=== PATIENT | male | born 1955 | race African-American/Black ===

== ENCOUNTER 2016-09-06 11:56 | Inpatient (IN) | payer OTHER ==
[2016-09-06 13:20] VITALS: BMI 28.4
--- NOTE | 2016-09-06 17:19 | HP ---
CIWA Score - CIWA Score Nausea/Vomitin-Mild Nausea/No Vomiting Muscle Tremors: 4-Moderate,w/Arms Extend Anxiety: 3 Agitation: 4-Moderately Restless Paroxysmal Sweats: 1-Minimal Palms Moist Orientation: 0-Oriented Tacttile Disturbances: 0-None Auditory Disturbances: 0-None Visual Disturbances: 0-None Headache: 1-Very Mild (RECEIVED 75 MG LIBRIUM AT [facility] 09/06/16) CIWA-Ar Total Score: 14 Admission ROS S - HPI Chief Complaint: WITHDRAWAL SX Allergies/Adverse Reactions: Allergies Allergy/AdvReac Type Severity Reaction Status Date / Time fish derived [Fish derived] Allergy Severe Swelling Verified 09/06/16 15:11 Penicillins Allergy Severe Swelling Verified 09/06/16 15:11 lactose AdvReac Severe diarrhea Verified 09/06/16 15:11 History of Present Illness: 61 YEARS OLD MALE WITH LONG HISTORY OF ALCOHOL NICOTINE DEPENDENCE, HAS BPH, POSITIVE PPD, SEIZURE TREATED WITH LOMECTAL ASTHMA COPD AND BIPOLAR II IS ADMITTED TO DETOX Exam Limitations: No Limitations - Ebola screening Have you traveled outside of the country in the last 21 days: No Have you had contact with anyone from an Ebola affected area: No Have you been sick,other than usual withdrawal symptoms: No Do you have a fever: No - Review of Systems Constitutional: Chills, Changes in sleep, Weight Stable EENT: reports: Other (EYE GLASSES) Respiratory: reports: SOB with Exertion (ASTHMA) GI: reports: Nausea, Poor Fluid Intake, Abdominal cramping : reports: Other (PROSTATE ENLARGMENT) Musculoskeletal: reports: No Symptoms Reported Neuro: reports: Seizure (SINCE ), Tremors Endocrine: reports: No Symptoms Reported Hematology: reports: No Symptoms Reported Psychiatric: reports: Judgement Intact, Orientated x3 Other Systems: Reviewed and Negative Patient History - Patient Medical History Hx Anemia: Yes (H/O) Hx Asthma: Yes Hx Chronic Obstructive Pulmonary Disease (COPD): Yes Hx Cancer: No Hx Cardiac Disorders: No Hx Congestive Heart Failure: No Hx Hypertension: No Hx Hypercholesterolemia: No Hx Pacemaker: No HX Cerebrovascular Accident: No Hx Seizures: Yes (last episode was in 2014 RELATED PANIC ATTACK) Hx Dementia: No Hx Diabetes: No Hx Gastrointestinal Disorders: No Hx Liver Disease: Yes (HEP C) Hx Genitourinary Disorders: No Hx Sexually Transmitted Disorders: No Hx Renal Disease (ESRD): No Hx Thyroid Disease: No Hx Human Immunodeficiency Virus (HIV): No (08/01 LAST NEGATIVE) Hx Hepatitis C: Yes Hx Depression: No Hx Suicide Attempt: Yes (pill overdose in 2014) Hx Bipolar Disorder: Yes (depakote and trazodone ) Hx Schizophrenia: No - Patient Surgical History Past Surgical History: Yes Hx Neurologic Surgery: No Hx Cataract Extraction: No Hx Cardiac Surgery: No Hx Lung Surgery: No Hx Breast Surgery: No Hx Breast Biopsy: No Hx Abdominal Surgery: Yes (umbilical hernia as ) Hx Appendectomy: No Hx Cholecystectomy: No Hx Genitourinary Surgery: No Hx Orthopedic Surgery: No Anesthesia Reaction: No - PPD History Previous Implant?: Yes Documented Results: Positive w/o proof Implanted On Prior [facility] Admission?: No Results: CXR 05/30 PPD to be Administered?: No - Smoking Cessation Smoking history: Current every day smoker Have you smoked in the past 12 months: Yes Aproximately how many cigarettes per day: 4 Cigars Per Day: 0 Hx Chewing Tobacco Use: No Initiated information on smoking cessation: Yes 'Breaking Loose' booklet given: 09/06/16 - Substance & Tx. History Hx Alcohol Use: Yes Hx Substance Use: No Substance Use Type: Alcohol Hx Substance Use Treatment: Yes - Substances Abused Alcohol-wine Route: Oral Frequency: Daily Amount used: 2 1/2 pts. Age of first use: 14 Date of Last Use: 09/06/16 Family Disease History - Family Disease History Family Disease History: Other: Father (ALCOHOLIC/), Mother (ALCOHOLIC/ ), Brother (DRUG ABUSE) Admission Physical Exam BHS - Vital Signs Vital Signs: Vital Signs - 24 hr 09/06/16 13:18 Temperature 96.1 F L Pulse Rate 84 Respiratory 20 Rate Blood Pressure 126/88 - Physical General Appearance: Yes: Nourished, Tremorous, Irritable, Sweating, Anxious HEENTM: Yes: Hearing grossly Normal, Normal ENT Inspection, Normocephalic, Normal Voice Respiratory: Yes: Chest Non-Tender, Lungs Clear, Normal Breath Sounds, No Respiratory Distress, No Accessory Muscle Use Neck: Yes: Supple, Trachea in good position Breast: Yes: Breasts Symetrical Cardiology: Yes: Regular Rhythm, Regular Rate, S1, S2 Abdominal: Yes: Non Tender, Soft Genitourinary: Yes: Within Normal Limits Back: Yes: Normal Inspection Musculoskeletal: Yes: full range of Motion, Gait Steady Extremities: Yes: Normal Range of Motion, Non-Tender, Tremors Neurological: Yes: Fully Oriented, Alert, Motor Strength 5/5, Normal Response Integumentary: Yes: Warm Lymphatic: Yes: Within Normal Limits - Diagnostic (1) Alcohol dependence with uncomplicated withdrawal Current Visit: Yes Status: Acute (2) Asthma Current Visit: Yes Status: Acute (3) BPH (benign prostatic hyperplasia) Current Visit: Yes Status: Acute Qualifiers: Prostatic enlargement morphology: non-nodular Lower urinary tract symptom presence: symptoms absent Qualified Code(s): N40.0 - Benign prostatic hyperplasia without lower urinary tract symptoms (4) Hepatitis C Current Visit: Yes Status: Resolved Qualifiers: Viral hepatitis chronicity: chronic Hepatic coma status: without hepatic coma Qualified Code(s): B18.2 - Chronic viral hepatitis C Comment: . (5) Nicotine dependence, uncomplicated Current Visit: Yes Status: Acute Qualifiers: Nicotine product type: cigarettes Qualified Code(s): F17.210 - Nicotine dependence, cigarettes, uncomplicated (6) PPD positive, treated Current Visit: Yes Status: Resolved (7) COPD (chronic obstructive pulmonary disease) Current Visit: Yes Status: Acute Qualifiers: COPD type: emphysema Emphysema type: other Qualified Code(s): J43.8 - Other emphysema (8) Seizure Current Visit: Yes Status: Acute Comment: LAMICTAL (9) Anemia Current Visit: Yes Status: Resolved Qualifiers: Anemia type: iron deficiency Cleared for Admission S - Detox or Rehab [facility] Level of Care: Medically Managed Detox Regimen/Protocol: Librium S Breath Alcohol Content Breath Alcohol Content: 0 Urine Drug Screen - Results Drug Screen Negative: No Urine Drug Screen Results: BZO-Benzodiazepines
[2016-09-06] MEDS ORDERED: chlordiazePOXIDE HCL 25 MG CAPSULE PO PRN (17:24)
[2016-09-06] MEDS ORDERED: LOPERAMIDE HCL 2 MG CAPSULE PO PRN (17:24)
[2016-09-06] MEDS ORDERED: guaiFENesin/D-METHORPHAN HB 10 ML UNIT-DOSE CUPS PO PRN (17:24)
[2016-09-06] MEDS ORDERED: MAGNESIUM HYDROX 2400MG/30ML ORAL SUSPENSION 30 ML CUP PO PRN (17:24)
[2016-09-06] MEDS ORDERED: ACETAMINOPHEN 325 MG TABLET (FP) PO PRN (17:24)
[2016-09-06] MEDS ORDERED: MAGNESIUM CITRATE 300 ML BOTTLE PO PRN (17:24)
[2016-09-06] MEDS ORDERED: MENTHOL/PHENOL 1 EACH UD MM PRN (17:24)
[2016-09-06] MEDS ORDERED: NICOTINE POLACRILEX 2 MG GUM BC PRN (17:24)
[2016-09-06] MEDS ORDERED: hydrOXYzine PAMOATE 50 MG CAPSULE (FP) PO PRN (17:24)
[2016-09-06] MEDS ORDERED: IBUPROFEN 400 MG TABLET (FP) PO PRN (17:24)
[2016-09-06] MEDS ORDERED: MAG HYDROX/AL HYDROX/SIMETH 30 ML UNIT-DOSE CUP PO PRN (17:24)
[2016-09-06] MEDS ORDERED: P-EPHED 60MG/TRIPROLIDI 2.5MG TABLET PO PRN (17:24)
[2016-09-06] MEDS ORDERED: ALBUTEROL SO4 6.7 GM HFA INHALER IH PRN (17:29)
[2016-09-06] MEDS ORDERED: TAMSULOSIN HCL 0.4 MG CAP.ER.24H (FP) PO ONE (18:00)
[2016-09-06] MEDS ORDERED: chlordiazePOXIDE HCL 25 MG CAPSULE PO ONE (18:00)
[2016-09-06 19:59] LABS: URINE APPEARANCE CLEAR; URINE BILIRUBIN NEGATIVE (NEGATIVE); URINE BLOOD NEGATIVE (NEGATIVE); URINE COLOR LTYELLOW; URINE GLUCOSE (UA) NEGATIVE (NEGATIVE); URINE KETONE NEGATIVE (NEGATIVE); URINE LEUK ESTERASE NEGATIVE (NEGATIVE); URINE NITRITE NEGATIVE (NEGATIVE); URINE PROTEIN NEGATIVE (NEGATIVE); URINE UROBILINOGEN NEGATIVE E.U./dl (0.2-1.0)
[2016-09-06] MEDS: chlordiazePOXIDE HCL 25 MG CAPSULE PO SCH (22:09)
[2016-09-06] MEDS: BUDESONIDE/FORMETEROL FUMARATE 80/4.5 mcg INHALER IH SCH (22:09)
[2016-09-06] MEDS: lamoTRIgine 25 MG TABLET PO SCH (22:09)
[2016-09-06] MEDS: THIAMINE HCL 100 MG TABLET (FP) PO SCH (22:09)
[2016-09-06] MEDS: diphenhydrAMINE HCL 50 MG CAPSULE PO PRN (22:10)
[2016-09-07] MEDS: chlordiazePOXIDE HCL 25 MG CAPSULE PO SCH ×4 (05:42→22:12)
[2016-09-07] MEDS: BUDESONIDE/FORMETEROL FUMARATE 80/4.5 mcg INHALER IH SCH ×2 (10:20→22:12)
[2016-09-07] MEDS: PRENATAL VITAMINS W/ FOLIC ACID TABLET (FP) PO SCH (10:20)
[2016-09-07] MEDS: lamoTRIgine 25 MG TABLET PO SCH ×2 (10:21→22:12)
[2016-09-07] MEDS: NICOTINE 14 MG/24 HOURS TOPICAL PATCH TD SCH (10:21)
[2016-09-07 10:30] LABS: MCH 25.2 pg (25.7-33.7); MCHC 32.3 g/dl (32.0-35.9); MEAN PLT VOLUME 7.8 fl (7.5-11.1); PLATELET COUNT 224 K/MM3 (134-434); RDW 15.6 % (11.9-15.9); WHITE BLOOD COUNT 4.6 K/mm3 (4.0-10.0)
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
[2016-09-07 11:15] LABS: ALBUMIN 3.5 g/dl (3.4-5.0); ALK PHOS 77 U/L (45-117); ANION GAP 9 (8-16); BILIRUBIN,TOTAL 0.3 mg/dL (0.2-1.0); CALCIUM 8.8 mg/dL (8.5-10.1); CO2 24 mmol/L (21-32); CREATININE 0.9 mg/dL (0.7-1.3); GLUCOSE,RANDOM 94 mg/dL (74-106); SGOT/AST 26 U/L (15-37); SGPT/ALT 28 U/L (12-78); TOT PROT 7.1 g/dl (6.4-8.2)
--- NOTE | 2016-09-07 12:55 | PN ---
S CIWA - CIWA Score Nausea/Vomitin-Mild Nausea/No Vomiting Muscle Tremors: 4-Moderate,w/Arms Extend Anxiety: 3 Agitation: 3 Paroxysmal Sweats: 3 Orientation: 0-Oriented Tacttile Disturbances: 0-None Auditory Disturbances: 0-None Visual Disturbances: 0-None Headache: 0-None Present CIWA-Ar Total Score: 14 BHS Progress Note (SOAP) Subjective: Sweating,interrupted sleep,anxiety,tremors,restless. Objective: 09/07/16 12:49 Vital Signs - 8 hr 09/07/16 09/07/16 06:18 09:26 Temperature 96.4 F L 97.2 F L Pulse Rate 80 83 Respiratory 18 18 Rate Blood Pressure 118/77 119/85 Laboratory Tests 09/06/16 09/07/16 09/07/16 19:45 06:20 06:20 WBC 4.6 RBC 5.12 Hgb 12.9 Hct 39.9 MCV 78.0 L MCHC 32.3 RDW 15.6 Plt Count 224 MPV 7.8 Sodium 141 Potassium 4.3 Chloride 108 H Carbon Dioxide 24 Anion Gap 9 BUN 10 D Creatinine 0.9 Creat Clearance w eGFR > 60 Random Glucose 94 Calcium 8.8 Total Bilirubin 0.3 D AST 26 D ALT 28 Alkaline Phosphatase 77 Total Protein 7.1 Albumin 3.5 Urine Color Ltyellow Urine Appearance Clear Urine pH 6.0 Ur Specific [place] 1.014 Urine Protein Negative Urine Glucose (UA) Negative Urine Ketones Negative Urine Blood Negative Urine Nitrite Negative Urine Bilirubin Negative Urine Urobilinogen Negative Ur Leukocyte Esterase Negative labs noted Assessment: 09/07/16 12:49 Withdrawal sx. Plan: Copntinue detox
[2016-09-07] MEDS: CITALOPRAM HYDROBROMIDE 20 MG TABLET (FP) PO SCH (13:29)
--- NOTE | 2016-09-07 18:29 | EKG ---
Test Reason : Blood Pressure : / mmHG Vent. Rate : 062 BPM Atrial Rate : 062 BPM P-R Int : 196 ms QRS Dur : 090 ms QT Int : 374 ms P-R-T Axes : 052 027 046 degrees QTc Int : 379 ms NORMAL SINUS RHYTHM ANTERIOR INFARCT , AGE UNDETERMINED ABNORMAL ECG WHEN COMPARED WITH ECG OF 18-MAY-2015 18:11, QT HAS SHORTENED Confirmed by JOSE BARAJAS MD ([id number]) on 09/07/2016 6:29:09 PM Referred By: Confirmed By:JOSE BARAJAS MD
[2016-09-07] MEDS ORDERED: lamoTRIgine 25 MG TABLET PO SCH (22:00)
[2016-09-07] MEDS: QUEtiapine FUMARATE 300 MG TABLET PO SCH (22:12)
[2016-09-07] MEDS: THIAMINE HCL 100 MG TABLET (FP) PO SCH (22:12)
[2016-09-07] MEDS: diphenhydrAMINE HCL 50 MG CAPSULE PO PRN (22:13)
[2016-09-08] MEDS: chlordiazePOXIDE HCL 25 MG CAPSULE PO SCH ×3 (05:23→17:18)
[2016-09-08] MEDS: NICOTINE 14 MG/24 HOURS TOPICAL PATCH TD SCH (10:09)
[2016-09-08] MEDS: CITALOPRAM HYDROBROMIDE 20 MG TABLET (FP) PO SCH (10:10)
[2016-09-08] MEDS: lamoTRIgine 25 MG TABLET PO SCH ×2 (10:10→22:12)
[2016-09-08] MEDS: PRENATAL VITAMINS W/ FOLIC ACID TABLET (FP) PO SCH (10:10)
[2016-09-08] MEDS: BUDESONIDE/FORMETEROL FUMARATE 80/4.5 mcg INHALER IH SCH ×2 (10:11→22:13)
--- NOTE | 2016-09-08 10:58 | PN ---
[facility] CIWA - CIWA Score Nausea/Vomitin-No Nausea/No Vomiting Muscle Tremors: 4-Moderate,w/Arms Extend Anxiety: 3 Agitation: 3 Paroxysmal Sweats: 3 Orientation: 0-Oriented Tacttile Disturbances: 0-None Auditory Disturbances: 0-None Visual Disturbances: 0-None Headache: 0-None Present CIWA-Ar Total Score: 13 S Progress Note (SOAP) Subjective: Anxiety,tremors,sweating,interrupted sleep,restless Objective: 09/08/16 10:57 Vital Signs - 8 hr 09/08/16 09/08/16 09/08/16 03:31 06:23 09:34 Temperature 96.5 F L 96.2 F L Pulse Rate 85 93 H Respiratory 18 18 18 Rate Blood Pressure 100/69 92/67 Laboratory Last Values WBC 4.6 K/mm3 (4.0-10.0) 09/07/16 06:20 RBC 5.12 M/mm3 (4.00-5.60) 09/07/16 06:20 Hgb 12.9 GM/dL (11.7-16.9) 09/07/16 06:20 Hct 39.9 % (35.4-49) 09/07/16 06:20 MCV 78.0 fl (80-96) L 09/07/16 06:20 MCHC 32.3 g/dl (32.0-35.9) 09/07/16 06:20 RDW 15.6 % (11.9-15.9) 09/07/16 06:20 Plt Count 224 K/MM3 (134-434) 09/07/16 06:20 MPV 7.8 fl (7.5-11.1) 09/07/16 06:20 Sodium 141 mmol/L (136-145) 09/07/16 06:20 Potassium 4.3 mmol/L (3.5-5.1) 09/07/16 06:20 Chloride 108 mmol/L (98-107) H 09/07/16 06:20 Carbon Dioxide 24 mmol/L (21-32) 09/07/16 06:20 Anion Gap 9 (8-16) 09/07/16 06:20 BUN 10 mg/dL (7-18) D 09/07/16 06:20 Creatinine 0.9 mg/dL (0.7-1.3) 09/07/16 06:20 Creat Clearance w eGFR > 60 (>60) 09/07/16 06:20 Random Glucose 94 mg/dL (74-106) 09/07/16 06:20 Calcium 8.8 mg/dL (8.5-10.1) 09/07/16 06:20 Total Bilirubin 0.3 mg/dL (0.2-1.0) D 09/07/16 06:20 AST 26 U/L (15-37) D 09/07/16 06:20 ALT 28 U/L (12-78) 09/07/16 06:20 Alkaline Phosphatase 77 U/L (45-117) 09/07/16 06:20 Total Protein 7.1 g/dl (6.4-8.2) 09/07/16 06:20 Albumin 3.5 g/dl (3.4-5.0) 09/07/16 06:20 Urine Color Ltyellow 09/06/16 19:45 Urine Appearance Clear 09/06/16 19:45 Urine pH 6.0 (5.0-8.0) 09/06/16 19:45 Ur Specific [place] 1.014 (1.001-1.035) 09/06/16 19:45 Urine Protein Negative (NEGATIVE) 09/06/16 19:45 Urine Glucose (UA) Negative (NEGATIVE) 09/06/16 19:45 Urine Ketones Negative (NEGATIVE) 09/06/16 19:45 Urine Blood Negative (NEGATIVE) 09/06/16 19:45 Urine Nitrite Negative (NEGATIVE) 09/06/16 19:45 Urine Bilirubin Negative (NEGATIVE) 09/06/16 19:45 Urine Urobilinogen Negative E.U./dl (0.2-1.0) 09/06/16 19:45 Ur Leukocyte Esterase Negative (NEGATIVE) 09/06/16 19:45 RPR Titer Nonreactive (NONREACTIVE) 09/07/16 06:20 labs noted Assessment: 09/08/16 10:57 Withdrawal sx Plan: Continue detox
[2016-09-08] MEDS: chlordiazePOXIDE 5 MG CAPSULE PO SCH (22:12)
[2016-09-08] MEDS: THIAMINE HCL 100 MG TABLET (FP) PO SCH (22:12)
[2016-09-08] MEDS: QUEtiapine FUMARATE 300 MG TABLET PO SCH (22:12)
[2016-09-09] MEDS: chlordiazePOXIDE 5 MG CAPSULE PO SCH ×3 (05:11→17:20)
[2016-09-09] MEDS: PRENATAL VITAMINS W/ FOLIC ACID TABLET (FP) PO SCH (10:10)
[2016-09-09] MEDS: BUDESONIDE/FORMETEROL FUMARATE 80/4.5 mcg INHALER IH SCH ×2 (10:10→22:10)
[2016-09-09] MEDS: lamoTRIgine 25 MG TABLET PO SCH ×2 (10:10→22:11)
[2016-09-09] MEDS: CITALOPRAM HYDROBROMIDE 20 MG TABLET (FP) PO SCH (10:10)
[2016-09-09] MEDS: NICOTINE 14 MG/24 HOURS TOPICAL PATCH TD SCH (10:10)
--- NOTE | 2016-09-09 13:20 | PN ---
BHS Progress Note (SOAP) Subjective: sweating,interrupted sleep,restless Objective: 09/09/16 13:19 Vital Signs - 8 hr 09/09/16 09/09/16 06:12 10:21 Temperature 97 F L 96.7 F L Pulse Rate 90 88 Respiratory 18 20 Rate Blood Pressure 106/72 106/73 Laboratory Last Values WBC 4.6 K/mm3 (4.0-10.0) 09/07/16 06:20 RBC 5.12 M/mm3 (4.00-5.60) 09/07/16 06:20 Hgb 12.9 GM/dL (11.7-16.9) 09/07/16 06:20 Hct 39.9 % (35.4-49) 09/07/16 06:20 MCV 78.0 fl (80-96) L 09/07/16 06:20 MCHC 32.3 g/dl (32.0-35.9) 09/07/16 06:20 RDW 15.6 % (11.9-15.9) 09/07/16 06:20 Plt Count 224 K/MM3 (134-434) 09/07/16 06:20 MPV 7.8 fl (7.5-11.1) 09/07/16 06:20 Sodium 141 mmol/L (136-145) 09/07/16 06:20 Potassium 4.3 mmol/L (3.5-5.1) 09/07/16 06:20 Chloride 108 mmol/L (98-107) H 09/07/16 06:20 Carbon Dioxide 24 mmol/L (21-32) 09/07/16 06:20 Anion Gap 9 (8-16) 09/07/16 06:20 BUN 10 mg/dL (7-18) D 09/07/16 06:20 Creatinine 0.9 mg/dL (0.7-1.3) 09/07/16 06:20 Creat Clearance w eGFR > 60 (>60) 09/07/16 06:20 Random Glucose 94 mg/dL (74-106) 09/07/16 06:20 Calcium 8.8 mg/dL (8.5-10.1) 09/07/16 06:20 Total Bilirubin 0.3 mg/dL (0.2-1.0) D 09/07/16 06:20 AST 26 U/L (15-37) D 09/07/16 06:20 ALT 28 U/L (12-78) 09/07/16 06:20 Alkaline Phosphatase 77 U/L (45-117) 09/07/16 06:20 Total Protein 7.1 g/dl (6.4-8.2) 09/07/16 06:20 Albumin 3.5 g/dl (3.4-5.0) 09/07/16 06:20 Urine Color Ltyellow 09/06/16 19:45 Urine Appearance Clear 09/06/16 19:45 Urine pH 6.0 (5.0-8.0) 09/06/16 19:45 Ur Specific [place] 1.014 (1.001-1.035) 09/06/16 19:45 Urine Protein Negative (NEGATIVE) 09/06/16 19:45 Urine Glucose (UA) Negative (NEGATIVE) 09/06/16 19:45 Urine Ketones Negative (NEGATIVE) 09/06/16 19:45 Urine Blood Negative (NEGATIVE) 09/06/16 19:45 Urine Nitrite Negative (NEGATIVE) 09/06/16 19:45 Urine Bilirubin Negative (NEGATIVE) 09/06/16 19:45 Urine Urobilinogen Negative E.U./dl (0.2-1.0) 09/06/16 19:45 Ur Leukocyte Esterase Negative (NEGATIVE) 09/06/16 19:45 RPR Titer Nonreactive (NONREACTIVE) 09/07/16 06:20 labs noted Assessment: 09/09/16 13:20 Withdrawal sx. Plan: Continue detox
[2016-09-09] MEDS: chlordiazePOXIDE HCL 10 MG CAPSULE PO SCH (22:11)
[2016-09-09] MEDS: THIAMINE HCL 100 MG TABLET (FP) PO SCH (22:11)
[2016-09-09] MEDS: QUEtiapine FUMARATE 300 MG TABLET PO SCH (22:11)
[2016-09-10] MEDS: chlordiazePOXIDE HCL 10 MG CAPSULE PO SCH (06:14)
[2016-09-10] MEDS: BUDESONIDE/FORMETEROL FUMARATE 80/4.5 mcg INHALER IH SCH (09:01)
[2016-09-10] MEDS: lamoTRIgine 25 MG TABLET PO SCH (09:01)
[2016-09-10] MEDS: CITALOPRAM HYDROBROMIDE 20 MG TABLET (FP) PO SCH (09:01)
[2016-09-10] MEDS: PRENATAL VITAMINS W/ FOLIC ACID TABLET (FP) PO SCH (09:01)
[2016-09-10] MEDS: NICOTINE 14 MG/24 HOURS TOPICAL PATCH TD SCH (09:02)
[2016-09-10 09:29] VITALS: BP 106/86; PULSE 100; TEMP 95.4
--- NOTE | 2016-09-10 10:10 | DS ---
[facility] Detox Discharge Summary Admission Date: 09/06/16 Discharge Date: 09/10/16 - History Present History: Alcohol Dependence Pertinent Past History: COPD BPH Hep C - Physical Exam Results Vital Signs: Vital Signs Temperature 95.4 F L 09/10/16 09:28 Pulse Rate 100 H 09/10/16 09:28 Respiratory Rate 20 09/10/16 09:28 Blood Pressure 106/86 09/10/16 09:28 O2 Sat by Pulse Oximetry (%) Pertinent Admission Physical Exam Findings: Withdrawal sx. Laboratory Last Values WBC 4.6 K/mm3 (4.0-10.0) 09/07/16 06:20 RBC 5.12 M/mm3 (4.00-5.60) 09/07/16 06:20 Hgb 12.9 GM/dL (11.7-16.9) 09/07/16 06:20 Hct 39.9 % (35.4-49) 09/07/16 06:20 MCV 78.0 fl (80-96) L 09/07/16 06:20 MCHC 32.3 g/dl (32.0-35.9) 09/07/16 06:20 RDW 15.6 % (11.9-15.9) 09/07/16 06:20 Plt Count 224 K/MM3 (134-434) 09/07/16 06:20 MPV 7.8 fl (7.5-11.1) 09/07/16 06:20 Sodium 141 mmol/L (136-145) 09/07/16 06:20 Potassium 4.3 mmol/L (3.5-5.1) 09/07/16 06:20 Chloride 108 mmol/L (98-107) H 09/07/16 06:20 Carbon Dioxide 24 mmol/L (21-32) 09/07/16 06:20 Anion Gap 9 (8-16) 09/07/16 06:20 BUN 10 mg/dL (7-18) D 09/07/16 06:20 Creatinine 0.9 mg/dL (0.7-1.3) 09/07/16 06:20 Creat Clearance w eGFR > 60 (>60) 09/07/16 06:20 Random Glucose 94 mg/dL (74-106) 09/07/16 06:20 Calcium 8.8 mg/dL (8.5-10.1) 09/07/16 06:20 Total Bilirubin 0.3 mg/dL (0.2-1.0) D 09/07/16 06:20 AST 26 U/L (15-37) D 09/07/16 06:20 ALT 28 U/L (12-78) 09/07/16 06:20 Alkaline Phosphatase 77 U/L (45-117) 09/07/16 06:20 Total Protein 7.1 g/dl (6.4-8.2) 09/07/16 06:20 Albumin 3.5 g/dl (3.4-5.0) 09/07/16 06:20 Urine Color Ltyellow 09/06/16 19:45 Urine Appearance Clear 09/06/16 19:45 Urine pH 6.0 (5.0-8.0) 09/06/16 19:45 Ur Specific [place] 1.014 (1.001-1.035) 09/06/16 19:45 Urine Protein Negative (NEGATIVE) 09/06/16 19:45 Urine Glucose (UA) Negative (NEGATIVE) 09/06/16 19:45 Urine Ketones Negative (NEGATIVE) 09/06/16 19:45 Urine Blood Negative (NEGATIVE) 09/06/16 19:45 Urine Nitrite Negative (NEGATIVE) 09/06/16 19:45 Urine Bilirubin Negative (NEGATIVE) 09/06/16 19:45 Urine Urobilinogen Negative E.U./dl (0.2-1.0) 09/06/16 19:45 Ur Leukocyte Esterase Negative (NEGATIVE) 09/06/16 19:45 RPR Titer Nonreactive (NONREACTIVE) 09/07/16 06:20 labs noted - Treatment Hospital Course: Detox Protocol Followed, Detoxed Safely, Responded well, Discharged Condition Good, Rehab Referral Accepted Patient has Accepted a Rehab Referral to: [facility] IOP - Medication Discharge Medications: Ambulatory Orders Citalopram Hydrobromide [Celexa -] 20 mg PO DAILY #30 tablet 05/08/16 Quetiapine Fumarate [Seroquel] 300 mg PO HS #30 tablet 05/08/16 Budesonide/Formeterol Fumarate [SYMBICORT 80/4.5mcg -] 2 puff IH BID #1 inhaler 05/12/16 Folic Acid - 1 mg PO DAILY #30 tablet 05/12/16 Tamsulosin HCl [Flomax -] 0.4 mg PO DAILY #30 cap.er.24h 05/12/16 Albuterol Sulfate Inhaler - [Ventolin HFA Inhaler -] 2 inh IH Q4H PRN 09/06/16 Lamotrigine [Lamictal] 25 mg PO TID 09/06/16 - Diagnosis (1) Alcohol dependence with uncomplicated withdrawal Current Visit: Yes Status: Acute (2) Asthma Current Visit: Yes Status: Acute (3) Nicotine dependence, uncomplicated Current Visit: Yes Status: Acute Qualifiers: Nicotine product type: cigarettes Qualified Code(s): F17.210 - Nicotine dependence, cigarettes, uncomplicated (4) BPH (benign prostatic hyperplasia) Current Visit: Yes Status: Chronic Qualifiers: Prostatic enlargement morphology: non-nodular Lower urinary tract symptom presence: symptoms absent Qualified Code(s): N40.0 - Benign prostatic hyperplasia without lower urinary tract symptoms (5) Bipolar disorder Current Visit: Yes Status: Chronic (6) COPD (chronic obstructive pulmonary disease) Current Visit: Yes Status: Chronic Qualifiers: COPD type: emphysema Emphysema type: other Qualified Code(s): J43.8 - Other emphysema (7) Hepatitis C Current Visit: Yes Status: Resolved Qualifiers: Viral hepatitis chronicity: chronic Hepatic coma status: without hepatic coma Qualified Code(s): B18.2 - Chronic viral hepatitis C - AMA Did Patient Leave Against Medical Advice: No
== END 2016-09-10 09:10 | disposition home or self-care (01) | DRG 775 ==
LOC: YASAS 11:56 → Y3N 15:57
PROVIDERS: ADMIT Internal Medicine; ATTEND Internal Medicine
PROC: HZ2ZZZZ Detoxification Services for Substance Abuse Treatment (ICD-10-PCS; principal; 2016-09-10)
DX: F10.230 Alcohol dependence with withdrawal, uncomplicated (principal); F17.210 Nicotine dependence, cigarettes, uncomplicated; F31.9 Bipolar disorder, unspecified; J45.909 Unspecified asthma, uncomplicated; J43.8 Other emphysema; B18.2 Chronic viral hepatitis C; N40.0 Benign prostatic hyperplasia without lower urinary tract symptoms; D50.9 Iron deficiency anemia, unspecified; Z86.69 Personal history of other diseases of the nervous system and sense organs
CPT/HCPCS: 36415; 71020-TC; 80053; 81003; 85027; 86593; 93005; 93010

== ENCOUNTER 2017-08-16 13:52 | Inpatient (IN) | payer OTHER ==
[2017-08-16 17:43] VITALS: BMI 31.4
--- NOTE | 2017-08-16 23:06 | HP ---
CIWA Score - CIWA Score Nausea/Vomitin Muscle Tremors: 4-Moderate,w/Arms Extend Anxiety: 4-Mod. Anxious/Guarded Agitation: 4-Moderately Restless Paroxysmal Sweats: 1-Minimal Palms Moist Orientation: 0-Oriented Tacttile Disturbances: 0-None Auditory Disturbances: 0-None Visual Disturbances: 0-None Headache: 3-Moderate CIWA-Ar Total Score: 19 Admission ROS S - HPI Chief Complaint: Alcohol withdrawal symptoms Allergies/Adverse Reactions: Allergies Allergy/AdvReac Type Severity Reaction Status Date / Time fish derived [Fish derived] Allergy Severe Swelling Verified 08/16/17 23:14 Penicillins Allergy Severe Swelling Verified 08/16/17 23:14 lactose AdvReac Severe diarrhea Verified 08/16/17 23:14 History of Present Illness: 61 years old male with a long history of alcohol dependence is seeking admission to detox. Patient has been in previous detox and reports 5 years of sobriety. he has past medical history of seizures, COPD, BPH, migraine, Hep C ( treateed with Harvoni), TB and depression. Exam Limitations: No Limitations - Ebola screening Have you traveled outside of the country in the last 21 days: No (N) Have you had contact with anyone from an Ebola affected area: No Have you been sick,other than usual withdrawal symptoms: No Do you have a fever: No - Review of Systems Constitutional: Chills, Loss of Appetite, Malaise, Night Sweats, Changes in sleep, Weakness EENT: reports: Nose Congestion, Sinus Pressure Respiratory: reports: No Symptoms reported Cardiac: reports: No Symptoms Reported GI: reports: Diarrhea (x 2), Nausea, Poor Appetite, Poor Fluid Intake, Abdominal cramping : reports: No Symptoms Reported Musculoskeletal: reports: Back Pain, Muscle Pain, Muscle Weakness Integumentary: reports: Flushing Neuro: reports: Headache, Tingling, Tremors Endocrine: reports: No Symptoms Reported Hematology: reports: No Symptoms Reported Psychiatric: reports: Orientated x3, Agitated, Anxious Other Systems: Reviewed and Negative Patient History - Patient Medical History Hx Anemia: Yes (Not on meds) Hx Asthma: Yes (Ventolin HFA nebulizer tx) Hx Chronic Obstructive Pulmonary Disease (COPD): Yes (Symbicort) Hx Cancer: No Hx Cardiac Disorders: No Hx Congestive Heart Failure: No Hx Hypertension: No Hx Hypercholesterolemia: No Hx Pacemaker: No HX Cerebrovascular Accident: No Hx Seizures: Yes (last episode was in 2015. Not on meds) Hx Dementia: No Hx Diabetes: No Hx Gastrointestinal Disorders: Yes (BPH - FLOMAX) Hx Liver Disease: Yes (HEP C) Hx Genitourinary Disorders: No Hx Sexually Transmitted Disorders: No Hx Renal Disease (ESRD): No Hx Thyroid Disease: No Hx Human Immunodeficiency Virus (HIV): No (08/01 LAST NEGATIVE) Hx Hepatitis C: Yes (Treated with Harvoni) Hx Depression: Yes (Seroquel) Hx Suicide Attempt: Yes (Pill overdose in 2014. Denies suicidal ideation at this time) Hx Bipolar Disorder: Yes (Depakote and Trazodone ) Hx Schizophrenia: No Other Medical History: MIGRAINE- Not on meds - Patient Surgical History Past Surgical History: Yes Hx Neurologic Surgery: No Hx Cataract Extraction: No Hx Cardiac Surgery: No Hx Lung Surgery: No Hx Abdominal Surgery: Yes (umbilical hernia as infant) Hx Appendectomy: No Hx Cholecystectomy: No Hx Genitourinary Surgery: No Hx Orthopedic Surgery: No Anesthesia Reaction: No - PPD History Previous Implant?: No (PPD +. Treated with INH for a year in 1981) Implanted On Prior [facility] Admission?: No Results: CXR 05/30 PPD to be Administered?: No - Reproductive History Patient is a Female of Child Bearing Age (11 -55 yrs old): No (MALE) - Smoking Cessation Smoking history: Current every day smoker Have you smoked in the past 12 months: Yes Aproximately how many cigarettes per day: 4 Cigars Per Day: 0 Hx Chewing Tobacco Use: No Initiated information on smoking cessation: Yes 'Breaking Loose' booklet given: 08/16/17 - Substance & Tx. History Hx Alcohol Use: Yes Hx Substance Use: No Hx Substance Use Treatment: Yes ([facility]) - Substances Abused Alcohol Route: Oral Frequency: Daily Amount used: BEER - 2 x 6 pack, Wine 1 pint Age of first use: 14 Date of Last Use: 08/16/17 Family Disease History - Family Disease History Family Disease History: Other: Father (ALCOHOLIC/), Mother (ALCOHOLIC/ ), Brother (DRUG ABUSE) Admission Physical Exam [facility] - Vital Signs Vital Signs: Vital Signs - 24 hr 08/16/17 17:41 Temperature 97.8 F Pulse Rate 122 H Respiratory 20 Rate Blood Pressure 147/91 - Physical General Appearance: Yes: Moderate Distress, Tremorous, Irritable, Sweating, Anxious HEENTM: Yes: EOMI, Normal ENT Inspection, Normal Voice, YONNY, Nasal Congestion Respiratory: Yes: Lungs Clear, Normal Breath Sounds, No Respiratory Distress Neck: Yes: Supple Breast: Yes: Breast Exam Deferred Cardiology: Yes: Regular Rhythm, Regular Rate, S1, S2 Abdominal: Yes: Normal Bowel Sounds, Soft Genitourinary: Yes: Within Normal Limits Back: Yes: Normal Inspection Musculoskeletal: Yes: Back pain, Muscle Pain, Muscle weakness Extremities: Yes: Tremors Neurological: Yes: Alert, Normal Mood/Affect Integumentary: Yes: Warm Lymphatic: Yes: Within Normal Limits - Diagnostic (1) Alcohol dependence with uncomplicated withdrawal Current Visit: Yes Status: Chronic (2) Asthma Current Visit: Yes Status: Chronic (3) Nicotine dependence, uncomplicated Current Visit: Yes Status: Chronic Qualifiers: Nicotine product type: cigarettes Qualified Code(s): F17.210 - Nicotine dependence, cigarettes, uncomplicated (4) Seizure Current Visit: Yes Status: Chronic Comment: LAMICTAL (5) COPD (chronic obstructive pulmonary disease) Current Visit: Yes Status: Chronic Qualifiers: COPD type: emphysema Emphysema type: other Qualified Code(s): J43.8 - Other emphysema (6) BPH (benign prostatic hyperplasia) Current Visit: Yes Status: Chronic Cleared for Admission [facility] - Detox or Rehab [facility] Level of Care: Medically Managed Detox Regimen/Protocol: Librium [facility] Breath Alcohol Content Breath Alcohol Content: 0.252 Urine Drug Screen - Results Drug Screen Negative: No Urine Drug Screen Results: BZO-Benzodiazepines
[2017-08-16] MEDS ORDERED: NICOTINE POLACRILEX 2 MG GUM BC PRN (23:26)
[2017-08-16] MEDS ORDERED: chlordiazePOXIDE HCL 25 MG CAPSULE PO ONE (23:26)
[2017-08-16] MEDS ORDERED: guaiFENesin/D-METHORPHAN HB 10 ML UNIT-DOSE CUPS PO PRN (23:26)
[2017-08-16] MEDS ORDERED: chlordiazePOXIDE HCL 25 MG CAPSULE PO PRN (23:26)
[2017-08-16] MEDS ORDERED: MAGNESIUM HYDROX 2400MG/30ML ORAL SUSPENSION 30 ML CUP PO PRN (23:26)
[2017-08-16] MEDS ORDERED: IBUPROFEN 400 MG TABLET (FP) PO PRN (23:26)
[2017-08-16] MEDS ORDERED: LOPERAMIDE HCL 2 MG CAPSULE PO PRN (23:26)
[2017-08-16] MEDS ORDERED: MAG HYDROX/AL HYDROX/SIMETH 30 ML UNIT-DOSE CUP PO PRN (23:26)
[2017-08-16] MEDS ORDERED: MENTHOL/PHENOL 1 EACH UD MM PRN (23:26)
[2017-08-16] MEDS ORDERED: P-EPHED 60MG/TRIPROLIDI 2.5MG TABLET PO PRN (23:26)
[2017-08-16] MEDS ORDERED: ACETAMINOPHEN 325 MG TABLET (FP) PO PRN (23:26)
[2017-08-16] MEDS ORDERED: MAGNESIUM CITRATE 300 ML BOTTLE PO PRN (23:26)
[2017-08-16] MEDS ORDERED: ALBUTEROL SO4 18 GM HFA INHALER IH PRN (23:30)
[2017-08-17] MEDS: chlordiazePOXIDE HCL 25 MG CAPSULE PO SCH ×7 (00:42→22:48)
[2017-08-17] MEDS: PRENATAL VITAMINS W/ FOLIC ACID TABLET (FP) PO SCH (10:05)
[2017-08-17] MEDS: TAMSULOSIN HCL 0.4 MG CAP.ER.24H (FP) PO SCH (10:05)
[2017-08-17] MEDS: NICOTINE 14 MG/24 HOURS TOPICAL PATCH TD SCH (10:05)
[2017-08-17] MEDS: BUDESONIDE/FORMETEROL FUMARATE 80/4.5 mcg INHALER IH SCH (10:07)
[2017-08-17 10:33] LABS: URINE APPEARANCE TURBID; URINE BILIRUBIN NEGATIVE (NEGATIVE); URINE BLOOD NEGATIVE (NEGATIVE); URINE COLOR RED; URINE GLUCOSE (UA) NEGATIVE (NEGATIVE); URINE KETONE NEGATIVE (NEGATIVE); URINE LEUK ESTERASE NEGATIVE (NEGATIVE); URINE NITRITE NEGATIVE (NEGATIVE); URINE PROTEIN NEGATIVE (NEGATIVE); URINE UROBILINOGEN NEGATIVE mg/dL (0.2-1.0)
[2017-08-17 10:34] LABS: HEMATOCRIT 39.9 % (35.4-49); HEMOGLOBIN 12.9 GM/dL (11.7-16.9); MCH 25.4 pg (25.7-33.7); MCHC 32.3 g/dl (32.0-35.9); MEAN CELL VOLUME 78.5 fl (80-96); MEAN PLT VOLUME 7.7 fl (7.5-11.1); PLATELET COUNT 225 K/MM3 (134-434); RBC 5.08 M/mm3 (4.00-5.60); RDW 16.8 % (11.9-15.9); WHITE BLOOD COUNT 5.4 K/mm3 (4.0-10.0)
[2017-08-17 10:38] LABS: ALBUMIN 3.5 g/dl (3.4-5.0); ANION GAP 5 (8-16); BILIRUBIN,TOTAL 0.3 mg/dL (0.2-1.0); BLOOD UREA NITROGEN 13 mg/dL (7-18); CALCIUM 7.8 mg/dL (8.5-10.1); CHLORIDE 108 mmol/L (98-107); CO2 29 mmol/L (21-32); CREATININE 0.9 mg/dL (0.7-1.3); GLUCOSE,RANDOM 87 mg/dL (74-106); POTASSIUM 4.3 mmol/L (3.5-5.1); SGOT/AST 19 U/L (15-37); SGPT/ALT 26 U/L (12-78); SODIUM 142 mmol/L (136-145); TOT PROT 6.8 g/dl (6.4-8.2)
[2017-08-17 10:39] LABS: ALK PHOS 69 U/L (45-117)
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
--- NOTE | 2017-08-17 12:30 | PN ---
S CIWA - CIWA Score Nausea/Vomitin-Mild Nausea/No Vomiting Muscle Tremors: 4-Moderate,w/Arms Extend Anxiety: 4-Mod. Anxious/Guarded Agitation: 4-Moderately Restless Paroxysmal Sweats: 1-Minimal Palms Moist Orientation: 0-Oriented Tacttile Disturbances: 1-Very Mild Itch/Numbness Auditory Disturbances: 0-None Visual Disturbances: 0-None Headache: 1-Very Mild CIWA-Ar Total Score: 16 BHS Progress Note (SOAP) Subjective: sweat, tremor, anxiety, restlessness, sleeplessness Objective: 08/17/17 12:31 Vital Signs Temperature 97.9 F 08/17/17 10:41 Pulse Rate 86 08/17/17 10:41 Respiratory Rate 16 08/17/17 10:41 Blood Pressure 130/76 08/17/17 10:41 O2 Sat by Pulse Oximetry (%) Laboratory Last Values WBC 5.4 K/mm3 (4.0-10.0) 08/17/17 08:00 RBC 5.08 M/mm3 (4.00-5.60) 08/17/17 08:00 Hgb 12.9 GM/dL (11.7-16.9) 08/17/17 08:00 Hct 39.9 % (35.4-49) 08/17/17 08:00 MCV 78.5 fl (80-96) L 08/17/17 08:00 MCH 25.4 pg (25.7-33.7) L 08/17/17 08:00 MCHC 32.3 g/dl (32.0-35.9) 08/17/17 08:00 RDW 16.8 % (11.9-15.9) H 08/17/17 08:00 Plt Count 225 K/MM3 (134-434) 08/17/17 08:00 MPV 7.7 fl (7.5-11.1) 08/17/17 08:00 Sodium 142 mmol/L (136-145) 08/17/17 08:00 Potassium 4.3 mmol/L (3.5-5.1) 08/17/17 08:00 Chloride 108 mmol/L (98-107) H 08/17/17 08:00 Carbon Dioxide 29 mmol/L (21-32) D 08/17/17 08:00 Anion Gap 5 (8-16) L 08/17/17 08:00 BUN 13 mg/dL (7-18) D 08/17/17 08:00 Creatinine 0.9 mg/dL (0.7-1.3) D 08/17/17 08:00 Creat Clearance w eGFR > 60 (>60) 08/17/17 08:00 Random Glucose 87 mg/dL (74-106) 08/17/17 08:00 Calcium 7.8 mg/dL (8.5-10.1) L 08/17/17 08:00 Total Bilirubin 0.3 mg/dL (0.2-1.0) D 08/17/17 08:00 AST 19 U/L (15-37) 08/17/17 08:00 ALT 26 U/L (12-78) 08/17/17 08:00 Alkaline Phosphatase 69 U/L (45-117) D 08/17/17 08:00 Total Protein 6.8 g/dl (6.4-8.2) 08/17/17 08:00 Albumin 3.5 g/dl (3.4-5.0) 08/17/17 08:00 Urine Color Red 08/17/17 09:30 Urine Appearance Turbid 08/17/17 09:30 Urine pH 5.0 (5.0-8.0) 08/17/17 09:30 Ur Specific [place] 1.021 (1.001-1.035) 08/17/17 09:30 Urine Protein Negative (NEGATIVE) 08/17/17 09:30 Urine Glucose (UA) Negative (NEGATIVE) 08/17/17 09:30 Urine Ketones Negative (NEGATIVE) 08/17/17 09:30 Urine Blood Negative (NEGATIVE) 08/17/17 09:30 Urine Nitrite Negative (NEGATIVE) 08/17/17 09:30 Urine Bilirubin Negative (NEGATIVE) 08/17/17 09:30 Urine Urobilinogen Negative mg/dL (0.2-1.0) 08/17/17 09:30 Ur Leukocyte Esterase Negative (NEGATIVE) 08/17/17 09:30 lab noted Assessment: 08/17/17 12:31 withdrawal sx Plan: continue detox
--- NOTE | 2017-08-17 14:27 | EKG ---
Test Reason : Blood Pressure : / mmHG Vent. Rate : 104 BPM Atrial Rate : 104 BPM P-R Int : 172 ms QRS Dur : 072 ms QT Int : 346 ms P-R-T Axes : 061 003 048 degrees QTc Int : 454 ms SINUS TACHYCARDIA ANTERIOR INFARCT , AGE UNDETERMINED ABNORMAL ECG Confirmed by MD SIERRA, LUDY ([id number]) on 08/17/2017 2:27:26 PM Referred By: Confirmed By:LUDY ESQUIVEL MD
[2017-08-17] MEDS: CITALOPRAM HYDROBROMIDE 20 MG TABLET (FP) PO SCH (15:16)
[2017-08-17] MEDS: QUEtiapine FUMARATE 300 MG TABLET PO SCH (22:48)
[2017-08-17] MEDS: THIAMINE HCL 100 MG TABLET (FP) PO SCH (22:49)
[2017-08-18] MEDS: chlordiazePOXIDE HCL 25 MG CAPSULE PO SCH ×4 (05:16→22:24)
[2017-08-18] MEDS: CITALOPRAM HYDROBROMIDE 20 MG TABLET (FP) PO SCH (10:30)
[2017-08-18] MEDS: PRENATAL VITAMINS W/ FOLIC ACID TABLET (FP) PO SCH (10:30)
[2017-08-18] MEDS: NICOTINE 14 MG/24 HOURS TOPICAL PATCH TD SCH (10:31)
[2017-08-18] MEDS: TAMSULOSIN HCL 0.4 MG CAP.ER.24H (FP) PO SCH (10:31)
[2017-08-18] MEDS: BUDESONIDE/FORMETEROL FUMARATE 80/4.5 mcg INHALER IH SCH (10:31)
--- NOTE | 2017-08-18 12:22 | PN ---
S CIWA - CIWA Score Nausea/Vomitin Muscle Tremors: 3 Anxiety: 3 Agitation: 2 Paroxysmal Sweats: 1-Minimal Palms Moist Orientation: 0-Oriented Tacttile Disturbances: 1-Very Mild Itch/Numbness Auditory Disturbances: 1-Very Mild Visual Disturbances: 0-None Headache: 2-Mild CIWA-Ar Total Score: 16 BHS Progress Note (SOAP) Subjective: ALERT,IRRITABLE,ANXIOUS,INTERRUPTED SLEEP,TREMOR Objective: 08/18/17 12:19 Vital Signs Temperature 97.1 F L 08/18/17 06:00 Pulse Rate 89 08/18/17 06:00 Respiratory Rate 18 08/18/17 06:00 Blood Pressure 114/73 08/18/17 06:00 O2 Sat by Pulse Oximetry (%) EKG SINUS TACHYCARDIA 104/MIN NO CHEST PAIN,NO SB,NO DIZZINESS 08/18/17 12:21 Laboratory Last Values WBC 5.4 K/mm3 (4.0-10.0) 08/17/17 08:00 RBC 5.08 M/mm3 (4.00-5.60) 08/17/17 08:00 Hgb 12.9 GM/dL (11.7-16.9) 08/17/17 08:00 Hct 39.9 % (35.4-49) 08/17/17 08:00 MCV 78.5 fl (80-96) L 08/17/17 08:00 MCH 25.4 pg (25.7-33.7) L 08/17/17 08:00 MCHC 32.3 g/dl (32.0-35.9) 08/17/17 08:00 RDW 16.8 % (11.9-15.9) H 08/17/17 08:00 Plt Count 225 K/MM3 (134-434) 08/17/17 08:00 MPV 7.7 fl (7.5-11.1) 08/17/17 08:00 Sodium 142 mmol/L (136-145) 08/17/17 08:00 Potassium 4.3 mmol/L (3.5-5.1) 08/17/17 08:00 Chloride 108 mmol/L (98-107) H 08/17/17 08:00 Carbon Dioxide 29 mmol/L (21-32) D 08/17/17 08:00 Anion Gap 5 (8-16) L 08/17/17 08:00 BUN 13 mg/dL (7-18) D 08/17/17 08:00 Creatinine 0.9 mg/dL (0.7-1.3) D 08/17/17 08:00 Creat Clearance w eGFR > 60 (>60) 08/17/17 08:00 Random Glucose 87 mg/dL (74-106) 08/17/17 08:00 Calcium 7.8 mg/dL (8.5-10.1) L 08/17/17 08:00 Total Bilirubin 0.3 mg/dL (0.2-1.0) D 08/17/17 08:00 AST 19 U/L (15-37) 08/17/17 08:00 ALT 26 U/L (12-78) 08/17/17 08:00 Alkaline Phosphatase 69 U/L (45-117) D 08/17/17 08:00 Total Protein 6.8 g/dl (6.4-8.2) 08/17/17 08:00 Albumin 3.5 g/dl (3.4-5.0) 08/17/17 08:00 Urine Color Red 08/17/17 09:30 Urine Appearance Turbid 08/17/17 09:30 Urine pH 5.0 (5.0-8.0) 08/17/17 09:30 Ur Specific [place] 1.021 (1.001-1.035) 08/17/17 09:30 Urine Protein Negative (NEGATIVE) 08/17/17 09:30 Urine Glucose (UA) Negative (NEGATIVE) 08/17/17 09:30 Urine Ketones Negative (NEGATIVE) 08/17/17 09:30 Urine Blood Negative (NEGATIVE) 08/17/17 09:30 Urine Nitrite Negative (NEGATIVE) 08/17/17 09:30 Urine Bilirubin Negative (NEGATIVE) 08/17/17 09:30 Urine Urobilinogen Negative mg/dL (0.2-1.0) 08/17/17 09:30 Ur Leukocyte Esterase Negative (NEGATIVE) 08/17/17 09:30 RPR Titer Nonreactive (NONREACTIVE) 08/17/17 08:00 Assessment: 08/18/17 12:21 WITHDRAWAL SYMPTOM Plan: CONTINUE DETOX
[2017-08-18] MEDS: THIAMINE HCL 100 MG TABLET (FP) PO SCH (22:23)
[2017-08-18] MEDS: QUEtiapine FUMARATE 300 MG TABLET PO SCH (22:23)
[2017-08-18 22:53] VITALS: PULSE 82
[2017-08-19] MEDS: chlordiazePOXIDE 5 MG CAPSULE PO SCH ×2 (05:40→10:25)
[2017-08-19 06:44] VITALS: BP 131/90; TEMP 98.2
[2017-08-19] MEDS: PRENATAL VITAMINS W/ FOLIC ACID TABLET (FP) PO SCH (10:25)
[2017-08-19] MEDS: CITALOPRAM HYDROBROMIDE 20 MG TABLET (FP) PO SCH (10:25)
[2017-08-19] MEDS: BUDESONIDE/FORMETEROL FUMARATE 80/4.5 mcg INHALER IH SCH (10:25)
[2017-08-19] MEDS: TAMSULOSIN HCL 0.4 MG CAP.ER.24H (FP) PO SCH (10:25)
[2017-08-19] MEDS: NICOTINE 14 MG/24 HOURS TOPICAL PATCH TD SCH (11:17)
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
--- NOTE | 2017-08-19 11:53 | DS ---
[facility] Detox Discharge Summary Admission Date: 08/16/17 Discharge Date: 08/19/17 - History Present History: Alcohol Dependence Additional Comments: FOLLOW UP WITH AFTER CARE PROGRAM ARRANGEMENT Pertinent Past History: ASTHMA NICOTINE DEPENDENCE COPD BPH SEIZURE - Physical Exam Results Vital Signs: Vital Signs Temperature 98.2 F 08/19/17 06:00 Pulse Rate 82 08/19/17 06:00 Respiratory Rate 20 08/19/17 06:00 Blood Pressure 131/90 08/19/17 06:00 O2 Sat by Pulse Oximetry (%) Pertinent Admission Physical Exam Findings: WITHDRAWAL SIGNS AND SYMPTOM - Treatment Hospital Course: Detox Protocol Followed, Detoxed Safely, Responded well, Discharged Condition Good Patient has Accepted a Rehab Referral to: DECLINED - Medication Discharge Medications: Ambulatory Orders Citalopram Hydrobromide [Celexa -] 20 mg PO DAILY #30 tablet 05/08/16 Albuterol Sulfate Inhaler - [Ventolin Hfa Inhaler -] 2 inh PO Q4H PRN 04/18/17 Quetiapine Fumarate [Seroquel -] 300 mg PO HS #30 tab 04/19/17 Tamsulosin HCl [Flomax -] 0.4 mg PO DAILY #30 cap.er.24h 04/21/17 Budesonide/Formeterol Fumarate [SYMBICORT 80/4.5mcg -] 1 inh PO DAILY 08/16/17 - Diagnosis (1) Alcohol dependence with uncomplicated withdrawal Current Visit: Yes Status: Acute (2) Alcohol-induced anxiety disorder Current Visit: Yes Status: Acute (3) Alcohol-induced sleep disorder Current Visit: Yes Status: Acute (4) Asthma Current Visit: Yes Status: Chronic (5) BPH (benign prostatic hyperplasia) Current Visit: Yes Status: Chronic (6) COPD (chronic obstructive pulmonary disease) Current Visit: Yes Status: Chronic Qualifiers: COPD type: emphysema Emphysema type: other Qualified Code(s): J43.8 - Other emphysema (7) Nicotine dependence, uncomplicated Current Visit: Yes Status: Chronic Qualifiers: Nicotine product type: cigarettes Qualified Code(s): F17.210 - Nicotine dependence, cigarettes, uncomplicated - AMA Did Patient Leave Against Medical Advice: No
[2017-08-20] MEDS ORDERED: chlordiazePOXIDE HCL 10 MG CAPSULE PO SCH (05:00)
== END 2017-08-19 13:34 | disposition home or self-care (01) | DRG 775 ==
LOC: YASAS 13:52 → Y6N 21:34
PROVIDERS: ADMIT Internal Medicine; ATTEND Internal Medicine
PROC: HZ2ZZZZ Detoxification Services for Substance Abuse Treatment (ICD-10-PCS; principal; 2017-08-16)
DX: F10.230 Alcohol dependence with withdrawal, uncomplicated (principal); F10.280 Alcohol dependence with alcohol-induced anxiety disorder; F10.282 Alcohol dependence with alcohol-induced sleep disorder; F17.210 Nicotine dependence, cigarettes, uncomplicated; F31.9 Bipolar disorder, unspecified; B18.2 Chronic viral hepatitis C; N40.0 Benign prostatic hyperplasia without lower urinary tract symptoms; J43.8 Other emphysema; J45.909 Unspecified asthma, uncomplicated; R00.0 Tachycardia, unspecified; Z86.69 Personal history of other diseases of the nervous system and sense organs; Z91.011 Allergy to milk products; Z91.013 Allergy to seafood; Z88.0 Allergy status to penicillin; Z91.5 Personal history of self-harm
CPT/HCPCS: 36415; 80053; 81003; 85027; 86593; 93005; 93010

== ENCOUNTER 2017-10-10 09:35 | Inpatient (IN) | payer OTHER ==
[2017-10-10 10:15] VITALS: BMI 30.5
--- NOTE | 2017-10-10 10:24 | HP ---
Admission ROS [facility] Chief Complaint: Patient presents for alcohol dependence. Allergies/Adverse Reactions: Allergies Allergy/AdvReac Type Severity Reaction Status Date / Time fish derived [Fish derived] Allergy Severe Swelling Verified 10/10/17 09:49 Penicillins Allergy Severe Swelling Verified 10/10/17 09:49 lactose AdvReac Severe diarrhea Verified 10/10/17 09:49 History of Present Illness: Patient completed detox her at [facility] yesterday, 10/09/17, for ETOH dependence. Patient drinks 3 pints of wine and 2 quarts of beer daily. Started drinking at age 14. Has history of seizures, asthma,treated Hep C and Bipolar disorder. Denies SI/HI. Attempted suicide 06/2017 by overdosing on "pills and ETOH". Was admitted and treated at [facility]. No recent seizures reported. Last seizure in 04/2017. - Ebola screening Have you traveled outside of the country in the last 21 days: No Have you had contact with anyone from an Ebola affected area: No Have you been sick,other than usual withdrawal symptoms: No Do you have a fever: No - Review of Systems Constitutional: Changes in sleep EENT: reports: No Symptoms Reported Respiratory: reports: Wheezing Cardiac: reports: No Symptoms Reported GI: reports: Poor Fluid Intake : reports: No Symptoms Reported Musculoskeletal: reports: Back Pain Integumentary: reports: No Symptoms Reported Neuro: reports: Seizure Endocrine: reports: No Symptoms Reported Hematology: reports: No Symptoms Reported Psychiatric: reports: Orientated x3, Anxious, Depressed Patient History - Patient Medical History Hx Anemia: Yes (Not on meds) Hx Asthma: Yes Hx Chronic Obstructive Pulmonary Disease (COPD): Yes (Symbicort) Hx Cancer: No Hx Cardiac Disorders: No Hx Congestive Heart Failure: No Hx Hypertension: No Hx Hypercholesterolemia: No Hx Pacemaker: No HX Cerebrovascular Accident: No Hx Seizures: Yes (R/T ALCOHOL APR 2017) Hx Dementia: No Hx Diabetes: No Hx Gastrointestinal Disorders: No Hx Liver Disease: Yes (HEP C) Hx Genitourinary Disorders: No Hx Sexually Transmitted Disorders: No Hx Renal Disease (ESRD): No Hx Thyroid Disease: No Hx Human Immunodeficiency Virus (HIV): No (08/01 LAST NEGATIVE) Hx Hepatitis C: Yes (Treated with Harvoni) Hx Depression: Yes (Seroquel) Hx Suicide Attempt: Yes (Pill overdose in 2015. Denies suicidal ideation at this time) Hx Bipolar Disorder: Yes (Depakote and Trazodone ) Hx Schizophrenia: No - Patient Surgical History Past Surgical History: Yes Hx Neurologic Surgery: No Hx Cataract Extraction: No Hx Cardiac Surgery: No Hx Lung Surgery: No Hx Breast Surgery: No Hx Breast Biopsy: No Hx Abdominal Surgery: Yes (umbilical hernia as infant) Hx Appendectomy: No Hx Cholecystectomy: No Hx Genitourinary Surgery: No Hx Section: No Hx Orthopedic Surgery: No Anesthesia Reaction: No - PPD History Results: CXR 09/30/17 - Smoking Cessation Smoking history: Current every day smoker Have you smoked in the past 12 months: Yes Aproximately how many cigarettes per day: 4 Cigars Per Day: 0 Hx Chewing Tobacco Use: No Initiated information on smoking cessation: Yes 'Breaking Loose' booklet given: 10/10/17 - Substance & Tx. History Hx Alcohol Use: Yes Hx Substance Use: No Substance Use Type: Alcohol Hx Substance Use Treatment: Yes - Substances Abused Alcohol Route: Oral Frequency: Daily Amount used: 3 quart wine & 2 pints beer Age of first use: 14 Date of Last Use: 10/03/17 Family Disease History - Family Disease History Family Disease History: Other: Father (ALCOHOLIC/), Mother (ALCOHOLIC/ ), Brother (DRUG ABUSE) Admission Physical Exam [facility] - Vital Signs Vital Signs: Vital Signs - 24 hr 10/10/17 09:46 Temperature 98.1 F Pulse Rate 91 H Respiratory 20 Rate Blood Pressure 136/91 - Physical General Appearance: Yes: Appropriately Dressed, Anxious HEENTM: Yes: EOMI, Hearing grossly Normal, Normal ENT Inspection, Normocephalic , YONNY, Pharynx Normal Respiratory: Yes: Chest Non-Tender, Lungs Clear, Normal Breath Sounds, No Respiratory Distress, No Accessory Muscle Use Neck: Yes: Within Normal Limits, No masses,lesions,Nodules, Supple Breast: Yes: Breast Exam Deferred Cardiology: Yes: Regular Rhythm, Regular Rate, S1, S2 Abdominal: Yes: Normal Bowel Sounds, Non Tender, Soft Genitourinary: Yes: Within Normal Limits Back: Yes: Muscle Spasm Musculoskeletal: Yes: full range of Motion, Back pain, Muscle Pain Extremities: Yes: Normal Inspection, Normal Range of Motion, Non-Tender Neurological: Yes: quantitative researcher II-XII NML intact, Fully Oriented, Alert, Motor Strength 5/5, Depressed Affect Integumentary: Yes: Normal Color, Dry, Warm Lymphatic: Yes: Within Normal Limits - Diagnostic (1) Alcohol dependence Current Visit: Yes Status: Acute Qualifiers: Substance use status: uncomplicated Qualified Code(s): F10.20 - Alcohol dependence, uncomplicated (2) Nicotine dependence, uncomplicated Current Visit: No Status: Acute Qualifiers: Nicotine product type: unspecified Qualified Code(s): F17.200 - Nicotine dependence, unspecified, uncomplicated (3) Asthma Current Visit: Yes Status: Chronic (4) Bipolar disorder Current Visit: No Status: Chronic Qualifiers: Active/Remission status: remission status unspecified Qualified Code(s): F31.9 - Bipolar disorder, unspecified Comment: History.On medications. Cleared for Admission [facility] - Detox or Rehab Claeared for Rehab Admission: Yes [facility] Breath Alcohol Content Breath Alcohol Content: 0 Urine Drug Screen - Results Drug Screen Negative: No Urine Drug Screen Results: BZO-Benzodiazepines Inpatient Rehab Admission - Initial Determination Are CD services needed?: Yes Free of communicable disease: Yes Not in need of hospitalization: Yes - Rehab Admission Criteria Previous failed treatment: Yes Poor recovery environment: Yes Comorbidities: Yes Lacks judgement: Yes Patient is meeting Inpatient Rehab admission criteria:: Yes
[2017-10-10] MEDS ORDERED: MAGNESIUM CITRATE 300 ML BOTTLE PO PRN (10:42)
[2017-10-10] MEDS ORDERED: LOPERAMIDE HCL 2 MG CAPSULE PO PRN (10:42)
[2017-10-10] MEDS ORDERED: IBUPROFEN 400 MG TABLET (FP) PO PRN (10:42)
[2017-10-10] MEDS ORDERED: guaiFENesin/D-METHORPHAN HB 10 ML UNIT-DOSE CUPS PO PRN (10:42)
[2017-10-10] MEDS ORDERED: MAGNESIUM HYDROX 2400MG/30ML ORAL SUSPENSION 30 ML CUP PO PRN (10:42)
[2017-10-10] MEDS ORDERED: P-EPHED 60MG/TRIPROLIDI 2.5MG TABLET PO PRN (10:42)
[2017-10-10] MEDS ORDERED: MAG HYDROX/AL HYDROX/SIMETH 30 ML UNIT-DOSE CUP PO PRN (10:42)
[2017-10-10] MEDS ORDERED: MENTHOL/PHENOL 1 EACH UD MM PRN (10:42)
[2017-10-10] MEDS ORDERED: NICOTINE POLACRILEX 2 MG GUM BUC PRN (10:42)
[2017-10-10] MEDS ORDERED: hydrOXYzine PAMOATE 50 MG CAPSULE (FP) PO PRN (10:42)
[2017-10-10] MEDS ORDERED: ACETAMINOPHEN 325 MG TABLET (FP) PO PRN (10:42)
[2017-10-10] MEDS ORDERED: ALBUTEROL SO4 18 GM HFA INHALER IH PRN (10:44)
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
[2017-10-10] MEDS: THIAMINE HCL 100 MG TABLET (FP) PO SCH (21:04)
[2017-10-10] MEDS: QUEtiapine FUMARATE 300 MG TABLET PO SCH (21:05)
[2017-10-10] MEDS: MELATONIN 5 MG TABLETS PO PRN (21:05)
[2017-10-10] MEDS ORDERED: BUDESONIDE/FORMETEROL FUMARATE 80/4.5 mcg INHALER IH SCH (22:15)
[2017-10-11] MEDS ORDERED: PT OWN MED DRAWER 7, Y5N ONE ×2 (08:24→19:57)
[2017-10-11] MEDS: CITALOPRAM HYDROBROMIDE 20 MG TABLET (FP) PO SCH (09:38)
[2017-10-11] MEDS: NICOTINE 14 MG/24 HOURS TOPICAL PATCH TD SCH (09:38)
[2017-10-11] MEDS: PRENATAL VITAMINS W/ FOLIC ACID TABLET (FP) PO SCH (09:38)
[2017-10-11] MEDS: BUDESONIDE/FORMETEROL FUMARATE 80/4.5 mcg INHALER IH SCH ×2 (09:39→21:10)
[2017-10-11] MEDS: MELATONIN 5 MG TABLETS PO PRN (21:11)
[2017-10-11] MEDS: THIAMINE HCL 100 MG TABLET (FP) PO SCH (21:11)
[2017-10-11] MEDS: QUEtiapine FUMARATE 300 MG TABLET PO SCH (21:11)
[2017-10-12] MEDS: NICOTINE 14 MG/24 HOURS TOPICAL PATCH TD SCH (09:32)
[2017-10-12] MEDS: CITALOPRAM HYDROBROMIDE 20 MG TABLET (FP) PO SCH (09:32)
[2017-10-12] MEDS: BUDESONIDE/FORMETEROL FUMARATE 80/4.5 mcg INHALER IH SCH ×2 (09:32→21:07)
[2017-10-12] MEDS: PRENATAL VITAMINS W/ FOLIC ACID TABLET (FP) PO SCH (09:32)
[2017-10-12] MEDS: MELATONIN 5 MG TABLETS PO PRN (21:07)
[2017-10-12] MEDS: QUEtiapine FUMARATE 300 MG TABLET PO SCH (21:07)
[2017-10-12] MEDS: THIAMINE HCL 100 MG TABLET (FP) PO SCH (21:07)
[2017-10-13] MEDS: BUDESONIDE/FORMETEROL FUMARATE 80/4.5 mcg INHALER IH SCH ×2 (09:40→21:04)
[2017-10-13] MEDS: PRENATAL VITAMINS W/ FOLIC ACID TABLET (FP) PO SCH (09:40)
[2017-10-13] MEDS: CITALOPRAM HYDROBROMIDE 20 MG TABLET (FP) PO SCH (09:40)
[2017-10-13] MEDS: NICOTINE 14 MG/24 HOURS TOPICAL PATCH TD SCH (09:40)
[2017-10-13] MEDS: QUEtiapine FUMARATE 300 MG TABLET PO SCH (21:04)
[2017-10-13] MEDS: MELATONIN 5 MG TABLETS PO PRN (21:04)
[2017-10-13] MEDS: THIAMINE HCL 100 MG TABLET (FP) PO SCH (21:04)
[2017-10-14] MEDS: CITALOPRAM HYDROBROMIDE 20 MG TABLET (FP) PO SCH (09:36)
[2017-10-14] MEDS: NICOTINE 14 MG/24 HOURS TOPICAL PATCH TD SCH (09:36)
[2017-10-14] MEDS: PRENATAL VITAMINS W/ FOLIC ACID TABLET (FP) PO SCH (09:36)
[2017-10-14] MEDS: BUDESONIDE/FORMETEROL FUMARATE 80/4.5 mcg INHALER IH SCH ×2 (09:55→21:06)
[2017-10-14] MEDS: QUEtiapine FUMARATE 300 MG TABLET PO SCH (21:06)
[2017-10-14] MEDS: THIAMINE HCL 100 MG TABLET (FP) PO SCH (21:06)
[2017-10-15] MEDS ORDERED: PT OWN MED DRAWER 7, Y5N ONE ×2 (08:38→20:21)
[2017-10-15] MEDS: PRENATAL VITAMINS W/ FOLIC ACID TABLET (FP) PO SCH (09:48)
[2017-10-15] MEDS: CITALOPRAM HYDROBROMIDE 20 MG TABLET (FP) PO SCH (09:48)
[2017-10-15] MEDS: NICOTINE 14 MG/24 HOURS TOPICAL PATCH TD SCH (09:49)
[2017-10-15] MEDS: BUDESONIDE/FORMETEROL FUMARATE 80/4.5 mcg INHALER IH SCH ×2 (10:27→21:10)
[2017-10-15] MEDS: QUEtiapine FUMARATE 300 MG TABLET PO SCH (21:10)
[2017-10-15] MEDS: THIAMINE HCL 100 MG TABLET (FP) PO SCH (21:10)
[2017-10-16] MEDS ORDERED: PT OWN MED DRAWER 7, Y5N ONE ×2 (08:36→20:16)
[2017-10-16] MEDS: CITALOPRAM HYDROBROMIDE 20 MG TABLET (FP) PO SCH (09:46)
[2017-10-16] MEDS: PRENATAL VITAMINS W/ FOLIC ACID TABLET (FP) PO SCH (09:46)
[2017-10-16] MEDS: NICOTINE 14 MG/24 HOURS TOPICAL PATCH TD SCH (09:46)
[2017-10-16] MEDS: BUDESONIDE/FORMETEROL FUMARATE 80/4.5 mcg INHALER IH SCH ×2 (09:46→21:04)
[2017-10-16] MEDS: QUEtiapine FUMARATE 300 MG TABLET PO SCH (21:04)
[2017-10-16] MEDS: THIAMINE HCL 100 MG TABLET (FP) PO SCH (21:04)
[2017-10-17] MEDS: NICOTINE 14 MG/24 HOURS TOPICAL PATCH TD SCH (09:45)
[2017-10-17] MEDS: CITALOPRAM HYDROBROMIDE 20 MG TABLET (FP) PO SCH (09:45)
[2017-10-17] MEDS: PRENATAL VITAMINS W/ FOLIC ACID TABLET (FP) PO SCH (09:45)
[2017-10-17] MEDS: BUDESONIDE/FORMETEROL FUMARATE 80/4.5 mcg INHALER IH SCH ×2 (09:46→21:16)
[2017-10-17] MEDS: THIAMINE HCL 100 MG TABLET (FP) PO SCH (21:15)
[2017-10-17] MEDS: QUEtiapine FUMARATE 300 MG TABLET PO SCH (21:15)
[2017-10-17] MEDS: MELATONIN 5 MG TABLETS PO PRN (21:16)
[2017-10-18] MEDS: PRENATAL VITAMINS W/ FOLIC ACID TABLET (FP) PO SCH (09:49)
[2017-10-18] MEDS: BUDESONIDE/FORMETEROL FUMARATE 80/4.5 mcg INHALER IH SCH ×2 (09:49→21:22)
[2017-10-18] MEDS: CITALOPRAM HYDROBROMIDE 20 MG TABLET (FP) PO SCH (09:49)
[2017-10-18] MEDS: NICOTINE 14 MG/24 HOURS TOPICAL PATCH TD SCH (09:50)
[2017-10-18] MEDS: THIAMINE HCL 100 MG TABLET (FP) PO SCH (21:22)
[2017-10-18] MEDS: MELATONIN 5 MG TABLETS PO PRN (21:22)
[2017-10-18] MEDS: QUEtiapine FUMARATE 300 MG TABLET PO SCH (21:22)
[2017-10-19] MEDS ORDERED: PT OWN MED DRAWER 7, Y5N ONE ×2 (09:10→20:01)
[2017-10-19] MEDS: BUDESONIDE/FORMETEROL FUMARATE 80/4.5 mcg INHALER IH SCH ×2 (09:55→21:01)
[2017-10-19] MEDS: NICOTINE 14 MG/24 HOURS TOPICAL PATCH TD SCH (09:55)
[2017-10-19] MEDS: PRENATAL VITAMINS W/ FOLIC ACID TABLET (FP) PO SCH (09:55)
[2017-10-19] MEDS: CITALOPRAM HYDROBROMIDE 20 MG TABLET (FP) PO SCH (09:55)
[2017-10-19] MEDS: THIAMINE HCL 100 MG TABLET (FP) PO SCH (21:01)
[2017-10-19] MEDS: QUEtiapine FUMARATE 300 MG TABLET PO SCH (21:01)
[2017-10-19] MEDS: MELATONIN 5 MG TABLETS PO PRN (21:02)
[2017-10-20 06:40] VITALS: TEMP 98.2
--- NOTE | 2017-10-20 07:54 | PN ---
Psychiatric Progress Note Vital Signs: Vital Signs Period Temp Pulse Resp BP Sys/Dempsey Pulse Ox Last 24 Hr 98.2 F 80-97 - 105-122/71-80 Date of Session: 10/20/17 Chief Complaint:: Discharge Note HPI: Patient addressing Alcohol Dependence comorbid with Nicotine Dependence, Bipolar Disorder and Alcohol-Induced Sleep Disorder ROS: Asthma/COPD, Seizure, Hep C, H/O anemia Current Medications: Active Medications Generic Name Dose Route Start Last Admin Trade Name Freq PRN Reason Stop Dose Admin Acetaminophen 650 mg 10/10/17 10:42 Tylenol - PO Q4H PRN FEVER Al Hydroxide/Mg Hydroxide 30 ml 10/10/17 10:42 Mylanta Oral Suspension - PO Q6H PRN DYSPEPSIA Albuterol Sulfate 2 puff 10/10/17 10:44 10/10/17 21:06 Ventolin Hfa Inhaler - IH 2 inh Q4H PRN Administration SHORT OF BREATH/WHEEZING Budesonide/Formoterol Fumarate 2 puff 10/11/17 10:00 10/19/17 21:01 Symbicort 80/4.5mcg - IH Not Given BID RICARDO Citalopram Hydrobromide 20 mg 10/11/17 10:00 10/19/17 09:55 Celexa - PO 20 mg DAILY RICARDO Administration Eucalyptus/Menthol/Phenol/Sorbitol 1 each 10/10/17 10:42 Cepastat Lozenge - MM Q4H PRN SORE THROAT Guaifenesin 10 ml 10/10/17 10:42 Robitussin Dm - PO Q6H PRN COUGH Hydroxyzine Pamoate 50 mg 10/10/17 10:42 Vistaril - PO Q4H PRN AGITATION Ibuprofen 400 mg 10/10/17 10:42 Motrin - PO Q6H PRN Pain level 4-6 Loperamide HCl 4 mg 10/10/17 10:42 Imodium - PO Q6H PRN DIARRHEA Magnesium Citrate 300 ml 10/10/17 10:42 Citroma - PO Q48H PRN CONSTIPATION Magnesium Hydroxide 30 ml 10/10/17 10:42 Milk Of Magnesia - PO DAILY PRN CONSTIPATION Melatonin 5 mg 10/10/17 22:00 10/19/17 21:02 Melatonin PO 5 mg HS PRN Administration INSOMNIA Nicotine 14 mg 10/11/17 10:00 10/19/17 09:55 Nicoderm Patch - TD Not Given DAILY RICARDO Nicotine Polacrilex 2 mg 10/10/17 10:42 Nicorette Gum - BUC Q2H PRN NICOTINE REPLACEMENT RX Multivit/Folic Acid/Iron 1 tab 10/11/17 10:00 10/19/17 09:55 Vitamins (Sjr) - PO 1 tab DAILY RICARDO Administration Pseudoephedrine/Triprolidine 1 combo 10/10/17 10:42 Actifed - PO TID PRN NASAL CONGESTION Quetiapine Fumarate 300 mg 10/10/17 22:00 10/19/17 21:01 Seroquel - PO 300 mg HS RICARDO Administration Thiamine HCl 100 mg 10/10/17 22:00 10/19/17 21:01 Vitamin B1 - PO 100 mg HS RICARDO Administration Current Side Effect: No Lab tests ordered: Yes Lab tests reviewed: Yes Provider note:: Patient will complete this program on 10/21/17. He has met his treatment goals and will continue to address his issues in outpatient treatment at [facility]. Told ad writer that from is participation in this program, he has learned the importance of surrounding himself with a sober support network in order to maintain abstinence. He responded well to Celexa 20 mg po daily and Seroquel 300 mg po HS. Scripts for 30 days supply of these medications will electronicaly be transmitted to James Cheng at [address] [place] [address]. He is stable for discharge on 10/21/17 Total face to face time:: 35 Mental Status Exam - Mental Status Exam Alert and Oriented to: Time, Place, Person Cognitive Function: Fair Patient Appearance: Well Groomed Mood: Hopeful, Euthymic Affect: Appropriate Patient Behavior: Cooperative Speech Pattern: Clear Voice Loudness: Normal Thought Process: Intact, Goal Oriented Thought Disorder: Not Present Hallucinations: Denies Suicidal Ideation: Denies Homicidal Ideation: Denies Insight/Judgement: Fair Sleep: Fair Appetite: Good Muscle strength/Tone: Normal Gait/Station: Normal Psychiatric Treatment Plan - Problem List (1) Alcohol dependence Qualifiers: Substance use status: uncomplicated Qualified Code(s): F10.20 - Alcohol dependence, uncomplicated (3) Bipolar disorder Qualifiers: Active/Remission status: remission status unspecified Qualified Code(s): F31.9 - Bipolar disorder, unspecified Comment: History.On medications. (6) COPD (chronic obstructive pulmonary disease) Qualifiers: COPD type: emphysema Emphysema type: other Qualified Code(s): J43.8 - Other emphysema (7) Syncope Qualifiers: Syncope type: unspecified Qualified Code(s): R55 - Syncope and collapse (8) Seizure Comment: LAMICTAL (10) History of anemia Initial treatment plan: Patient will be discharged tomorrow and referred to [facility] for outpatient treatment
[2017-10-20] MEDS: NICOTINE 14 MG/24 HOURS TOPICAL PATCH TD SCH (09:33)
[2017-10-20] MEDS: PRENATAL VITAMINS W/ FOLIC ACID TABLET (FP) PO SCH (09:33)
[2017-10-20] MEDS: CITALOPRAM HYDROBROMIDE 20 MG TABLET (FP) PO SCH (09:33)
[2017-10-20] MEDS: BUDESONIDE/FORMETEROL FUMARATE 80/4.5 mcg INHALER IH SCH ×2 (09:34→21:52)
[2017-10-20] MEDS: THIAMINE HCL 100 MG TABLET (FP) PO SCH (21:52)
[2017-10-20] MEDS: QUEtiapine FUMARATE 300 MG TABLET PO SCH (21:52)
[2017-10-20] MEDS: MELATONIN 5 MG TABLETS PO PRN (21:52)
[2017-10-21 06:50] VITALS: BP 120/72; PULSE 77
[2017-10-21] MEDS: CITALOPRAM HYDROBROMIDE 20 MG TABLET (FP) PO SCH (09:12)
[2017-10-21] MEDS: NICOTINE 14 MG/24 HOURS TOPICAL PATCH TD SCH (09:13)
[2017-10-21] MEDS: PRENATAL VITAMINS W/ FOLIC ACID TABLET (FP) PO SCH (09:13)
[2017-10-21] MEDS: BUDESONIDE/FORMETEROL FUMARATE 80/4.5 mcg INHALER IH SCH (09:14)
== END 2017-10-21 09:20 | disposition home or self-care (01) | DRG 58 ==
LOC: YASAS 09:35 → Y3W 12:34
PROVIDERS: ADMIT Psychiatry & Neurology Psychiatry; ATTEND Psychiatry & Neurology Psychiatry
PROC: HZ42ZZZ Group Counseling for Substance Abuse Treatment, Cognitive-Behavioral (ICD-10-PCS; principal; 2017-10-10)
DX: F10.282 Alcohol dependence with alcohol-induced sleep disorder (principal); F17.210 Nicotine dependence, cigarettes, uncomplicated; F31.9 Bipolar disorder, unspecified; J43.8 Other emphysema; B18.2 Chronic viral hepatitis C; N40.0 Benign prostatic hyperplasia without lower urinary tract symptoms; Z86.69 Personal history of other diseases of the nervous system and sense organs; Z91.013 Allergy to seafood; Z88.0 Allergy status to penicillin; Z91.011 Allergy to milk products; Z91.5 Personal history of self-harm
CPT/HCPCS: 81003

== ENCOUNTER 2017-12-03 11:52 | Inpatient (IN) | payer OTHER ==
[2017-12-03 13:21] VITALS: BMI 30.9
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
[2017-12-03] MEDS ORDERED: ACETAMINOPHEN 325 MG TABLET (FP) PO PRN (13:23)
[2017-12-03] MEDS ORDERED: chlordiazePOXIDE HCL 25 MG CAPSULE PO PRN (13:23)
[2017-12-03] MEDS ORDERED: IBUPROFEN 400 MG TABLET (FP) PO PRN (13:23)
[2017-12-03] MEDS ORDERED: MAGNESIUM HYDROX 2400MG/30ML ORAL SUSPENSION 30 ML CUP PO PRN (13:23)
[2017-12-03] MEDS ORDERED: MAGNESIUM CITRATE 300 ML BOTTLE PO PRN (13:23)
[2017-12-03] MEDS ORDERED: MAG HYDROX/AL HYDROX/SIMETH 30 ML UNIT-DOSE CUP PO PRN (13:23)
[2017-12-03] MEDS ORDERED: hydrOXYzine PAMOATE 25 MG CAPSULE (FP) PO PRN (13:23)
[2017-12-03] MEDS ORDERED: P-EPHED 60MG/TRIPROLIDI 2.5MG TABLET PO PRN (13:23)
[2017-12-03] MEDS ORDERED: LOPERAMIDE HCL 2 MG CAPSULE PO PRN (13:23)
[2017-12-03] MEDS ORDERED: MENTHOL/PHENOL 1 EACH UD MM PRN (13:23)
[2017-12-03] MEDS ORDERED: guaiFENesin/D-METHORPHAN HB 10 ML UNIT-DOSE CUPS PO PRN (13:23)
[2017-12-03] MEDS ORDERED: ALBUTEROL SO4 18 GM HFA INHALER IH PRN (13:27)
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
[2017-12-03] MEDS: chlordiazePOXIDE HCL 25 MG CAPSULE PO SCH ×2 (17:33→22:21)
[2017-12-03] MEDS ORDERED: MELATONIN 5 MG TABLETS PO PRN (22:00)
[2017-12-03] MEDS: BUDESONIDE/FORMETEROL FUMARATE 80/4.5 mcg INHALER IH SCH (22:20)
[2017-12-03] MEDS: THIAMINE HCL 100 MG TABLET (FP) PO SCH (22:20)
[2017-12-03] MEDS: QUEtiapine FUMARATE 300 MG TABLET PO SCH (22:21)
[2017-12-04] MEDS: chlordiazePOXIDE HCL 25 MG CAPSULE PO SCH ×4 (05:52→22:20)
[2017-12-04 09:54] LABS: HEMOGLOBIN 13.6 GM/dL (11.7-16.9); WHITE BLOOD COUNT 5.5 K/mm3 (4.0-10.0)
[2017-12-04 09:57] LABS: HEMATOCRIT 42.7 % (35.4-49); MCH 25.1 pg (25.7-33.7); MCHC 31.9 g/dl (32.0-35.9); MEAN CELL VOLUME 78.8 fl (80-96); MEAN PLT VOLUME 7.9 fl (7.5-11.1); PLATELET COUNT 259 K/MM3 (134-434); RBC 5.42 M/mm3 (4.00-5.60)
[2017-12-04 10:44] LABS: ALBUMIN 3.8 g/dl (3.4-5.0); ALK PHOS 85 U/L (45-117); ANION GAP 10 (8-16); BILIRUBIN,TOTAL 0.2 mg/dL (0.2-1.0); BLOOD UREA NITROGEN 12 mg/dL (7-18); CALCIUM 8.3 mg/dL (8.5-10.1); CHLORIDE 109 mmol/L (98-107); CO2 22 mmol/L (21-32); GLUCOSE,RANDOM 98 mg/dL (74-106); POTASSIUM 4.2 mmol/L (3.5-5.1); SGOT/AST 40 U/L (15-37); SGPT/ALT 41 U/L (12-78); SODIUM 141 mmol/L (136-145); TOT PROT 7.9 g/dl (6.4-8.2)
[2017-12-04] MEDS: CITALOPRAM HYDROBROMIDE 20 MG TABLET (FP) PO SCH (10:44)
[2017-12-04] MEDS: PRENATAL VITAMINS W/ FOLIC ACID TABLET (FP) PO SCH (10:44)
[2017-12-04] MEDS: BUDESONIDE/FORMETEROL FUMARATE 80/4.5 mcg INHALER IH SCH ×2 (10:45→22:21)
[2017-12-04] MEDS: NICOTINE 14 MG/24 HOURS TOPICAL PATCH TD SCH (10:45)
--- NOTE | 2017-12-04 11:50 | PN ---
[facility] CIWA - CIWA Score Nausea/Vomitin-No Nausea/No Vomiting Muscle Tremors: 4-Moderate,w/Arms Extend Anxiety: 4-Mod. Anxious/Guarded Agitation: 4-Moderately Restless Paroxysmal Sweats: 1-Minimal Palms Moist Orientation: 0-Oriented Tacttile Disturbances: 0-None Auditory Disturbances: 0-None Visual Disturbances: 0-None Headache: 0-None Present CIWA-Ar Total Score: 13 S Progress Note (SOAP) Subjective: ANXIETY,REPORTS DETOX PROTOCOL PROCEEDING WELL. Objective: 12/04/17 11:49 Vital Signs 12/04/17 12/04/17 12/04/17 04:00 04:30 05:00 Temperature Pulse Rate 98 H 98 H 98 H Respiratory 18 18 18 Rate Blood Pressure 12/04/17 12/04/17 12/04/17 05:30 06:00 06:24 Temperature 97.7 F Pulse Rate 98 H 98 H 98 H Respiratory 18 18 18 Rate Blood Pressure 111/67 12/04/17 12/04/17 12/04/17 06:30 07:00 07:30 Temperature Pulse Rate 98 H 98 H 98 H Respiratory 18 18 18 Rate Blood Pressure 12/04/17 12/04/17 12/04/17 08:00 08:30 09:00 Temperature Pulse Rate 100 H 115 H 111 H Respiratory 18 20 Rate Blood Pressure 12/04/17 12/04/17 09:19 09:30 Temperature 98.1 F Pulse Rate 107 H 105 H Respiratory 20 20 Rate Blood Pressure 100/71 Laboratory Tests 12/04/17 12/04/17 06:00 06:00 WBC 5.5 RBC 5.42 Hgb 13.6 Hct 42.7 MCV 78.8 L MCH 25.1 L MCHC 31.9 L RDW 16.0 H Plt Count 259 MPV 7.9 Sodium 141 Potassium 4.2 Chloride 109 H Carbon Dioxide 22 Anion Gap 10 BUN 12 Creatinine 1.0 Creat Clearance w eGFR > 60 Random Glucose 98 Calcium 8.3 L Total Bilirubin 0.2 D AST 40 H D ALT 41 D Alkaline Phosphatase 85 Total Protein 7.9 Albumin 3.8 OTHER LABS PENDING Assessment: 12/04/17 11:49 WITHDRAWAL SX Plan: CONTINUE DETOX INCREASE PO FLUIDS
--- NOTE | 2017-12-04 12:01 | EKG ---
Test Reason : Blood Pressure : / mmHG Vent. Rate : 094 BPM Atrial Rate : 094 BPM P-R Int : 188 ms QRS Dur : 072 ms QT Int : 358 ms P-R-T Axes : 060 027 042 degrees QTc Int : 447 ms NORMAL SINUS RHYTHM POSSIBLE LEFT ATRIAL ENLARGEMENT CANNOT RULE OUT ANTERIOR INFARCT (CITED ON OR BEFORE 17-AUG-2017) ABNORMAL ECG WHEN COMPARED WITH ECG OF 05-OCT-2017 23:14, NO SIGNIFICANT CHANGE WAS FOUND Confirmed by MAIKEL RED MD ([id number]) on 12/04/2017 12:01:09 PM Referred By: Confirmed By:MAIKEL RED MD
[2017-12-04 14:09] LABS: URINE APPEARANCE TURBID; URINE BILIRUBIN NEGATIVE (<2.0 mg/dL); URINE COLOR YELLOW; URINE GLUCOSE (UA) NEGATIVE (NEGATIVE); URINE KETONE NEGATIVE (NEGATIVE); URINE NITRITE NEGATIVE (NEGATIVE); URINE PROTEIN NEGATIVE (NEGATIVE); URINE UROBILINOGEN NEGATIVE mg/dL (0.2-1.0)
[2017-12-04 14:15] LABS: URINE LEUK ESTERASE 1+ (NEGATIVE)
[2017-12-04 14:19] LABS: URINE BACTERIA MANY /hpf (NONE SEEN); URINE MUCUS MANY
[2017-12-04] MEDS: QUEtiapine FUMARATE 300 MG TABLET PO SCH (22:20)
[2017-12-04] MEDS: THIAMINE HCL 100 MG TABLET (FP) PO SCH (22:20)
[2017-12-05] MEDS: chlordiazePOXIDE HCL 25 MG CAPSULE PO SCH ×2 (05:44→10:35)
[2017-12-05] MEDS: PRENATAL VITAMINS W/ FOLIC ACID TABLET (FP) PO SCH (10:35)
[2017-12-05] MEDS: BUDESONIDE/FORMETEROL FUMARATE 80/4.5 mcg INHALER IH SCH ×2 (10:35→22:20)
[2017-12-05] MEDS: CITALOPRAM HYDROBROMIDE 20 MG TABLET (FP) PO SCH (10:35)
[2017-12-05] MEDS: NICOTINE 14 MG/24 HOURS TOPICAL PATCH TD SCH (10:36)
[2017-12-05] MEDS: chlordiazePOXIDE 5 MG CAPSULE PO SCH ×2 (17:35→22:20)
--- NOTE | 2017-12-05 17:50 | PN ---
[facility] CIWA - CIWA Score Nausea/Vomitin-No Nausea/No Vomiting Muscle Tremors: 4-Moderate,w/Arms Extend Anxiety: 4-Mod. Anxious/Guarded Agitation: 3 Paroxysmal Sweats: 2 Orientation: 2-Disoriented Date<2 days Tacttile Disturbances: 1-Very Mild Itch/Numbness Auditory Disturbances: 0-None Visual Disturbances: 0-None Headache: 0-None Present CIWA-Ar Total Score: 16 BHS Progress Note (SOAP) Subjective: Tremors, Sweating, Fatigue. Objective: PATIENT A & O X 2 (UNCERTAIN ABOUT CURRENT DAY / DATE). PATIENT OBSERVED AMBULATING ON UNIT. NO ACUTE DISTRESS. 12/05/17 17:49 Vital Signs Temperature 98.1 F 12/05/17 13:17 Pulse Rate 90 12/05/17 13:17 Respiratory Rate 18 12/05/17 13:17 Blood Pressure 118/66 12/05/17 13:17 O2 Sat by Pulse Oximetry (%) Laboratory Tests 12/04/17 12/04/17 12/04/17 06:00 06:00 06:00 WBC 5.5 RBC 5.42 Hgb 13.6 Hct 42.7 MCV 78.8 L MCH 25.1 L MCHC 31.9 L RDW 16.0 H Plt Count 259 MPV 7.9 Sodium 141 Potassium 4.2 Chloride 109 H Carbon Dioxide 22 Anion Gap 10 BUN 12 Creatinine 1.0 Creat Clearance w eGFR > 60 Random Glucose 98 Calcium 8.3 L Total Bilirubin 0.2 D AST 40 H D ALT 41 D Alkaline Phosphatase 85 Total Protein 7.9 Albumin 3.8 Urine Color Urine Appearance Urine pH Ur Specific [place] Urine Protein Urine Glucose (UA) Urine Ketones Urine Blood Urine Nitrite Urine Bilirubin Urine Urobilinogen Ur Leukocyte Esterase Urine WBC (Auto) Urine RBC (Auto) Urine Bacteria Urine Mucus RPR Titer Nonreactive 12/04/17 09:50 WBC RBC Hgb Hct MCV MCH MCHC RDW Plt Count MPV Sodium Potassium Chloride Carbon Dioxide Anion Gap BUN Creatinine Creat Clearance w eGFR Random Glucose Calcium Total Bilirubin AST ALT Alkaline Phosphatase Total Protein Albumin Urine Color Yellow Urine Appearance Turbid Urine pH 5.0 Ur Specific [place] 1.030 Urine Protein Negative Urine Glucose (UA) Negative Urine Ketones Negative Urine Blood Negative Urine Nitrite Negative Urine Bilirubin Negative Urine Urobilinogen Negative Ur Leukocyte Esterase 1+ H Urine WBC (Auto) None Urine RBC (Auto) None Urine Bacteria Many Urine Mucus Many RPR Titer LABS NOTED. Assessment: 12/05/17 17:49 WITHDRAWAL SYMPTOMS. Plan: CONTINUE DETOX.
[2017-12-05] MEDS: QUEtiapine FUMARATE 300 MG TABLET PO SCH (22:20)
[2017-12-05] MEDS: THIAMINE HCL 100 MG TABLET (FP) PO SCH (22:20)
[2017-12-06] MEDS: chlordiazePOXIDE 5 MG CAPSULE PO SCH ×2 (05:46→10:25)
[2017-12-06] MEDS: BUDESONIDE/FORMETEROL FUMARATE 80/4.5 mcg INHALER IH SCH ×2 (10:25→22:27)
[2017-12-06] MEDS: PRENATAL VITAMINS W/ FOLIC ACID TABLET (FP) PO SCH (10:25)
[2017-12-06] MEDS: NICOTINE 14 MG/24 HOURS TOPICAL PATCH TD SCH (10:25)
[2017-12-06] MEDS: CITALOPRAM HYDROBROMIDE 20 MG TABLET (FP) PO SCH (10:25)
--- NOTE | 2017-12-06 17:26 | PN ---
BHS Progress Note (SOAP) Subjective: Fatigue, Body Aches. Objective: PATIENT A & O X 3. NO ACUTE DISTRESS. 12/06/17 17:25 Vital Signs Temperature 98.3 F 12/06/17 14:32 Pulse Rate 92 H 12/06/17 14:32 Respiratory Rate 20 12/06/17 14:32 Blood Pressure 115/74 12/06/17 14:32 O2 Sat by Pulse Oximetry (%) Laboratory Tests 12/04/17 12/04/17 12/04/17 06:00 06:00 06:00 WBC 5.5 RBC 5.42 Hgb 13.6 Hct 42.7 MCV 78.8 L MCH 25.1 L MCHC 31.9 L RDW 16.0 H Plt Count 259 MPV 7.9 Sodium 141 Potassium 4.2 Chloride 109 H Carbon Dioxide 22 Anion Gap 10 BUN 12 Creatinine 1.0 Creat Clearance w eGFR > 60 Random Glucose 98 Calcium 8.3 L Total Bilirubin 0.2 D AST 40 H D ALT 41 D Alkaline Phosphatase 85 Total Protein 7.9 Albumin 3.8 Urine Color Urine Appearance Urine pH Ur Specific [place] Urine Protein Urine Glucose (UA) Urine Ketones Urine Blood Urine Nitrite Urine Bilirubin Urine Urobilinogen Ur Leukocyte Esterase Urine WBC (Auto) Urine RBC (Auto) Urine Bacteria Urine Mucus RPR Titer Nonreactive 12/04/17 09:50 WBC RBC Hgb Hct MCV MCH MCHC RDW Plt Count MPV Sodium Potassium Chloride Carbon Dioxide Anion Gap BUN Creatinine Creat Clearance w eGFR Random Glucose Calcium Total Bilirubin AST ALT Alkaline Phosphatase Total Protein Albumin Urine Color Yellow Urine Appearance Turbid Urine pH 5.0 Ur Specific [place] 1.030 Urine Protein Negative Urine Glucose (UA) Negative Urine Ketones Negative Urine Blood Negative Urine Nitrite Negative Urine Bilirubin Negative Urine Urobilinogen Negative Ur Leukocyte Esterase 1+ H Urine WBC (Auto) None Urine RBC (Auto) None Urine Bacteria Many Urine Mucus Many RPR Titer LABS NOTED. Assessment: 12/06/17 17:25 WITHDRAWAL SYMPTOMS. Plan: CONTINUE DETOX. PATIENT SCHEDULED FOR D/C TOMORROW.
[2017-12-06] MEDS: chlordiazePOXIDE HCL 10 MG CAPSULE PO SCH ×2 (18:08→22:27)
[2017-12-06] MEDS: THIAMINE HCL 100 MG TABLET (FP) PO SCH (22:27)
[2017-12-06] MEDS: QUEtiapine FUMARATE 300 MG TABLET PO SCH (22:27)
[2017-12-07] MEDS: chlordiazePOXIDE HCL 10 MG CAPSULE PO SCH (05:27)
[2017-12-07 09:44] VITALS: BP 133/89; PULSE 86; TEMP 96.7
--- NOTE | 2017-12-07 15:19 | PN ---
[facility] Progress Note (SOAP) Subjective: DETOX COMPLETED. ALERT O X 3. Objective: 12/07/17 15:19 Vital Signs - 24 hr 12/06/17 12/06/17 12/07/17 21:37 23:47 00:30 Temperature 98.4 F 97.1 F L Pulse Rate 82 78 Respiratory 18 20 18 Rate Blood Pressure 127/85 147/89 12/07/17 12/07/17 12/07/17 03:30 06:22 09:43 Temperature 98.5 F 96.7 F L Pulse Rate 78 86 Respiratory 18 18 20 Rate Blood Pressure 98/68 133/89 Laboratory Tests 12/04/17 12/04/17 12/04/17 06:00 06:00 06:00 WBC 5.5 RBC 5.42 Hgb 13.6 Hct 42.7 MCV 78.8 L MCH 25.1 L MCHC 31.9 L RDW 16.0 H Plt Count 259 MPV 7.9 Sodium 141 Potassium 4.2 Chloride 109 H Carbon Dioxide 22 Anion Gap 10 BUN 12 Creatinine 1.0 Creat Clearance w eGFR > 60 Random Glucose 98 Calcium 8.3 L Total Bilirubin 0.2 D AST 40 H D ALT 41 D Alkaline Phosphatase 85 Total Protein 7.9 Albumin 3.8 Urine Color Urine Appearance Urine pH Ur Specific [place] Urine Protein Urine Glucose (UA) Urine Ketones Urine Blood Urine Nitrite Urine Bilirubin Urine Urobilinogen Ur Leukocyte Esterase Urine WBC (Auto) Urine RBC (Auto) Urine Bacteria Urine Mucus RPR Titer Nonreactive 12/04/17 09:50 WBC RBC Hgb Hct MCV MCH MCHC RDW Plt Count MPV Sodium Potassium Chloride Carbon Dioxide Anion Gap BUN Creatinine Creat Clearance w eGFR Random Glucose Calcium Total Bilirubin AST ALT Alkaline Phosphatase Total Protein Albumin Urine Color Yellow Urine Appearance Turbid Urine pH 5.0 Ur Specific [place] 1.030 Urine Protein Negative Urine Glucose (UA) Negative Urine Ketones Negative Urine Blood Negative Urine Nitrite Negative Urine Bilirubin Negative Urine Urobilinogen Negative Ur Leukocyte Esterase 1+ H Urine WBC (Auto) None Urine RBC (Auto) None Urine Bacteria Many Urine Mucus Many RPR Titer Assessment: 12/07/17 15:19 MEDICALLY STABLE Plan: D/C PT TODAY
--- NOTE | 2017-12-07 15:22 | DS ---
[facility] Detox Discharge Summary Admission Date: 12/03/17 Discharge Date: 12/07/17 - History Present History: Alcohol Dependence Additional Comments: DETOX COMPLETED. PT REPORTS HE HAS PMD DR. RAJPUT AT [address] [place] [address] FOR MEDICAL MANAGEMENT. Pertinent Past History: PLEASE SEE DX BELOW - Physical Exam Results Vital Signs: Vital Signs Temperature 96.7 F L 12/07/17 09:43 Pulse Rate 86 12/07/17 09:43 Respiratory Rate 20 12/07/17 09:43 Blood Pressure 133/89 12/07/17 09:43 O2 Sat by Pulse Oximetry (%) Pertinent Admission Physical Exam Findings: WITHDRAWAL SX Vital Signs 12/07/17 09:43 Temperature 96.7 F L Pulse Rate 86 Respiratory 20 Rate Blood Pressure 133/89 Laboratory Tests 12/04/17 12/04/17 12/04/17 06:00 06:00 06:00 WBC 5.5 RBC 5.42 Hgb 13.6 Hct 42.7 MCV 78.8 L MCH 25.1 L MCHC 31.9 L RDW 16.0 H Plt Count 259 MPV 7.9 Sodium 141 Potassium 4.2 Chloride 109 H Carbon Dioxide 22 Anion Gap 10 BUN 12 Creatinine 1.0 Creat Clearance w eGFR > 60 Random Glucose 98 Calcium 8.3 L Total Bilirubin 0.2 D AST 40 H D ALT 41 D Alkaline Phosphatase 85 Total Protein 7.9 Albumin 3.8 Urine Color Urine Appearance Urine pH Ur Specific [place] Urine Protein Urine Glucose (UA) Urine Ketones Urine Blood Urine Nitrite Urine Bilirubin Urine Urobilinogen Ur Leukocyte Esterase Urine WBC (Auto) Urine RBC (Auto) Urine Bacteria Urine Mucus RPR Titer Nonreactive 12/04/17 09:50 WBC RBC Hgb Hct MCV MCH MCHC RDW Plt Count MPV Sodium Potassium Chloride Carbon Dioxide Anion Gap BUN Creatinine Creat Clearance w eGFR Random Glucose Calcium Total Bilirubin AST ALT Alkaline Phosphatase Total Protein Albumin Urine Color Yellow Urine Appearance Turbid Urine pH 5.0 Ur Specific [place] 1.030 Urine Protein Negative Urine Glucose (UA) Negative Urine Ketones Negative Urine Blood Negative Urine Nitrite Negative Urine Bilirubin Negative Urine Urobilinogen Negative Ur Leukocyte Esterase 1+ H Urine WBC (Auto) None Urine RBC (Auto) None Urine Bacteria Many Urine Mucus Many RPR Titer - Treatment Hospital Course: Detox Protocol Followed, Detoxed Safely, Responded well, Discharged Condition Good, Rehab Referral Accepted Patient has Accepted a Rehab Referral to: [facility] - Medication Discharge Medications: Ambulatory Orders Albuterol Sulfate Inhaler - [Ventolin HFA Inhaler -] 2 inh PO Q4H PRN #1 inhaler 10/20/17 Budesonide/Formeterol Fumarate [SYMBICORT 80/4.5mcg -] 2 inh PO PRN #1 inhaler 10/20/17 Citalopram Hydrobromide [Celexa -] 20 mg PO DAILY #30 tablet 10/20/17 Quetiapine Fumarate [Seroquel -] 300 mg PO HS #30 tab 10/20/17 - Diagnosis (1) Alcohol dependence with uncomplicated withdrawal Status: Acute (2) Asthma Status: Chronic (3) Nicotine dependence, uncomplicated Status: Chronic Qualifiers: Nicotine product type: unspecified Qualified Code(s): F17.200 - Nicotine dependence, unspecified, uncomplicated (4) Hepatitis C Status: Resolved Qualifiers: Viral hepatitis chronicity: chronic Hepatic coma status: without hepatic coma Qualified Code(s): B18.2 - Chronic viral hepatitis C (5) BPH (benign prostatic hyperplasia) Status: Chronic (6) COPD (chronic obstructive pulmonary disease) Status: Chronic Qualifiers: COPD type: emphysema Emphysema type: other Qualified Code(s): J43.8 - Other emphysema (7) Nicotine dependence Status: Acute Qualifiers: Nicotine product type: cigarettes Substance use status: in withdrawal Qualified Code(s): F17.213 - Nicotine dependence, cigarettes, with withdrawal (8) Seizure Status: Suspected (9) History of anemia Status: Resolved - AMA Did Patient Leave Against Medical Advice: No
== END 2017-12-07 10:51 | disposition home or self-care (01) | DRG 775 ==
LOC: YASAS 11:52 → Y3N 14:04
PROVIDERS: ADMIT Family Medicine Addiction Medicine; ATTEND Family Medicine Addiction Medicine
PROC: HZ2ZZZZ Detoxification Services for Substance Abuse Treatment (ICD-10-PCS; principal; 2017-12-03)
DX: F10.230 Alcohol dependence with withdrawal, uncomplicated (principal); F10.282 Alcohol dependence with alcohol-induced sleep disorder; F17.213 Nicotine dependence, cigarettes, with withdrawal; F31.9 Bipolar disorder, unspecified; I10 Essential (primary) hypertension; J45.909 Unspecified asthma, uncomplicated; B18.2 Chronic viral hepatitis C; N40.0 Benign prostatic hyperplasia without lower urinary tract symptoms; J43.9 Emphysema, unspecified; Z86.69 Personal history of other diseases of the nervous system and sense organs; Z88.0 Allergy status to penicillin; Z91.011 Allergy to milk products; Z91.5 Personal history of self-harm
CPT/HCPCS: 36415; 80053; 81003; 81015; 85027; 86593; 93005; 93010

== ENCOUNTER 2018-01-20 10:50 | Inpatient (IN) | payer OTHER ==
[2018-01-20 12:23] VITALS: BMI 30.5
--- NOTE | 2018-01-20 14:50 | HP ---
CIWA Score - CIWA Score Nausea/Vomitin Muscle Tremors: 2 Anxiety: 3 Agitation: 2 Paroxysmal Sweats: 3 Orientation: 0-Oriented Tacttile Disturbances: 0-None Auditory Disturbances: 0-None Visual Disturbances: 0-None Headache: 3-Moderate CIWA-Ar Total Score: 16 Admission ROS [facility] - HPI Chief Complaint: "I really want to stop drinking. I want to go back to school." Patient is here for detox for Alcohol. Allergies/Adverse Reactions: Allergies Allergy/AdvReac Type Severity Reaction Status Date / Time Penicillins Allergy Severe Swelling Verified 01/20/18 12:11 lactose AdvReac Severe diarrhea Verified 01/20/18 12:11 History of Present Illness: Patient is a 62 YO male here to Detox from Alcohol. Patient has had several previous Detox/ Rehab admissions at [facility] (Last: 09/2017). Longest Period of sobriety: 5 years ([id number]). Exam Limitations: No Limitations - Ebola screening Have you traveled outside of the country in the last 21 days: No Have you had contact with anyone from an Ebola affected area: No Have you been sick,other than usual withdrawal symptoms: No Do you have a fever: No - Review of Systems Constitutional: Diaphoresis, Malaise, Night Sweats, Changes in sleep EENT: reports: No Symptoms Reported Respiratory: reports: Cough, SOB with Exertion Cardiac: reports: No Symptoms Reported GI: reports: Nausea, Vomiting : reports: No Symptoms Reported Musculoskeletal: reports: No Symptoms Reported Integumentary: reports: No Symptoms Reported Neuro: reports: Headache, Numbness (Fingertips of bilateral hands (occasional).) , Seizure (Due to ETOH withdrawal. Last episode: 2015, was seen at ER.), Tingling (Fingertips of bilateral hands (occasional).), Tremors Endocrine: reports: No Symptoms Reported Hematology: reports: No Symptoms Reported Psychiatric: reports: Judgement Intact, Mood/Affect Appropiate, Orientated x3, Anxious, Depressed (Takes meds.) Other Systems: Reviewed and Negative Patient History - Patient Medical History Hx Anemia: No Hx Asthma: Yes (Takes meds.) Hx Chronic Obstructive Pulmonary Disease (COPD): No Hx Cancer: No Hx Cardiac Disorders: No Hx Congestive Heart Failure: No Hx Hypertension: No Hx Hypercholesterolemia: No Hx Pacemaker: No HX Cerebrovascular Accident: No Hx Seizures: Yes (alcohol related -last episode in 2016.) Hx Dementia: No Hx Diabetes: No Hx Gastrointestinal Disorders: No Hx Liver Disease: Yes (Hep C, Treated.) Hx Genitourinary Disorders: No Hx Sexually Transmitted Disorders: No Hx Renal Disease (ESRD): No Hx Thyroid Disease: No Hx Human Immunodeficiency Virus (HIV): No (08/01 LAST NEGATIVE) Hx Hepatitis C: Yes (Treated with Harvoni) Hx Depression: Yes (Takes meds.) Hx Suicide Attempt: No (5 years ago, OD. PATIENT DENIES CURRENT SI / HI.) Hx Bipolar Disorder: Yes (Meds.) Hx Schizophrenia: No Other Medical History: DENIES. - Patient Surgical History Past Surgical History: Yes Hx Neurologic Surgery: No Hx Cataract Extraction: No Hx Cardiac Surgery: No Hx Lung Surgery: No Hx Breast Surgery: No Hx Breast Biopsy: No Hx Abdominal Surgery: Yes (umbilical hernia repair as a child) Hx Appendectomy: No Hx Cholecystectomy: No Hx Genitourinary Surgery: No Hx Section: No Hx Orthopedic Surgery: No Other Surgical History: DENIES. Anesthesia Reaction: No - PPD History Previous Implant?: Yes Documented Results: Positive w/o proof (PATIENT BROUGHT COPY OF CXR WITH HIM.) Implanted On Prior [facility] Admission?: No Results: CXR(-)09/24/17 PPD to be Administered?: No - Reproductive History Patient is a Female of Child Bearing Age (11 -55 yrs old): No (PATIENT IS MALE.) - Smoking Cessation Smoking history: Current some day smoker Have you smoked in the past 12 months: Yes Aproximately how many cigarettes per day: 3 Cigars Per Day: 0 Hx Chewing Tobacco Use: No Initiated information on smoking cessation: No 'Breaking Loose' booklet given: 01/20/18 (GIVEN TO PATIENT.) - Substance & Tx. History Hx Alcohol Use: Yes Hx Substance Use: Yes Substance Use Type: Alcohol Hx Substance Use Treatment: Yes (Previous Detox/Rehab at [facility] (Last: Detox, 2017).) - Substances Abused Alcohol-beer/wine Route: Oral Frequency: Daily Amount used: 2 qts./5 pts. Age of first use: 14 Date of Last Use: 01/20/18 Family Disease History - Family Disease History Family Disease History: Other: Father (ALCOHOLIC/), Mother (), Brother (DRUG ABUSE; IN RECOVERY.) Admission Physical Exam [facility] - Vital Signs Vital Signs: Vital Signs - 24 hr 01/20/18 12:13 Temperature 97 F L Pulse Rate 114 H Respiratory 20 Rate Blood Pressure 149/84 - Physical General Appearance: Yes: No Apparent Distress, Nourished, Appropriately Dressed , Tremorous, Anxious HEENTM: Yes: Hearing grossly Normal, Normocephalic, Normal Voice, YONNY, Pharynx Normal Respiratory: Yes: Chest Non-Tender, Lungs Clear, No Respiratory Distress, No Accessory Muscle Use Neck: Yes: No masses,lesions,Nodules, Supple, Trachea in good position Breast: Yes: Breast Exam Deferred Cardiology: Yes: Regular Rhythm, Regular Rate, S1, S2 Abdominal: Yes: Normal Bowel Sounds, Non Tender, Soft, Protuberent Genitourinary: Yes: Within Normal Limits Back: Yes: Normal Inspection Musculoskeletal: Yes: full range of Motion, Gait Steady Extremities: Yes: Normal Capillary Refill, Normal Range of Motion, Non-Tender, Tremors Neurological: Yes: Fully Oriented, Alert, Normal Mood/Affect, Normal Response Integumentary: Yes: Normal Color, Dry, Warm Lymphatic: Yes: Within Normal Limits - Diagnostic (1) History of hepatitis C Current Visit: Yes Status: Resolved Comment: Treated. (2) Alcohol dependence with uncomplicated withdrawal Current Visit: Yes Status: Acute (3) Nicotine dependence Current Visit: Yes Status: Chronic Qualifiers: Nicotine product type: cigarettes Substance use status: in withdrawal Qualified Code(s): F17.213 - Nicotine dependence, cigarettes, with withdrawal (4) Asthma Current Visit: Yes Status: Chronic (5) Bipolar disorder Current Visit: Yes Status: Chronic Qualifiers: Active/Remission status: remission status unspecified Qualified Code(s): F31.9 - Bipolar disorder, unspecified Comment: History.On medications. (6) Alcohol related seizure Current Visit: Yes Status: Chronic (7) Bipolar disorder Current Visit: Yes Status: Chronic Qualifiers: Active/Remission status: remission status unspecified Qualified Code(s): F31.9 - Bipolar disorder, unspecified (8) History of depression Current Visit: Yes Status: Chronic Cleared for Admission [facility] - Detox or Rehab [facility] Level of Care: Medically Managed Detox Regimen/Protocol: Librium S Breath Alcohol Content Breath Alcohol Content: 0.183 Urine Drug Screen - Results Drug Screen Negative: Yes
[2018-01-20] MEDS ORDERED: MAG HYDROX/AL HYDROX/SIMETH 30 ML UNIT-DOSE CUP PO PRN (15:10)
[2018-01-20] MEDS ORDERED: ACETAMINOPHEN 325 MG TABLET (FP) PO PRN (15:10)
[2018-01-20] MEDS ORDERED: P-EPHED 60MG/TRIPROLIDI 2.5MG TABLET PO PRN (15:10)
[2018-01-20] MEDS ORDERED: MENTHOL/PHENOL 1 EACH UD MM PRN (15:10)
[2018-01-20] MEDS ORDERED: MAGNESIUM CITRATE 300 ML BOTTLE PO PRN (15:10)
[2018-01-20] MEDS ORDERED: MAGNESIUM HYDROX 2400MG/30ML ORAL SUSPENSION 30 ML CUP PO PRN (15:10)
[2018-01-20] MEDS ORDERED: NICOTINE POLACRILEX 2 MG GUM BC PRN (15:10)
[2018-01-20] MEDS ORDERED: chlordiazePOXIDE HCL 25 MG CAPSULE PO PRN (15:10)
[2018-01-20] MEDS ORDERED: guaiFENesin/D-METHORPHAN HB 10 ML UNIT-DOSE CUPS PO PRN (15:10)
[2018-01-20] MEDS ORDERED: IBUPROFEN 400 MG TABLET (FP) PO PRN (15:10)
[2018-01-20] MEDS ORDERED: LOPERAMIDE HCL 2 MG CAPSULE PO PRN (15:10)
[2018-01-20] MEDS ORDERED: ALBUTEROL SO4 8 GM HFA INHALER IH PRN (15:13)
[2018-01-20] MEDS: chlordiazePOXIDE HCL 25 MG CAPSULE PO SCH ×2 (17:22→22:05)
[2018-01-20] MEDS: NICOTINE 14 MG/24 HOURS TOPICAL PATCH TD SCH (17:26)
[2018-01-20] MEDS ORDERED: MELATONIN 5 MG TABLETS PO PRN (22:00)
[2018-01-20] MEDS: BUDESONIDE/FORMETEROL FUMARATE 80/4.5 mcg INHALER IH SCH (22:06)
[2018-01-20] MEDS: THIAMINE HCL 100 MG TABLET (FP) PO SCH (22:06)
[2018-01-21 02:56] LABS: URINE APPEARANCE CLEAR; URINE BILIRUBIN NEGATIVE (<2.0 mg/dL); URINE COLOR LTYELLOW; URINE GLUCOSE (UA) NEGATIVE (NEGATIVE); URINE KETONE NEGATIVE (NEGATIVE); URINE LEUK ESTERASE NEGATIVE (NEGATIVE); URINE NITRITE NEGATIVE (NEGATIVE); URINE PROTEIN NEGATIVE (NEGATIVE); URINE UROBILINOGEN NEGATIVE mg/dL (0.2-1.0)
[2018-01-21] MEDS: chlordiazePOXIDE HCL 25 MG CAPSULE PO SCH ×4 (05:21→22:07)
--- NOTE | 2018-01-21 08:22 | CONSULT ---
[facility] Psychiatric Consult - Data Date of interview: 01/21/18 Admission source: [facility] Identifying data: This is a 62 yuears old male, , father of three, living with roommate, on SSI, with history of Bipolar Disorder, history of psychiatric hospitalizations, here to Detox from Alcohol. Patient has had several previous Detox/ Rehab admissions at [facility] (Last: 09/2017). Substance Abuse History: Smoking Cessation. Smoking history: Current some day smoker. Have you smoked in the past 12 months: Yes. Aproximately how many cigarettes per day: 3. Cigars Per Day: 0. Hx Chewing Tobacco Use: No. Initiated information on smoking cessation: No. 'Breaking Loose' booklet given : 01/20/18 (GIVEN TO PATIENT.). - Substance & Tx. History. Hx Alcohol Use: Yes. Hx Substance Use: Yes. Substance Use Type: Alcohol. Hx Substance Use Treatment: Yes (Previous Detox/Rehab at [facility] (Last: Detox, 09/2017).). - Substances Abused. Alcohol-beer/wine. Route: Oral. Frequency: Daily. Amount used: 2 qts./5 pts. Age of first use: 14. Date of Last Use: 01/20/18 Medical History: Asthma, Seizure history, COPD, BPH, Syncope history, HepC+ Psychiatric History: Patient reports history of Bipolar Disorder, reports most recent posychiatric admission on 2 years ago at [facility] for safety , reports taking prior to admission: Seroquel 300mg po qhs. Celexa 20mg poqd Physical/Sexual Abuse/Trauma History: Denies Additional Comment: Seroquel 300mg po qhs. Celexa 20mg poqd Mental Status Exam - Mental Status Exam Alert and Oriented to: Person Cognitive Function: Fair Patient Appearance: Unkempt Mood: Apprehensive Affect: Mood Congruent Patient Behavior: Cooperative Speech Pattern: Appropriate Voice Loudness: Normal Thought Process: Goal Oriented Thought Disorder: Being Controlled Hallucinations: Denies Suicidal Ideation: Denies Homicidal Ideation: Denies Insight/Judgement: Fair Sleep: Difficulty falling asleep Appetite: Weight loss Muscle strength/Tone: Mild Hypotonicity Gait/Station: Normal Additional Comments: Seroquel 300mg po qhs. Celexa 20mg poqd Psychiatric Findings - Problem List ([place] 1, 2,3) (1) Alcohol dependence with uncomplicated withdrawal Current Visit: Yes Status: Acute (2) Alcohol related seizure Current Visit: Yes Status: Chronic (3) Asthma Current Visit: Yes Status: Chronic (4) Bipolar disorder Current Visit: Yes Status: Chronic Qualifiers: Active/Remission status: remission status unspecified Qualified Code(s): F31.9 - Bipolar disorder, unspecified Comment: History.On medications. (5) Nicotine dependence Current Visit: Yes Status: Chronic Qualifiers: Nicotine product type: cigarettes Substance use status: in withdrawal Qualified Code(s): F17.213 - Nicotine dependence, cigarettes, with withdrawal (6) Alcohol dependence Current Visit: No Status: Acute Qualifiers: Substance use status: uncomplicated Qualified Code(s): F10.20 - Alcohol dependence, uncomplicated (7) Alcohol-induced sleep disorder Current Visit: No Status: Acute (8) Syncope Current Visit: No Status: Acute Qualifiers: Syncope type: unspecified Qualified Code(s): R55 - Syncope and collapse (9) BPH (benign prostatic hyperplasia) Current Visit: No Status: Chronic Comment: STOPPED FLOMAX (10) COPD (chronic obstructive pulmonary disease) Current Visit: No Status: Chronic Qualifiers: COPD type: emphysema Emphysema type: other Qualified Code(s): J43.8 - Other emphysema (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 Celexa 20mg poqd
[2018-01-21] MEDS: CITALOPRAM HYDROBROMIDE 20 MG TABLET (FP) PO SCH (10:17)
[2018-01-21] MEDS: PRENATAL VITAMINS W/ FOLIC ACID TABLET (FP) PO SCH (10:17)
[2018-01-21] MEDS: BUDESONIDE/FORMETEROL FUMARATE 80/4.5 mcg INHALER IH SCH ×2 (10:20→22:07)
[2018-01-21] MEDS: NICOTINE 14 MG/24 HOURS TOPICAL PATCH TD SCH (10:20)
--- NOTE | 2018-01-21 10:29 | EKG ---
Test Reason : Blood Pressure : / mmHG Vent. Rate : 092 BPM Atrial Rate : 092 BPM P-R Int : 184 ms QRS Dur : 088 ms QT Int : 352 ms P-R-T Axes : 066 030 059 degrees QTc Int : 435 ms NORMAL SINUS RHYTHM ANTERIOR INFARCT (CITED ON OR BEFORE 17-AUG-2017) ABNORMAL ECG WHEN COMPARED WITH ECG OF 03-DEC-2017 14:46, NO SIGNIFICANT CHANGE WAS FOUND Confirmed by RISHABH SOLIS MD ([id number]) on 01/21/2018 10:29:11 AM Referred By: Confirmed By:RISHABH SOLIS MD
[2018-01-21 10:53] LABS: HEMATOCRIT 39.1 % (35.4-49); HEMOGLOBIN 12.9 GM/dL (11.7-16.9); MCH 25.9 pg (25.7-33.7); MCHC 33.1 g/dl (32.0-35.9); MEAN CELL VOLUME 78.2 fl (80-96); MEAN PLT VOLUME 7.6 fl (7.5-11.1); PLATELET COUNT 254 K/MM3 (134-434); RDW 16.3 % (11.9-15.9); WHITE BLOOD COUNT 5.4 K/mm3 (4.0-10.0)
[2018-01-21 11:32] LABS: CHLORIDE 109 mmol/L (98-107); POTASSIUM 4.6 mmol/L (3.5-5.1); SODIUM 145 mmol/L (136-145)
--- NOTE | 2018-01-21 12:12 | PN ---
S CIWA - CIWA Score Nausea/Vomitin Muscle Tremors: 3 Anxiety: 3 Agitation: 2 Paroxysmal Sweats: 1-Minimal Palms Moist Orientation: 0-Oriented Tacttile Disturbances: 1-Very Mild Itch/Numbness Auditory Disturbances: 1-Very Mild Visual Disturbances: 0-None Headache: 2-Mild CIWA-Ar Total Score: 16 S Progress Note (SOAP) Subjective: alert,irritable,anxious,interrupted sleep,tremor,pain in the body Objective: 01/21/18 12:09 Vital Signs Temperature 97.5 F L 01/21/18 09:25 Pulse Rate 89 01/21/18 09:25 Respiratory Rate 18 01/21/18 09:25 Blood Pressure 121/65 01/21/18 09:25 O2 Sat by Pulse Oximetry (%) ekg nsr qt/qtc 352/435 no chest pain,no sob,no dizziness Laboratory Last Values WBC 5.4 K/mm3 (4.0-10.0) 01/21/18 05:50 RBC 5.00 M/mm3 (4.00-5.60) 01/21/18 05:50 Hgb 12.9 GM/dL (11.7-16.9) 01/21/18 05:50 Hct 39.1 % (35.4-49) 01/21/18 05:50 MCV 78.2 fl (80-96) L 01/21/18 05:50 MCH 25.9 pg (25.7-33.7) 01/21/18 05:50 MCHC 33.1 g/dl (32.0-35.9) 01/21/18 05:50 RDW 16.3 % (11.9-15.9) H 01/21/18 05:50 Plt Count 254 K/MM3 (134-434) 01/21/18 05:50 MPV 7.6 fl (7.5-11.1) 01/21/18 05:50 Sodium 145 mmol/L (136-145) 01/21/18 05:50 Potassium 4.6 mmol/L (3.5-5.1) 01/21/18 05:50 Chloride 109 mmol/L (98-107) H 01/21/18 05:50 Urine Color Ltyellow 01/20/18 22:30 Urine Appearance Clear 01/20/18 22:30 Urine pH 5.0 (5.0-8.0) 01/20/18 22:30 Ur Specific [place] 1.018 (1.001-1.035) 01/20/18 22:30 Urine Protein Negative (NEGATIVE) 01/20/18 22:30 Urine Glucose (UA) Negative (NEGATIVE) 01/20/18 22:30 Urine Ketones Negative (NEGATIVE) 01/20/18 22:30 Urine Blood Negative (NEGATIVE) 01/20/18 22:30 Urine Nitrite Negative (NEGATIVE) 01/20/18 22:30 Urine Bilirubin Negative (<2.0 mg/dL) 01/20/18 22:30 Urine Urobilinogen Negative mg/dL (0.2-1.0) 01/20/18 22:30 Ur Leukocyte Esterase Negative (NEGATIVE) 01/20/18 22:30 labs pending 01/21/18 12:11 Assessment: 01/21/18 12:11 withdrawal symptom Plan: continue detox
[2018-01-21 12:17] LABS: ALBUMIN 3.8 g/dl (3.4-5.0); ALK PHOS 84 U/L (45-117); ANION GAP 14 (8-16); BILIRUBIN,TOTAL 0.3 mg/dL (0.2-1.0); BLOOD UREA NITROGEN 16 mg/dL (7-18); CALCIUM 8.7 mg/dL (8.5-10.1); CO2 22 mmol/L (21-32); CREATININE 1.1 mg/dL (0.7-1.3); GLUCOSE,RANDOM 95 mg/dL (74-106); SGOT/AST 28 U/L (15-37); SGPT/ALT 32 U/L (12-78); TOT PROT 7.6 g/dl (6.4-8.2)
[2018-01-21] MEDS: QUEtiapine FUMARATE 300 MG TABLET PO SCH (22:07)
[2018-01-21] MEDS: THIAMINE HCL 100 MG TABLET (FP) PO SCH (22:10)
[2018-01-22] MEDS: chlordiazePOXIDE HCL 25 MG CAPSULE PO SCH ×2 (05:16→10:58)
[2018-01-22] MEDS: CITALOPRAM HYDROBROMIDE 20 MG TABLET (FP) PO SCH (10:58)
[2018-01-22] MEDS: PRENATAL VITAMINS W/ FOLIC ACID TABLET (FP) PO SCH (10:58)
[2018-01-22] MEDS: NICOTINE 14 MG/24 HOURS TOPICAL PATCH TD SCH (10:59)
[2018-01-22] MEDS: BUDESONIDE/FORMETEROL FUMARATE 80/4.5 mcg INHALER IH SCH ×2 (10:59→22:34)
--- NOTE | 2018-01-22 11:37 | PN ---
S CIWA - CIWA Score Nausea/Vomitin Muscle Tremors: 3 Anxiety: 3 Agitation: 2 Paroxysmal Sweats: 1-Minimal Palms Moist Orientation: 0-Oriented Tacttile Disturbances: 1-Very Mild Itch/Numbness Auditory Disturbances: 1-Very Mild Visual Disturbances: 0-None Headache: 2-Mild CIWA-Ar Total Score: 16 BHS Progress Note (SOAP) Subjective: alert,irritable,anxious,interrupted sleep,pain in the body,tremor Objective: 01/22/18 11:36 Vital Signs Temperature 97.7 F 01/22/18 10:29 Pulse Rate 95 H 01/22/18 10:29 Respiratory Rate 18 01/22/18 10:29 Blood Pressure 122/69 01/22/18 10:29 O2 Sat by Pulse Oximetry (%) 01/22/18 11:36 Laboratory Last Values WBC 5.4 K/mm3 (4.0-10.0) 01/21/18 05:50 RBC 5.00 M/mm3 (4.00-5.60) 01/21/18 05:50 Hgb 12.9 GM/dL (11.7-16.9) 01/21/18 05:50 Hct 39.1 % (35.4-49) 01/21/18 05:50 MCV 78.2 fl (80-96) L 01/21/18 05:50 MCH 25.9 pg (25.7-33.7) 01/21/18 05:50 MCHC 33.1 g/dl (32.0-35.9) 01/21/18 05:50 RDW 16.3 % (11.9-15.9) H 01/21/18 05:50 Plt Count 254 K/MM3 (134-434) 01/21/18 05:50 MPV 7.6 fl (7.5-11.1) 01/21/18 05:50 Sodium 145 mmol/L (136-145) 01/21/18 05:50 Potassium 4.6 mmol/L (3.5-5.1) 01/21/18 05:50 Chloride 109 mmol/L (98-107) H 01/21/18 05:50 Carbon Dioxide 22 mmol/L (21-32) 01/21/18 05:50 Anion Gap 14 (8-16) 01/21/18 05:50 BUN 16 mg/dL (7-18) 01/21/18 05:50 Creatinine 1.1 mg/dL (0.7-1.3) 01/21/18 05:50 Creat Clearance w eGFR > 60 (>60) 01/21/18 05:50 Random Glucose 95 mg/dL (74-106) 01/21/18 05:50 Calcium 8.7 mg/dL (8.5-10.1) 01/21/18 05:50 Total Bilirubin 0.3 mg/dL (0.2-1.0) 01/21/18 05:50 AST 28 U/L (15-37) D 01/21/18 05:50 ALT 32 U/L (12-78) D 01/21/18 05:50 Alkaline Phosphatase 84 U/L (45-117) 01/21/18 05:50 Total Protein 7.6 g/dl (6.4-8.2) 01/21/18 05:50 Albumin 3.8 g/dl (3.4-5.0) 01/21/18 05:50 Urine Color Ltyellow 01/20/18 22:30 Urine Appearance Clear 01/20/18 22:30 Urine pH 5.0 (5.0-8.0) 01/20/18 22:30 Ur Specific [place] 1.018 (1.001-1.035) 01/20/18 22:30 Urine Protein Negative (NEGATIVE) 01/20/18 22:30 Urine Glucose (UA) Negative (NEGATIVE) 01/20/18 22:30 Urine Ketones Negative (NEGATIVE) 01/20/18 22:30 Urine Blood Negative (NEGATIVE) 01/20/18 22:30 Urine Nitrite Negative (NEGATIVE) 01/20/18 22:30 Urine Bilirubin Negative (<2.0 mg/dL) 01/20/18 22:30 Urine Urobilinogen Negative mg/dL (0.2-1.0) 01/20/18 22:30 Ur Leukocyte Esterase Negative (NEGATIVE) 01/20/18 22:30 RPR Titer Nonreactive (NONREACTIVE) 01/21/18 05:50 Assessment: 01/22/18 11:37 withdrawal symptom Plan: continue detox
[2018-01-22] MEDS: chlordiazePOXIDE 5 MG CAPSULE PO SCH ×2 (17:54→22:34)
[2018-01-22] MEDS: QUEtiapine FUMARATE 300 MG TABLET PO SCH (22:34)
[2018-01-22] MEDS: THIAMINE HCL 100 MG TABLET (FP) PO SCH (22:34)
[2018-01-23] MEDS: chlordiazePOXIDE 5 MG CAPSULE PO SCH ×2 (05:51→10:33)
[2018-01-23] MEDS: BUDESONIDE/FORMETEROL FUMARATE 80/4.5 mcg INHALER IH SCH ×2 (10:30→23:06)
[2018-01-23] MEDS: NICOTINE 14 MG/24 HOURS TOPICAL PATCH TD SCH (10:33)
[2018-01-23] MEDS: CITALOPRAM HYDROBROMIDE 20 MG TABLET (FP) PO SCH (10:33)
[2018-01-23] MEDS: PRENATAL VITAMINS W/ FOLIC ACID TABLET (FP) PO SCH (10:33)
--- NOTE | 2018-01-23 10:42 | PN ---
S Progress Note (SOAP) Subjective: alert,irritable,interrupted sleep Objective: 01/23/18 10:41 Vital Signs Temperature 97.5 F L 01/23/18 09:22 Pulse Rate 92 H 01/23/18 09:22 Respiratory Rate 18 01/23/18 09:22 Blood Pressure 128/60 01/23/18 09:22 O2 Sat by Pulse Oximetry (%) Assessment: 01/23/18 10:41 withdrawal symptom Plan: continue detox,discharge in am
[2018-01-23] MEDS: chlordiazePOXIDE HCL 10 MG CAPSULE PO SCH ×2 (17:49→22:12)
[2018-01-23] MEDS: QUEtiapine FUMARATE 300 MG TABLET PO SCH (22:12)
[2018-01-23] MEDS: THIAMINE HCL 100 MG TABLET (FP) PO SCH (22:13)
[2018-01-24] MEDS: chlordiazePOXIDE HCL 10 MG CAPSULE PO SCH (05:26)
[2018-01-24 06:24] VITALS: BP 111/73; PULSE 72; TEMP 97.5
--- NOTE | 2018-01-24 21:04 | PN ---
S Progress Note (SOAP) Subjective: denies any complaints Objective: 01/24/18 21:03 A & O x 3 Vital Signs Temperature 97.5 F L 01/24/18 06:00 Pulse Rate 72 01/24/18 06:00 Respiratory Rate 18 01/24/18 06:00 Blood Pressure 111/73 01/24/18 06:00 O2 Sat by Pulse Oximetry (%) Assessment: 01/24/18 21:03 detox succesfully completed Plan: For discharge
--- NOTE | 2018-01-24 21:09 | DS ---
[facility] Detox Discharge Summary Admission Date: 01/20/18 Discharge Date: 01/24/18 - History Additional Comments: pt for discharge States he will enter Rehab at [facility] on friday Will f/u with his PMD Dr Souza @ [facility], [address] [place] [address] Declines med refils, states he still has Albuterol pumps Pertinent Past History: Asthma Hep C - Physical Exam Results Vital Signs: Vital Signs Temperature 97.5 F L 01/24/18 06:00 Pulse Rate 72 01/24/18 06:00 Respiratory Rate 01/24/18 06:00 Blood Pressure 111/73 01/24/18 06:00 O2 Sat by Pulse Oximetry (%) Pertinent Admission Physical Exam Findings: Withdrawal sx - Treatment Hospital Course: Detox Protocol Followed, Detoxed Safely, Responded well, Discharged Condition Good, Rehab Referral Accepted Patient has Accepted a Rehab Referral to: [facility] - Medication Discharge Medications: Ambulatory Orders Albuterol Sulfate Inhaler - [Ventolin HFA Inhaler -] 2 inh PO Q4H PRN #1 inhaler 10/20/17 Budesonide/Formeterol Fumarate [SYMBICORT 80/4.5mcg -] 2 inh PO PRN #1 inhaler 10/20/17 Quetiapine Fumarate [Seroquel -] 300 mg PO HS #30 tab 10/20/17 Citalopram Hydrobromide [Celexa -] 20 mg PO DAILY #30 tablet 01/21/18 Quetiapine Fumarate [Seroquel -] 300 mg PO HS #30 tablet 01/21/18 - Diagnosis (1) Alcohol dependence with uncomplicated withdrawal Status: Acute (2) Alcohol related seizure Status: Chronic (3) Asthma Status: Chronic (4) BPH (benign prostatic hyperplasia) Status: Chronic (5) Nicotine dependence, uncomplicated Status: Chronic Qualifiers: Nicotine product type: unspecified Qualified Code(s): F17.200 - Nicotine dependence, unspecified, uncomplicated (6) Hepatitis C Status: Resolved Qualifiers: Viral hepatitis chronicity: chronic Hepatic coma status: without hepatic coma Qualified Code(s): B18.2 - Chronic viral hepatitis C (7) History of anemia Status: Resolved - AMA Did Patient Leave Against Medical Advice: No
== END 2018-01-24 09:25 | disposition home or self-care (01) | DRG 775 ==
LOC: YASAS 10:50 → Y6N 16:03
PROVIDERS: ADMIT Surgery; ATTEND Surgery
PROC: HZ2ZZZZ Detoxification Services for Substance Abuse Treatment (ICD-10-PCS; principal; 2018-01-20)
DX: F10.230 Alcohol dependence with withdrawal, uncomplicated (principal); F10.280 Alcohol dependence with alcohol-induced anxiety disorder; F10.282 Alcohol dependence with alcohol-induced sleep disorder; F17.213 Nicotine dependence, cigarettes, with withdrawal; F31.9 Bipolar disorder, unspecified; J45.998 Other asthma; J43.8 Other emphysema; B18.2 Chronic viral hepatitis C; Z88.0 Allergy status to penicillin; Z91.011 Allergy to milk products; Z87.898 Personal history of other specified conditions
CPT/HCPCS: 36415; 80053; 81003; 85027; 86593; 93005; 93010

== ENCOUNTER 2018-02-26 11:12 | Inpatient (IN) | payer OTHER ==
[2018-02-26 11:56] VITALS: BMI 30.9
--- NOTE | 2018-02-26 14:23 | HP ---
CIWA Score - CIWA Score Nausea/Vomitin-Mild Nausea/No Vomiting Muscle Tremors: None Anxiety: 1-Mildly Anxious Agitation: 1-Slight > Activity Paroxysmal Sweats: 2 Tacttile Disturbances: 1-Very Mild Itch/Numbness Auditory Disturbances: 0-None Visual Disturbances: 0-None Headache: 2-Mild Admission ROS BHS - HPI Chief Complaint: here requesting detox from ETOH use , reports x 35 yrs years, 5 pints of wine and 2 quarts of beer, + tremors if not drinking , drinks from 8 am onward , PHX seizure in w/d , latest 1 yr ago , blackouts- latest 6 mo ago , falls while intoxicted , most recently 2 weeks ago scraped his knees . cocaine : once / month tobacco 06/19 ppd requesting nrt w/ ptach . [place] 0.015 Allergies/Adverse Reactions: Allergies Allergy/AdvReac Type Severity Reaction Status Date / Time Penicillins Allergy Severe Swelling Verified 02/26/18 12:30 lactose AdvReac Severe diarrhea Verified 02/26/18 12:30 - Ebola screening Have you traveled outside of the country in the last 21 days: No Have you had contact with anyone from an Ebola affected area: No Have you been sick,other than usual withdrawal symptoms: No Do you have a fever: No - Review of Systems Constitutional: Chills, Night Sweats Respiratory: reports: No Symptoms reported, See HPI, Other (asthma hx) Cardiac: reports: No Symptoms Reported GI: reports: No Symptoms Reported, Abdominal cramping : reports: No Symptoms Reported Musculoskeletal: reports: No Symptoms Reported Integumentary: reports: No Symptoms Reported Neuro: reports: Headache, Paresthesia Endocrine: reports: No Symptoms Reported Hematology: reports: No Symptoms Reported Psychiatric: reports: No Sypmtoms Reported Patient History - Patient Medical History Hx Anemia: No Hx Asthma: Yes Hx Chronic Obstructive Pulmonary Disease (COPD): No Hx Cancer: No Hx Cardiac Disorders: No Hx Congestive Heart Failure: No Hx Hypertension: Yes Hx Hypercholesterolemia: No Hx Pacemaker: No HX Cerebrovascular Accident: No Hx Seizures: No Hx Dementia: No Hx Diabetes: No Hx Gastrointestinal Disorders: No Hx Liver Disease: Yes (Hep C, Treated.) Hx Genitourinary Disorders: No Hx Sexually Transmitted Disorders: No Hx Renal Disease (ESRD): No Hx Thyroid Disease: No Hx Human Immunodeficiency Virus (HIV): No (08/01 LAST NEGATIVE) Hx Hepatitis C: Yes (Treated with Harvoni) Hx Depression: Yes Hx Suicide Attempt: No Hx Bipolar Disorder: Yes (Meds.) Hx Schizophrenia: No - Patient Surgical History Past Surgical History: Yes Hx Neurologic Surgery: No Hx Cataract Extraction: No Hx Cardiac Surgery: No Hx Lung Surgery: No Hx Breast Surgery: No Hx Breast Biopsy: No Hx Abdominal Surgery: Yes (umbilical hernia repair as a child) Hx Appendectomy: No Hx Cholecystectomy: No Hx Genitourinary Surgery: No Hx Section: No Hx Orthopedic Surgery: No Other Surgical History: DENIES. Anesthesia Reaction: No - PPD History Previous Implant?: Yes Documented Results: Positive w/o proof Results: CXR(-)09/24/17 - Smoking Cessation Smoking history: Current some day smoker Have you smoked in the past 12 months: Yes Aproximately how many cigarettes per day: 5 Cigars Per Day: 0 Hx Chewing Tobacco Use: No Initiated information on smoking cessation: Yes 'Breaking Loose' booklet given: 02/26/18 - Substances Abused Crack Route: Smoking Frequency: 1-2 times per week Amount used: $20 Age of first use: 38 Date of Last Use: 02/26/18 Alcohol-wine/beer Route: Oral Frequency: Daily Amount used: 3 pts./2 (12 oz.) Age of first use: 14 Date of Last Use: 02/26/18 Family Disease History - Family Disease History Family Disease History: Other: Father (ALCOHOLIC/), Mother (), Brother (DRUG ABUSE; IN RECOVERY.) Admission Physical Exam [facility] - Vital Signs Vital Signs: Vital Signs - 24 hr 02/26/18 11:53 Temperature 99.8 F H Pulse Rate 96 H Respiratory 18 Rate Blood Pressure 142/84 - Physical General Appearance: Yes: Within Normal Limits, No Apparent Distress, Appropriately Dressed HEENTM: Yes: Within Normal Limits, Other (edentulous) Respiratory: Yes: Within Normal Limits, Lungs Clear, Normal Breath Sounds, No Respiratory Distress Neck: Yes: Within Normal Limits, No masses,lesions,Nodules Breast: Yes: Breast Exam Deferred Cardiology: Yes: Within Normal Limits, Regular Rhythm, Regular Rate, Tachycardia Abdominal: Yes: Within Normal Limits, Protuberent Genitourinary: Yes: Other (denies symptoms) Back: Yes: Within Normal Limits, Normal Inspection Musculoskeletal: Yes: Gait Steady Extremities: Yes: Normal Range of Motion, Non-Tender Neurological: Yes: Fully Oriented, Motor Strength 5/5, Normal Mood/Affect Integumentary: Yes: Normal Color, Warm Cleared for Admission [facility] - Detox or Rehab [facility] Level of Care: Medically Supervised [facility] Breath Alcohol Content Breath Alcohol Content: 0.015 Urine Drug Screen - Results Urine Drug Screen Results: DENYS-Cocaine, BZO-Benzodiazepines
[2018-02-26] MEDS ORDERED: ACETAMINOPHEN 325 MG TABLET (FP) PO PRN (14:30)
[2018-02-26] MEDS ORDERED: MAG HYDROX/AL HYDROX/SIMETH 30 ML UNIT-DOSE CUP PO PRN (14:30)
[2018-02-26] MEDS ORDERED: MAGNESIUM HYDROX 2400MG/30ML ORAL SUSPENSION 30 ML CUP PO PRN (14:30)
[2018-02-26] MEDS ORDERED: IBUPROFEN 400 MG TABLET (FP) PO PRN (14:30)
[2018-02-26] MEDS ORDERED: MAGNESIUM CITRATE 300 ML BOTTLE PO PRN (14:30)
[2018-02-26] MEDS: chlordiazePOXIDE HCL 25 MG CAPSULE PO SCH ×2 (17:11→22:07)
[2018-02-26] MEDS: THIAMINE HCL 100 MG TABLET (FP) PO SCH (22:07)
[2018-02-26] MEDS: MELATONIN 5 MG TABLETS PO PRN (22:08)
[2018-02-27 00:49] LABS: URINE APPEARANCE CLEAR; URINE BILIRUBIN NEGATIVE (<2.0 mg/dL); URINE COLOR LTYELLOW; URINE GLUCOSE (UA) NEGATIVE (NEGATIVE); URINE KETONE NEGATIVE (NEGATIVE); URINE LEUK ESTERASE NEGATIVE (NEGATIVE); URINE NITRITE NEGATIVE (NEGATIVE); URINE PROTEIN NEGATIVE (NEGATIVE); URINE UROBILINOGEN NEGATIVE mg/dL (0.2-1.0)
[2018-02-27 00:56] LABS: URINE MUCUS RARE
[2018-02-27] MEDS: chlordiazePOXIDE HCL 25 MG CAPSULE PO SCH ×4 (05:19→22:13)
--- NOTE | 2018-02-27 09:37 | EKG ---
Test Reason : Blood Pressure : / mmHG Vent. Rate : 096 BPM Atrial Rate : 096 BPM P-R Int : 174 ms QRS Dur : 070 ms QT Int : 348 ms P-R-T Axes : 063 027 049 degrees QTc Int : 439 ms NORMAL SINUS RHYTHM ANTERIOR INFARCT (CITED ON OR BEFORE 17-AUG-2017) ABNORMAL ECG WHEN COMPARED WITH ECG OF 20-JAN-2018 17:09, NO SIGNIFICANT CHANGE WAS FOUND Confirmed by JOSSIE RESENDIZ MD ([id number]) on 02/27/2018 9:36:59 AM Referred By: Confirmed By:JOSSIE RESENDIZ MD
[2018-02-27] MEDS: PRENATAL VITAMINS W/ FOLIC ACID TABLET (FP) PO SCH (10:22)
[2018-02-27] MEDS: NICOTINE 7 MG/24 HOURS TOPICAL PATCH TD SCH (10:22)
[2018-02-27] MEDS: ALBUTEROL SO4 8 GM HFA INHALER IH PRN (10:24)
--- NOTE | 2018-02-27 10:50 | PN ---
[facility] CIWA - CIWA Score Nausea/Vomitin Muscle Tremors: 2 Anxiety: 3 Agitation: 2 Paroxysmal Sweats: 3 Orientation: 0-Oriented Tacttile Disturbances: 0-None Auditory Disturbances: 0-None Visual Disturbances: 0-None Headache: 0-None Present CIWA-Ar Total Score: 13 S Progress Note (SOAP) Subjective: nausea , sweats, chills, interrupted sleep Objective: 02/27/18 10:49 Vital Signs Temperature 98.1 F 02/27/18 09:11 Pulse Rate 94 H 02/27/18 09:11 Respiratory Rate 20 02/27/18 09:11 Blood Pressure 92/56 02/27/18 09:11 O2 Sat by Pulse Oximetry (%) Laboratory Last Values Urine Color Ltyellow 02/26/18 23:53 Urine Appearance Clear 02/26/18 23:53 Urine pH 6.0 (5.0-8.0) 02/26/18 23:53 Ur Specific [place] 1.009 (1.001-1.035) 02/26/18 23:53 Urine Protein Negative (NEGATIVE) 02/26/18 23:53 Urine Glucose (UA) Negative (NEGATIVE) 02/26/18 23:53 Urine Ketones Negative (NEGATIVE) 02/26/18 23:53 Urine Blood 1+ (NEGATIVE) H 02/26/18 23:53 Urine Nitrite Negative (NEGATIVE) 02/26/18 23:53 Urine Bilirubin Negative (<2.0 mg/dL) 02/26/18 23:53 Urine Urobilinogen Negative mg/dL (0.2-1.0) 02/26/18 23:53 Ur Leukocyte Esterase Negative (NEGATIVE) 02/26/18 23:53 Urine WBC (Auto) <1 /hpf (3-5) 02/26/18 23:53 Urine RBC (Auto) 2 /hpf (0-3) 02/26/18 23:53 Urine Mucus Rare 02/26/18 23:53 Aox3 no distress no adventitious breath sounds full ROM, independently Assessment: 02/27/18 12:09 withdrawal sx Plan: withdrawal sx increase PO fluids continue to monitor
[2018-02-27 11:10] LABS: HEMATOCRIT 44.7 % (35.4-49); HEMOGLOBIN 14.1 GM/dL (11.7-16.9); MCH 25.2 pg (25.7-33.7); MCHC 31.6 g/dl (32.0-35.9); MEAN CELL VOLUME 79.8 fl (80-96); MEAN PLT VOLUME 7.9 fl (7.5-11.1); PLATELET COUNT 236 K/MM3 (134-434); RBC 5.61 M/mm3 (4.00-5.60); RDW 17.2 % (11.9-15.9); WHITE BLOOD COUNT 6.2 K/mm3 (4.0-10.0)
[2018-02-27 11:23] LABS: CHLORIDE 102 mmol/L (98-107); SODIUM 139 mmol/L (136-145)
[2018-02-27 11:36] LABS: ALBUMIN 3.9 g/dl (3.4-5.0); ALK PHOS 103 U/L (45-117); ANION GAP 12 MMOL/L (8-16); BILIRUBIN,TOTAL 0.6 mg/dL (0.2-1.0); BLOOD UREA NITROGEN 10 mg/dL (7-18); CALCIUM 9.1 mg/dL (8.5-10.1); CO2 25 mmol/L (21-32); CREATININE 0.9 mg/dL (0.55-1.3); GLUCOSE,RANDOM 104 mg/dL (74-106); SGOT/AST 58 U/L (15-37); SGPT/ALT 48 U/L (13-61)
[2018-02-27] MEDS: MELATONIN 5 MG TABLETS PO PRN (22:13)
[2018-02-27] MEDS: THIAMINE HCL 100 MG TABLET (FP) PO SCH (22:13)
[2018-02-28] MEDS: chlordiazePOXIDE HCL 25 MG CAPSULE PO SCH ×2 (05:36→10:27)
[2018-02-28] MEDS: PRENATAL VITAMINS W/ FOLIC ACID TABLET (FP) PO SCH (10:27)
[2018-02-28] MEDS: NICOTINE 7 MG/24 HOURS TOPICAL PATCH TD SCH (10:28)
[2018-02-28] MEDS: chlordiazePOXIDE 5 MG CAPSULE PO SCH ×2 (16:57→22:13)
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
[2018-02-28] MEDS: THIAMINE HCL 100 MG TABLET (FP) PO SCH (22:13)
[2018-02-28] MEDS: QUEtiapine FUMARATE 200 MG TABLET PO SCH (22:13)
[2018-03-01] MEDS: ALBUTEROL SO4 8 GM HFA INHALER IH PRN (05:31)
[2018-03-01] MEDS: chlordiazePOXIDE 5 MG CAPSULE PO SCH ×2 (05:31→10:10)
[2018-03-01] MEDS: CITALOPRAM HYDROBROMIDE 20 MG TABLET (FP) PO SCH (10:09)
[2018-03-01] MEDS: NICOTINE 7 MG/24 HOURS TOPICAL PATCH TD SCH (10:10)
[2018-03-01] MEDS: PRENATAL VITAMINS W/ FOLIC ACID TABLET (FP) PO SCH (10:10)
--- NOTE | 2018-03-01 16:18 | PN ---
[facility] Progress Note (SOAP) Subjective: Denies any complaints, appears anxious Objective: 03/01/18 16:14 Last Vital Signs Temp Pulse Resp BP Pulse Ox 98.4 F 74 20 138/90 03/01/18 14:05 03/01/18 14:05 03/01/18 14:05 03/01/18 14:05 Laboratory Tests 02/26/18 02/27/18 02/27/18 23:53 06:00 06:00 WBC 6.2 RBC 5.61 H Hgb 14.1 Hct 44.7 MCV 79.8 L MCH 25.2 L MCHC 31.6 L RDW 17.2 H Plt Count 236 MPV 7.9 Sodium 139 Potassium 4.0 Chloride 102 Carbon Dioxide 25 Anion Gap 12 BUN 10 Creatinine 0.9 Creat Clearance w eGFR > 60 Random Glucose 104 Calcium 9.1 Total Bilirubin 0.6 AST 58 H ALT 48 Alkaline Phosphatase 103 Total Protein 8.0 Albumin 3.9 Urine Color Ltyellow Urine Appearance Clear Urine pH 6.0 Ur Specific [place] 1.009 Urine Protein Negative Urine Glucose (UA) Negative Urine Ketones Negative Urine Blood 1+ H Urine Nitrite Negative Urine Bilirubin Negative Urine Urobilinogen Negative Ur Leukocyte Esterase Negative Urine WBC (Auto) <1 Urine RBC (Auto) 2 Urine Mucus Rare RPR Titer 02/27/18 06:00 WBC RBC Hgb Hct MCV MCH MCHC RDW Plt Count MPV Sodium Potassium Chloride Carbon Dioxide Anion Gap BUN Creatinine Creat Clearance w eGFR Random Glucose Calcium Total Bilirubin AST ALT Alkaline Phosphatase Total Protein Albumin Urine Color Urine Appearance Urine pH Ur Specific [place] Urine Protein Urine Glucose (UA) Urine Ketones Urine Blood Urine Nitrite Urine Bilirubin Urine Urobilinogen Ur Leukocyte Esterase Urine WBC (Auto) Urine RBC (Auto) Urine Mucus RPR Titer Nonreactive Labs reviewed: UA shows 1+ blood Assessment: 03/01/18 16:15 Withdrawal symptoms Noted with microscopic hematuria Plan: Continue detox Microscopic hematuria: encouraged PO water hydration, repeat UA
[2018-03-01] MEDS: chlordiazePOXIDE HCL 10 MG CAPSULE PO SCH ×2 (17:37→22:28)
[2018-03-01] MEDS: THIAMINE HCL 100 MG TABLET (FP) PO SCH (22:28)
[2018-03-01] MEDS: QUEtiapine FUMARATE 200 MG TABLET PO SCH (22:28)
[2018-03-02] MEDS: chlordiazePOXIDE HCL 10 MG CAPSULE PO SCH (05:42)
[2018-03-02 09:18] VITALS: BP 151/80; PULSE 108; TEMP 98.6
[2018-03-02] MEDS: CITALOPRAM HYDROBROMIDE 20 MG TABLET (FP) PO SCH (10:28)
[2018-03-02] MEDS: ALBUTEROL SO4 8 GM HFA INHALER IH PRN (10:28)
[2018-03-02] MEDS: PRENATAL VITAMINS W/ FOLIC ACID TABLET (FP) PO SCH (10:28)
[2018-03-02] MEDS: NICOTINE 7 MG/24 HOURS TOPICAL PATCH TD SCH (10:28)
[2018-03-02 10:36] LABS: URINE APPEARANCE CLEAR; URINE BILIRUBIN NEGATIVE (<2.0 mg/dL); URINE COLOR LTYELLOW; URINE GLUCOSE (UA) NEGATIVE (NEGATIVE); URINE KETONE NEGATIVE (NEGATIVE); URINE LEUK ESTERASE TRACE (NEGATIVE); URINE NITRITE NEGATIVE (NEGATIVE); URINE PROTEIN NEGATIVE (NEGATIVE); URINE UROBILINOGEN NEGATIVE mg/dL (0.2-1.0)
[2018-03-02 10:43] LABS: EPI CELLS RARE /HPF (FEW); URINE MUCUS RARE
--- NOTE | 2018-03-02 13:38 | PN ---
[facility] Progress Note Note: Psychiatry Attending's note : Patient discharged today. No evidence of oversedation. Seroquel is well tolerated. Can be raised to 300 mg/hs. As pre-planned. Patient is pleasant and comfortable. Relaxed.Steady gait.Cognitively intact. Not suicidal or homicidal.Benign hospital course. Script sent fo seroquel 300 mg/hs (30 day supply). To [facility].
--- NOTE | 2018-03-02 15:05 | PN ---
S Progress Note (SOAP) Subjective: no complains Assessment: 03/02/18 15:04 A & O x 3 Vital Signs Temperature 98.6 F 03/02/18 09:17 Pulse Rate 108 H 03/02/18 09:17 Respiratory Rate 18 03/02/18 09:17 Blood Pressure 151/80 03/02/18 09:17 O2 Sat by Pulse Oximetry (%) Plan: detox completed for discharge
--- NOTE | 2018-03-02 15:10 | DS ---
[facility] Detox Discharge Summary Admission Date: 02/26/18 Discharge Date: 03/02/18 - History Additional Comments: discharged home States will do AFtercare as outpatient at [facility] states does not need scripts for meds "only medicine I need is my seroquel" Will follow up with his PMD, Dr Castellon @[facility] on 04/21/18 Will attend meetings to "help keep me grounded" - Physical Exam Results Vital Signs: Vital Signs Temperature 98.6 F 03/02/18 09:17 Pulse Rate 108 H 03/02/18 09:17 Respiratory Rate 18 03/02/18 09:17 Blood Pressure 151/80 03/02/18 09:17 O2 Sat by Pulse Oximetry (%) Pertinent Admission Physical Exam Findings: withdrawal sx - Treatment Hospital Course: Detox Protocol Followed, Detoxed Safely, Responded well, Discharged Condition Good Patient has Accepted a Rehab Referral to: Out patient Aftercare at [facility] - Medication Discharge Medications: Ambulatory Orders Albuterol Sulfate Inhaler - [Ventolin HFA Inhaler -] 2 inh PO Q4H PRN #1 inhaler 10/20/17 Budesonide/Formeterol Fumarate [SYMBICORT 80/4.5mcg -] 2 inh PO PRN #1 inhaler 10/20/17 Quetiapine Fumarate [Seroquel -] 300 mg PO HS #30 tab 10/20/17 Citalopram Hydrobromide [Celexa -] 20 mg PO DAILY #30 tablet 01/21/18 Citalopram Hydrobromide [Celexa -] 20 mg PO DAILY #30 tablet 03/02/18 Quetiapine Fumarate [Seroquel -] 300 mg PO HS #30 tab 03/02/18 - Diagnosis (1) Alcohol dependence with uncomplicated withdrawal Status: Acute (2) Insomnia Status: Chronic (3) Asthma Status: Chronic (4) BPH (benign prostatic hyperplasia) Status: Chronic (5) Nicotine dependence, uncomplicated Status: Chronic Qualifiers: Nicotine product type: unspecified Qualified Code(s): F17.200 - Nicotine dependence, unspecified, uncomplicated (6) Alcohol-induced anxiety disorder Status: Suspected (7) History of hepatitis C Status: Resolved - AMA Did Patient Leave Against Medical Advice: No
== END 2018-03-02 10:48 | disposition home or self-care (01) | DRG 774 ==
LOC: YASAS 11:12 → Y3N 14:30
PROC: HZ2ZZZZ Detoxification Services for Substance Abuse Treatment (ICD-10-PCS; principal; 2018-02-26)
DX: F10.230 Alcohol dependence with withdrawal, uncomplicated (principal); F14.10 Cocaine abuse, uncomplicated; F17.200 Nicotine dependence, unspecified, uncomplicated; F10.280 Alcohol dependence with alcohol-induced anxiety disorder; F31.9 Bipolar disorder, unspecified; G47.00 Insomnia, unspecified; J44.9 Chronic obstructive pulmonary disease, unspecified; J45.909 Unspecified asthma, uncomplicated; N40.0 Benign prostatic hyperplasia without lower urinary tract symptoms; M19.90 Unspecified osteoarthritis, unspecified site; H54.61 Unqualified visual loss, right eye, normal vision left eye; R31.29 Other microscopic hematuria; Z86.19 Personal history of other infectious and parasitic diseases; Z86.69 Personal history of other diseases of the nervous system and sense organs; Z91.5 Personal history of self-harm
CPT/HCPCS: 36415; 80053; 81003; 81015; 85027; 86593; 93005; 93010

== ENCOUNTER 2018-04-22 13:25 | Inpatient (IN) | payer OTHER ==
[2018-04-22 17:09] VITALS: BMI 25.8
--- NOTE | 2018-04-22 18:19 | HP ---
CIWA Score - Admission Criteria [facility] Guidelines: Admission for Medically Managed Detox: Requires at least one of the followin. CIWA greater than 12 2. Seizures within the past 24 hours 3. Delirium tremens within the past 24 hours 4. Hallucinations within the past 24 hours 5. Acute intervention needed for co occurring medical disorder 6. Acute intervention needed for co occurring psychiatric disorder 7. Severe withdrawal that cannot be handled at a lower level of care (continued vomiting, continued diarrhea, abnormal vital signs) requiring intravenous medication and/or fluids 8. Admission ROS S - HPI Chief Complaint: alcohol rehabilitation Allergies/Adverse Reactions: Allergies Allergy/AdvReac Type Severity Reaction Status Date / Time Penicillins Allergy Severe Swelling Verified 04/22/18 17:44 lactose AdvReac Severe diarrhea Verified 04/22/18 17:44 History of Present Illness: 33 yo male with long history of alcohol dependence is here seeking rehabilitation, this is one of multiple admissions. Utox positive for bzo denies benzo use. Last detox [facility] 02/26/18 -03/02/18. PMHX: asthma, depression and bipolar. Denies suicidal / homicidal ideation. Denies any legal troubles at this time. Exam Limitations: No Limitations - Ebola screening Have you traveled outside of the country in the last 21 days: No Have you had contact with anyone from an Ebola affected area: No Have you been sick,other than usual withdrawal symptoms: No Do you have a fever: No - Review of Systems Constitutional: Other (fatigue) EENT: reports: No Symptoms Reported Respiratory: reports: No Symptoms reported Cardiac: reports: No Symptoms Reported GI: reports: No Symptoms Reported : reports: No Symptoms Reported Musculoskeletal: reports: No Symptoms Reported Integumentary: reports: No Symptoms Reported Neuro: reports: No Symptoms reported Endocrine: reports: Increased Thirst Hematology: reports: No Symptoms Reported Psychiatric: reports: Orientated x3, Anxious Other Systems: Reviewed and Negative Patient History - Patient Medical History Hx Anemia: No Hx Asthma: Yes Hx Chronic Obstructive Pulmonary Disease (COPD): No Hx Cancer: No Hx Cardiac Disorders: No Hx Congestive Heart Failure: No Hx Hypertension: Yes Hx Hypercholesterolemia: No Hx Pacemaker: No HX Cerebrovascular Accident: No Hx Seizures: No Hx Dementia: No Hx Diabetes: No Hx Gastrointestinal Disorders: No Hx Liver Disease: Yes (Hep C, Treated.) Hx Genitourinary Disorders: No Hx Sexually Transmitted Disorders: No Hx Renal Disease (ESRD): No Hx Thyroid Disease: No Hx Human Immunodeficiency Virus (HIV): No (08/01 LAST NEGATIVE) Hx Hepatitis C: Yes (Treated with Harvoni) Hx Depression: Yes Hx Suicide Attempt: No Hx Bipolar Disorder: Yes (Meds.) Hx Schizophrenia: No - Patient Surgical History Past Surgical History: Yes Hx Neurologic Surgery: No Hx Cataract Extraction: No Hx Cardiac Surgery: No Hx Lung Surgery: No Hx Breast Surgery: No Hx Breast Biopsy: No Hx Abdominal Surgery: Yes (umbilical hernia repair as a child) Hx Appendectomy: No Hx Cholecystectomy: No Hx Genitourinary Surgery: No Hx Section: No Hx Orthopedic Surgery: No Other Surgical History: DENIES. Anesthesia Reaction: No - PPD History Results: CXR(-)09/24/17 PPD to be Administered?: No - Smoking Cessation Smoking history: Current some day smoker Have you smoked in the past 12 months: Yes Aproximately how many cigarettes per day: 5 Cigars Per Day: 0 Hx Chewing Tobacco Use: No Initiated information on smoking cessation: Yes 'Breaking Loose' booklet given: 04/22/18 - Substance & Tx. History Hx Alcohol Use: Yes Hx Substance Use: Yes Substance Use Type: Alcohol Hx Substance Use Treatment: Yes (Last detox [facility] 02/26/18 -03/02/18) - Substances Abused Alcohol Route: Oral Frequency: Daily Amount used: 4 -5 pints + 2 x 24 oz beer Age of first use: 14 Date of Last Use: 04/20/18 Family Disease History - Family Disease History Family Disease History: Other: Father (ALCOHOLIC/), Mother (), Brother (DRUG ABUSE; IN RECOVERY.) Admission Physical Exam [facility] - Vital Signs Vital Signs: Vital Signs - 24 hr 04/22/18 17:08 Temperature 97.1 F L Pulse Rate 110 H Respiratory 18 Rate Blood Pressure 147/98 - Physical General Appearance: Yes: Nourished, Appropriately Dressed, Tremorous, Anxious HEENTM: Yes: EOMI, Hearing grossly Normal, Normal ENT Inspection, Normocephalic , Normal Voice, YONNY, Pharynx Normal, Tm's normal Respiratory: Yes: Chest Non-Tender, Lungs Clear, Normal Breath Sounds, No Respiratory Distress, No Accessory Muscle Use Neck: Yes: Within Normal Limits Breast: Yes: Breast Exam Deferred Cardiology: Yes: Regular Rhythm, Regular Rate Abdominal: Yes: Normal Bowel Sounds, Non Tender, Flat, Soft Genitourinary: Yes: Within Normal Limits Back: Yes: Normal Inspection Musculoskeletal: Yes: full range of Motion, Gait Steady, Pelvis Stable Extremities: Yes: Normal Capillary Refill, Normal Inspection, Normal Range of Motion, Non-Tender Neurological: Yes: sand operator II-XII NML intact, Fully Oriented, Alert, Motor Strength 5/5 Integumentary: Yes: Normal Color, Warm, Moist Lymphatic: Yes: Within Normal Limits - Diagnostic (1) Alcohol dependence Current Visit: Yes Status: Acute Qualifiers: Substance use status: uncomplicated Qualified Code(s): F10.20 - Alcohol dependence, uncomplicated (2) Asthma Current Visit: Yes Status: Chronic (3) Nicotine dependence, uncomplicated Current Visit: Yes Status: Chronic Qualifiers: Nicotine product type: cigarettes Qualified Code(s): F17.210 - Nicotine dependence, cigarettes, uncomplicated BHS Breath Alcohol Content Breath Alcohol Content: 0 Urine Drug Screen - Results Drug Screen Negative: No Urine Drug Screen Results: BZO-Benzodiazepines Inpatient Rehab Admission - Initial Determination Are CD services needed?: Yes Free of communicable disease: Yes Not in need of hospitalization: Yes - Rehab Admission Criteria Previous failed treatment: Yes Poor recovery environment: Yes Comorbidities: Yes Lacks judgement: Yes Patient is meeting Inpatient Rehab admission criteria:: Yes
[2018-04-22] MEDS ORDERED: ALBUTEROL SO4 8 GM HFA INHALER IH PRN (18:32)
[2018-04-22] MEDS ORDERED: BUDESONIDE/FORMETEROL FUMARATE 80/4.5 mcg INHALER IH SCH (18:45)
[2018-04-22] MEDS ORDERED: LOPERAMIDE HCL 2 MG CAPSULE PO PRN (18:53)
[2018-04-22] MEDS ORDERED: guaiFENesin/D-METHORPHAN HB 10 ML UNIT-DOSE CUPS PO PRN (18:53)
[2018-04-22] MEDS ORDERED: MENTHOL/PHENOL 1 EACH UD MM PRN (18:53)
[2018-04-22] MEDS ORDERED: MAGNESIUM CITRATE 300 ML BOTTLE PO PRN (18:53)
[2018-04-22] MEDS ORDERED: P-EPHED 60MG/TRIPROLIDI 2.5MG TABLET PO PRN (18:53)
[2018-04-22] MEDS ORDERED: ACETAMINOPHEN 325 MG TABLET (FP) PO PRN (18:53)
[2018-04-22] MEDS ORDERED: MAG HYDROX/AL HYDROX/SIMETH 30 ML UNIT-DOSE CUP PO PRN (18:53)
[2018-04-22] MEDS ORDERED: IBUPROFEN 400 MG TABLET (FP) PO PRN (18:53)
[2018-04-22] MEDS ORDERED: MAGNESIUM HYDROX 2400MG/30ML ORAL SUSPENSION 30 ML CUP PO PRN (18:53)
[2018-04-22] MEDS ORDERED: CYCLOBENZAPRINE HCL 5 MG TABLET PO PRN (19:13)
[2018-04-22] MEDS: THIAMINE HCL 100 MG TABLET (FP) PO SCH (21:06)
[2018-04-22] MEDS: MELATONIN 5 MG TABLETS PO PRN (21:07)
[2018-04-22 23:00] LABS: URINE APPEARANCE TURBID; URINE BILIRUBIN NEGATIVE (<2.0 mg/dL); URINE COLOR AMBER; URINE GLUCOSE (UA) NEGATIVE (NEGATIVE); URINE KETONE NEGATIVE (NEGATIVE); URINE LEUK ESTERASE NEGATIVE (NEGATIVE); URINE NITRITE NEGATIVE (NEGATIVE); URINE PROTEIN 1+ (NEGATIVE); URINE UROBILINOGEN NEGATIVE mg/dL (0.2-1.0)
[2018-04-22 23:14] LABS: EPI CELLS RARE /HPF (FEW); URINE BACTERIA RARE /hpf (NONE SEEN); URINE MUCUS RARE
[2018-04-23] MEDS: PRENATAL VITAMINS W/ FOLIC ACID TABLET (FP) PO SCH (10:16)
--- NOTE | 2018-04-23 11:13 | EKG ---
Test Reason : Blood Pressure : / mmHG Vent. Rate : 096 BPM Atrial Rate : 096 BPM P-R Int : 172 ms QRS Dur : 068 ms QT Int : 340 ms P-R-T Axes : 066 023 065 degrees QTc Int : 429 ms NORMAL SINUS RHYTHM NORMAL ECG WHEN COMPARED WITH ECG OF 26-FEB-2018 15:47, NO SIGNIFICANT CHANGE WAS FOUND Confirmed by MAIKEL RED MD ([id number]) on 04/23/2018 11:12:39 AM Referred By: Confirmed By:MAIKEL RED MD
--- NOTE | 2018-04-23 13:15 | PN ---
S Progress Note Note: Vital Signs Temperature 98.3 F 04/23/18 06:42 Pulse Rate 108 H 04/23/18 09:30 Respiratory Rate 18 04/23/18 09:30 Blood Pressure 127/69 04/23/18 09:30 O2 Sat by Pulse Oximetry (%) Laboratory Last Values Urine Color [place] 04/22/18 20:17 Urine Appearance Turbid 04/22/18 20:17 Urine pH 6.0 (5.0-8.0) 04/22/18 20:17 Ur Specific [place] 1.025 (1.010-1.035) 04/22/18 20:17 Urine Protein 1+ (NEGATIVE) H 04/22/18 20:17 Urine Glucose (UA) Negative (NEGATIVE) 04/22/18 20:17 Urine Ketones Negative (NEGATIVE) 04/22/18 20:17 Urine Blood Negative (NEGATIVE) 04/22/18 20:17 Urine Nitrite Negative (NEGATIVE) 04/22/18 20:17 Urine Bilirubin Negative (<2.0 mg/dL) 04/22/18 20:17 Urine Urobilinogen Negative mg/dL (0.2-1.0) 04/22/18 20:17 Ur Leukocyte Esterase Negative (NEGATIVE) 04/22/18 20:17 Urine WBC (Auto) 1 /hpf (3-5) 04/22/18 20:17 Urine RBC (Auto) 1 /hpf (0-3) 04/22/18 20:17 Ur Epithelial Cells Rare /HPF (FEW) 04/22/18 20:17 Urine Bacteria Rare /hpf (NONE SEEN) 04/22/18 20:17 Urine Mucus Rare 04/22/18 20:17 additional labs pending continue to monitor
[2018-04-23 14:30] LABS: HEMATOCRIT 42.8 % (35.4-49); HEMOGLOBIN 14.1 GM/dL (11.7-16.9); MCH 26.6 pg (25.7-33.7); MEAN CELL VOLUME 80.8 fl (80-96); MEAN PLT VOLUME 7.8 fl (7.5-11.1); PLATELET COUNT 257 K/MM3 (134-434); RDW 16.4 % (11.9-15.9); WHITE BLOOD COUNT 4.6 K/mm3 (4.0-10.0)
[2018-04-23 15:08] LABS: ALBUMIN 3.4 g/dl (3.4-5.0); ALK PHOS 104 U/L (45-117); ANION GAP 9 MMOL/L (8-16); BILIRUBIN,TOTAL 0.5 mg/dL (0.2-1); BLOOD UREA NITROGEN 11 mg/dL (7-18); CALCIUM 9.1 mg/dL (8.5-10.1); CHLORIDE 102 mmol/L (98-107); CO2 26 mmol/L (21-32); CREATININE 1.1 mg/dL (0.55-1.3); GLUCOSE,RANDOM 104 mg/dL (74-106); POTASSIUM 4.2 mmol/L (3.5-5.1); SGOT/AST 25 U/L (15-37); SGPT/ALT 28 U/L (13-61); SODIUM 137 mmol/L (136-145); TOT PROT 7.5 g/dl (6.4-8.2)
--- NOTE | 2018-04-23 17:14 | PN ---
S Progress Note Note: Psychiatric nurse practitioner note: Call received for patient requesting seroquel 300mg qhs. Chart and pharmacy claims reviewed. Seroquel 300mg qhs ordered.
[2018-04-23] MEDS: QUEtiapine FUMARATE 300 MG TABLET PO SCH (21:33)
[2018-04-23] MEDS: MELATONIN 5 MG TABLETS PO PRN (21:33)
[2018-04-23] MEDS: BUDESONIDE/FORMETEROL FUMARATE 80/4.5 mcg INHALER IH SCH (21:34)
[2018-04-23] MEDS ORDERED: PT OWN MED DRAWER 7, Y5N ONE (21:34)
[2018-04-23] MEDS: THIAMINE HCL 100 MG TABLET (FP) PO SCH (21:35)
[2018-04-24] MEDS: PRENATAL VITAMINS W/ FOLIC ACID TABLET (FP) PO SCH (09:51)
[2018-04-24] MEDS: BUDESONIDE/FORMETEROL FUMARATE 80/4.5 mcg INHALER IH SCH ×2 (09:51→21:52)
--- NOTE | 2018-04-24 14:01 | HP ---
Psychiatrist Admission - Data Date of interview: 04/24/18 Admission source: [facility] Identifying data: This is the second admission to [address] [place] [address] for this 62 years old AA father of 3 grown children, resides with roommate,supported by [facility] Medical History: Significant for Rayna Fuentes BA. Psychiatric History: Patient was dx with Bipolar disordre about 6 years ago when he was admitted to [facility] after being severe depressed,drinking, expressing suicidal ideas.Patient was placed on Depakote with good response.REports 4 more psychiatric hospitalizationd ,most recent in 2015for ths same reason.patient sees psychiatrist at [facility] in [facility].He is on Seroquel 300 mg po hs. Physical/Sexual Abuse/Trauma History: denies Vital Signs: Vital Signs - 24 hr 04/24/18 04/24/18 04/24/18 00:30 06:45 10:16 Temperature 98.0 F Pulse Rate 83 96 H Respiratory 18 18 18 Rate Blood Pressure 128/82 123/74 Allergies/Adverse Reactions: Allergies Allergy/AdvReac Type Severity Reaction Status Date / Time Penicillins Allergy Severe Swelling Verified 04/22/18 17:44 lactose AdvReac Severe diarrhea Verified 04/22/18 17:44 Date of last physical exam: 04/22/18 Concur with the findings of this exam: Yes - Substance Abuse/Tx History Hx Alcohol Use: Yes Hx Substance Use: Yes (stopped crack/cocaine 6 months ago) Substance Use Type: Alcohol, Cocaine Hx Substance Use Treatment: Yes (completed this program 2016) Mental Status Exam - Mental Status Exam Alert and Oriented to: Time, Place, Person Cognitive Function: Grossly Intact Patient Appearance: Well Groomed Mood: Euthymic Affect: Normal Range Patient Behavior: Cooperative Speech Pattern: Clear Voice Loudness: Normal Thought Process: Goal Oriented Thought Disorder: Not Present Hallucinations: Denies Suicidal Ideation: Denies Homicidal Ideation: Denies Insight/Judgement: Fair Sleep: Fair Appetite: Good Muscle strength/Tone: Normal Gait/Station: Normal Psychiatric Findings - Problem List ([place] 1, 2,3) (1) Bipolar II disorder Current Visit: Yes Status: Chronic (2) Alcohol dependence Current Visit: Yes Status: Chronic Qualifiers: Substance use status: uncomplicated Qualified Code(s): F10.20 - Alcohol dependence, uncomplicated (3) Asthma Current Visit: Yes Status: Chronic (4) Nicotine dependence, uncomplicated Current Visit: Yes Status: Chronic Qualifiers: Nicotine product type: cigarettes Qualified Code(s): F17.210 - Nicotine dependence, cigarettes, uncomplicated (5) Alcohol related seizure Current Visit: No Status: Chronic (6) Nicotine dependence Current Visit: Yes Status: Chronic Qualifiers: Nicotine product type: cigarettes Substance use status: in withdrawal Qualified Code(s): F17.213 - Nicotine dependence, cigarettes, with withdrawal (7) Hepatitis C Current Visit: Yes Status: Resolved Qualifiers: Viral hepatitis chronicity: chronic Hepatic coma status: without hepatic coma Qualified Code(s): B18.2 - Chronic viral hepatitis C - Initial Treatment Plan Initial Treatment Plan: Seroquel 300 mg po hs. Willl monitor progress.
[2018-04-24] MEDS: MELATONIN 5 MG TABLETS PO PRN (21:52)
[2018-04-24] MEDS: THIAMINE HCL 100 MG TABLET (FP) PO SCH (21:52)
[2018-04-24] MEDS: QUEtiapine FUMARATE 300 MG TABLET PO SCH (21:53)
[2018-04-25] MEDS: BUDESONIDE/FORMETEROL FUMARATE 80/4.5 mcg INHALER IH SCH ×2 (09:55→21:44)
[2018-04-25] MEDS: PRENATAL VITAMINS W/ FOLIC ACID TABLET (FP) PO SCH (09:55)
[2018-04-25] MEDS: MELATONIN 5 MG TABLETS PO PRN (21:44)
[2018-04-25] MEDS: QUEtiapine FUMARATE 300 MG TABLET PO SCH (21:44)
[2018-04-25] MEDS: THIAMINE HCL 100 MG TABLET (FP) PO SCH (21:44)
[2018-04-26] MEDS: PRENATAL VITAMINS W/ FOLIC ACID TABLET (FP) PO SCH (09:59)
[2018-04-26] MEDS: BUDESONIDE/FORMETEROL FUMARATE 80/4.5 mcg INHALER IH SCH ×2 (10:00→21:34)
[2018-04-26] MEDS: QUEtiapine FUMARATE 300 MG TABLET PO SCH (21:34)
[2018-04-26] MEDS: MELATONIN 5 MG TABLETS PO PRN (21:34)
[2018-04-26] MEDS: THIAMINE HCL 100 MG TABLET (FP) PO SCH (21:34)
[2018-04-27] MEDS: PRENATAL VITAMINS W/ FOLIC ACID TABLET (FP) PO SCH (10:04)
[2018-04-27] MEDS: BUDESONIDE/FORMETEROL FUMARATE 80/4.5 mcg INHALER IH SCH ×2 (10:04→21:53)
[2018-04-27] MEDS: QUEtiapine FUMARATE 300 MG TABLET PO SCH (21:53)
[2018-04-27] MEDS: THIAMINE HCL 100 MG TABLET (FP) PO SCH (21:53)
[2018-04-27] MEDS: MELATONIN 5 MG TABLETS PO PRN (21:54)
[2018-04-28] MEDS: PRENATAL VITAMINS W/ FOLIC ACID TABLET (FP) PO SCH (09:48)
[2018-04-28] MEDS: BUDESONIDE/FORMETEROL FUMARATE 80/4.5 mcg INHALER IH SCH ×2 (09:48→21:42)
[2018-04-28] MEDS: MELATONIN 5 MG TABLETS PO PRN (21:42)
[2018-04-28] MEDS: THIAMINE HCL 100 MG TABLET (FP) PO SCH (21:42)
[2018-04-28] MEDS: QUEtiapine FUMARATE 300 MG TABLET PO SCH (21:42)
[2018-04-29] MEDS: PRENATAL VITAMINS W/ FOLIC ACID TABLET (FP) PO SCH (09:45)
[2018-04-29] MEDS: BUDESONIDE/FORMETEROL FUMARATE 80/4.5 mcg INHALER IH SCH ×2 (09:46→22:18)
[2018-04-29] MEDS: QUEtiapine FUMARATE 300 MG TABLET PO SCH (22:17)
[2018-04-29] MEDS: THIAMINE HCL 100 MG TABLET (FP) PO SCH (22:17)
[2018-04-29] MEDS: MELATONIN 5 MG TABLETS PO PRN (22:17)
[2018-04-30] MEDS: BUDESONIDE/FORMETEROL FUMARATE 80/4.5 mcg INHALER IH SCH ×2 (10:35→21:54)
[2018-04-30] MEDS: PRENATAL VITAMINS W/ FOLIC ACID TABLET (FP) PO SCH (10:35)
[2018-04-30] MEDS: MELATONIN 5 MG TABLETS PO PRN (21:55)
[2018-04-30] MEDS: THIAMINE HCL 100 MG TABLET (FP) PO SCH (21:55)
[2018-04-30] MEDS: QUEtiapine FUMARATE 300 MG TABLET PO SCH (21:55)
[2018-05-01] MEDS: PRENATAL VITAMINS W/ FOLIC ACID TABLET (FP) PO SCH (09:48)
[2018-05-01] MEDS: BUDESONIDE/FORMETEROL FUMARATE 80/4.5 mcg INHALER IH SCH ×2 (09:48→21:53)
[2018-05-01] MEDS: MELATONIN 5 MG TABLETS PO PRN (21:54)
[2018-05-01] MEDS: QUEtiapine FUMARATE 300 MG TABLET PO SCH (21:54)
[2018-05-01] MEDS: THIAMINE HCL 100 MG TABLET (FP) PO SCH (21:54)
[2018-05-02] MEDS: BUDESONIDE/FORMETEROL FUMARATE 80/4.5 mcg INHALER IH SCH ×2 (09:46→22:14)
[2018-05-02] MEDS: PRENATAL VITAMINS W/ FOLIC ACID TABLET (FP) PO SCH (09:46)
[2018-05-02] MEDS: QUEtiapine FUMARATE 300 MG TABLET PO SCH (22:14)
[2018-05-02] MEDS: THIAMINE HCL 100 MG TABLET (FP) PO SCH (22:14)
[2018-05-02] MEDS: MELATONIN 5 MG TABLETS PO PRN (22:15)
[2018-05-03] MEDS: PRENATAL VITAMINS W/ FOLIC ACID TABLET (FP) PO SCH (09:59)
[2018-05-03] MEDS: BUDESONIDE/FORMETEROL FUMARATE 80/4.5 mcg INHALER IH SCH ×2 (09:59→22:23)
[2018-05-03] MEDS: QUEtiapine FUMARATE 300 MG TABLET PO SCH (21:27)
[2018-05-03] MEDS: MELATONIN 5 MG TABLETS PO PRN (21:27)
[2018-05-03] MEDS: THIAMINE HCL 100 MG TABLET (FP) PO SCH (21:27)
[2018-05-04] MEDS: PRENATAL VITAMINS W/ FOLIC ACID TABLET (FP) PO SCH (10:00)
[2018-05-04] MEDS: BUDESONIDE/FORMETEROL FUMARATE 80/4.5 mcg INHALER IH SCH ×2 (10:00→21:44)
[2018-05-04] MEDS: QUEtiapine FUMARATE 300 MG TABLET PO SCH (21:44)
[2018-05-04] MEDS: THIAMINE HCL 100 MG TABLET (FP) PO SCH (21:44)
[2018-05-04] MEDS: MELATONIN 5 MG TABLETS PO PRN (21:45)
[2018-05-05] MEDS: PRENATAL VITAMINS W/ FOLIC ACID TABLET (FP) PO SCH (09:42)
[2018-05-05] MEDS: BUDESONIDE/FORMETEROL FUMARATE 80/4.5 mcg INHALER IH SCH ×2 (09:42→21:52)
--- NOTE | 2018-05-05 11:41 | PN ---
Psychiatric Progress Note Vital Signs: Vital Signs Period Temp Pulse Resp BP Sys/Dempsey Pulse Ox Last 24 Hr 98.1 F 99 18-20 119/82 Date of Session: 05/05/18 Chief Complaint:: Discharge Note HPI: Patient addressingAlcohol Dependence comorbid with Nicotine Dependence and Bipolar Disorder ROS: Hep C, Asthma, Alcohol related seizure Current Medications: Active Medications Generic Name Dose Route Start Last Admin Trade Name Freq PRN Reason Stop Dose Admin Acetaminophen 650 mg 04/22/18 18:53 Tylenol - PO Q4H PRN FEVER Al Hydroxide/Mg Hydroxide 30 ml 04/22/18 18:53 Mylanta Oral Suspension - PO Q6H PRN DYSPEPSIA Albuterol Sulfate 2 puff 04/22/18 18:32 Ventolin Hfa Inhaler - IH Q4H PRN SHORT OF BREATH/WHEEZING Budesonide/Formoterol Fumarate 2 puff 04/23/18 22:00 05/05/18 09:42 Symbicort 80/4.5mcg - IH 2 puff BID RICARDO Administration Cyclobenzaprine HCl 5 mg 04/22/18 19:13 04/27/18 10:05 Cyclobenzaprine Hcl PO 5 mg DAILY PRN Administration BACK PAIN Eucalyptus/Menthol/Phenol/Sorbitol 1 each 04/22/18 18:53 Cepastat Lozenge - MM Q4H PRN SORE THROAT Guaifenesin 10 ml 04/22/18 18:53 Robitussin Dm - PO Q6H PRN COUGH Ibuprofen 400 mg 04/22/18 18:53 Motrin - PO Q6H PRN Pain level 4-6 Loperamide HCl 4 mg 04/22/18 18:53 Imodium - PO Q6H PRN DIARRHEA Magnesium Citrate 300 ml 04/22/18 18:53 Citroma - PO Q48H PRN CONSTIPATION Magnesium Hydroxide 30 ml 04/22/18 18:53 Milk Of Magnesia - PO DAILY PRN CONSTIPATION Melatonin 5 mg 04/22/18 22:00 05/04/18 21:45 Melatonin PO 5 mg HS PRN Administration INSOMNIA Multivit/Folic Acid/Iron 1 tab 04/23/18 10:00 05/05/18 09:42 Vitamins (Sjr) - PO 1 tab DAILY RICARDO Administration Pseudoephedrine/Triprolidine 1 combo 04/22/18 18:53 Actifed - PO TID PRN NASAL CONGESTION Quetiapine Fumarate 300 mg 04/23/18 22:00 05/04/18 21:44 Seroquel - PO 300 mg HS RICARDO Administration Thiamine HCl 100 mg 04/22/18 22:00 05/04/18 21:44 Vitamin B1 - PO 100 mg HS RICARDO Administration Current Side Effect: No Lab tests ordered: Yes Lab tests reviewed: Yes Provider note:: Patient will complete this program on . He has met his treatment goals and will continue to address his issues in [facility] residential treatment at the [facility] at [address] [place] [address]. Told administrative underwriter that from his participation in this program, he has learned to be consistent with what he does and be willing to take suggestions. He responded well to Seroquel 300 mg po HS. Script for 30 days supply of medication will be electronically transmitted to [facility] at [address] [place] [address]. He is stable for discharge on 05/06/18 Total face to face time:: 35 Mental Status Exam - Mental Status Exam Alert and Oriented to: Time, Place, Person Cognitive Function: Fair Patient Appearance: Well Groomed Mood: Hopeful, Euthymic Affect: Appropriate Patient Behavior: Cooperative Speech Pattern: Clear Voice Loudness: Normal Thought Process: Intact, Goal Oriented Thought Disorder: Not Present Hallucinations: Denies Suicidal Ideation: Denies Homicidal Ideation: Denies Sleep: Fair Appetite: Good Muscle strength/Tone: Normal Gait/Station: Normal Psychiatric Treatment Plan - Problem List (1) Alcohol dependence Current Visit: Yes Qualifiers: Substance use status: uncomplicated Qualified Code(s): F10.20 - Alcohol dependence, uncomplicated (2) Nicotine dependence Current Visit: Yes (3) Bipolar II disorder Current Visit: Yes (4) Hepatitis C Current Visit: Yes Qualifiers: Viral hepatitis chronicity: chronic Hepatic coma status: without hepatic coma Qualified Code(s): B18.2 - Chronic viral hepatitis C (5) Asthma Current Visit: Yes (6) Alcohol-induced sleep disorder Current Visit: No (7) Alcohol related seizure Current Visit: No (8) BPH (benign prostatic hyperplasia) Current Visit: No Comment: STOPPED FLOMAX Initial treatment plan: Patient will be discharged tomorrow and referred to the [facility] for [facility] residential treatment
[2018-05-05] MEDS: THIAMINE HCL 100 MG TABLET (FP) PO SCH (21:51)
[2018-05-05] MEDS: QUEtiapine FUMARATE 300 MG TABLET PO SCH (21:52)
[2018-05-05] MEDS: MELATONIN 5 MG TABLETS PO PRN (21:53)
[2018-05-06 06:32] VITALS: BP 144/90; PULSE 90; TEMP 97.7
== END 2018-05-06 06:50 | disposition home or self-care (01) | DRG 772 ==
LOC: YASAS 13:25 → Y3W 18:03
PROVIDERS: ADMIT Psychiatry & Neurology Psychiatry; ATTEND Psychiatry & Neurology Psychiatry
PROC: HZ42ZZZ Group Counseling for Substance Abuse Treatment, Cognitive-Behavioral (ICD-10-PCS; principal; 2018-04-22)
DX: F10.20 Alcohol dependence, uncomplicated (principal); F17.210 Nicotine dependence, cigarettes, uncomplicated; F31.81 Bipolar II disorder; G40.509 Epileptic seizures related to external causes, not intractable, without status epilepticus; F10.282 Alcohol dependence with alcohol-induced sleep disorder; J45.909 Unspecified asthma, uncomplicated; B18.2 Chronic viral hepatitis C; N40.0 Benign prostatic hyperplasia without lower urinary tract symptoms
CPT/HCPCS: 36415; 71046-TC-FY; 80053; 81003; 81015; 85027; 86593; 93005; 93010

== ENCOUNTER 2018-06-18 13:21 | Inpatient (IN) | payer OTHER ==
[2018-06-18 13:31] VITALS: BMI 31.8
--- NOTE | 2018-06-18 15:17 | HP ---
"CIWA Score Nausea/Vomitin-No Nausea/No Vomiting Muscle Tremors: None Anxiety: 0-No Anxiety, at Ease Agitation: 0-Normal Activity Paroxysmal Sweats: No Perspiration Orientation: 0-Oriented Tacttile Disturbances: 0-None Auditory Disturbances: 0-None Visual Disturbances: 0-None Headache: 0-None Present CIWA-Ar Total Score: 0 - Admission Criteria OASAS Guidelines: Admission for Medically Managed Detox: Requires at least one of the followin. CIWA greater than 12 2. Seizures within the past 24 hours 3. Delirium tremens within the past 24 hours 4. Hallucinations within the past 24 hours 5. Acute intervention needed for co occurring medical disorder 6. Acute intervention needed for co occurring psychiatric disorder 7. Severe withdrawal that cannot be handled at a lower level of care (continued vomiting, continued diarrhea, abnormal vital signs) requiring intravenous medication and/or fluids 8. Admission ROS S - HPI Allergies/Adverse Reactions: Allergies Allergy/AdvReac Type Severity Reaction Status Date / Time Penicillins Allergy Severe Swelling Verified 06/18/18 16:33 lactose AdvReac Severe diarrhea Verified 06/18/18 16:33 History of Present Illness: patient here requesting detox from etoh use , reports 2 cans of beer , usually 2 bottles of wine and 3 quarts of beer , reports withdrawal seizures most recently 4 months ago , has been to this facility in the past for detox. [place] 0.032 cocaine : 30 $ /day This report was requested by: Kassidy Hawkins | Reference #: [id number] Others' Prescriptions Patient Name: Collin Venegas Date: 1955 Address: [place] [address] Sex: Male Rx Written Rx Dispensed Drug Quantity Days Supply Prescriber Name 05/23/2018 05/23/2018 chlordiazepoxide 25 mg capsule 8 2 Ramy Crawford (CO[facility]) PMHX : asthma ( dx at , [facility] ) - Symbicort pShx : umbilical hernia at Psych : bipolar d/o - Seroquel tobacco : 06/17 ppd - Ebola screening Have you traveled outside of the country in the last 21 days: No Have you had contact with anyone from an Ebola affected area: No Have you been sick,other than usual withdrawal symptoms: No Do you have a fever: No - Review of Systems Constitutional: See HPI EENT: reports: Other (glasses , upper and lower dentures) Respiratory: reports: No Symptoms reported Cardiac: reports: No Symptoms Reported GI: reports: No Symptoms Reported : reports: No Symptoms Reported Musculoskeletal: reports: No Symptoms Reported Integumentary: reports: No Symptoms Reported Neuro: reports: No Symptoms reported Endocrine: reports: No Symptoms Reported Psychiatric: reports: Orientated x3, other (see HPI) Patient History - Patient Medical History Hx Anemia: No Hx Asthma: Yes Hx Chronic Obstructive Pulmonary Disease (COPD): No Hx Cancer: No Hx Cardiac Disorders: No Hx Congestive Heart Failure: No Hx Hypertension: Yes Hx Hypercholesterolemia: No Hx Pacemaker: No HX Cerebrovascular Accident: No Hx Seizures: Yes (r/t alcohol) Hx Dementia: No Hx Diabetes: No Hx Gastrointestinal Disorders: No Hx Liver Disease: Yes (Hep C, Treated.) Hx Genitourinary Disorders: No Hx Sexually Transmitted Disorders: No Hx Renal Disease (ESRD): No Hx Thyroid Disease: No Hx Human Immunodeficiency Virus (HIV): No (08/01 LAST NEGATIVE) Hx Hepatitis C: Yes (Treated with Harvoni) Hx Depression: Yes Hx Suicide Attempt: Yes (5 years ago overdosed on pills, hospitalized to [facility]) Hx Bipolar Disorder: Yes (Meds.) Hx Schizophrenia: No - Patient Surgical History Past Surgical History: Yes Hx Neurologic Surgery: No Hx Cataract Extraction: No Hx Cardiac Surgery: No Hx Lung Surgery: No Hx Breast Surgery: No Hx Breast Biopsy: No Hx Abdominal Surgery: Yes (umbilical hernia repair as a child) Hx Appendectomy: No Hx Cholecystectomy: No Hx Genitourinary Surgery: No Hx Section: No Hx Orthopedic Surgery: No Other Surgical History: DENIES. Anesthesia Reaction: No - PPD History Results: CXR(-)09/24/17 - Smoking Cessation Smoking history: Current some day smoker Have you smoked in the past 12 months: Yes Aproximately how many cigarettes per day: 5 Cigars Per Day: 0 Hx Chewing Tobacco Use: No Initiated information on smoking cessation: No - Substances Abused Alcohol Route: Oral Frequency: Daily Amount used: 3 pints wine Age of first use: 14 Date of Last Use: 06/18/18 Cocaine Route: Smoking Frequency: Daily Amount used: $20 Age of first use: 46 Date of Last Use: 06/17/18 Family Disease History - Family Disease History Family Disease History: Other: Father (ALCOHOLIC/), Mother (), Brother (DRUG ABUSE; IN RECOVERY.) Admission Physical Exam [facility] - Vital Signs Vital Signs: Vital Signs - 24 hr 06/18/18 13:28 Temperature 96.4 F L Pulse Rate 131 H Respiratory 20 Rate Blood Pressure 121/71 - Physical General Appearance: Yes: No Apparent Distress, Alcohol on Breath, Intoxicated HEENTM: Yes: EOMI, Normocephalic, Normal Voice, Other (edentulous) Respiratory: Yes: Chest Non-Tender, Lungs Clear, Normal Breath Sounds Neck: Yes: No masses,lesions,Nodules Breast: Yes: Breast Exam Deferred Cardiology: Yes: Regular Rhythm, Regular Rate, S1, S2, Tachycardia Abdominal: Yes: Normal Bowel Sounds, Non Tender Genitourinary: Yes: Within Normal Limits Back: Yes: Normal Inspection Musculoskeletal: Yes: full range of Motion, Gait Steady Extremities: Yes: Normal Capillary Refill, Non-Tender, Tremors Neurological: Yes: Fully Oriented, Alert, Motor Strength 5/5 Integumentary: Yes: Normal Color, Dry, Warm - Diagnostic (1) Alcohol dependence with uncomplicated withdrawal Current Visit: No Status: Acute (2) Nicotine dependence Current Visit: No Status: Chronic Qualifiers: Nicotine product type: cigarettes (3) Cocaine abuse Current Visit: No Status: Chronic [facility] Breath Alcohol Content Breath Alcohol Content: 0.032 Urine Drug Screen - Results Drug Screen Negative: No Urine Drug Screen Results: DENYS-Cocaine, BZO-Benzodiazepines"
[2018-06-18] MEDS ORDERED: P-EPHED 60MG/TRIPROLIDI 2.5MG TABLET PO PRN (15:24)
[2018-06-18] MEDS ORDERED: guaiFENesin/D-METHORPHAN HB 10 ML UNIT-DOSE CUPS PO PRN (15:24)
[2018-06-18] MEDS ORDERED: NICOTINE POLACRILEX 2 MG GUM BC PRN (15:24)
[2018-06-18] MEDS ORDERED: IBUPROFEN 400 MG TABLET (FP) PO PRN (15:24)
[2018-06-18] MEDS ORDERED: MENTHOL/PHENOL 1 EACH UD MM PRN (15:24)
[2018-06-18] MEDS ORDERED: ACETAMINOPHEN 325 MG TABLET (FP) PO PRN (15:24)
[2018-06-18] MEDS ORDERED: MAGNESIUM CITRATE 300 ML BOTTLE PO PRN (15:24)
[2018-06-18] MEDS ORDERED: MAG HYDROX/AL HYDROX/SIMETH 30 ML UNIT-DOSE CUP PO PRN (15:24)
[2018-06-18] MEDS ORDERED: chlordiazePOXIDE HCL 25 MG CAPSULE PO PRN (15:24)
[2018-06-18] MEDS ORDERED: MAGNESIUM HYDROX 2400MG/30ML ORAL SUSPENSION 30 ML CUP PO PRN (15:24)
[2018-06-18] MEDS ORDERED: ALBUTEROL SO4 8 GM HFA INHALER IH PRN (15:26)
[2018-06-18] MEDS ORDERED: ALBUTEROL SO4 0.083% IH SOL 2.5 MG/3 ML VIAL.NEB. NEB PRN (15:26)
[2018-06-18] MEDS: chlordiazePOXIDE HCL 25 MG CAPSULE PO SCH ×2 (19:18→22:14)
[2018-06-18] MEDS ORDERED: MELATONIN 5 MG TABLETS PO PRN (22:00)
[2018-06-18] MEDS: THIAMINE HCL 100 MG TABLET (FP) PO SCH (22:13)
[2018-06-18] MEDS: QUEtiapine FUMARATE 300 MG TABLET PO SCH (22:13)
[2018-06-18] MEDS: BUDESONIDE/FORMETEROL FUMARATE 80/4.5 mcg INHALER IH SCH (22:13)
[2018-06-19] MEDS: chlordiazePOXIDE HCL 25 MG CAPSULE PO SCH ×4 (05:33→22:25)
[2018-06-19 11:02] LABS: HEMATOCRIT 36.8 % (35.4-49); HEMOGLOBIN 12.5 GM/dL (11.7-16.9); MCH 26.8 pg (25.7-33.7); MCHC 33.8 g/dl (32.0-35.9); MEAN CELL VOLUME 79.2 fl (80-96); MEAN PLT VOLUME 7.9 fl (7.5-11.1); PLATELET COUNT 216 K/MM3 (134-434); RBC 4.65 M/mm3 (4.00-5.60); WHITE BLOOD COUNT 4.2 K/mm3 (4.0-10.0)
[2018-06-19] MEDS: BUDESONIDE/FORMETEROL FUMARATE 80/4.5 mcg INHALER IH SCH ×2 (11:05→22:25)
[2018-06-19] MEDS: PRENATAL VITAMINS W/ FOLIC ACID TABLET (FP) PO SCH (11:05)
[2018-06-19 11:19] LABS: ALK PHOS 79 U/L (45-117); ANION GAP 8 MMOL/L (8-16); BILIRUBIN,TOTAL 0.9 mg/dL (0.2-1); BLOOD UREA NITROGEN 11 mg/dL (7-18); CALCIUM 8.2 mg/dL (8.5-10.1); CHLORIDE 106 mmol/L (98-107); CO2 26 mmol/L (21-32); CREATININE 0.9 mg/dL (0.55-1.3); GLUCOSE,RANDOM 99 mg/dL (74-106); POTASSIUM 3.7 mmol/L (3.5-5.1); SGOT/AST 36 U/L (15-37); SGPT/ALT 40 U/L (13-61); SODIUM 139 mmol/L (136-145); TOT PROT 6.5 g/dl (6.4-8.2)
--- NOTE | 2018-06-19 19:11 | PN ---
S CIWA - CIWA Score Nausea/Vomitin-No Nausea/No Vomiting Muscle Tremors: 3 Anxiety: 2 Agitation: 0-Normal Activity Paroxysmal Sweats: 3 Orientation: 2-Disoriented Date<2 days Tacttile Disturbances: 3-Moderate Itch/Numb/Burn Auditory Disturbances: 0-None Visual Disturbances: 2-Mild Sensitivity Headache: 0-None Present CIWA-Ar Total Score: 15 [facility] Progress Note (SOAP) Subjective: Sweating, Stomach Cramping, Tremors. Objective: PATIENT A & O X 2 (UNCERTAIN ABOUT CURRENT DAY / DATE). PATIENT OBSERVED AMBULATING ON UNIT. IN NO ACUTE DISTRESS. 06/19/18 19:09 Vital Signs Temperature 99.0 F 06/19/18 18:43 Pulse Rate 94 H 06/19/18 18:43 Respiratory Rate 20 06/19/18 18:43 Blood Pressure 133/89 06/19/18 18:43 O2 Sat by Pulse Oximetry (%) Laboratory Tests 06/19/18 06/19/18 06/19/18 07:00 07:00 07:00 WBC 4.2 RBC 4.65 Hgb 12.5 Hct 36.8 MCV 79.2 L MCH 26.8 MCHC 33.8 RDW 16.0 H Plt Count 216 MPV 7.9 Sodium 139 Potassium 3.7 Chloride 106 Carbon Dioxide 26 Anion Gap 8 BUN 11 Creatinine 0.9 Creat Clearance w eGFR > 60 Random Glucose 99 Calcium 8.2 L Total Bilirubin 0.9 AST 36 ALT 40 Alkaline Phosphatase 79 Total Protein 6.5 Albumin 3.0 L RPR Titer Nonreactive LABS NOTED. Assessment: 06/19/18 19:10 WITHDRAWAL SYMPTOMS. Plan: CONTINUE DETOX. PRN [place] FOR STOMACH CRAMPING.
[2018-06-19] MEDS: THIAMINE HCL 100 MG TABLET (FP) PO SCH (22:25)
[2018-06-19] MEDS: QUEtiapine FUMARATE 300 MG TABLET PO SCH (22:25)
[2018-06-20] MEDS: chlordiazePOXIDE HCL 25 MG CAPSULE PO SCH ×2 (06:12→10:51)
--- NOTE | 2018-06-20 09:03 | PN ---
BHS CIWA - CIWA Score Nausea/Vomitin-Mild Nausea/No Vomiting Muscle Tremors: 2 Anxiety: 1-Mildly Anxious Agitation: 1-Slight > Activity Paroxysmal Sweats: 1-Minimal Palms Moist Orientation: 0-Oriented Tacttile Disturbances: 0-None Auditory Disturbances: 0-None Visual Disturbances: 0-None Headache: 0-None Present CIWA-Ar Total Score: 6 BHS Progress Note (SOAP) Subjective: Pt states overall feeling OK- derox medications are working for him O: Vital Signs - 24 hr 06/19/18 06/19/18 06/19/18 09:59 15:58 18:43 Temperature 97.2 F L 98.6 F 99.0 F Pulse Rate 98 H 100 H 94 H Respiratory 20 20 20 Rate Blood Pressure 105/50 L 108/61 133/89 06/20/18 06/20/18 06/20/18 00:08 00:30 03:30 Temperature 96.3 F L Pulse Rate 80 Respiratory 20 18 18 Rate Blood Pressure 131/79 06/20/18 07:12 Temperature 98.0 F Pulse Rate 80 Respiratory 18 Rate Blood Pressure 127/70 Laboratory Tests 06/19/18 06/19/18 06/19/18 07:00 07:00 07:00 WBC 4.2 RBC 4.65 Hgb 12.5 Hct 36.8 MCV 79.2 L MCH 26.8 MCHC 33.8 RDW 16.0 H Plt Count 216 MPV 7.9 Sodium 139 Potassium 3.7 Chloride 106 Carbon Dioxide 26 Anion Gap 8 BUN 11 Creatinine 0.9 Creat Clearance w eGFR > 60 Random Glucose 99 Calcium 8.2 L Total Bilirubin 0.9 AST 36 ALT 40 Alkaline Phosphatase 79 Total Protein 6.5 Albumin 3.0 L RPR Titer Nonreactive a/p: Continue alcohol detox protocol- pt doing well, labs OK
[2018-06-20] MEDS: PRENATAL VITAMINS W/ FOLIC ACID TABLET (FP) PO SCH (10:51)
[2018-06-20] MEDS: BUDESONIDE/FORMETEROL FUMARATE 80/4.5 mcg INHALER IH SCH ×2 (10:51→22:15)
[2018-06-20] MEDS: chlordiazePOXIDE 5 MG CAPSULE PO SCH ×2 (17:44→22:16)
[2018-06-20] MEDS: QUEtiapine FUMARATE 300 MG TABLET PO SCH (22:16)
[2018-06-20] MEDS: THIAMINE HCL 100 MG TABLET (FP) PO SCH (22:16)
[2018-06-21] MEDS: chlordiazePOXIDE 5 MG CAPSULE PO SCH ×2 (05:47→10:35)
--- NOTE | 2018-06-21 09:27 | PN ---
BHS Progress Note (SOAP) Subjective: feeling better no tremor less sweat calmer less restlessness social with peers in day room Objective: 06/21/18 12:33 Vital Signs Temperature 97.5 F L 06/21/18 10:16 Pulse Rate 89 06/21/18 10:16 Respiratory Rate 18 06/21/18 10:16 Blood Pressure 133/94 06/21/18 10:16 O2 Sat by Pulse Oximetry (%) Laboratory Last Values WBC 4.2 K/mm3 (4.0-10.0) 06/19/18 07:00 RBC 4.65 M/mm3 (4.00-5.60) 06/19/18 07:00 Hgb 12.5 GM/dL (11.7-16.9) 06/19/18 07:00 Hct 36.8 % (35.4-49) 06/19/18 07:00 MCV 79.2 fl (80-96) L 06/19/18 07:00 MCH 26.8 pg (25.7-33.7) 06/19/18 07:00 MCHC 33.8 g/dl (32.0-35.9) 06/19/18 07:00 RDW 16.0 % (11.9-15.9) H 06/19/18 07:00 Plt Count 216 K/MM3 (134-434) 06/19/18 07:00 MPV 7.9 fl (7.5-11.1) 06/19/18 07:00 Sodium 139 mmol/L (136-145) 06/19/18 07:00 Potassium 3.7 mmol/L (3.5-5.1) 06/19/18 07:00 Chloride 106 mmol/L (98-107) 06/19/18 07:00 Carbon Dioxide 26 mmol/L (21-32) 06/19/18 07:00 Anion Gap 8 MMOL/L (8-16) 06/19/18 07:00 BUN 11 mg/dL (7-18) 06/19/18 07:00 Creatinine 0.9 mg/dL (0.55-1.3) 06/19/18 07:00 Creat Clearance w eGFR > 60 (>60) 06/19/18 07:00 Random Glucose 99 mg/dL (74-106) 06/19/18 07:00 Calcium 8.2 mg/dL (8.5-10.1) L 06/19/18 07:00 Total Bilirubin 0.9 mg/dL (0.2-1) 06/19/18 07:00 AST 36 U/L (15-37) 06/19/18 07:00 ALT 40 U/L (13-61) 06/19/18 07:00 Alkaline Phosphatase 79 U/L (45-117) 06/19/18 07:00 Total Protein 6.5 g/dl (6.4-8.2) 06/19/18 07:00 Albumin 3.0 g/dl (3.4-5.0) L 06/19/18 07:00 RPR Titer Nonreactive (NONREACTIVE) 06/19/18 07:00 lab noted Assessment: 06/21/18 12:34 mild withdrawal sx Plan: continue deotx
[2018-06-21] MEDS: BUDESONIDE/FORMETEROL FUMARATE 80/4.5 mcg INHALER IH SCH ×2 (10:35→22:19)
[2018-06-21] MEDS: PRENATAL VITAMINS W/ FOLIC ACID TABLET (FP) PO SCH (10:35)
[2018-06-21] MEDS: chlordiazePOXIDE HCL 10 MG CAPSULE PO SCH ×2 (17:04→22:18)
[2018-06-21] MEDS: QUEtiapine FUMARATE 300 MG TABLET PO SCH (22:18)
[2018-06-21] MEDS: THIAMINE HCL 100 MG TABLET (FP) PO SCH (22:18)
[2018-06-22] MEDS: chlordiazePOXIDE HCL 10 MG CAPSULE PO SCH ×2 (05:50→10:34)
[2018-06-22] MEDS: BUDESONIDE/FORMETEROL FUMARATE 80/4.5 mcg INHALER IH SCH (10:34)
[2018-06-22] MEDS: PRENATAL VITAMINS W/ FOLIC ACID TABLET (FP) PO SCH (10:34)
[2018-06-22 16:51] VITALS: BP 129/90; PULSE 76; TEMP 98.2
--- NOTE | 2018-06-22 21:08 | DS ---
[facility] Detox Discharge Summary Admission Date: 06/18/18 Discharge Date: 06/22/18 - History Present History: Alcohol Dependence, Cocaine Dependence Additional Comments: PATIENT GOING TO [facility] ([place], [place]) FOR AFTERCARE. PATIENT WAS DISCHARGED FROM DETOX UNIT IN STABLE MEDICAL CONDITION. Pertinent Past History: History of Hep C (Treated), History of Depression, History of Seizures (Related To Withdrawal), Asthma, HTN. - Physical Exam Results Vital Signs: Vital Signs Temperature 98.2 F 06/22/18 16:50 Pulse Rate 76 06/22/18 16:50 Respiratory Rate 18 06/22/18 16:50 Blood Pressure 129/90 06/22/18 16:50 O2 Sat by Pulse Oximetry (%) Pertinent Admission Physical Exam Findings: WITHDRAWAL SYMPTOMS. Laboratory Tests 06/19/18 06/19/18 06/19/18 07:00 07:00 07:00 WBC 4.2 RBC 4.65 Hgb 12.5 Hct 36.8 MCV 79.2 L MCH 26.8 MCHC 33.8 RDW 16.0 H Plt Count 216 MPV 7.9 Sodium 139 Potassium 3.7 Chloride 106 Carbon Dioxide 26 Anion Gap 8 BUN 11 Creatinine 0.9 Creat Clearance w eGFR > 60 Random Glucose 99 Calcium 8.2 L Total Bilirubin 0.9 AST 36 ALT 40 Alkaline Phosphatase 79 Total Protein 6.5 Albumin 3.0 L RPR Titer Nonreactive LABS NOTED. - Treatment Hospital Course: Detox Protocol Followed, Detoxed Safely, Responded well, Discharged Condition Good, Rehab Referral Accepted Patient has Accepted a Rehab Referral to: [facility] ([place], [place]). - Medication Discharge Medications: Ambulatory Orders Quetiapine Fumarate [Seroquel -] 300 mg PO HS #30 tab 05/05/18 Albuterol Sulfate Inhaler - [Ventolin Hfa Inhaler -] 2 inh PO Q4H PRN 06/18/18 Budesonide/Formeterol Fumarate [SYMBICORT 80/4.5mcg -] 1 inh PO BID 06/18/18 - Diagnosis (1) Alcohol dependence with uncomplicated withdrawal Current Visit: Yes Status: Acute (2) Cocaine abuse Current Visit: Yes Status: Chronic (3) Nicotine dependence, uncomplicated Current Visit: Yes Status: Chronic Qualifiers: Nicotine product type: cigarettes Qualified Code(s): F17.210 - Nicotine dependence, cigarettes, uncomplicated - AMA Did Patient Leave Against Medical Advice: No
== END 2018-06-22 18:00 | disposition home or self-care (01) | DRG 774 ==
LOC: YASAS 13:21 → Y6N 16:53
PROC: HZ2ZZZZ Detoxification Services for Substance Abuse Treatment (ICD-10-PCS; principal; 2018-06-18)
DX: F10.230 Alcohol dependence with withdrawal, uncomplicated (principal); F14.20 Cocaine dependence, uncomplicated; F17.210 Nicotine dependence, cigarettes, uncomplicated; F31.9 Bipolar disorder, unspecified; B18.2 Chronic viral hepatitis C; I10 Essential (primary) hypertension; J45.909 Unspecified asthma, uncomplicated; G40.509 Epileptic seizures related to external causes, not intractable, without status epilepticus; Z91.5 Personal history of self-harm; Z88.0 Allergy status to penicillin; Z91.09 Other allergy status, other than to drugs and biological substances
CPT/HCPCS: 36415; 80053; 85027; 86593

== ENCOUNTER 2018-08-01 09:35 | Inpatient (IN) | payer OTHER ==
[2018-08-01 10:43] VITALS: BMI 31.7
--- NOTE | 2018-08-01 11:01 | HP ---
CIWA Score Nausea/Vomitin Muscle Tremors: 4-Moderate,w/Arms Extend Anxiety: 4-Mod. Anxious/Guarded Agitation: 1-Slight > Activity Paroxysmal Sweats: No Perspiration Orientation: 0-Oriented Tacttile Disturbances: 1-Very Mild Itch/Numbness Auditory Disturbances: 0-None Visual Disturbances: 0-None Headache: 1-Very Mild CIWA-Ar Total Score: 14 - Admission Criteria OASAS Guidelines: Admission for Medically Managed Detox: Requires at least one of the followin. CIWA greater than 12 2. Seizures within the past 24 hours 3. Delirium tremens within the past 24 hours 4. Hallucinations within the past 24 hours 5. Acute intervention needed for co occurring medical disorder 6. Acute intervention needed for co occurring psychiatric disorder 7. Severe withdrawal that cannot be handled at a lower level of care (continued vomiting, continued diarrhea, abnormal vital signs) requiring intravenous medication and/or fluids 8. Patient presents the following: CIWA greater than 12 Admission Criteria Met: Admission criteria met Admission ROS [facility] Allergies/Adverse Reactions: Allergies Allergy/AdvReac Type Severity Reaction Status Date / Time Penicillins Allergy Severe Swelling Verified 08/01/18 10:43 lactose AdvReac Severe diarrhea Verified 08/01/18 10:43 - Ebola screening Have you traveled outside of the country in the last 21 days: No (N) Have you had contact with anyone from an Ebola affected area: No Have you been sick,other than usual withdrawal symptoms: No Do you have a fever: No Patient History - Patient Medical History Hx Anemia: No Hx Asthma: Yes Hx Chronic Obstructive Pulmonary Disease (COPD): Yes (on inhalers) Hx Cancer: No Hx Cardiac Disorders: No Hx Congestive Heart Failure: No Hx Hypertension: Yes Hx Hypercholesterolemia: No Hx Pacemaker: No HX Cerebrovascular Accident: No Hx Seizures: Yes (last one two years ago) Hx Dementia: No Hx Diabetes: No Hx Gastrointestinal Disorders: No Hx Liver Disease: Yes (Hep C - no viral load, no need for treatment) Hx Genitourinary Disorders: Yes (bph (off meds)) Hx Sexually Transmitted Disorders: No Hx Renal Disease (ESRD): No Hx Thyroid Disease: No Hx Human Immunodeficiency Virus (HIV): No (08/01 LAST NEGATIVE) Hx Hepatitis C: Yes (no viral load - never treated) Hx Depression: Yes (sees psych, on meds, hospitalized april for psych reasons ) Hx Suicide Attempt: Yes (5 years ago overdosed on pills, hospitalized to [facility]) Hx Bipolar Disorder: Yes (Meds.) Hx Schizophrenia: No - Patient Surgical History Past Surgical History: Yes Hx Neurologic Surgery: No Hx Cataract Extraction: No Hx Cardiac Surgery: No Hx Lung Surgery: No Hx Breast Surgery: No Hx Breast Biopsy: No Hx Abdominal Surgery: Yes (umbilical hernia repair as a child) Hx Appendectomy: No Hx Cholecystectomy: No Hx Genitourinary Surgery: No Hx Section: No Hx Orthopedic Surgery: No Anesthesia Reaction: No - PPD History Previous Implant?: Yes Documented Results: Positive w/o proof (states treated with INH x 1 year) Date: 04/23/18 (cxr done) PPD to be Administered?: No - Reproductive History Patient is a Female of Child Bearing Age (11 -55 yrs old): No (male) - Smoking Cessation Smoking history: Current some day smoker Have you smoked in the past 12 months: Yes Aproximately how many cigarettes per day: 7 Cigars Per Day: 0 Hx Chewing Tobacco Use: No Initiated information on smoking cessation: Yes 'Breaking Loose' booklet given: 08/01/18 (give on floor) - Substance & Tx. History Hx Alcohol Use: Yes Hx Substance Use: Yes Substance Use Type: Cocaine Hx Substance Use Treatment: Yes (detox, rehab) - Substances Abused Alcohol Route: Oral Frequency: Daily Amount used: 3 PINTS WINE AND 2 QUARTS BEER Age of first use: 14 Date of Last Use: 08/01/18 Cocaine Route: Smoking Frequency: 1-2 times per week Amount used: $30 Age of first use: 43 Date of Last Use: 08/01/18 Family Disease History - Family Disease History Family Disease History: Heart Disease: Mother (), Other: Father ( ALCOHOLIC/), Mother, Brother (DRUG ABUSE; IN RECOVERY.), Son (one - healthy), Daughter (two - healthy) Admission Physical Exam BHS - Vital Signs Vital Signs: Vital Signs - 24 hr 08/01/18 10:36 Temperature 97.6 F Pulse Rate 118 H Respiratory 18 Rate Blood Pressure 123/100 - Physical General Appearance: Yes: Nourished, Appropriately Dressed, Moderate Distress, Anxious HEENTM: Yes: Hearing grossly Normal, Normocephalic, Normal Voice, Pharynx Normal , Other (no teeth; right eye drooping (chronic - hx trauma)) Respiratory: Yes: Normal Breath Sounds, No Respiratory Distress Neck: Yes: No masses,lesions,Nodules Breast: Yes: Breast Exam Deferred Cardiology: Yes: Regular Rhythm, Regular Rate Abdominal: Yes: Soft Genitourinary: Yes: Frequency Back: Yes: Normal Inspection Musculoskeletal: Yes: full range of Motion, Gait Steady Extremities: Yes: Normal Inspection, Non-Tender Neurological: Yes: Fully Oriented, Alert, Motor Strength 5/5, Normal Mood/Affect , Normal Response Integumentary: Yes: Normal Color, Warm Lymphatic: Yes: Within Normal Limits - Diagnostic (1) Alcohol dependence with uncomplicated withdrawal Current Visit: Yes Status: Acute (2) Hepatitis C virus carrier state Current Visit: Yes Status: Acute (3) Alcohol related seizure Current Visit: Yes Status: Chronic (4) Nicotine dependence, uncomplicated Current Visit: Yes Status: Chronic Qualifiers: Nicotine product type: cigarettes Qualified Code(s): F17.210 - Nicotine dependence, cigarettes, uncomplicated (5) BPH (benign prostatic hyperplasia) Current Visit: Yes Status: Chronic Comment: STOPPED FLOMAX (6) COPD (chronic obstructive pulmonary disease) Current Visit: Yes Status: Chronic Qualifiers: COPD type: emphysema Emphysema type: other Qualified Code(s): J43.8 - Other emphysema (7) Cocaine abuse Current Visit: Yes Status: Chronic Cleared for Admission S - Detox or Rehab [facility] Level of Care: Medically Managed Detox Regimen/Protocol: Librium S Breath Alcohol Content Breath Alcohol Content: 0.082 Urine Drug Screen - Results Drug Screen Negative: No Urine Drug Screen Results: DENYS-Cocaine, BZO-Benzodiazepines Inpatient Rehab Admission - Rehab Decision to Admit Inpatient rehab admission?: No
[2018-08-01] MEDS ORDERED: MENTHOL/PHENOL 1 EACH UD MM PRN (11:18)
[2018-08-01] MEDS ORDERED: guaiFENesin/D-METHORPHAN HB 10 ML UNIT-DOSE CUPS PO PRN (11:18)
[2018-08-01] MEDS ORDERED: MAGNESIUM CITRATE 300 ML BOTTLE PO PRN (11:18)
[2018-08-01] MEDS ORDERED: LOPERAMIDE HCL 2 MG CAPSULE PO PRN (11:18)
[2018-08-01] MEDS ORDERED: MAG HYDROX/AL HYDROX/SIMETH 30 ML UNIT-DOSE CUP PO PRN (11:18)
[2018-08-01] MEDS ORDERED: P-EPHED 60MG/TRIPROLIDI 2.5MG TABLET PO PRN (11:18)
[2018-08-01] MEDS ORDERED: MAGNESIUM HYDROX 2400MG/30ML ORAL SUSPENSION 30 ML CUP PO PRN (11:18)
[2018-08-01] MEDS ORDERED: IBUPROFEN 400 MG TABLET (FP) PO PRN (11:18)
[2018-08-01] MEDS ORDERED: ACETAMINOPHEN 325 MG TABLET (FP) PO PRN (11:18)
[2018-08-01] MEDS ORDERED: chlordiazePOXIDE HCL 25 MG CAPSULE PO PRN (11:18)
[2018-08-01] MEDS ORDERED: ALBUTEROL SO4 8 GM HFA INHALER IH PRN (11:19)
[2018-08-01] MEDS: BUDESONIDE/FORMETEROL FUMARATE 80/4.5 mcg INHALER IH SCH ×2 (12:19→22:11)
[2018-08-01] MEDS: NICOTINE 21 MG/24 HOURS TOPICAL PATCH TD SCH (12:19)
[2018-08-01] MEDS: chlordiazePOXIDE HCL 25 MG CAPSULE PO SCH ×2 (17:34→22:10)
[2018-08-01] MEDS ORDERED: MELATONIN 5 MG TABLETS PO PRN (22:00)
[2018-08-01] MEDS: THIAMINE HCL 100 MG TABLET (FP) PO SCH (22:11)
[2018-08-02] MEDS: chlordiazePOXIDE HCL 25 MG CAPSULE PO SCH ×4 (06:14→22:12)
[2018-08-02] MEDS: NICOTINE 21 MG/24 HOURS TOPICAL PATCH TD SCH (10:09)
[2018-08-02] MEDS: PRENATAL VITAMINS W/ FOLIC ACID TABLET (FP) PO SCH (10:09)
[2018-08-02] MEDS: BUDESONIDE/FORMETEROL FUMARATE 80/4.5 mcg INHALER IH SCH ×2 (10:10→22:14)
[2018-08-02 10:41] LABS: HEMATOCRIT 37.3 % (35.4-49); HEMOGLOBIN 12.6 GM/dL (11.7-16.9); MCH 27.3 pg (25.7-33.7); MCHC 33.8 g/dl (32.0-35.9); MEAN CELL VOLUME 80.8 fl (80-96); MEAN PLT VOLUME 7.4 fl (7.5-11.1); PLATELET COUNT 209 K/MM3 (134-434); RBC 4.61 M/mm3 (4.00-5.60); WHITE BLOOD COUNT 3.7 K/mm3 (4.0-10.0)
--- NOTE | 2018-08-02 10:42 | CONSULT ---
[facility] Psychiatric Consult - Data Date of interview: 08/02/18 Admission source: [facility] Identifying data: Patient is a 62 year old male, father of three, unemployed, domiciled, and is supported by [facility]. This is one of multiple admissions for patient. Patient admitted to for alcohol dependence. Substance Abuse History: Smoking Cessation. Smoking history: Current some day smoker. Have you smoked in the past 12 months: Yes. Aproximately how many cigarettes per day: 7. Cigars Per Day: 0. Hx Chewing Tobacco Use: No. Initiated information on smoking cessation: Yes. 'Breaking Loose' booklet given : 08/01/18 (give on floor). - Substance & Tx. History. Hx Alcohol Use: Yes. Hx Substance Use: Yes. Substance Use Type: Cocaine. Hx Substance Use Treatment : Yes (detox, rehab). - Substances Abused. Alcohol. Route: Oral. Frequency: Daily. Amount used: 3 PINTS WINE AND 2 QUARTS BEER. Age of first use: 14. Date of Last Use: 08/01/18. Cocaine. Route: Smoking. Frequency: 1-2 times per week. Amount used: $30. Age of first use: 43. Date of Last Use : 08/01/18 Medical History: Asthma, COPD, Seizures, BPH, HEP C, Umbilical hernia repair as a child Psychiatric History: Patient reports h/o four psychiatric hospitalizations, most recently in April of 2018 at [facility] after reporting symtoms of depression. He was diagnosed with bipolar disorder and discharged on seroquel 300mg HS. He reports past history of accepting depakote and lamictal. Patient is also known to [facility] and [facility]. Patient currently receives his refills of seroquel 300mg from [facility] emergency room. Mr Venegas has a scheduled appointment to see a mental health provider in September 2018. He reports h/o four suicide attempt ( two by overdose and the other two were by running onto incoming traffic). He currently denies thoughts or urges to hurt himself or others. Physical/Sexual Abuse/Trauma History: denies. Mental Status Exam - Mental Status Exam Alert and Oriented to: Time, Place, Person Cognitive Function: Good Patient Appearance: Well Groomed Mood: Sad Affect: Mood Congruent Patient Behavior: Appropriate, Cooperative Speech Pattern: Clear, Appropriate Voice Loudness: Normal Thought Process: Intact, Goal Oriented Thought Disorder: Not Present Hallucinations: Denies Suicidal Ideation: Denies Homicidal Ideation: Denies Insight/Judgement: Poor Sleep: Poorly Appetite: Fair Muscle strength/Tone: Normal Gait/Station: Normal Psychiatric Findings - Problem List ([place] 1, 2,3) (1) Alcohol dependence with uncomplicated withdrawal Current Visit: Yes Status: Acute (2) Cocaine abuse Current Visit: Yes Status: Chronic (3) Nicotine dependence, uncomplicated Current Visit: Yes Status: Chronic Qualifiers: Nicotine product type: cigarettes Qualified Code(s): F17.210 - Nicotine dependence, cigarettes, uncomplicated (4) Mood disorder Current Visit: Yes Status: Chronic - Initial Treatment Plan Initial Treatment Plan: Psychoeducation provided. Detoxification in progress. Will order Seroquel 200mg HS (reduced dose due to risk of oversedation). Benefits and side effects discussed. Verbal consent given.
[2018-08-02 11:13] LABS: ALK PHOS 72 U/L (45-117); ANION GAP 7 MMOL/L (8-16); BILIRUBIN,TOTAL 0.3 mg/dL (0.2-1); BLOOD UREA NITROGEN 9 mg/dL (7-18); CALCIUM 8.4 mg/dL (8.5-10.1); CHLORIDE 108 mmol/L (98-107); CO2 26 mmol/L (21-32); CREATININE 0.9 mg/dL (0.55-1.3); GLUCOSE,RANDOM 93 mg/dL (74-106); POTASSIUM 4.2 mmol/L (3.5-5.1); SGOT/AST 19 U/L (15-37); SGPT/ALT 26 U/L (13-61); SODIUM 141 mmol/L (136-145); TOT PROT 6.2 g/dl (6.4-8.2)
--- NOTE | 2018-08-02 11:24 | PN ---
[facility] CIWA - CIWA Score Nausea/Vomitin Muscle Tremors: 3 Anxiety: 2 Agitation: 1-Slight > Activity Paroxysmal Sweats: 2 Orientation: 0-Oriented Tacttile Disturbances: 0-None Auditory Disturbances: 0-None Visual Disturbances: 0-None Headache: 0-None Present CIWA-Ar Total Score: 10 BHS Progress Note (SOAP) Subjective: PATIENT C/O SHAKES, MILD NAUSEA NO VOMITING, ANXIETY AND NIGHT SWEATS. Objective: 08/02/18 11:23 Vital Signs Temperature 98.7 F 08/02/18 09:30 Pulse Rate 84 08/02/18 09:30 Respiratory Rate 08/02/18 09:30 Blood Pressure 124/71 08/02/18 09:30 O2 Sat by Pulse Oximetry (%) Laboratory Tests 08/02/18 08/02/18 08/02/18 07:50 07:50 07:50 WBC 3.7 L RBC 4.61 Hgb 12.6 Hct 37.3 MCV 80.8 MCH 27.3 MCHC 33.8 RDW 16.0 H Plt Count 209 MPV 7.4 L Sodium 141 Potassium 4.2 Chloride 108 H Carbon Dioxide 26 Anion Gap 7 L BUN 9 Creatinine 0.9 Creat Clearance w eGFR > 60 Random Glucose 93 Calcium 8.4 L Total Bilirubin 0.3 AST 19 ALT 26 Alkaline Phosphatase 72 Total Protein 6.2 L Albumin 3.0 L RPR Titer Nonreactive PE: ALERT AND ORIENTED X 3 SKIN WARM AND DRY EXT FULL ROM, +TREMORS +ANXIETY AMB AD SHANNAN Assessment: 08/02/18 11:24 WITHDRAWAL SX Plan: CONTINUE DETOX ENCOURAGE ORAL FLUIDS CONTINUE TO MONITOR
[2018-08-02] MEDS: THIAMINE HCL 100 MG TABLET (FP) PO SCH (22:12)
[2018-08-02] MEDS: QUEtiapine FUMARATE 200 MG TABLET PO SCH (22:12)
[2018-08-03] MEDS: chlordiazePOXIDE HCL 25 MG CAPSULE PO SCH ×2 (06:18→10:48)
[2018-08-03] MEDS: BUDESONIDE/FORMETEROL FUMARATE 80/4.5 mcg INHALER IH SCH ×2 (10:48→22:16)
[2018-08-03] MEDS: PRENATAL VITAMINS W/ FOLIC ACID TABLET (FP) PO SCH (10:48)
[2018-08-03] MEDS: NICOTINE 21 MG/24 HOURS TOPICAL PATCH TD SCH (10:48)
--- NOTE | 2018-08-03 13:28 | PN ---
S CIWA - CIWA Score Nausea/Vomitin Muscle Tremors: None Anxiety: 2 Agitation: 0-Normal Activity Paroxysmal Sweats: 3 Orientation: 0-Oriented Tacttile Disturbances: 2-Mild Itch/Numbness/Burn Auditory Disturbances: 2-Mild Harshness/Frighten Visual Disturbances: 0-None Headache: 3-Moderate CIWA-Ar Total Score: 15 BHS Progress Note (SOAP) Subjective: Sweating, H/A, Nausea. Objective: PATIENT A & O X 3, OBSERVED AMBULATING ON UNIT. IN NO ACUTE DISTRESS. 08/03/18 13:26 Vital Signs Temperature 97.5 F L 08/03/18 09:48 Pulse Rate 85 08/03/18 09:48 Respiratory Rate 18 08/03/18 09:48 Blood Pressure 135/79 08/03/18 09:48 O2 Sat by Pulse Oximetry (%) Laboratory Tests 08/02/18 08/02/18 08/02/18 07:50 07:50 07:50 WBC 3.7 L RBC 4.61 Hgb 12.6 Hct 37.3 MCV 80.8 MCH 27.3 MCHC 33.8 RDW 16.0 H Plt Count 209 MPV 7.4 L Sodium 141 Potassium 4.2 Chloride 108 H Carbon Dioxide 26 Anion Gap 7 L BUN 9 Creatinine 0.9 Creat Clearance w eGFR > 60 Random Glucose 93 Calcium 8.4 L Total Bilirubin 0.3 AST 19 ALT 26 Alkaline Phosphatase 72 Total Protein 6.2 L Albumin 3.0 L RPR Titer Nonreactive LABS NOTED. Assessment: 08/03/18 13:26 WITHDRAWAL SYMPTOMS. LEUKOPENIA. 08/03/18 13:27 Plan: CONTINUE DETOX.
[2018-08-03] MEDS: chlordiazePOXIDE 5 MG CAPSULE PO SCH ×2 (17:43→22:16)
[2018-08-03] MEDS: QUEtiapine FUMARATE 200 MG TABLET PO SCH (22:16)
[2018-08-03] MEDS: THIAMINE HCL 100 MG TABLET (FP) PO SCH (22:16)
[2018-08-04] MEDS: chlordiazePOXIDE 5 MG CAPSULE PO SCH ×2 (05:27→10:16)
[2018-08-04] MEDS: PRENATAL VITAMINS W/ FOLIC ACID TABLET (FP) PO SCH (10:15)
[2018-08-04] MEDS: NICOTINE 21 MG/24 HOURS TOPICAL PATCH TD SCH (10:16)
[2018-08-04] MEDS: BUDESONIDE/FORMETEROL FUMARATE 80/4.5 mcg INHALER IH SCH ×2 (10:16→22:23)
--- NOTE | 2018-08-04 13:12 | PN ---
[facility]HS Progress Note (SOAP) Subjective: H/A. Objective: PATIENT A & O X 3, OBSERVED AMBULATING ON UNIT. IN NO ACUTE DISTRESS. 08/04/18 13:09 Vital Signs Temperature 98.2 F 08/04/18 09:46 Pulse Rate 18 L 08/04/18 09:46 Respiratory Rate 84 H 08/04/18 09:46 Blood Pressure 125/72 08/04/18 09:46 O2 Sat by Pulse Oximetry (%) Laboratory Tests 08/02/18 08/02/18 08/02/18 07:50 07:50 07:50 WBC 3.7 L RBC 4.61 Hgb 12.6 Hct 37.3 MCV 80.8 MCH 27.3 MCHC 33.8 RDW 16.0 H Plt Count 209 MPV 7.4 L Sodium 141 Potassium 4.2 Chloride 108 H Carbon Dioxide 26 Anion Gap 7 L BUN 9 Creatinine 0.9 Creat Clearance w eGFR > 60 Random Glucose 93 Calcium 8.4 L Total Bilirubin 0.3 AST 19 ALT 26 Alkaline Phosphatase 72 Total Protein 6.2 L Albumin 3.0 L RPR Titer Nonreactive LABS NOTED. Assessment: 08/04/18 13:11 WITHDRAWAL SYMPTOMS. LEUKOPENIA. 08/04/18 13:11 Plan: CONTINUE DETOX. PATIENT SCHEDULED FOR D/C TOMORROW.
[2018-08-04] MEDS: chlordiazePOXIDE HCL 10 MG CAPSULE PO SCH ×2 (17:31→22:21)
[2018-08-04] MEDS: THIAMINE HCL 100 MG TABLET (FP) PO SCH (22:21)
[2018-08-04] MEDS: QUEtiapine FUMARATE 200 MG TABLET PO SCH (22:21)
[2018-08-05] MEDS: chlordiazePOXIDE HCL 10 MG CAPSULE PO SCH ×2 (05:24→10:45)
[2018-08-05 09:14] VITALS: BP 128/90; PULSE 91; TEMP 97.9
[2018-08-05] MEDS: PRENATAL VITAMINS W/ FOLIC ACID TABLET (FP) PO SCH (10:44)
[2018-08-05] MEDS: NICOTINE 21 MG/24 HOURS TOPICAL PATCH TD SCH (10:44)
--- NOTE | 2018-08-05 11:50 | DS ---
[facility] Detox Discharge Summary Admission Date: 08/01/18 Discharge Date: 08/05/18 - History Present History: Alcohol Dependence Pertinent Past History: pt admitted for alcohol detox. Pt did well, has no complaints today. Pt to go to rehab at [facility]. Pt has asthma inhalers and does not need any medical discharge meds - Physical Exam Results Vital Signs: Vital Signs Temperature 97.9 F 08/05/18 09:13 Pulse Rate 91 H 08/05/18 09:13 Respiratory Rate 18 08/05/18 09:13 Blood Pressure 128/90 08/05/18 09:13 O2 Sat by Pulse Oximetry (%) - Medication Discharge Medications: Ambulatory Orders Quetiapine Fumarate [Seroquel -] 300 mg PO HS #30 tab 05/05/18 Budesonide/Formeterol Fumarate [SYMBICORT 80/4.5mcg -] 1 inh PO BID 06/18/18 Albuterol Sulfate Inhaler - [Ventolin Hfa Inhaler -] 2 inh PO Q4H PRN #1 inhaler 08/04/18
--- NOTE | 2018-08-05 11:51 | DS ---
[facility] Detox Discharge Summary Admission Date: 08/01/18 Discharge Date: 08/05/18 - History Present History: Alcohol Dependence Pertinent Past History: pt admitted for alcohol detox. Pt did well, has no complaints today. Pt to go to rehab at [facility]. Pt has asthma inhalers and does not need any medical discharge meds - Physical Exam Results Vital Signs: Vital Signs Temperature 97.9 F 08/05/18 09:13 Pulse Rate 91 H 08/05/18 09:13 Respiratory Rate 18 08/05/18 09:13 Blood Pressure 128/90 08/05/18 09:13 O2 Sat by Pulse Oximetry (%) - Treatment Hospital Course: Detox Protocol Followed, Detoxed Safely, Responded well, Discharged Condition Good, Rehab Referral Accepted - Medication Discharge Medications: Ambulatory Orders Quetiapine Fumarate [Seroquel -] 300 mg PO HS #30 tab 05/05/18 Budesonide/Formeterol Fumarate [SYMBICORT 80/4.5mcg -] 1 inh PO BID 06/18/18 Albuterol Sulfate Inhaler - [Ventolin Hfa Inhaler -] 2 inh PO Q4H PRN #1 inhaler 08/04/18 - Diagnosis (1) Alcohol dependence with uncomplicated withdrawal Status: Acute (2) COPD (chronic obstructive pulmonary disease) Status: Chronic Qualifiers: COPD type: emphysema Emphysema type: other Qualified Code(s): J43.8 - Other emphysema - AMA Did Patient Leave Against Medical Advice: No
== END 2018-08-05 11:18 | disposition home or self-care (01) | DRG 774 ==
LOC: YASAS 09:35 → Y6N 10:50
PROVIDERS: ADMIT Surgery; ATTEND Surgery
PROC: HZ2ZZZZ Detoxification Services for Substance Abuse Treatment (ICD-10-PCS; principal; 2018-08-01)
DX: F10.230 Alcohol dependence with withdrawal, uncomplicated (principal); F14.10 Cocaine abuse, uncomplicated; F17.210 Nicotine dependence, cigarettes, uncomplicated; F39 Unspecified mood [affective] disorder; I10 Essential (primary) hypertension; N40.0 Benign prostatic hyperplasia without lower urinary tract symptoms; B18.2 Chronic viral hepatitis C; Z91.011 Allergy to milk products; Z86.69 Personal history of other diseases of the nervous system and sense organs; Z88.0 Allergy status to penicillin; Z91.5 Personal history of self-harm
CPT/HCPCS: 36415; 80053; 85027; 86593

== ENCOUNTER 2018-09-15 12:52 | Inpatient (IN) | payer MEDICARE, OTHER ==
--- NOTE | 2018-09-15 14:46 | HP ---
CIWA Score Nausea/Vomitin Muscle Tremors: 2 Anxiety: 2 Agitation: 2 Paroxysmal Sweats: 1-Minimal Palms Moist Orientation: 0-Oriented Tacttile Disturbances: 1-Very Mild Itch/Numbness Auditory Disturbances: 1-Very Mild Visual Disturbances: 0-None Headache: 2-Mild CIWA-Ar Total Score: 13 - Admission Criteria OASAS Guidelines: Admission for Medically Managed Detox: Requires at least one of the followin. CIWA greater than 12 2. Seizures within the past 24 hours 3. Delirium tremens within the past 24 hours 4. Hallucinations within the past 24 hours 5. Acute intervention needed for co occurring medical disorder 6. Acute intervention needed for co occurring psychiatric disorder 7. Severe withdrawal that cannot be handled at a lower level of care (continued vomiting, continued diarrhea, abnormal vital signs) requiring intravenous medication and/or fluids 8. Admission ROS [facility] - HPI Chief Complaint: i need help to stop drinking alcohol and cocaine Allergies/Adverse Reactions: Allergies Allergy/AdvReac Type Severity Reaction Status Date / Time Penicillins Allergy Severe Swelling Verified 09/15/18 14:19 lactose AdvReac Severe diarrhea Verified 09/15/18 14:19 History of Present Illness: this 63 years old male with alcohol and cocaine dependence,seeking detox, withdrawal symptom, multiple admissions in detox but keep relapsing,last treatment 08/01/18 to 08/05 nicotine dependence 6 cigarette/day,would like to have nicotine patch 21 mg/day asthma depression on seroquel 300 mgs po hs lactose intolerance longest sobriety 5 years plan to rehab after detox alcohol related seizurfe last 2 years ago seizure last 2016 bipolar disorder Exam Limitations: No Limitations - Ebola screening Have you traveled outside of the country in the last 21 days: No Have you had contact with anyone from an Ebola affected area: No Do you have a fever: No - Review of Systems Constitutional: Loss of Appetite, Malaise, Night Sweats, Changes in sleep, Weakness EENT: reports: Nose Congestion Respiratory: reports: No Symptoms reported, Other (asthma) Cardiac: reports: No Symptoms Reported GI: reports: Nausea, Vomiting, Abdominal cramping : reports: No Symptoms Reported Musculoskeletal: reports: Back Pain, Muscle Pain Integumentary: reports: Dryness Neuro: reports: Headache, Tremors Endocrine: reports: No Symptoms Reported Hematology: reports: No Symptoms Reported Psychiatric: reports: No Sypmtoms Reported, Judgement Intact, Mood/Affect Appropiate, Orientated x3, Depressed Other Systems: Reviewed and Negative Patient History - Patient Medical History Hx Anemia: No Hx Asthma: Yes (on inhalers) Hx Chronic Obstructive Pulmonary Disease (COPD): Yes (on inhalers) Hx Cancer: No Hx Cardiac Disorders: No Hx Congestive Heart Failure: No Hx Hypertension: Yes (no med) Hx Hypercholesterolemia: No Hx Pacemaker: No HX Cerebrovascular Accident: No Hx Seizures: Yes (last one two years ago) Hx Dementia: No Hx Diabetes: No Hx Gastrointestinal Disorders: No Hx Liver Disease: Yes (Hep C - no viral load, no need for treatment) Hx Genitourinary Disorders: Yes (bph (off meds)) Hx Sexually Transmitted Disorders: No Hx Renal Disease (ESRD): No Hx Thyroid Disease: No Hx Human Immunodeficiency Virus (HIV): No (04/02 negative) Hx Hepatitis C: Yes (no viral load - never treated) Hx Depression: Yes (sees psych, on meds, hospitalized april for psych reasons ) Hx Suicide Attempt: Yes (5 years ago overdosed on pills, hospitalized to [facility]) Hx Bipolar Disorder: Yes (Meds.) Hx Schizophrenia: No Other Medical History: no suicidal,no homicidal - Patient Surgical History Past Surgical History: Yes Hx Neurologic Surgery: No Hx Cataract Extraction: No Hx Cardiac Surgery: No Hx Lung Surgery: No Hx Breast Surgery: No Hx Breast Biopsy: No Hx Abdominal Surgery: Yes (umbilical hernia repair as a child) Hx Appendectomy: No Hx Cholecystectomy: No Hx Genitourinary Surgery: No Hx Section: No Hx Orthopedic Surgery: No Other Surgical History: DENIES. Anesthesia Reaction: No - PPD History Documented Results: Positive w/proof Implanted On Prior [facility] Admission?: No Date: 04/23/18 Results: CXR(-)09/24/17 PPD to be Administered?: No - Smoking Cessation Smoking history: Current some day smoker Have you smoked in the past 12 months: Yes Aproximately how many cigarettes per day: 7 Cigars Per Day: 0 Hx Chewing Tobacco Use: No Initiated information on smoking cessation: Yes 'Breaking Loose' booklet given: 09/15/18 - Substance & Tx. History Hx Alcohol Use: Yes Hx Substance Use: Yes Substance Use Type: Alcohol, Cocaine Hx Substance Use Treatment: Yes ([facility] 08/01/18 to 08/05/18) - Substances abused Alcohol Substance route: Oral Frequency: Daily Amount used: 4 pt. wine, 2 beers (12 oz) Age of first use: 14 Date of last use: 09/15/18 Cocaine Substance route: Smoking Frequency: 1-3 times last 30 days Amount used: $50 Age of first use: 54 Date of last use: 09/14/18 Family Disease History - Family Disease History Family Disease History: Heart Disease: Mother (), Other: Father ( ALCOHOLIC/), Mother, Brother (DRUG ABUSE; IN RECOVERY.), Son (one - healthy), Daughter (two - healthy) Admission Physical Exam S - Vital Signs Vital Signs: Vital Signs - 24 hr 09/15/18 09/15/18 14:16 14:32 Temperature 98.1 F 98.3 F Pulse Rate 86 86 Respiratory 18 18 Rate Blood Pressure 101/69 104/69 - Physical General Appearance: Yes: Moderate Distress, Tremorous, Irritable, Sweating, Anxious HEENTM: Yes: Normal ENT Inspection, YONNY, Pharynx Normal Respiratory: Yes: Lungs Clear, Normal Breath Sounds, No Respiratory Distress Neck: Yes: Within Normal Limits, Supple, Trachea in good position Cardiology: Yes: Within Normal Limits, Regular Rhythm, Regular Rate, S1, S2 Abdominal: Yes: Within Normal Limits, Normal Bowel Sounds, Non Tender, Soft Back: Yes: Muscle Spasm Musculoskeletal: Yes: Back pain, Muscle Pain Extremities: Yes: Tremors Neurological: Yes: sciences dean II-XII NML intact, Fully Oriented, Alert, Motor Strength 5/5 Integumentary: Yes: Dry Lymphatic: Yes: Within Normal Limits - Diagnostic (1) Alcohol dependence with uncomplicated withdrawal Current Visit: No Status: Acute (2) Alcohol related seizure Current Visit: No Status: Chronic (3) Hepatitis C Current Visit: Yes Status: Acute (4) Syncope Current Visit: No Status: Acute Qualifiers: Syncope type: unspecified Qualified Code(s): R55 - Syncope and collapse (5) COPD (chronic obstructive pulmonary disease) Current Visit: No Status: Chronic Qualifiers: COPD type: emphysema Emphysema type: other Qualified Code(s): J43.8 - Other emphysema (6) Insomnia Current Visit: No Status: Chronic (7) Nicotine dependence Current Visit: No Status: Chronic Qualifiers: Nicotine product type: cigarettes Substance use status: in withdrawal Qualified Code(s): F17.213 - Nicotine dependence, cigarettes, with withdrawal (8) Bipolar disorder Current Visit: Yes Status: Acute Cleared for Admission S - Detox or Rehab [facility] Level of Care: Medically Managed Detox Regimen/Protocol: Librium Breathalyzer - Breathalyzer Breathalyzer: 0.154 Urine Drug Screen - Test Device Lot number: [id number] Expiration date: 05/15/20 - Control Is test valid?: Yes - Results Drug screen NEGATIVE: No Urine drug screen results: DENYS-Cocaine, BZO-Benzodiazepines Inpatient Rehab Admission - Rehab Decision to Admit Inpatient rehab admission?: No
[2018-09-15] MEDS ORDERED: ACETAMINOPHEN 325 MG TABLET (FP) PO PRN ×2 (14:58)
[2018-09-15] MEDS ORDERED: chlordiazePOXIDE HCL 25 MG CAPSULE PO PRN (14:58)
[2018-09-15] MEDS ORDERED: MAGNESIUM CITRATE 300 ML BOTTLE PO PRN (14:58)
[2018-09-15] MEDS ORDERED: MAGNESIUM HYDROX 2400MG/30ML ORAL SUSPENSION 30 ML CUP PO PRN (14:58)
[2018-09-15] MEDS ORDERED: MAG HYDROX/AL HYDROX/SIMETH 30 ML UNIT-DOSE CUP PO PRN (14:58)
[2018-09-15] MEDS ORDERED: IBUPROFEN 400 MG TABLET (FP) PO PRN (14:58)
[2018-09-15] MEDS ORDERED: MENTHOL/PHENOL 1 EACH UD MM PRN (14:58)
[2018-09-15] MEDS ORDERED: BISMUTH SUBSALICYLATE 524 MG/30 ML UD PO PRN (14:58)
[2018-09-15] MEDS ORDERED: METHOCARBAMOL 500 MG TABLET PO PRN (14:58)
[2018-09-15] MEDS ORDERED: hydrOXYzine PAMOATE 25 MG CAPSULE (FP) PO PRN (14:58)
[2018-09-15] MEDS ORDERED: ALBUTEROL SO4 8 GM HFA INHALER IH PRN (15:01)
[2018-09-15] MEDS: NICOTINE 21 MG/24 HOURS TOPICAL PATCH TD SCH ×2 (15:46→15:48)
[2018-09-15 17:00] LABS: HEMATOCRIT 44.8 % (35.4-49); HEMOGLOBIN 14.2 GM/dL (11.7-16.9); MCH 25.7 pg (25.7-33.7); MCHC 31.7 g/dl (32.0-35.9); MEAN CELL VOLUME 80.9 fl (80-96); MEAN PLT VOLUME 7.5 fl (7.5-11.1); PLATELET COUNT 267 K/MM3 (134-434); RBC 5.54 M/mm3 (4.00-5.60); RDW 16.2 % (11.9-15.9)
[2018-09-15] MEDS: chlordiazePOXIDE HCL 25 MG CAPSULE PO SCH ×2 (17:03→22:10)
[2018-09-15 17:40] LABS: ALBUMIN 4.1 g/dl (3.4-5.0); ALK PHOS 88 U/L (45-117); ANION GAP 12 MMOL/L (8-16); BILIRUBIN,TOTAL 0.8 mg/dL (0.2-1); BLOOD UREA NITROGEN 9 mg/dL (7-18); CALCIUM 8.5 mg/dL (8.5-10.1); CHLORIDE 103 mmol/L (98-107); CO2 20 mmol/L (21-32); GLUCOSE,RANDOM 92 mg/dL (74-106); SGOT/AST 38 U/L (15-37); SGPT/ALT 32 U/L (13-61); SODIUM 136 mmol/L (136-145)
[2018-09-15 19:50] LABS: PH,URINE 5.5 (5.0-8.0); URINE APPEARANCE CLEAR; URINE BILIRUBIN NEGATIVE (NEGATIVE); URINE COLOR YELLOW; URINE GLUCOSE (UA) NEGATIVE (NEGATIVE); URINE KETONE NEGATIVE (NEGATIVE); URINE LEUK ESTERASE NEGATIVE (NEGATIVE); URINE NITRITE NEGATIVE (NEGATIVE); URINE PROTEIN NEGATIVE (NEGATIVE); URINE UROBILINOGEN 0.2 mg/dL (0.2-1.0)
[2018-09-15] MEDS: BUDESONIDE/FORMETEROL FUMARATE 80/4.5 mcg INHALER IH SCH (22:07)
[2018-09-15] MEDS: THIAMINE HCL 100 MG TABLET (FP) PO SCH (22:11)
[2018-09-16] MEDS: chlordiazePOXIDE HCL 25 MG CAPSULE PO SCH ×4 (05:01→22:13)
[2018-09-16] MEDS: BUDESONIDE/FORMETEROL FUMARATE 80/4.5 mcg INHALER IH SCH ×2 (10:07→22:13)
[2018-09-16] MEDS: NICOTINE 21 MG/24 HOURS TOPICAL PATCH TD SCH (10:07)
[2018-09-16] MEDS: PRENATAL VITAMINS W/ FOLIC ACID TABLET (FP) PO SCH (10:07)
--- NOTE | 2018-09-16 15:15 | PN ---
S CIWA - CIWA Score Nausea/Vomitin Muscle Tremors: 3 Anxiety: 3 Agitation: 0-Normal Activity Paroxysmal Sweats: 3 Orientation: 0-Oriented Tacttile Disturbances: 1-Very Mild Itch/Numbness Auditory Disturbances: 0-None Visual Disturbances: 2-Mild Sensitivity Headache: 0-None Present CIWA-Ar Total Score: 14 BHS Progress Note (SOAP) Subjective: Sweating, Anxious, Tremors, Nausea. Objective: PATIENT A & O X 3. IN NO ACUTE DISTRESS. 09/16/18 15:12 Vital Signs Temperature 98.6 F 09/16/18 14:44 Pulse Rate 89 09/16/18 14:44 Respiratory Rate 20 09/16/18 14:44 Blood Pressure 124/80 09/16/18 14:44 O2 Sat by Pulse Oximetry (%) Laboratory Tests 09/15/18 09/15/18 09/15/18 15:10 15:10 15:10 WBC 8.0 RBC 5.54 Hgb 14.2 Hct 44.8 D MCV 80.9 MCH 25.7 MCHC 31.7 L RDW 16.2 H Plt Count 267 D MPV 7.5 Sodium 136 Potassium 4.0 Chloride 103 Carbon Dioxide 20 L Anion Gap 12 BUN 9 Creatinine 1.0 Creat Clearance w eGFR 74.99 Random Glucose 92 Calcium 8.5 Total Bilirubin 0.8 AST 38 H ALT 32 Alkaline Phosphatase 88 Total Protein 8.0 Albumin 4.1 Urine Color Urine Appearance Urine pH Ur Specific [place] Urine Protein Urine Glucose (UA) Urine Ketones Urine Blood Urine Nitrite Urine Bilirubin Urine Urobilinogen Ur Leukocyte Esterase RPR Titer Nonreactive HIV 1&2 Antibody Screen HIV P24 Antigen 09/15/18 09/15/18 15:10 16:40 WBC RBC Hgb Hct MCV MCH MCHC RDW Plt Count MPV Sodium Potassium Chloride Carbon Dioxide Anion Gap BUN Creatinine Creat Clearance w eGFR Random Glucose Calcium Total Bilirubin AST ALT Alkaline Phosphatase Total Protein Albumin Urine Color Yellow Urine Appearance Clear Urine pH 5.5 Ur Specific [place] 1.004 L Urine Protein Negative Urine Glucose (UA) Negative Urine Ketones Negative Urine Blood Negative Urine Nitrite Negative Urine Bilirubin Negative Urine Urobilinogen 0.2 Ur Leukocyte Esterase Negative RPR Titer HIV 1&2 Antibody Screen Negative HIV P24 Antigen Negative LABS NOTED. Assessment: 09/16/18 15:12 WITHDRAWAL SYMPTOMS. Plan: CONTINUE DETOX.
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
[2018-09-16] MEDS: THIAMINE HCL 100 MG TABLET (FP) PO SCH (22:13)
[2018-09-16] MEDS: QUEtiapine FUMARATE 200 MG TABLET PO SCH (22:13)
[2018-09-16] MEDS: MELATONIN 5 MG TABLETS PO PRN (22:13)
[2018-09-17] MEDS: chlordiazePOXIDE HCL 25 MG CAPSULE PO SCH ×2 (05:05→10:05)
[2018-09-17] MEDS: BUDESONIDE/FORMETEROL FUMARATE 80/4.5 mcg INHALER IH SCH ×2 (10:05→22:01)
[2018-09-17] MEDS: NICOTINE 21 MG/24 HOURS TOPICAL PATCH TD SCH ×2 (10:05→10:07)
[2018-09-17] MEDS: PRENATAL VITAMINS W/ FOLIC ACID TABLET (FP) PO SCH (10:05)
--- NOTE | 2018-09-17 16:12 | PN ---
S CIWA - CIWA Score Nausea/Vomitin-No Nausea/No Vomiting Muscle Tremors: 3 Anxiety: 2 Agitation: 0-Normal Activity Paroxysmal Sweats: 3 Orientation: 0-Oriented Tacttile Disturbances: 0-None Auditory Disturbances: 0-None Visual Disturbances: 2-Mild Sensitivity Headache: 0-None Present CIWA-Ar Total Score: 10 BHS Progress Note (SOAP) Subjective: Sweating, Tremors, Fatigue. Objective: PATIENT A & O X 3. IN NO ACUTE DISTRESS. 09/17/18 16:11 Vital Signs Temperature 97.0 F L 09/17/18 13:44 Pulse Rate 85 09/17/18 13:44 Respiratory Rate 18 09/17/18 13:44 Blood Pressure 147/88 09/17/18 13:44 O2 Sat by Pulse Oximetry (%) Laboratory Tests 09/15/18 09/15/18 09/15/18 15:10 15:10 15:10 WBC 8.0 RBC 5.54 Hgb 14.2 Hct 44.8 D MCV 80.9 MCH 25.7 MCHC 31.7 L RDW 16.2 H Plt Count 267 D MPV 7.5 Sodium 136 Potassium 4.0 Chloride 103 Carbon Dioxide 20 L Anion Gap 12 BUN 9 Creatinine 1.0 Creat Clearance w eGFR 74.99 Random Glucose 92 Calcium 8.5 Total Bilirubin 0.8 AST 38 H ALT 32 Alkaline Phosphatase 88 Total Protein 8.0 Albumin 4.1 Urine Color Urine Appearance Urine pH Ur Specific [place] Urine Protein Urine Glucose (UA) Urine Ketones Urine Blood Urine Nitrite Urine Bilirubin Urine Urobilinogen Ur Leukocyte Esterase RPR Titer Nonreactive HIV 1&2 Antibody Screen HIV P24 Antigen 09/15/18 09/15/18 15:10 16:40 WBC RBC Hgb Hct MCV MCH MCHC RDW Plt Count MPV Sodium Potassium Chloride Carbon Dioxide Anion Gap BUN Creatinine Creat Clearance w eGFR Random Glucose Calcium Total Bilirubin AST ALT Alkaline Phosphatase Total Protein Albumin Urine Color Yellow Urine Appearance Clear Urine pH 5.5 Ur Specific [place] 1.004 L Urine Protein Negative Urine Glucose (UA) Negative Urine Ketones Negative Urine Blood Negative Urine Nitrite Negative Urine Bilirubin Negative Urine Urobilinogen 0.2 Ur Leukocyte Esterase Negative RPR Titer HIV 1&2 Antibody Screen Negative HIV P24 Antigen Negative LABS NOTED. Assessment: 09/17/18 16:11 WITHDRAWAL SYMPTOMS. Plan: CONTINUE DETOX. ENCOURAGE AMBULATION.
[2018-09-17] MEDS ORDERED: chlordiazePOXIDE HCL 10 MG CAPSULE PO PRN (17:00)
[2018-09-17] MEDS: chlordiazePOXIDE HCL 10 MG CAPSULE PO SCH ×2 (17:33→22:01)
[2018-09-17] MEDS: THIAMINE HCL 100 MG TABLET (FP) PO SCH (22:01)
[2018-09-17] MEDS: QUEtiapine FUMARATE 200 MG TABLET PO SCH (22:01)
[2018-09-17] MEDS: MELATONIN 5 MG TABLETS PO PRN (22:01)
[2018-09-18] MEDS: chlordiazePOXIDE HCL 10 MG CAPSULE PO SCH ×2 (08:00→10:06)
[2018-09-18] MEDS: NICOTINE 21 MG/24 HOURS TOPICAL PATCH TD SCH (10:02)
[2018-09-18] MEDS: PRENATAL VITAMINS W/ FOLIC ACID TABLET (FP) PO SCH (10:03)
[2018-09-18] MEDS: BUDESONIDE/FORMETEROL FUMARATE 80/4.5 mcg INHALER IH SCH ×2 (10:04→21:34)
--- NOTE | 2018-09-18 14:02 | PN ---
BHS Progress Note (SOAP) Subjective: Patient denies current Withdrawal / Detox symptoms and reports that he feels well overall. Objective: PATIENT A & O X 3, OBSERVED AMBULATING ON UNIT. IN NO ACUTE DISTRESS. 09/18/18 13:59 Vital Signs Temperature 98.6 F 09/18/18 10:12 Pulse Rate 82 09/18/18 10:12 Respiratory Rate 20 09/18/18 10:12 Blood Pressure 132/92 09/18/18 10:12 O2 Sat by Pulse Oximetry (%) Laboratory Tests 09/15/18 09/15/18 09/15/18 15:10 15:10 15:10 WBC 8.0 RBC 5.54 Hgb 14.2 Hct 44.8 D MCV 80.9 MCH 25.7 MCHC 31.7 L RDW 16.2 H Plt Count 267 D MPV 7.5 Sodium 136 Potassium 4.0 Chloride 103 Carbon Dioxide 20 L Anion Gap 12 BUN 9 Creatinine 1.0 Creat Clearance w eGFR 74.99 Random Glucose 92 Calcium 8.5 Total Bilirubin 0.8 AST 38 H ALT 32 Alkaline Phosphatase 88 Total Protein 8.0 Albumin 4.1 Urine Color Urine Appearance Urine pH Ur Specific [place] Urine Protein Urine Glucose (UA) Urine Ketones Urine Blood Urine Nitrite Urine Bilirubin Urine Urobilinogen Ur Leukocyte Esterase RPR Titer Nonreactive HIV 1&2 Antibody Screen HIV P24 Antigen 09/15/18 09/15/18 15:10 16:40 WBC RBC Hgb Hct MCV MCH MCHC RDW Plt Count MPV Sodium Potassium Chloride Carbon Dioxide Anion Gap BUN Creatinine Creat Clearance w eGFR Random Glucose Calcium Total Bilirubin AST ALT Alkaline Phosphatase Total Protein Albumin Urine Color Yellow Urine Appearance Clear Urine pH 5.5 Ur Specific [place] 1.004 L Urine Protein Negative Urine Glucose (UA) Negative Urine Ketones Negative Urine Blood Negative Urine Nitrite Negative Urine Bilirubin Negative Urine Urobilinogen 0.2 Ur Leukocyte Esterase Negative RPR Titer HIV 1&2 Antibody Screen Negative HIV P24 Antigen Negative LABS NOTED. Assessment: 09/18/18 14:01 COMPLETION OF DETOX REGIMEN. 09/18/18 14:02 Plan: SINCE PATIENT DENIES CURRENT WITHDRAWAL / DETOX SYMPTOMS AND REPORTS THAT HE FEELS WELL OVERALL, PATIENT GRANTED AN EARLY DISCHARGE FROM DETOX UNIT TODAY SO THAT HE MAY PROCEED ON TO AFTERCARE PLAN - [facility] [place]
--- NOTE | 2018-09-18 14:08 | DS ---
[facility] Detox Discharge Summary Admission Date: 09/15/18 Discharge Date: 09/18/18 - History Present History: Alcohol Dependence Additional Comments: PATIENT DENIES CURRENT WITHDRAWAL / DETOX SYMPTOMS AND REPORTS THAT HE FEELS WELL OVERALL AT TIME OF DISCHARGE FROM DETOX UNIT. PATIENT SCHEDULED FOR DISCHARGE FROM DETOX UNIT TO DAY. PATIENT GOING TO [facility] ( [place]) FOR AFTERCARE. PATIENT WAS DISCHARGED FROM DETOX UNIT TO BE TAKEN OVER TO REHAB UNIT IN STABLE MEDICAL CONDITION. Pertinent Past History: Asthma, C.O.P.D., HTN, History Of Seizures (Due to Alcohol Withdrawal), Hep C ( No Treatment, Negative Viral Load), BPH, Depression, Bipolar Disorder. - Physical Exam Results Vital Signs: Vital Signs Temperature 98.6 F 09/18/18 10:12 Pulse Rate 82 09/18/18 10:12 Respiratory Rate 20 09/18/18 10:12 Blood Pressure 132/92 09/18/18 10:12 O2 Sat by Pulse Oximetry (%) Pertinent Admission Physical Exam Findings: WITHDRAWAL SYMPTOMS. Laboratory Tests 09/15/18 09/15/18 09/15/18 15:10 15:10 15:10 WBC 8.0 RBC 5.54 Hgb 14.2 Hct 44.8 D MCV 80.9 MCH 25.7 MCHC 31.7 L RDW 16.2 H Plt Count 267 D MPV 7.5 Sodium 136 Potassium 4.0 Chloride 103 Carbon Dioxide 20 L Anion Gap 12 BUN 9 Creatinine 1.0 Creat Clearance w eGFR 74.99 Random Glucose 92 Calcium 8.5 Total Bilirubin 0.8 AST 38 H ALT 32 Alkaline Phosphatase 88 Total Protein 8.0 Albumin 4.1 Urine Color Urine Appearance Urine pH Ur Specific [place] Urine Protein Urine Glucose (UA) Urine Ketones Urine Blood Urine Nitrite Urine Bilirubin Urine Urobilinogen Ur Leukocyte Esterase RPR Titer Nonreactive HIV 1&2 Antibody Screen HIV P24 Antigen 09/15/18 09/15/18 15:10 16:40 WBC RBC Hgb Hct MCV MCH MCHC RDW Plt Count MPV Sodium Potassium Chloride Carbon Dioxide Anion Gap BUN Creatinine Creat Clearance w eGFR Random Glucose Calcium Total Bilirubin AST ALT Alkaline Phosphatase Total Protein Albumin Urine Color Yellow Urine Appearance Clear Urine pH 5.5 Ur Specific [place] 1.004 L Urine Protein Negative Urine Glucose (UA) Negative Urine Ketones Negative Urine Blood Negative Urine Nitrite Negative Urine Bilirubin Negative Urine Urobilinogen 0.2 Ur Leukocyte Esterase Negative RPR Titer HIV 1&2 Antibody Screen Negative HIV P24 Antigen Negative LABS NOTED. - Treatment Hospital Course: Detox Protocol Followed, Detoxed Safely, Responded well, Discharged Condition Good, Rehab Referral Accepted Patient has Accepted a Rehab Referral to: [facility] ([place], [place]). - Medication Discharge Medications: Ambulatory Orders Budesonide/Formeterol Fumarate [SYMBICORT 80/4.5mcg -] 1 inh PO BID 06/18/18 Albuterol Sulfate Inhaler - [Ventolin Hfa Inhaler -] 2 inh PO Q4H PRN #1 inhaler 08/04/18 Quetiapine Fumarate [Seroquel -] 400 mg PO HS 09/15/18 - Diagnosis (1) Alcohol dependence with uncomplicated withdrawal Current Visit: Yes Status: Acute (2) Hepatitis C Current Visit: Yes Status: Acute Qualifiers: Viral hepatitis chronicity: chronic Hepatic coma status: without hepatic coma Qualified Code(s): B18.2 - Chronic viral hepatitis C (3) Insomnia Current Visit: Yes Status: Chronic Qualifiers: Insomnia type: unspecified Qualified Code(s): G47.00 - Insomnia, unspecified (4) Nicotine dependence Current Visit: Yes Status: Chronic Qualifiers: Nicotine product type: cigarettes Substance use status: in withdrawal Qualified Code(s): F17.213 - Nicotine dependence, cigarettes, with withdrawal (5) Syncope Current Visit: Yes Status: Acute Qualifiers: Syncope type: unspecified Qualified Code(s): R55 - Syncope and collapse (6) Alcohol related seizure Current Visit: Yes Status: Chronic (7) Bipolar disorder Current Visit: Yes Status: Chronic Qualifiers: Active/Remission status: remission status unspecified Qualified Code(s): F31.9 - Bipolar disorder, unspecified (8) COPD (chronic obstructive pulmonary disease) Current Visit: Yes Status: Chronic Qualifiers: COPD type: emphysema Emphysema type: other Qualified Code(s): J43.8 - Other emphysema (9) Cocaine abuse Current Visit: Yes Status: Chronic (10) Substance induced mood disorder Current Visit: Yes Status: Chronic - AMA Did Patient Leave Against Medical Advice: No
--- NOTE | 2018-09-18 14:20 | HP ---
[facility] Re[facility] Assess/Revision - Admission History Admitted to Rehab from: [facility] Date of Admission to Rehab: 09/18/2018 - Vital signs Vital Signs: Vital Signs Period Temp Pulse Resp BP Sys/Dempsey Pulse Ox Last 24 Hr 96.7 F-98.6 F 80-93 18-20 122-151/75-92 - Findings Detox History & Physical reviewed: Yes Concur with findings: Yes Comments/Additional Findings: PATIENT'S MEDICAL / MEDICATION HISTORY REVIEWED PRIOR TO DISCHARGE FROM DETOX UNIT. PATIENT WAS DISCHARGED FROM DETOX UNIT TO BE TAKEN OVER TO REHAB UNIT IN STABLE MEDICAL CONDITION. Inpatient Rehab Admission - Rehab Decision to Admit Inpatient rehab admission?: Yes - Initial Determination Are CD services needed?: Yes Free of communicable disease: Yes Not in need of hospitalization: Yes - Rehab Admission Criteria Previous failed treatment: Yes Poor recovery environment: Yes Comorbidities: Yes Lacks judgement: No Patient is meeting Inpatient Rehab admission criteria:: Yes
[2018-09-18] MEDS ORDERED: chlordiazePOXIDE HCL 10 MG CAPSULE PO SCH (17:00)
[2018-09-18] MEDS: QUEtiapine FUMARATE 200 MG TABLET PO SCH (21:34)
[2018-09-18] MEDS: THIAMINE HCL 100 MG TABLET (FP) PO SCH (21:34)
[2018-09-18] MEDS: MELATONIN 5 MG TABLETS PO PRN (21:35)
[2018-09-19 07:26] VITALS: PULSE 81
[2018-09-19] MEDS: BUDESONIDE/FORMETEROL FUMARATE 80/4.5 mcg INHALER IH SCH ×2 (10:07→21:26)
[2018-09-19] MEDS: NICOTINE 21 MG/24 HOURS TOPICAL PATCH TD SCH (10:08)
[2018-09-19] MEDS: PRENATAL VITAMINS W/ FOLIC ACID TABLET (FP) PO SCH (10:08)
[2018-09-19] MEDS: THIAMINE HCL 100 MG TABLET (FP) PO SCH (21:25)
[2018-09-19] MEDS: QUEtiapine FUMARATE 200 MG TABLET PO SCH (21:25)
[2018-09-19] MEDS: MELATONIN 5 MG TABLETS PO PRN (21:26)
[2018-09-20 07:25] VITALS: BP 131/81; TEMP 97.8
[2018-09-20] MEDS: PRENATAL VITAMINS W/ FOLIC ACID TABLET (FP) PO SCH (10:22)
[2018-09-20] MEDS: BUDESONIDE/FORMETEROL FUMARATE 80/4.5 mcg INHALER IH SCH (10:22)
[2018-09-20] MEDS: NICOTINE 21 MG/24 HOURS TOPICAL PATCH TD SCH (10:23)
--- NOTE | 2018-09-20 10:33 | PN ---
S Progress Note Note: DISCHARGE Patient left AMA. Patient to follow up with out patient and follow up with PCP. Vital Signs Temperature 97.8 F 09/20/18 07:24 Pulse Rate 81 09/20/18 07:24 Respiratory Rate 18 09/20/18 07:24 Blood Pressure 131/81 09/20/18 07:24 O2 Sat by Pulse Oximetry (%) Laboratory Last Values WBC 8.0 K/mm3 (4.0-10.0) 09/15/18 15:10 RBC 5.54 M/mm3 (4.00-5.60) 09/15/18 15:10 Hgb 14.2 GM/dL (11.7-16.9) 09/15/18 15:10 Hct 44.8 % (35.4-49) D 09/15/18 15:10 MCV 80.9 fl (80-96) 09/15/18 15:10 MCH 25.7 pg (25.7-33.7) 09/15/18 15:10 MCHC 31.7 g/dl (32.0-35.9) L 09/15/18 15:10 RDW 16.2 % (11.9-15.9) H 09/15/18 15:10 Plt Count 267 K/MM3 (134-434) D 09/15/18 15:10 MPV 7.5 fl (7.5-11.1) 09/15/18 15:10 Sodium 136 mmol/L (136-145) 09/15/18 15:10 Potassium 4.0 mmol/L (3.5-5.1) 09/15/18 15:10 Chloride 103 mmol/L (98-107) 09/15/18 15:10 Carbon Dioxide 20 mmol/L (21-32) L 09/15/18 15:10 Anion Gap 12 MMOL/L (8-16) 09/15/18 15:10 BUN 9 mg/dL (7-18) 09/15/18 15:10 Creatinine 1.0 mg/dL (0.55-1.3) 09/15/18 15:10 Creat Clearance w eGFR 74.99 (>60) 09/15/18 15:10 Random Glucose 92 mg/dL (74-106) 09/15/18 15:10 Calcium 8.5 mg/dL (8.5-10.1) 09/15/18 15:10 Total Bilirubin 0.8 mg/dL (0.2-1) 09/15/18 15:10 AST 38 U/L (15-37) H 09/15/18 15:10 ALT 32 U/L (13-61) 09/15/18 15:10 Alkaline Phosphatase 88 U/L (45-117) 09/15/18 15:10 Total Protein 8.0 g/dl (6.4-8.2) 09/15/18 15:10 Albumin 4.1 g/dl (3.4-5.0) 09/15/18 15:10 Urine Color Yellow 09/15/18 16:40 Urine Appearance Clear 09/15/18 16:40 Urine pH 5.5 (5.0-8.0) 09/15/18 16:40 Ur Specific [place] 1.004 (1.010-1.035) L 09/15/18 16:40 Urine Protein Negative (NEGATIVE) 09/15/18 16:40 Urine Glucose (UA) Negative (NEGATIVE) 09/15/18 16:40 Urine Ketones Negative (NEGATIVE) 09/15/18 16:40 Urine Blood Negative (NEGATIVE) 09/15/18 16:40 Urine Nitrite Negative (NEGATIVE) 09/15/18 16:40 Urine Bilirubin Negative (NEGATIVE) 09/15/18 16:40 Urine Urobilinogen 0.2 mg/dL (0.2-1.0) 09/15/18 16:40 Ur Leukocyte Esterase Negative (NEGATIVE) 09/15/18 16:40 RPR Titer Nonreactive (NONREACTIVE) 09/15/18 15:10 HIV 1&2 Antibody Screen Negative 09/15/18 15:10 HIV P24 Antigen Negative 09/15/18 15:10 - Diagnostic (1) Alcohol dependence with uncomplicated withdrawal Current Visit: No Status: Acute (2) Alcohol related seizure Current Visit: No Status: Chronic (3) Hepatitis C Current Visit: Yes Status: Acute (4) Syncope Current Visit: No Status: Acute Qualifiers: Syncope type: unspecified Qualified Code(s): R55 - Syncope and collapse (5) COPD (chronic obstructive pulmonary disease) Current Visit: No Status: Chronic Qualifiers: COPD type: emphysema Emphysema type: other Qualified Code(s): J43.8 - Other emphysema (6) Insomnia Current Visit: No Status: Chronic (7) Nicotine dependence Current Visit: No Status: Chronic Qualifiers: Nicotine product type: cigarettes Substance use status: in withdrawal Qualified Code(s): F17.213 - Nicotine dependence, cigarettes, with withdrawal (8) Bipolar disorder Current Visit: Yes Status: Acute
--- NOTE | 2018-09-20 11:12 | PN ---
S Progress Note Note: Patient is discharged today. Script for Seroquel 200 mg po HS is electronically transferred to [facility] at [address] [place] [id number]
== END 2018-09-20 11:30 | disposition left against medical advice (07) | DRG 894 ==
LOC: YASAS 12:52 → Y3N 15:24 → Y5N 09-18 15:00
PROVIDERS: ADMIT Surgery; ATTEND Neuromusculoskeletal Medicine & OMM
PROC: HZ2ZZZZ Detoxification Services for Substance Abuse Treatment (ICD-10-PCS; principal; 2018-09-15)
PROC: HZ42ZZZ Group Counseling for Substance Abuse Treatment, Cognitive-Behavioral (ICD-10-PCS; 2018-09-18)
DX: F10.20 Alcohol dependence, uncomplicated (principal); F14.10 Cocaine abuse, uncomplicated; F17.213 Nicotine dependence, cigarettes, with withdrawal; F31.9 Bipolar disorder, unspecified; B18.2 Chronic viral hepatitis C; J43.8 Other emphysema; G47.00 Insomnia, unspecified; E66.9 Obesity, unspecified; Z68.31 Body mass index [BMI] 31.0-31.9, adult; Z86.69 Personal history of other diseases of the nervous system and sense organs; Z88.0 Allergy status to penicillin; Z91.5 Personal history of self-harm; N40.0 Benign prostatic hyperplasia without lower urinary tract symptoms
CPT/HCPCS: 36415; 80053; 81003; 85027; 86593; 87389

== ENCOUNTER 2018-12-28 13:12 | Inpatient (IN) | payer OTHER ==
[2018-12-28 17:51] VITALS: BMI 29.0
--- NOTE | 2018-12-28 20:17 | HP ---
"CIWA Score Nausea/Vomitin Muscle Tremors: 4-Moderate,w/Arms Extend Anxiety: 2 Agitation: 2 Paroxysmal Sweats: 3 (Increased facial moisture) Orientation: 0-Oriented Tacttile Disturbances: 0-None Auditory Disturbances: 0-None Visual Disturbances: 0-None Headache: 0-None Present CIWA-Ar Total Score: 14 - Admission Criteria OASAS Guidelines: Admission for Medically Managed Detox: Requires at least one of the followin. CIWA greater than 12 2. Seizures within the past 24 hours 3. Delirium tremens within the past 24 hours 4. Hallucinations within the past 24 hours 5. Acute intervention needed for co occurring medical disorder 6. Acute intervention needed for co occurring psychiatric disorder 7. Severe withdrawal that cannot be handled at a lower level of care (continued vomiting, continued diarrhea, abnormal vital signs) requiring intravenous medication and/or fluids 8. Patient presents the following: CIWA greater than 12 Admission Criteria Met: Admission criteria met Admission ROS S - [facility] Chief Complaint: Having alcohol withdrawal. Allergies/Adverse Reactions: Allergies Allergy/AdvReac Type Severity Reaction Status Date / Time Penicillins Allergy Severe Swelling Verified 12/28/18 17:39 lactose AdvReac Severe diarrhea Verified 12/28/18 17:39 History of Present Illness: Patient is a 63 yo with alcohol withdrawal symptoms and requesting detox. This is one of multiple admissions for alcohol detox but keeps relapsing. Last treatment rehab at [facility] 10/2018. Alcohol use since age 14. States relapsed 12/17/18 - and is currently drinking 4 pints of wine w/ 2 qts beer daily. Prior detoxes w/ Librium. Last cocaine use 09/2018. Nicotine use since age 14. Curently smokes 5 cigarettes/day. States would prefer a patch. Denies any recent visits to the emergency room or hospitalization. States completed Zithromax in November 2018. Utox: + BZO [place] was 0.109 and is now 0.056 PMHX: COPD/Asthma-Last exacerbation 10 years ago, alcohol related seizure two years ago. States f/u w/ and prostate is ok. Prior EKG's reviewed. Last 05/02/18 which had no significant changes from two done in 2018. CXR: 05/03/18 - w/o evidence of TB MHHx: Depression, Bipolar, anxiety. Denies thoughts of harming self or others. Has an appt w/ MH Provider on 01/04/19. States on Seroquel and Zolft. Patient Name: Collin Venegas Date: 1955 Address: [facility] [address] Sex: Male Rx Written Rx Dispensed Drug Quantity Days Supply Prescriber Name 09/24/2018 09/24/2018 chlordiazepoxide 25 mg capsule 8 2 Anant Wright 05/23/2018 05/23/2018 chlordiazepoxide 25 mg capsule 8 2 Ramy Hernandez ( [facility]) Search Terms: Collin Venegas, 1955 Search Date: 12/28/2018 08:17:27 PM States Searched: [place], [place], [place], [place], [place], [place], [place] The Drug Utilization Report below displays the controlled substance prescriptions, if any, that were dispensed in the indicated state(s). The information displayed on this report is compiled from requests submitted to other states' PMPs, and accurately reflects the information as returned by them. Blank felipe indicate data not provided by other state. This report was requested by: Gretta Banegas | Reference #: [id number] Exam Limitations: No Limitations - Ebola screening Have you traveled outside of the country in the last 21 days: No Have you had contact with anyone from an Ebola affected area: No Have you been sick,other than usual withdrawal symptoms: No (Denies recent exposure to measles) Do you have a fever: No - Review of Systems Constitutional: Chills, Diaphoresis, Changes in sleep (Difficulty falling asleep ) EENT: reports: Cataracts ((R) eye. States is f/u w/ opthamology.), Blurred Vision, Other (Hx dry eyes) Respiratory: reports: No Symptoms reported Cardiac: reports: No Symptoms Reported GI: reports: Nausea : reports: No Symptoms Reported Musculoskeletal: reports: No Symptoms Reported Integumentary: reports: No Symptoms Reported Neuro: reports: Tingling (in fingers both hands x 2 days thinks r/t alcohol), Tremors Endocrine: reports: No Symptoms Reported Hematology: reports: No Symptoms Reported Psychiatric: reports: Judgement Intact, Orientated x3, Agitated, Anxious, Depressed (Denies thoughts of harming self or others.) Patient History - Patient Medical History Hx Anemia: No Hx Asthma: Yes Hx Chronic Obstructive Pulmonary Disease (COPD): No Hx Cancer: No Hx Cardiac Disorders: No Hx Congestive Heart Failure: No Hx Hypertension: No Hx Hypercholesterolemia: No Hx Pacemaker: No HX Cerebrovascular Accident: No Hx Seizures: No Hx Dementia: No Hx Diabetes: No Hx Gastrointestinal Disorders: No Hx Liver Disease: Yes (Hep C - no viral load, no need for treatment) Hx Genitourinary Disorders: No Hx Sexually Transmitted Disorders: No Hx Renal Disease (ESRD): No Hx Thyroid Disease: No Hx Human Immunodeficiency Virus (HIV): No (04/02 negative) Hx Hepatitis C: Yes (no viral load - never treated) Hx Depression: Yes Hx Suicide Attempt: No Hx Bipolar Disorder: Yes (Meds.) Hx Schizophrenia: No - Patient Surgical History Past Surgical History: Yes Hx Neurologic Surgery: No Hx Cataract Extraction: No Hx Cardiac Surgery: No Hx Lung Surgery: No Hx Breast Surgery: No Hx Breast Biopsy: No Hx Abdominal Surgery: Yes (umbilical hernia repair as a child) Hx Appendectomy: No Hx Cholecystectomy: No Hx Genitourinary Surgery: No Hx Section: No Hx Orthopedic Surgery: No Other Surgical History: DENIES. Anesthesia Reaction: No - PPD History Previous Implant?: Yes Documented Results: Positive w/proof Implanted On Prior [facility] Admission?: Yes Date: 04/23/18 Results: CXR(-) neg PPD to be Administered?: No - Smoking Cessation Smoking history: Current every day smoker Have you smoked in the past 12 months: Yes Aproximately how many cigarettes per day: 5 Cigars Per Day: 0 Hx Chewing Tobacco Use: No Initiated information on smoking cessation: Yes 'Breaking Loose' booklet given: 12/28/18 - Substance & Tx. History Hx Alcohol Use: Yes Hx Substance Use: Yes Substance Use Type: Alcohol, Cocaine Hx Substance Use Treatment: Yes (detox, rehab, outpatient) - Substances abused Alcohol Substance route: Oral Frequency: Daily Amount used: 4 pt. wine, 2 beers (12 oz) Age of first use: 14 Date of last use: 12/28/18 Cocaine Substance route: Smoking Frequency: 1-3 times last 30 days Amount used: $50 Age of first use: 54 Date of last use: 09/14/18 Family Disease History - Family Disease History Family Disease History: Heart Disease: Mother (), Other: Father ( ALCOHOLIC/), Mother, Brother (DRUG ABUSE; IN RECOVERY.), Son (one - healthy), Daughter (two - healthy) Admission Physical Exam [facility] - Vital Signs Vital Signs: Vital Signs - 24 hr 12/28/18 12/28/18 17:33 18:24 Temperature 98.3 F 98.3 F Pulse Rate 85 85 Respiratory 20 20 Rate Blood Pressure 112/71 112/71 - Physical General Appearance: Yes: Nourished, Mild Distress, Tremorous (Slight tremors of hands when arms elevated), Sweating (Increased facial moisture) HEENTM: Yes: EOMI, Hearing grossly Normal, Normocephalic, Normal Voice, YONNY, Pharynx Normal, Other (No teeth) Respiratory: Yes: Lungs Clear, Normal Breath Sounds, No Respiratory Distress Neck: Yes: No masses,lesions,Nodules, Supple Breast: Yes: Breast Exam Deferred Cardiology: Yes: Regular Rhythm, Regular Rate (HR: 60), S1, S2 Abdominal: Yes: Non Tender, Soft, Increased Bowel Sounds, Protuberent ( Increased abdomnial adiposity) Genitourinary: Yes: Within Normal Limits Back: Yes: Normal Inspection Musculoskeletal: Yes: full range of Motion, Gait Steady Extremities: Yes: Normal Capillary Refill, Normal Range of Motion, Tremors ( Tremors of hands when arms elevated) Neurological: Yes: 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 NML intact, Fully Oriented, Alert, Motor Strength 5/5, Normal Response Integumentary: Yes: Normal Color, Warm, Diaphoresis (Increased facial moisture) Lymphatic: Yes: Within Normal Limits - Diagnostic (1) History of COPD Current Visit: Yes Status: Chronic (2) History of positive PPD Current Visit: Yes Status: Chronic (3) Alcohol dependence with uncomplicated withdrawal Current Visit: Yes Status: Acute (4) Nicotine dependence Current Visit: Yes Status: Chronic Qualifiers: Nicotine product type: cigarettes Substance use status: in withdrawal Qualified Code(s): F17.213 - Nicotine dependence, cigarettes, with withdrawal Cleared for Admission [facility] - Detox or Rehab [facility] Level of Care: Medically Managed Detox Regimen/Protocol: Librium Claeared for Rehab Admission: No Breathalyzer - Breathalyzer Breathalyzer: 0.109 Urine Drug Screen - Test Device Lot number: [id number] Expiration date: 10/13/20 - Control Is test valid?: Yes - Results Drug screen NEGATIVE: No Urine drug screen results: BZO-Benzodiazepines Inpatient Rehab Admission - Rehab Decision to Admit Inpatient rehab admission?: No"
[2018-12-28] MEDS ORDERED: ALBUTEROL SO4 8 GM HFA INHALER IH PRN (20:58)
[2018-12-28] MEDS ORDERED: IBUPROFEN 400 MG TABLET (FP) PO PRN (21:02)
[2018-12-28] MEDS ORDERED: MAG HYDROX/AL HYDROX/SIMETH 30 ML UNIT-DOSE CUP PO PRN (21:02)
[2018-12-28] MEDS ORDERED: MAGNESIUM HYDROX 2400MG/30ML ORAL SUSPENSION 30 ML CUP PO PRN (21:02)
[2018-12-28] MEDS ORDERED: ACETAMINOPHEN 325 MG TABLET (FP) PO PRN ×2 (21:02)
[2018-12-28] MEDS ORDERED: MENTHOL/PHENOL 1 EACH UD MM PRN (21:02)
[2018-12-28] MEDS ORDERED: chlordiazePOXIDE HCL 25 MG CAPSULE PO PRN (21:02)
[2018-12-28] MEDS ORDERED: MELATONIN 5 MG TABLETS PO PRN (21:02)
[2018-12-28] MEDS ORDERED: METHOCARBAMOL 500 MG TABLET PO PRN (21:02)
[2018-12-28] MEDS ORDERED: MAGNESIUM CITRATE 300 ML BOTTLE PO PRN (21:02)
[2018-12-28] MEDS ORDERED: BISMUTH SUBSALICYLATE 524 MG/30 ML UD PO PRN (21:02)
[2018-12-28] MEDS ORDERED: NICOTINE POLACRILEX 2 MG GUM BUC PRN (21:02)
[2018-12-28] MEDS: THIAMINE HCL 100 MG TABLET (FP) PO SCH (22:28)
[2018-12-28] MEDS: chlordiazePOXIDE HCL 25 MG CAPSULE PO SCH (22:29)
[2018-12-28] MEDS: BUDESONIDE/FORMETEROL FUMARATE 80/4.5 mcg INHALER IH SCH (22:29)
[2018-12-28] MEDS ORDERED: QUEtiapine FUMARATE 100 MG TABLET (FP) PO ONE (23:00)
[2018-12-29] MEDS: chlordiazePOXIDE HCL 25 MG CAPSULE PO SCH ×4 (06:02→22:20)
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
[2018-12-29] MEDS: BUDESONIDE/FORMETEROL FUMARATE 80/4.5 mcg INHALER IH SCH ×2 (10:31→22:20)
[2018-12-29] MEDS: PRENATAL VITAMINS W/ FOLIC ACID TABLET (FP) PO SCH (10:31)
[2018-12-29] MEDS: NICOTINE 7 MG/24 HOURS TOPICAL PATCH TD SCH (10:31)
[2018-12-29] MEDS: SERTRALINE HCL 50 MG TABLET (FP) PO SCH (10:32)
--- NOTE | 2018-12-29 10:43 | PN ---
[facility] CIWA - CIWA Score Nausea/Vomitin Muscle Tremors: 2 Anxiety: 2 Agitation: 2 Paroxysmal Sweats: No Perspiration Orientation: 0-Oriented Tacttile Disturbances: 1-Very Mild Itch/Numbness Auditory Disturbances: 0-None Visual Disturbances: 1-Very Mild Sensitivity Headache: 2-Mild CIWA-Ar Total Score: 12 [facility] Progress Note (SOAP) Subjective: alert,irritable,anxious,interrupted sleep,tremor Objective: 12/29/18 10:41 Vital Signs Temperature 98.2 F 12/29/18 09:36 Pulse Rate 91 H 12/29/18 09:36 Respiratory Rate 18 12/29/18 09:36 Blood Pressure 120/79 12/29/18 09:36 O2 Sat by Pulse Oximetry (%) 12/29/18 10:43 labs pending Assessment: 12/29/18 10:43 withdrawal symptom Plan: continue detox librium regimen
[2018-12-29 12:16] LABS: HEMATOCRIT 37.1 % (35.4-49); MCH 25.1 pg (25.7-33.7); MCHC 32.4 g/dl (32.0-35.9); MEAN CELL VOLUME 77.5 fl (80-96); MEAN PLT VOLUME 7.4 fl (7.5-11.1); RBC 4.79 M/mm3 (4.00-5.60); RDW 15.9 % (11.9-15.9); WHITE BLOOD COUNT 5.3 K/mm3 (4.0-10.0)
[2018-12-29 12:25] LABS: URINE APPEARANCE CLEAR; URINE BILIRUBIN NEGATIVE (NEGATIVE); URINE COLOR YELLOW; URINE GLUCOSE (UA) NEGATIVE (NEGATIVE); URINE KETONE NEGATIVE (NEGATIVE); URINE LEUK ESTERASE NEGATIVE (NEGATIVE); URINE NITRITE NEGATIVE (NEGATIVE); URINE PROTEIN NEGATIVE (NEGATIVE); URINE UROBILINOGEN 0.2 mg/dL (0.2-1.0)
[2018-12-29 12:30] LABS: BILIRUBIN,TOTAL 0.4 mg/dL (0.2-1); BLOOD UREA NITROGEN 8.7 mg/dL (7-18); CALCIUM 8.5 mg/dL (8.5-10.1); CREATININE 0.9 mg/dL (0.55-1.3); POTASSIUM 4.2 mmol/L (3.5-5.1); TOT PROT 6.6 g/dl (6.4-8.2)
[2018-12-29 13:20] LABS: PLATELET COUNT 266 K/MM3 (134-434)
[2018-12-29] MEDS: QUEtiapine FUMARATE 300 MG TABLET PO SCH (22:20)
[2018-12-29] MEDS: THIAMINE HCL 100 MG TABLET (FP) PO SCH (22:20)
[2018-12-30] MEDS: chlordiazePOXIDE HCL 25 MG CAPSULE PO SCH ×4 (06:00→22:24)
[2018-12-30] MEDS: BUDESONIDE/FORMETEROL FUMARATE 80/4.5 mcg INHALER IH SCH ×2 (10:17→22:24)
[2018-12-30] MEDS: SERTRALINE HCL 50 MG TABLET (FP) PO SCH (10:17)
[2018-12-30] MEDS: PRENATAL VITAMINS W/ FOLIC ACID TABLET (FP) PO SCH (10:17)
[2018-12-30] MEDS: NICOTINE 7 MG/24 HOURS TOPICAL PATCH TD SCH (10:17)
--- NOTE | 2018-12-30 12:35 | PN ---
S CIWA - CIWA Score Nausea/Vomitin Muscle Tremors: 2 Anxiety: 2 Agitation: 0-Normal Activity Paroxysmal Sweats: 2 Orientation: 0-Oriented Tacttile Disturbances: 1-Very Mild Itch/Numbness Auditory Disturbances: 0-None Visual Disturbances: 1-Very Mild Sensitivity Headache: 0-None Present CIWA-Ar Total Score: 10 S Progress Note (SOAP) Subjective: c/o of sweats, chills, interrupted sleep. Patient Plans to Attend [facility] for [facility] evtn to manage EOTH use D/O. Objective: 12/30/18 12:34 Vital Signs Temperature 97.9 F 12/30/18 07:25 Pulse Rate 69 12/30/18 07:25 Respiratory Rate 18 12/30/18 07:25 Blood Pressure 101/64 12/30/18 07:25 O2 Sat by Pulse Oximetry (%) Laboratory Last Values WBC 5.3 K/mm3 (4.0-10.0) 12/29/18 07:00 RBC 4.79 M/mm3 (4.00-5.60) 12/29/18 07:00 Hgb 12.0 GM/dL (11.7-16.9) 12/29/18 07:00 Hct 37.1 % (35.4-49) 12/29/18 07:00 MCV 77.5 fl (80-96) L 12/29/18 07:00 MCH 25.1 pg (25.7-33.7) L 12/29/18 07:00 MCHC 32.4 g/dl (32.0-35.9) 12/29/18 07:00 RDW 15.9 % (11.9-15.9) 12/29/18 07:00 Plt Count 266 K/MM3 (134-434) 12/29/18 07:00 MPV 7.4 fl (7.5-11.1) L 12/29/18 07:00 Sodium 141 mmol/L (136-145) 12/29/18 07:00 Potassium 4.2 mmol/L (3.5-5.1) 12/29/18 07:00 Chloride 108 mmol/L (98-107) H 12/29/18 07:00 Carbon Dioxide 29 mmol/L (21-32) 12/29/18 07:00 Anion Gap 4 MMOL/L (8-16) L 12/29/18 07:00 BUN 8.7 mg/dL (7-18) 12/29/18 07:00 Creatinine 0.9 mg/dL (0.55-1.3) 12/29/18 07:00 Est GFR (CKD-EPI)AfAm 103.51 12/29/18 07:00 Est GFR (CKD-EPI)NonAf 89.31 12/29/18 07:00 Random Glucose 94 mg/dL (74-106) 12/29/18 07:00 Calcium 8.5 mg/dL (8.5-10.1) 12/29/18 07:00 Total Bilirubin 0.4 mg/dL (0.2-1) 12/29/18 07:00 AST 13 U/L (15-37) L 12/29/18 07:00 ALT 17 U/L (13-61) 12/29/18 07:00 Alkaline Phosphatase 107 U/L (45-117) 12/29/18 07:00 Total Protein 6.6 g/dl (6.4-8.2) 12/29/18 07:00 Albumin 3.0 g/dl (3.4-5.0) L 12/29/18 07:00 Urine Color Yellow 12/28/18 09:45 Urine Appearance Clear 12/28/18 09:45 Urine pH 5.0 (5.0-8.0) 12/28/18 09:45 Ur Specific [place] 1.008 (1.010-1.035) L 12/28/18 09:45 Urine Protein Negative (NEGATIVE) 12/28/18 09:45 Urine Glucose (UA) Negative (NEGATIVE) 12/28/18 09:45 Urine Ketones Negative (NEGATIVE) 12/28/18 09:45 Urine Blood Negative (NEGATIVE) 12/28/18 09:45 Urine Nitrite Negative (NEGATIVE) 12/28/18 09:45 Urine Bilirubin Negative (NEGATIVE) 12/28/18 09:45 Urine Urobilinogen 0.2 mg/dL (0.2-1.0) 12/28/18 09:45 Ur Leukocyte Esterase Negative (NEGATIVE) 12/28/18 09:45 RPR Titer Nonreactive (NONREACTIVE) 12/29/18 07:00 labs reviewed Assessment: 12/30/18 12:34 Aox3 no acute distress, full ROM ambulating in the unit Plan: increase PO fluids educated on vivitrol risk and benefits, encourage to follow up with appt at [facility] continue to monitor
[2018-12-30] MEDS: QUEtiapine FUMARATE 300 MG TABLET PO SCH (22:24)
[2018-12-30] MEDS: THIAMINE HCL 100 MG TABLET (FP) PO SCH (22:24)
[2018-12-31] MEDS ORDERED: chlordiazePOXIDE HCL 10 MG CAPSULE PO PRN
[2018-12-31] MEDS: chlordiazePOXIDE HCL 10 MG CAPSULE PO SCH ×4 (06:02→22:12)
[2018-12-31] MEDS: NICOTINE 7 MG/24 HOURS TOPICAL PATCH TD SCH (10:14)
[2018-12-31] MEDS: BUDESONIDE/FORMETEROL FUMARATE 80/4.5 mcg INHALER IH SCH ×2 (10:15→22:11)
[2018-12-31] MEDS: SERTRALINE HCL 50 MG TABLET (FP) PO SCH (10:15)
[2018-12-31] MEDS: PRENATAL VITAMINS W/ FOLIC ACID TABLET (FP) PO SCH (10:15)
--- NOTE | 2018-12-31 13:49 | PN ---
[facility] CIWA - CIWA Score Nausea/Vomitin-No Nausea/No Vomiting Muscle Tremors: None Anxiety: 2 Agitation: 0-Normal Activity Paroxysmal Sweats: 2 Orientation: 0-Oriented Tacttile Disturbances: 1-Very Mild Itch/Numbness Auditory Disturbances: 0-None Visual Disturbances: 1-Very Mild Sensitivity Headache: 1-Very Mild CIWA-Ar Total Score: 7 S Progress Note (SOAP) Subjective: c/o chills, sweats, interrupted sleep Objective: 12/31/18 13:48 Vital Signs Temperature 98.2 F 12/31/18 13:30 Pulse Rate 74 12/31/18 13:30 Respiratory Rate 18 12/31/18 13:30 Blood Pressure 124/62 12/31/18 13:30 O2 Sat by Pulse Oximetry (%) Laboratory Last Values WBC 5.3 K/mm3 (4.0-10.0) 12/29/18 07:00 RBC 4.79 M/mm3 (4.00-5.60) 12/29/18 07:00 Hgb 12.0 GM/dL (11.7-16.9) 12/29/18 07:00 Hct 37.1 % (35.4-49) 12/29/18 07:00 MCV 77.5 fl (80-96) L 12/29/18 07:00 MCH 25.1 pg (25.7-33.7) L 12/29/18 07:00 MCHC 32.4 g/dl (32.0-35.9) 12/29/18 07:00 RDW 15.9 % (11.9-15.9) 12/29/18 07:00 Plt Count 266 K/MM3 (134-434) 12/29/18 07:00 MPV 7.4 fl (7.5-11.1) L 12/29/18 07:00 Sodium 141 mmol/L (136-145) 12/29/18 07:00 Potassium 4.2 mmol/L (3.5-5.1) 12/29/18 07:00 Chloride 108 mmol/L (98-107) H 12/29/18 07:00 Carbon Dioxide 29 mmol/L (21-32) 12/29/18 07:00 Anion Gap 4 MMOL/L (8-16) L 12/29/18 07:00 BUN 8.7 mg/dL (7-18) 12/29/18 07:00 Creatinine 0.9 mg/dL (0.55-1.3) 12/29/18 07:00 Est GFR (CKD-EPI)AfAm 103.51 12/29/18 07:00 Est GFR (CKD-EPI)NonAf 89.31 12/29/18 07:00 Random Glucose 94 mg/dL (74-106) 12/29/18 07:00 Calcium 8.5 mg/dL (8.5-10.1) 12/29/18 07:00 Total Bilirubin 0.4 mg/dL (0.2-1) 12/29/18 07:00 AST 13 U/L (15-37) L 12/29/18 07:00 ALT 17 U/L (13-61) 12/29/18 07:00 Alkaline Phosphatase 107 U/L (45-117) 12/29/18 07:00 Total Protein 6.6 g/dl (6.4-8.2) 12/29/18 07:00 Albumin 3.0 g/dl (3.4-5.0) L 12/29/18 07:00 Urine Color Yellow 12/28/18 09:45 Urine Appearance Clear 12/28/18 09:45 Urine pH 5.0 (5.0-8.0) 12/28/18 09:45 Ur Specific [place] 1.008 (1.010-1.035) L 12/28/18 09:45 Urine Protein Negative (NEGATIVE) 12/28/18 09:45 Urine Glucose (UA) Negative (NEGATIVE) 12/28/18 09:45 Urine Ketones Negative (NEGATIVE) 12/28/18 09:45 Urine Blood Negative (NEGATIVE) 12/28/18 09:45 Urine Nitrite Negative (NEGATIVE) 12/28/18 09:45 Urine Bilirubin Negative (NEGATIVE) 12/28/18 09:45 Urine Urobilinogen 0.2 mg/dL (0.2-1.0) 12/28/18 09:45 Ur Leukocyte Esterase Negative (NEGATIVE) 12/28/18 09:45 RPR Titer Nonreactive (NONREACTIVE) 12/29/18 07:00 Assessment: 12/31/18 13:48 withdrawal sx Plan: continue detox continue to monitor
[2018-12-31] MEDS: QUEtiapine FUMARATE 300 MG TABLET PO SCH (22:12)
[2018-12-31] MEDS: THIAMINE HCL 100 MG TABLET (FP) PO SCH (22:12)
[2019-01-01] MEDS: chlordiazePOXIDE HCL 10 MG CAPSULE PO SCH ×2 (06:36→18:18)
[2019-01-01] MEDS: BUDESONIDE/FORMETEROL FUMARATE 80/4.5 mcg INHALER IH SCH ×2 (10:30→23:12)
[2019-01-01] MEDS: SERTRALINE HCL 50 MG TABLET (FP) PO SCH (10:30)
[2019-01-01] MEDS: PRENATAL VITAMINS W/ FOLIC ACID TABLET (FP) PO SCH (10:30)
[2019-01-01] MEDS: NICOTINE 7 MG/24 HOURS TOPICAL PATCH TD SCH (10:32)
--- NOTE | 2019-01-01 12:12 | PN ---
S CIWA - CIWA Score Nausea/Vomitin-No Nausea/No Vomiting Muscle Tremors: 2 Anxiety: 1-Mildly Anxious Agitation: 2 Paroxysmal Sweats: No Perspiration Orientation: 0-Oriented Tacttile Disturbances: 0-None Auditory Disturbances: 0-None Visual Disturbances: 0-None Headache: 0-None Present CIWA-Ar Total Score: 5 [facility] Progress Note (SOAP) Subjective: feeling better little anxiety Objective: 01/01/19 12:14 Vital Signs Temperature 97.9 F 01/01/19 09:15 Pulse Rate 86 01/01/19 09:15 Respiratory Rate 18 01/01/19 09:15 Blood Pressure 120/79 01/01/19 09:15 O2 Sat by Pulse Oximetry (%) aaox3 ambulating no acute distress Assessment: 01/01/19 12:14 mild withdrawal sx Plan: continue detox increase fluids d/c in am
[2019-01-01] MEDS: QUEtiapine FUMARATE 300 MG TABLET PO SCH (22:27)
[2019-01-01] MEDS: THIAMINE HCL 100 MG TABLET (FP) PO SCH (22:27)
[2019-01-02] MEDS ORDERED: chlordiazePOXIDE HCL 10 MG CAPSULE PO ONE (05:00)
[2019-01-02 08:13] VITALS: TEMP 97.3
[2019-01-02] MEDS: NICOTINE 7 MG/24 HOURS TOPICAL PATCH TD SCH (09:08)
[2019-01-02] MEDS: BUDESONIDE/FORMETEROL FUMARATE 80/4.5 mcg INHALER IH SCH (09:08)
[2019-01-02] MEDS: SERTRALINE HCL 50 MG TABLET (FP) PO SCH (09:08)
[2019-01-02] MEDS: PRENATAL VITAMINS W/ FOLIC ACID TABLET (FP) PO SCH (09:09)
[2019-01-02 09:57] VITALS: BP 132/86; PULSE 83
--- NOTE | 2019-01-02 13:47 | DS ---
[facility] Detox Discharge Summary Admission Date: 12/28/18 Discharge Date: 01/02/19 - History Present History: Alcohol Dependence, Cocaine Dependence Additional Comments: Pt is medically cleared and is discharged home today. Pt completed his detox protocol. As per counselor's notes, "Counselor met with patient to discuss after care plan. Patient reports he has an appointment with [facility] Out patient program on 01-06-19 which he expressed his desire and preference to begin his treatment services." Pt is encouraged to follow-up with his pmd and also to follow-up with outpatient CD program as discussed with his counselor. Pt is alert and oriented x3 and in no respiratory distress. Pertinent Past History: h/o alcohol and cocaine use disorder. - Physical Exam Results Vital Signs: Vital Signs Temperature 97.3 F L 01/02/19 09:56 Pulse Rate 83 01/02/19 09:56 Respiratory Rate 18 01/02/19 09:56 Blood Pressure 132/86 01/02/19 09:56 O2 Sat by Pulse Oximetry (%) Vital Signs 01/02/19 01/02/19 08:12 09:56 Temperature 97.3 F L 97.3 F L Pulse Rate 72 83 Respiratory 18 18 Rate Blood Pressure 128/75 132/86 Lab Results WBC 5.3 K/mm3 (4.0-10.0) 12/29/18 07:00 RBC 4.79 M/mm3 (4.00-5.60) 12/29/18 07:00 Hgb 12.0 GM/dL (11.7-16.9) 12/29/18 07:00 Hct 37.1 % (35.4-49) 12/29/18 07:00 MCV 77.5 fl (80-96) L 12/29/18 07:00 MCHC 32.4 g/dl (32.0-35.9) 12/29/18 07:00 RDW 15.9 % (11.9-15.9) 12/29/18 07:00 Plt Count 266 K/MM3 (134-434) 12/29/18 07:00 Sodium 141 mmol/L (136-145) 12/29/18 07:00 Potassium 4.2 mmol/L (3.5-5.1) 12/29/18 07:00 Chloride 108 mmol/L (98-107) H 12/29/18 07:00 Carbon Dioxide 29 mmol/L (21-32) 12/29/18 07:00 Anion Gap 4 MMOL/L (8-16) L 12/29/18 07:00 BUN 8.7 mg/dL (7-18) 12/29/18 07:00 Creatinine 0.9 mg/dL (0.55-1.3) 12/29/18 07:00 Random Glucose 94 mg/dL (74-106) 12/29/18 07:00 Calcium 8.5 mg/dL (8.5-10.1) 12/29/18 07:00 Labs reviewed. Pertinent Admission Physical Exam Findings: withdrawal symptoms. - Treatment Hospital Course: Detox Protocol Followed, Detoxed Safely, Responded well, Discharged Condition Good - Medication Discharge Medications: Ambulatory Orders Quetiapine Fumarate [Seroquel -] 300 mg PO HS 09/15/18 Albuterol Sulfate Inhaler - [Ventolin HFA Inhaler -] 2 inh PO Q4H PRN #1 inhaler 11/09/18 Budesonide/Formeterol Fumarate [SYMBICORT 80/4.5mcg -] 1 inh PO BID #1 inhaler 11/09/18 Sertraline HCl [Zoloft -] 50 mg PO DAILY 12/28/18 Quetiapine Fumarate [Seroquel -] 300 mg PO HS #30 tablet 01/02/19 Sertraline HCl [Zoloft -] 50 mg PO DAILY #30 tablet 01/02/19 - Diagnosis (1) Alcohol dependence with uncomplicated withdrawal Status: Acute (2) COPD (chronic obstructive pulmonary disease) Status: Chronic Qualifiers: COPD type: emphysema Emphysema type: other Qualified Code(s): J43.8 - Other emphysema (3) Cocaine abuse Status: Chronic (4) Nicotine dependence Status: Chronic Qualifiers: Nicotine product type: cigarettes Substance use status: in withdrawal Qualified Code(s): F17.213 - Nicotine dependence, cigarettes, with withdrawal - AMA Did Patient Leave Against Medical Advice: No
== END 2019-01-02 09:25 | disposition home or self-care (01) | DRG 897 ==
LOC: YASAS 13:12 → Y6N 21:28
PROVIDERS: ADMIT Surgery; ATTEND Surgery
PROC: HZ2ZZZZ Detoxification Services for Substance Abuse Treatment (ICD-10-PCS; principal; 2018-12-28)
DX: F10.230 Alcohol dependence with withdrawal, uncomplicated (principal); F19.282 Other psychoactive substance dependence with psychoactive substance-induced sleep disorder; F14.10 Cocaine abuse, uncomplicated; F17.213 Nicotine dependence, cigarettes, with withdrawal; F31.9 Bipolar disorder, unspecified; J43.8 Other emphysema; N40.0 Benign prostatic hyperplasia without lower urinary tract symptoms; B18.2 Chronic viral hepatitis C; Z86.69 Personal history of other diseases of the nervous system and sense organs; Z88.0 Allergy status to penicillin
CPT/HCPCS: 36415; 80053; 81003; 85027; 86593

== ENCOUNTER 2019-02-12 11:58 | Inpatient (IN) | payer OTHER ==
[2019-02-12 12:49] VITALS: BMI 29.5
--- NOTE | 2019-02-12 13:49 | HP ---
CIWA Score Nausea/Vomitin-Mild Nausea/No Vomiting Muscle Tremors: 3 Anxiety: 3 Agitation: 1-Slight > Activity Paroxysmal Sweats: 2 Orientation: 0-Oriented Tacttile Disturbances: 0-None Auditory Disturbances: 0-None Visual Disturbances: 0-None Headache: 3-Moderate CIWA-Ar Total Score: 13 - Admission Criteria OASAS Guidelines: Admission for Medically Managed Detox: Requires at least one of the followin. CIWA greater than 12 2. Seizures within the past 24 hours 3. Delirium tremens within the past 24 hours 4. Hallucinations within the past 24 hours 5. Acute intervention needed for co occurring medical disorder 6. Acute intervention needed for co occurring psychiatric disorder 7. Severe withdrawal that cannot be handled at a lower level of care (continued vomiting, continued diarrhea, abnormal vital signs) requiring intravenous medication and/or fluids 8. Admission ROS [facility] Chief Complaint: alcohol detox Allergies/Adverse Reactions: Allergies Allergy/AdvReac Type Severity Reaction Status Date / Time Penicillins Allergy Severe Swelling Verified 02/12/19 12:22 lactose AdvReac Severe diarrhea Verified 02/12/19 12:22 History of Present Illness: Patient is a 63 yo M with a PMHx of Asthma, Hep C, depression, bipolar disorder , anxiety, presenting here for alcohol detox. Drinks 4 pints of wine and 2 cans of beer everyday. Last drink this afternoon, says he drank 3 cans of beer. Has been drinking for at least 10 years. Says he had many seizures in the past, last being a few months ago. Last blackout was 2 months ago. says he wants to get detox and rehab. Has been in and out of detox, last being in 12/28-01/02. Also smokes crack/cocaine once a month. Last use 2 nights ago. Smokes 4 cigarettes a day. says he does not want patch. 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 Lives in an apartment with a roommate in the [place]. Exam Limitations: No Limitations - Ebola screening Have you traveled outside of the country in the last 21 days: No (N) Have you had contact with anyone from an Ebola affected area: No Do you have a fever: No - Review of Systems Constitutional: Unintentional Wgt. Loss (4 pounds in 1.5 months) Respiratory: denies: Cough, Shortness of Breath Cardiac: denies: Chest Pain, Palpitations Patient History - Patient Medical History Hx Anemia: No Hx Asthma: Yes Hx Chronic Obstructive Pulmonary Disease (COPD): No Hx Cancer: No Hx Cardiac Disorders: No Hx Congestive Heart Failure: No Hx Hypertension: No Hx Hypercholesterolemia: No Hx Pacemaker: No HX Cerebrovascular Accident: No Hx Seizures: No Hx Dementia: No Hx Diabetes: No Hx Gastrointestinal Disorders: No Hx Liver Disease: Yes (Hep C - no viral load, no need for treatment) Hx Genitourinary Disorders: No Hx Sexually Transmitted Disorders: No Hx Renal Disease (ESRD): No Hx Thyroid Disease: No Hx Human Immunodeficiency Virus (HIV): No (04/02 negative) Hx Hepatitis C: Yes (no viral load - never treated) Hx Depression: Yes Hx Suicide Attempt: No Hx Bipolar Disorder: Yes (Meds.) Hx Schizophrenia: No - Patient Surgical History Past Surgical History: Yes Hx Neurologic Surgery: No Hx Cataract Extraction: No Hx Cardiac Surgery: No Hx Lung Surgery: No Hx Breast Surgery: No Hx Breast Biopsy: No Hx Abdominal Surgery: Yes (umbilical hernia repair as a child) Hx Appendectomy: No Hx Cholecystectomy: No Hx Genitourinary Surgery: No Hx Section: No Hx Orthopedic Surgery: No Other Surgical History: DENIES. Anesthesia Reaction: No - PPD History Date: 04/23/18 Results: CXR(-) neg - Smoking Cessation Smoking history: Current every day smoker Have you smoked in the past 12 months: Yes Aproximately how many cigarettes per day: 5 Cigars Per Day: 0 Hx Chewing Tobacco Use: No Initiated information on smoking cessation: Yes 'Breaking Loose' booklet given: 02/17/19 - Substances abused Alcohol Substance route: Oral Frequency: Daily Amount used: 4 pt. wine, 2 beers (12 oz) Age of first use: 14 Date of last use: 02/12/19 Cocaine Substance route: Smoking Frequency: 1-3 times last 30 days Amount used: $125 Age of first use: 54 Date of last use: 02/11/19 Family Disease History - Family Disease History Family Disease History: Heart Disease: Mother (), Other: Father ( ALCOHOLIC/), Mother, Brother (DRUG ABUSE; IN RECOVERY.), Son (one - healthy), Daughter (two - healthy) Admission Physical Exam BHS - Vital Signs Vital Signs: Vital Signs - 24 hr 02/12/19 12:43 Temperature 98.4 F Pulse Rate 96 H Respiratory 20 Rate Blood Pressure 121/76 - Physical General Appearance: Yes: Anxious HEENTM: Yes: Normal ENT Inspection Respiratory: Yes: No Respiratory Distress, No Accessory Muscle Use Cardiology: Yes: Regular Rhythm, S1, S2 Abdominal: Yes: Non Tender, Soft Extremities: No: Swelling - Diagnostic (1) Alcohol dependence with uncomplicated withdrawal Current Visit: Yes Status: Chronic (3) Asthma Current Visit: Yes Status: Chronic (4) Bipolar disorder Current Visit: Yes Status: Chronic Qualifiers: Active/Remission status: remission status unspecified Qualified Code(s): F31.9 - Bipolar disorder, unspecified Comment: By history. On medications. Claims OPD care at [facility]. (6) History of depression Current Visit: No Status: Chronic Breathalyzer - Breathalyzer Breathalyzer: 0.109 Urine Drug Screen - Test Device Lot number: [id number] Expiration date: 10/13/20 - Control Is test valid?: Yes - Results Drug screen NEGATIVE: No Urine drug screen results: BZO-Benzodiazepines Inpatient Rehab Admission - Rehab Decision to Admit Inpatient rehab admission?: No
--- NOTE | 2019-02-12 14:11 | PN ---
Teaching Attending Note Name of Resident: Rosa Kumar ATTENDING PHYSICIAN STATEMENT I saw and evaluated the patient. I reviewed the resident's note and discussed the case with the resident. I agree with the resident's findings and plan as documented. SUBJECTIVE: patient here requesting detox from etoh use , reports 4 pints wine and 2 cans of beer, latest use this afternoon , current CIWA score 13 , reports relapse 2 weeks after previous d/c from this facility , had withdrawal seizures most recently 3 months ago , has been to this facility in the past for detox. multiple times . [place] 0.119 cocaine : 30 $ /day tobacco : 06/19 ppd OBJECTIVE: intoxicated . ASSESSMENT AND PLAN: AUD - Librium taper . Encouraged rehab . Problem List - Problems (1) Alcohol dependence with uncomplicated withdrawal Code(s): F10.230 - ALCOHOL DEPENDENCE WITH WITHDRAWAL, UNCOMPLICATED (2) Cocaine abuse Code(s): F14.10 - COCAINE ABUSE, UNCOMPLICATED (3) Nicotine dependence Code(s): F17.200 - NICOTINE DEPENDENCE, UNSPECIFIED, UNCOMPLICATED Qualifiers: Nicotine product type: cigarettes
[2019-02-12] MEDS ORDERED: ALBUTEROL SO4 0.083% IH SOL 2.5 MG/3 ML VIAL.NEB. NEB PRN (14:12)
[2019-02-12] MEDS ORDERED: ALBUTEROL SO4 8 GM HFA INHALER IH PRN (14:12)
[2019-02-12] MEDS ORDERED: hydrOXYzine PAMOATE 25 MG CAPSULE (FP) PO PRN (14:13)
[2019-02-12] MEDS ORDERED: MENTHOL/PHENOL 1 EACH UD MM PRN (14:13)
[2019-02-12] MEDS ORDERED: IBUPROFEN 400 MG TABLET (FP) PO PRN (14:13)
[2019-02-12] MEDS ORDERED: MELATONIN 5 MG TABLETS PO PRN (14:13)
[2019-02-12] MEDS ORDERED: MAG HYDROX/AL HYDROX/SIMETH 30 ML UNIT-DOSE CUP PO PRN (14:13)
[2019-02-12] MEDS ORDERED: MAGNESIUM CITRATE 300 ML BOTTLE PO PRN (14:13)
[2019-02-12] MEDS ORDERED: ACETAMINOPHEN 325 MG TABLET (FP) PO PRN ×2 (14:13)
[2019-02-12] MEDS ORDERED: BISMUTH SUBSALICYLATE 262 MG/15 ML BTL PO PRN (14:13)
[2019-02-12] MEDS ORDERED: MAGNESIUM HYDROX 2400MG/30ML ORAL SUSPENSION 30 ML CUP PO PRN (14:13)
[2019-02-12] MEDS: chlordiazePOXIDE HCL 25 MG CAPSULE PO PRN (15:58)
[2019-02-12] MEDS: chlordiazePOXIDE HCL 25 MG CAPSULE PO SCH ×2 (16:59→22:13)
[2019-02-12 17:54] LABS: HEMATOCRIT 41.9 % (35.4-49); HEMOGLOBIN 13.6 GM/dL (11.7-16.9); MCH 25.7 pg (25.7-33.7); MCHC 32.4 g/dl (32.0-35.9); MEAN CELL VOLUME 79.6 fl (80-96); MEAN PLT VOLUME 7.5 fl (7.5-11.1); PLATELET COUNT 264 K/MM3 (134-434); RBC 5.27 M/mm3 (4.00-5.60); RDW 18.2 % (11.9-15.9); WHITE BLOOD COUNT 6.1 K/mm3 (4.0-10.0)
[2019-02-12 18:08] LABS: ALBUMIN 4.1 g/dl (3.4-5.0); BILIRUBIN,TOTAL 0.4 mg/dL (0.2-1); BLOOD UREA NITROGEN 11.7 mg/dL (7-18); CALCIUM 8.8 mg/dL (8.5-10.1); CREATININE 1.1 mg/dL (0.55-1.3); TOT PROT 8.2 g/dl (6.4-8.2)
[2019-02-12] MEDS: BUDESONIDE/FORMETEROL FUMARATE 80/4.5 mcg INHALER IH SCH (22:13)
[2019-02-12] MEDS: THIAMINE HCL 100 MG TABLET (FP) PO SCH (22:13)
[2019-02-13] MEDS: chlordiazePOXIDE HCL 25 MG CAPSULE PO SCH ×4 (05:41→22:04)
--- NOTE | 2019-02-13 09:42 | PN ---
[facility] CIWA - CIWA Score Nausea/Vomitin-No Nausea/No Vomiting Muscle Tremors: 3 Anxiety: 3 Agitation: 0-Normal Activity Paroxysmal Sweats: 3 Orientation: 0-Oriented Tacttile Disturbances: 2-Mild Itch/Numbness/Burn Auditory Disturbances: 0-None Visual Disturbances: 0-None Headache: 0-None Present CIWA-Ar Total Score: 11 S Progress Note (SOAP) Subjective: c/o anxiety, shakes, and sweats. Objective: 02/13/19 09:42 Vital Signs 02/13/19 02/13/19 02/13/19 03:30 06:25 09:22 Temperature 97.7 F 98.1 F Pulse Rate 75 93 H Respiratory 18 18 18 Rate Blood Pressure 115/61 139/71 Lab Results WBC 6.1 K/mm3 (4.0-10.0) 02/12/19 14:15 RBC 5.27 M/mm3 (4.00-5.60) 02/12/19 14:15 Hgb 13.6 GM/dL (11.7-16.9) 02/12/19 14:15 Hct 41.9 % (35.4-49) 02/12/19 14:15 MCV 79.6 fl (80-96) L 02/12/19 14:15 MCHC 32.4 g/dl (32.0-35.9) 02/12/19 14:15 RDW 18.2 % (11.9-15.9) H 02/12/19 14:15 Plt Count 264 K/MM3 (134-434) 02/12/19 14:15 Sodium 137 mmol/L (136-145) 02/12/19 14:15 Potassium 4.0 mmol/L (3.5-5.1) 02/12/19 14:15 Chloride 106 mmol/L (98-107) 02/12/19 14:15 Carbon Dioxide 23 mmol/L (21-32) 02/12/19 14:15 Anion Gap 8 MMOL/L (8-16) 02/12/19 14:15 BUN 11.7 mg/dL (7-18) 02/12/19 14:15 Creatinine 1.1 mg/dL (0.55-1.3) 02/12/19 14:15 Random Glucose 88 mg/dL (74-106) 02/12/19 14:15 Calcium 8.8 mg/dL (8.5-10.1) 02/12/19 14:15 Labs noted. Assessment: 02/13/19 09:42 AOX3, in no respiratory distress. Full ROM, ambulating in the unit. Withdrawal symptoms. Plan: continue detox. Increase fluids.
[2019-02-13] MEDS: PRENATAL VITAMINS W/ FOLIC ACID TABLET (FP) PO SCH (10:03)
[2019-02-13] MEDS: BUDESONIDE/FORMETEROL FUMARATE 80/4.5 mcg INHALER IH SCH ×2 (10:04→22:03)
[2019-02-13] MEDS: NICOTINE POLACRILEX 2 MG GUM BUC PRN ×2 (10:06→22:06)
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
[2019-02-13] MEDS: THIAMINE HCL 100 MG TABLET (FP) PO SCH (22:03)
[2019-02-13] MEDS: QUEtiapine FUMARATE 300 MG TABLET PO SCH (22:06)
[2019-02-14] MEDS: chlordiazePOXIDE HCL 25 MG CAPSULE PO PRN (06:01)
[2019-02-14] MEDS: chlordiazePOXIDE HCL 25 MG CAPSULE PO SCH ×4 (06:25→22:24)
[2019-02-14] MEDS: SERTRALINE HCL 50 MG TABLET (FP) PO SCH (10:10)
[2019-02-14] MEDS: BUDESONIDE/FORMETEROL FUMARATE 80/4.5 mcg INHALER IH SCH ×2 (10:10→22:23)
[2019-02-14] MEDS: PRENATAL VITAMINS W/ FOLIC ACID TABLET (FP) PO SCH (10:10)
--- NOTE | 2019-02-14 12:57 | PN ---
S CIWA - CIWA Score Nausea/Vomitin-Mild Nausea/No Vomiting Muscle Tremors: 2 Anxiety: 2 Agitation: 2 Paroxysmal Sweats: 2 Orientation: 0-Oriented Tacttile Disturbances: 0-None Auditory Disturbances: 0-None Visual Disturbances: 0-None Headache: 0-None Present CIWA-Ar Total Score: 9 S Progress Note (SOAP) Subjective: Sweating, nausea Objective: 02/14/19 12:56 Last Vital Signs Temp Pulse Resp BP Pulse Ox 96.9 F L 76 16 112/78 02/14/19 09:12 02/14/19 09:12 02/14/19 09:12 02/14/19 09:12 Laboratory Tests 02/12/19 02/12/19 02/12/19 14:15 14:15 14:15 WBC 6.1 RBC 5.27 Hgb 13.6 Hct 41.9 MCV 79.6 L MCH 25.7 MCHC 32.4 RDW 18.2 H Plt Count 264 MPV 7.5 Sodium 137 Potassium 4.0 Chloride 106 Carbon Dioxide 23 Anion Gap 8 BUN 11.7 Creatinine 1.1 Est GFR (CKD-EPI)AfAm 81.22 Est GFR (CKD-EPI)NonAf 70.07 Random Glucose 88 Calcium 8.8 Total Bilirubin 0.4 AST 55 H ALT 46 Alkaline Phosphatase 106 Total Protein 8.2 Albumin 4.1 RPR Titer Nonreactive Labs reviewed Assessment: 02/14/19 12:56 Withdrawal sxs Plan: Continue detox Encouraged PO water intake
[2019-02-14] MEDS: THIAMINE HCL 100 MG TABLET (FP) PO SCH (21:56)
[2019-02-14] MEDS: QUEtiapine FUMARATE 300 MG TABLET PO SCH (21:56)
[2019-02-15] MEDS ORDERED: chlordiazePOXIDE HCL 10 MG CAPSULE PO PRN
[2019-02-15] MEDS: chlordiazePOXIDE HCL 10 MG CAPSULE PO SCH ×4 (05:24→22:05)
--- NOTE | 2019-02-15 09:55 | PN ---
S CIWA - CIWA Score Nausea/Vomitin-Mild Nausea/No Vomiting Muscle Tremors: 2 Anxiety: 2 Agitation: 2 Paroxysmal Sweats: No Perspiration Orientation: 0-Oriented Tacttile Disturbances: 0-None Auditory Disturbances: 0-None Visual Disturbances: 0-None Headache: 2-Mild CIWA-Ar Total Score: 9 BHS Progress Note (SOAP) Subjective: alert,irritable,anxious,interrupted sleep Objective: 02/15/19 09:54 Vital Signs Temperature 97.7 F 02/15/19 07:43 Pulse Rate 64 02/15/19 07:43 Respiratory Rate 18 02/15/19 07:43 Blood Pressure 120/68 02/15/19 07:43 O2 Sat by Pulse Oximetry (%) Assessment: 02/15/19 09:54 withdrawal symptom Plan: continue detox librium regimen
[2019-02-15] MEDS: PRENATAL VITAMINS W/ FOLIC ACID TABLET (FP) PO SCH (10:07)
[2019-02-15] MEDS: BUDESONIDE/FORMETEROL FUMARATE 80/4.5 mcg INHALER IH SCH ×2 (10:07→22:06)
[2019-02-15] MEDS: SERTRALINE HCL 50 MG TABLET (FP) PO SCH (10:07)
[2019-02-15] MEDS: QUEtiapine FUMARATE 300 MG TABLET PO SCH (22:05)
[2019-02-15] MEDS: THIAMINE HCL 100 MG TABLET (FP) PO SCH (22:05)
[2019-02-16] MEDS: chlordiazePOXIDE HCL 10 MG CAPSULE PO SCH ×2 (05:41→17:50)
--- NOTE | 2019-02-16 09:02 | PN ---
[facility] CIWA - CIWA Score Nausea/Vomitin-Mild Nausea/No Vomiting Muscle Tremors: 1-None Visible, but [place] Anxiety: 1-Mildly Anxious Agitation: 1-Slight > Activity Paroxysmal Sweats: No Perspiration Orientation: 0-Oriented Tacttile Disturbances: 0-None Auditory Disturbances: 0-None Visual Disturbances: 0-None Headache: 1-Very Mild CIWA-Ar Total Score: 5 S Progress Note (SOAP) Subjective: alert,irritable,anxious,interrupted sleep Objective: 02/16/19 09:02 Vital Signs Temperature 97.2 F L 02/16/19 06:00 Pulse Rate 71 02/16/19 06:00 Respiratory Rate 18 02/16/19 06:00 Blood Pressure 96/63 02/16/19 06:00 O2 Sat by Pulse Oximetry (%) Assessment: 02/16/19 09:02 withdrawal symptom Plan: continue detox librium regimen,discharge in am
[2019-02-16] MEDS: PRENATAL VITAMINS W/ FOLIC ACID TABLET (FP) PO SCH (10:07)
[2019-02-16] MEDS: SERTRALINE HCL 50 MG TABLET (FP) PO SCH (10:07)
[2019-02-16] MEDS: BUDESONIDE/FORMETEROL FUMARATE 80/4.5 mcg INHALER IH SCH ×2 (10:07→22:01)
[2019-02-16] MEDS: THIAMINE HCL 100 MG TABLET (FP) PO SCH (22:00)
[2019-02-16] MEDS: QUEtiapine FUMARATE 300 MG TABLET PO SCH (22:01)
[2019-02-17] MEDS ORDERED: chlordiazePOXIDE HCL 10 MG CAPSULE PO ONE (05:00)
--- NOTE | 2019-02-17 09:03 | DS ---
[facility] Detox Discharge Summary Admission Date: 02/12/19 Discharge Date: 02/17/19 - History Present History: Alcohol Dependence, Cocaine Dependence - Physical Exam Results Vital Signs: Vital Signs Temperature 98 F 02/17/19 06:29 Pulse Rate 68 02/17/19 06:29 Respiratory Rate 18 02/17/19 06:29 Blood Pressure 121/75 02/17/19 06:29 O2 Sat by Pulse Oximetry (%) Pertinent Admission Physical Exam Findings: pt arrived in withdrawals Laboratory Tests 02/12/19 02/12/19 02/12/19 14:15 14:15 14:15 WBC 6.1 RBC 5.27 Hgb 13.6 Hct 41.9 MCV 79.6 L MCH 25.7 MCHC 32.4 RDW 18.2 H Plt Count 264 MPV 7.5 Sodium 137 Potassium 4.0 Chloride 106 Carbon Dioxide 23 Anion Gap 8 BUN 11.7 Creatinine 1.1 Est GFR (CKD-EPI)AfAm 81.22 Est GFR (CKD-EPI)NonAf 70.07 Random Glucose 88 Calcium 8.8 Total Bilirubin 0.4 AST 55 H ALT 46 Alkaline Phosphatase 106 Total Protein 8.2 Albumin 4.1 RPR Titer Nonreactive today pt is aaox3 ambulating no acute distress no s/s of withdrawals - Treatment Hospital Course: Detox Protocol Followed, Detoxed Safely, Responded well, Discharged Condition Good, Rehab Referral Accepted Patient has Accepted a Rehab Referral to: pt referred to [facility] inpatient rehab - Medication Discharge Medications: Ambulatory Orders Albuterol Sulfate Inhaler - [Ventolin HFA Inhaler -] 2 inh PO Q4H PRN #1 inhaler 11/09/18 Budesonide/Formeterol Fumarate [SYMBICORT 80/4.5mcg -] 2 inh PO BID 02/12/19 Quetiapine Fumarate [Seroquel -] 300 mg PO HS #30 tablet 02/17/19 Sertraline HCl [Zoloft -] 150 mg PO DAILY #90 tablet 02/17/19 - Diagnosis (1) Alcohol dependence with uncomplicated withdrawal Current Visit: Yes Status: Chronic (2) Bipolar disorder Current Visit: Yes Status: Chronic Qualifiers: Active/Remission status: remission status unspecified Qualified Code(s): F31.9 - Bipolar disorder, unspecified (3) Insomnia Current Visit: Yes Status: Chronic Qualifiers: Insomnia type: unspecified Qualified Code(s): G47.00 - Insomnia, unspecified (4) Nicotine dependence Current Visit: Yes Status: Chronic Qualifiers: Nicotine product type: cigarettes Substance use status: uncomplicated Qualified Code(s): F17.210 - Nicotine dependence, cigarettes, uncomplicated (5) Substance induced mood disorder Current Visit: Yes Status: Chronic (6) Alcohol-induced sleep disorder Current Visit: No Status: Acute (7) Hepatitis C virus carrier state Current Visit: No Status: Acute (8) Asthma Current Visit: Yes Status: Chronic (9) BPH (benign prostatic hyperplasia) Current Visit: Yes Status: Chronic (10) Bipolar disorder Current Visit: No Status: Chronic Qualifiers: Active/Remission status: remission status unspecified Qualified Code(s): F31.9 - Bipolar disorder, unspecified (11) COPD (chronic obstructive pulmonary disease) Current Visit: No Status: Chronic Qualifiers: COPD type: emphysema Emphysema type: unspecified Qualified Code(s): J43.9 - Emphysema, unspecified (12) History of depression Current Visit: No Status: Chronic (13) History of positive PPD Current Visit: No Status: Chronic (14) Nicotine dependence Current Visit: No Status: Chronic Qualifiers: Nicotine product type: cigarettes Substance use status: in withdrawal Qualified Code(s): F17.213 - Nicotine dependence, cigarettes, with withdrawal (15) Alcohol-induced anxiety disorder Current Visit: No Status: Suspected (16) Alcohol related seizure Current Visit: No Status: Resolved (17) Hepatitis C Current Visit: No Status: Resolved Qualifiers: Viral hepatitis chronicity: chronic Hepatic coma status: without hepatic coma Qualified Code(s): B18.2 - Chronic viral hepatitis C - AMA Did Patient Leave Against Medical Advice: No
--- NOTE | 2019-02-17 09:06 | PN ---
[facility] Progress Note Note: Patient is discharged today. Scripts for 30 days supply of medications(Zoloft 150 mg/day, Seroquel 300 mg/hs) are electronically transmitted to [facility] at [address] [place] [id number]
[2019-02-17] MEDS: PRENATAL VITAMINS W/ FOLIC ACID TABLET (FP) PO SCH (10:08)
[2019-02-17] MEDS: SERTRALINE HCL 50 MG TABLET (FP) PO SCH (10:08)
[2019-02-17] MEDS: BUDESONIDE/FORMETEROL FUMARATE 80/4.5 mcg INHALER IH SCH (10:08)
[2019-02-17 13:01] VITALS: BP 105/61; PULSE 77; TEMP 97.9
== END 2019-02-17 13:59 | disposition home or self-care (01) | DRG 897 ==
LOC: YASAS 11:58 → Y6N 14:42
PROVIDERS: ADMIT Surgery; ATTEND Surgery
PROC: HZ2ZZZZ Detoxification Services for Substance Abuse Treatment (ICD-10-PCS; principal; 2019-02-12)
DX: F10.230 Alcohol dependence with withdrawal, uncomplicated (principal); F14.10 Cocaine abuse, uncomplicated; F17.210 Nicotine dependence, cigarettes, uncomplicated; F10.280 Alcohol dependence with alcohol-induced anxiety disorder; F10.282 Alcohol dependence with alcohol-induced sleep disorder; F19.24 Other psychoactive substance dependence with psychoactive substance-induced mood disorder; F31.9 Bipolar disorder, unspecified; G47.00 Insomnia, unspecified; J43.9 Emphysema, unspecified; B18.2 Chronic viral hepatitis C; Z86.59 Personal history of other mental and behavioral disorders; Z86.69 Personal history of other diseases of the nervous system and sense organs
CPT/HCPCS: 36415; 80053; 85027; 86593

== ENCOUNTER 2019-04-21 12:17 | Inpatient (IN) | payer OTHER ==
[2019-04-21 13:29] VITALS: BMI 29.0
--- NOTE | 2019-04-21 15:55 | HP ---
CIWA Score Nausea/Vomitin-Mild Nausea/No Vomiting Muscle Tremors: 3 Anxiety: 1-Mildly Anxious Agitation: 2 Paroxysmal Sweats: 1-Minimal Palms Moist Orientation: 1-Uncertain about Date Tacttile Disturbances: 1-Very Mild Itch/Numbness Auditory Disturbances: 1-Very Mild Visual Disturbances: 0-None Headache: 1-Very Mild CIWA-Ar Total Score: 12 - Admission Criteria OASAS Guidelines: Admission for Medically Managed Detox: Requires at least one of the followin. CIWA greater than 12 2. Seizures within the past 24 hours 3. Delirium tremens within the past 24 hours 4. Hallucinations within the past 24 hours 5. Acute intervention needed for co occurring medical disorder 6. Acute intervention needed for co occurring psychiatric disorder 7. Severe withdrawal that cannot be handled at a lower level of care (continued vomiting, continued diarrhea, abnormal vital signs) requiring intravenous medication and/or fluids 8. Admitting History and Physical - Admission Chief Complaint: I want to go to detox and then rehab History of Present Illness: 63 year old black male with history of alcohol dependence with withdrawals. He is using 4 pints of wine per day plus beers, last drank this morning. He admits to blackouts in the past and also seizures from withdrawal in July of this year. PMH: HCV no viral load, Asthma Psurg: Umbilical hernia repaired Psych: Depression History Source: Patient Limitations to Obtaining History: No Limitations - Past Medical History Pulmonary: Yes: Asthma Hepatobiliary: Yes: Hepatitis C Psych: Yes: Depression - Advance Directives Advance Directives: No: Living Will, Health Care Proxy, DNR - Smoking History Smoking history: Current every day smoker Have you smoked in the past 12 months: Yes Aproximately how many cigarettes per day: 5 - Alcohol/Substance Use Hx Alcohol Use: Yes - Social History Usual Living Arrangement: Yes: Alone Do you think of yourself as: Straight/Heterosexual ADL: Independent 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 History of Recent Travel: Yes Admission [facility] Allergies/Adverse Reactions: Allergies Allergy/AdvReac Type Severity Reaction Status Date / Time Penicillins Allergy Severe Swelling Verified 04/21/19 13:24 lactose AdvReac Intermediate diarrhea Verified 04/21/19 13:24 Exam Limitations: No Limitations - Ebola screening Have you traveled outside of the country in the last 21 days: No Have you had contact with anyone from an Ebola affected area: No Have you been sick,other than usual withdrawal symptoms: No Do you have a fever: No - Review of Systems Constitutional: Chills, Night Sweats, Unintentional Wgt. Loss EENT: reports: No Symptoms Reported Respiratory: reports: No Symptoms reported Cardiac: reports: No Symptoms Reported GI: reports: No Symptoms Reported, Nausea, Abdominal cramping : reports: No Symptoms Reported Musculoskeletal: reports: No Symptoms Reported Integumentary: reports: No Symptoms Reported Neuro: reports: No Symptoms reported Endocrine: reports: No Symptoms Reported Hematology: reports: No Symptoms Reported Psychiatric: reports: Judgement Intact, Mood/Affect Appropiate, Orientated x3 Other Systems: Reviewed and Negative Patient History - Patient Medical History Hx Anemia: No Hx Asthma: Yes Hx Chronic Obstructive Pulmonary Disease (COPD): No Hx Cancer: No Hx Cardiac Disorders: No Hx Congestive Heart Failure: No Hx Hypertension: No Hx Hypercholesterolemia: No Hx Pacemaker: No HX Cerebrovascular Accident: No Hx Seizures: No Hx Dementia: No Hx Diabetes: No Hx Gastrointestinal Disorders: No Hx Liver Disease: Yes (Hep C - no viral load, no need for treatment) Hx Genitourinary Disorders: No Hx Sexually Transmitted Disorders: No Hx Renal Disease (ESRD): No Hx Thyroid Disease: No Hx Human Immunodeficiency Virus (HIV): No (04/02 negative) Hx Hepatitis C: Yes (no viral load - never treated) Hx Depression: Yes Hx Suicide Attempt: No Hx Bipolar Disorder: Yes (Meds.) Hx Schizophrenia: No - Patient Surgical History Past Surgical History: Yes Hx Neurologic Surgery: No Hx Cataract Extraction: No Hx Cardiac Surgery: No Hx Lung Surgery: No Hx Breast Surgery: No Hx Breast Biopsy: No Hx Abdominal Surgery: Yes (umbilical hernia repair as a child) Hx Appendectomy: No Hx Cholecystectomy: No Hx Genitourinary Surgery: No Hx Section: No Hx Orthopedic Surgery: No Other Surgical History: DENIES. Anesthesia Reaction: No - PPD History Previous Implant?: No Documented Results: Positive w/o proof Implanted On Prior [facility] Admission?: No Date: 04/23/18 Results: CXR(-) neg PPD to be Administered?: No - Smoking Cessation Smoking history: Current every day smoker Have you smoked in the past 12 months: Yes Aproximately how many cigarettes per day: 5 Cigars Per Day: 0 Hx Chewing Tobacco Use: No Initiated information on smoking cessation: Yes 'Breaking Loose' booklet given: 04/21/19 - Substances abused Alcohol Substance route: Oral Frequency: Daily Amount used: 4 pt. wine, 2 beers (12 oz) Age of first use: 14 Date of last use: 04/21/19 Cocaine Substance route: Smoking Frequency: 1-3 times last 30 days Amount used: $125 Age of first use: 54 Date of last use: 04/21/19 Admission Physical Exam S - Vital Signs Vital Signs: Vital Signs - 24 hr 04/21/19 13:27 Temperature 98.6 F Pulse Rate 103 H Respiratory 20 Rate Blood Pressure 120/77 - Physical General Appearance: Yes: Mild Distress, Alcohol on Breath, Sweating, Anxious HEENTM: Yes: EOMI, Hearing grossly Normal, Normal ENT Inspection, Normocephalic , Normal Voice, YONNY, Pharynx Normal, Tm's normal Respiratory: Yes: Chest Non-Tender, Lungs Clear, Normal Breath Sounds, No Respiratory Distress, No Accessory Muscle Use Neck: Yes: No masses,lesions,Nodules, Supple, Trachea in good position Breast: Yes: Within Normal Limits Cardiology: Yes: Regular Rhythm, Regular Rate, S1, S2 Abdominal: Yes: Soft, Increased Bowel Sounds, Protuberent Genitourinary: Yes: Within Normal Limits Back: Yes: Normal Inspection Musculoskeletal: Yes: full range of Motion, Gait Steady, Pelvis Stable Extremities: Yes: Normal Capillary Refill, Normal Inspection, Normal Range of Motion, Non-Tender Neurological: Yes: watch crystal molder II-XII NML intact, Fully Oriented, Alert, Motor Strength 5/5, Normal Mood/Affect, Normal Response Integumentary: Yes: Normal Color, Warm Lymphatic: Yes: Within Normal Limits - Diagnostic (1) Alcohol-induced sleep disorder Current Visit: Yes Status: Acute (2) Hepatitis C virus carrier state Current Visit: Yes Status: Acute (3) Alcohol dependence with uncomplicated withdrawal Current Visit: Yes Status: Chronic (4) Asthma Current Visit: Yes Status: Chronic (5) Bipolar disorder Current Visit: Yes Status: Chronic Qualifiers: Active/Remission status: remission status unspecified Qualified Code(s): F31.9 - Bipolar disorder, unspecified (6) History of depression Current Visit: Yes Status: Chronic (7) History of positive PPD Current Visit: Yes Status: Chronic (8) Insomnia Current Visit: Yes Status: Chronic Qualifiers: Insomnia type: unspecified Qualified Code(s): G47.00 - Insomnia, unspecified Screened but not Admitted - Documentation of Visit Screened but not Admitted: No Breathalyzer - Breathalyzer Breathalyzer: 0.109 Urine Drug Screen - Test Device Lot number: [id number] Expiration date: 10/13/20 - Control Is test valid?: Yes - Results Drug screen NEGATIVE: No Urine drug screen results: BZO-Benzodiazepines Inpatient Rehab Admission - Rehab Decision to Admit Inpatient rehab admission?: No
[2019-04-21] MEDS ORDERED: ACETAMINOPHEN 325 MG TABLET (FP) PO PRN ×2 (16:01)
[2019-04-21] MEDS ORDERED: hydrOXYzine PAMOATE 25 MG CAPSULE (FP) PO PRN (16:01)
[2019-04-21] MEDS ORDERED: METHOCARBAMOL 500 MG TABLET PO PRN (16:01)
[2019-04-21] MEDS ORDERED: MAG HYDROX/AL HYDROX/SIMETH 30 ML UNIT-DOSE CUP PO PRN (16:01)
[2019-04-21] MEDS ORDERED: chlordiazePOXIDE HCL 25 MG CAPSULE PO PRN (16:01)
[2019-04-21] MEDS ORDERED: MAGNESIUM CITRATE 300 ML BOTTLE PO PRN (16:01)
[2019-04-21] MEDS ORDERED: MENTHOL/PHENOL 1 EACH UD MM PRN (16:01)
[2019-04-21] MEDS ORDERED: IBUPROFEN 400 MG TABLET (FP) PO PRN (16:01)
[2019-04-21] MEDS ORDERED: BISMUTH SUBSALICYLATE 524 MG/30 ML UD PO PRN (16:01)
[2019-04-21] MEDS ORDERED: MAGNESIUM HYDROX 2400MG/30ML ORAL SUSPENSION 30 ML CUP PO PRN (16:01)
[2019-04-21] MEDS ORDERED: ALBUTEROL SO4 8 GM HFA INHALER IH PRN (16:03)
[2019-04-21] MEDS: chlordiazePOXIDE HCL 25 MG CAPSULE PO SCH ×2 (17:44→22:12)
[2019-04-21] MEDS ORDERED: QUEtiapine FUMARATE 400 MG TABLET PO SCH (22:00)
[2019-04-21] MEDS: THIAMINE HCL 100 MG TABLET (FP) PO SCH (22:12)
[2019-04-21] MEDS: BUDESONIDE/FORMETEROL FUMARATE 80/4.5 mcg INHALER IH SCH (22:15)
[2019-04-22] MEDS: chlordiazePOXIDE HCL 25 MG CAPSULE PO SCH ×4 (05:15→22:06)
[2019-04-22 09:43] LABS: HEMATOCRIT 40.3 % (35.4-49); HEMOGLOBIN 13.1 GM/dL (11.7-16.9); MCH 25.4 pg (25.7-33.7); MCHC 32.4 g/dl (32.0-35.9); MEAN CELL VOLUME 78.5 fl (80-96); MEAN PLT VOLUME 7.4 fl (7.5-11.1); PLATELET COUNT 216 K/MM3 (134-434); RBC 5.14 M/mm3 (4.00-5.60); RDW 15.3 % (11.9-15.9)
[2019-04-22] MEDS ORDERED: SERTRALINE HCL 50 MG TABLET (FP) PO SCH (10:00)
[2019-04-22] MEDS: PRENATAL VITAMINS W/ FOLIC ACID TABLET (FP) PO SCH (10:09)
[2019-04-22] MEDS: NICOTINE 14 MG/24 HOURS TOPICAL PATCH TD SCH (10:11)
[2019-04-22] MEDS: BUDESONIDE/FORMETEROL FUMARATE 80/4.5 mcg INHALER IH SCH ×2 (10:11→22:05)
[2019-04-22 10:15] LABS: ALBUMIN 3.6 g/dl (3.4-5.0); BILIRUBIN,TOTAL 0.4 mg/dL (0.2-1); BLOOD UREA NITROGEN 14.9 mg/dL (7-18); CALCIUM 8.9 mg/dL (8.5-10.1); CREATININE 1.1 mg/dL (0.55-1.3); POTASSIUM 4.1 mmol/L (3.5-5.1)
--- NOTE | 2019-04-22 11:30 | PN ---
[facility] CIWA - CIWA Score Nausea/Vomitin-Mild Nausea/No Vomiting Muscle Tremors: 3 Anxiety: 3 Agitation: 3 Paroxysmal Sweats: 2 Orientation: 0-Oriented Tacttile Disturbances: 0-None Auditory Disturbances: 1-Very Mild Visual Disturbances: 0-None Headache: 0-None Present CIWA-Ar Total Score: 13 S Progress Note (SOAP) Subjective: 63 years old male admitted on 04/21/19 for alcohol withdrawal sx management treated with librium detox regimen patient tolerated well request to be seen by a psychiatrist for [facility] psychiatrist referral Objective: 04/22/19 11:29 Vital Signs Temperature 96.8 F L 04/22/19 09:06 Pulse Rate 73 04/22/19 09:06 Respiratory Rate 18 04/22/19 09:06 Blood Pressure 90/60 04/22/19 09:06 O2 Sat by Pulse Oximetry (%) Laboratory Last Values WBC 5.0 K/mm3 (4.0-10.0) 04/22/19 08:00 RBC 5.14 M/mm3 (4.00-5.60) 04/22/19 08:00 Hgb 13.1 GM/dL (11.7-16.9) 04/22/19 08:00 Hct 40.3 % (35.4-49) 04/22/19 08:00 MCV 78.5 fl (80-96) L 04/22/19 08:00 MCH 25.4 pg (25.7-33.7) L 04/22/19 08:00 MCHC 32.4 g/dl (32.0-35.9) 04/22/19 08:00 RDW 15.3 % (11.9-15.9) D 04/22/19 08:00 Plt Count 216 K/MM3 (134-434) 04/22/19 08:00 MPV 7.4 fl (7.5-11.1) L 04/22/19 08:00 Sodium 139 mmol/L (136-145) 04/22/19 08:00 Potassium 4.1 mmol/L (3.5-5.1) 04/22/19 08:00 Chloride 106 mmol/L (98-107) 04/22/19 08:00 Carbon Dioxide 28 mmol/L (21-32) 04/22/19 08:00 Anion Gap 5 MMOL/L (8-16) L 04/22/19 08:00 BUN 14.9 mg/dL (7-18) 04/22/19 08:00 Creatinine 1.1 mg/dL (0.55-1.3) 04/22/19 08:00 Est GFR (CKD-EPI)AfAm 81.22 04/22/19 08:00 Est GFR (CKD-EPI)NonAf 70.07 04/22/19 08:00 Random Glucose 105 mg/dL (74-106) 04/22/19 08:00 Calcium 8.9 mg/dL (8.5-10.1) 04/22/19 08:00 Total Bilirubin 0.4 mg/dL (0.2-1) 04/22/19 08:00 AST 22 U/L (15-37) 04/22/19 08:00 ALT 23 U/L (13-61) 04/22/19 08:00 Alkaline Phosphatase 78 U/L (45-117) 04/22/19 08:00 Total Protein 7.0 g/dl (6.4-8.2) 04/22/19 08:00 Albumin 3.6 g/dl (3.4-5.0) 04/22/19 08:00 lab noted Assessment: 04/22/19 11:29 alcohol withdrawal sx Plan: continue librium detox regimen
[2019-04-22] MEDS: THIAMINE HCL 100 MG TABLET (FP) PO SCH (22:06)
[2019-04-22] MEDS: MELATONIN 5 MG TABLETS PO PRN (22:08)
[2019-04-23] MEDS: chlordiazePOXIDE HCL 25 MG CAPSULE PO SCH ×4 (05:25→22:08)
[2019-04-23] MEDS: PRENATAL VITAMINS W/ FOLIC ACID TABLET (FP) PO SCH (10:08)
[2019-04-23] MEDS: NICOTINE 14 MG/24 HOURS TOPICAL PATCH TD SCH (10:10)
[2019-04-23] MEDS: BUDESONIDE/FORMETEROL FUMARATE 80/4.5 mcg INHALER IH SCH ×2 (10:10→22:08)
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
[2019-04-23] MEDS: SERTRALINE HCL 50 MG TABLET (FP) PO SCH (12:19)
--- NOTE | 2019-04-23 13:48 | PN ---
[facility] CIWA - CIWA Score Nausea/Vomitin-Mild Nausea/No Vomiting Muscle Tremors: 2 Anxiety: 2 Agitation: 2 Paroxysmal Sweats: No Perspiration Orientation: 1-Uncertain about Date Tacttile Disturbances: 1-Very Mild Itch/Numbness Auditory Disturbances: 0-None Visual Disturbances: 0-None Headache: 1-Very Mild CIWA-Ar Total Score: 10 [facility] COWS - Scale Goose Flesh Skin: 0=Smooth Skin [facility] Progress Note (SOAP) Subjective: alert,irritable,anxious,interrupted sleep,tremor Objective: 04/23/19 13:47 Vital Signs Temperature 98.6 F 04/23/19 13:19 Pulse Rate 80 04/23/19 13:19 Respiratory Rate 18 04/23/19 13:19 Blood Pressure 124/78 04/23/19 13:19 O2 Sat by Pulse Oximetry (%) 04/23/19 13:47 Laboratory Last Values WBC 5.0 K/mm3 (4.0-10.0) 04/22/19 08:00 RBC 5.14 M/mm3 (4.00-5.60) 04/22/19 08:00 Hgb 13.1 GM/dL (11.7-16.9) 04/22/19 08:00 Hct 40.3 % (35.4-49) 04/22/19 08:00 MCV 78.5 fl (80-96) L 04/22/19 08:00 MCH 25.4 pg (25.7-33.7) L 04/22/19 08:00 MCHC 32.4 g/dl (32.0-35.9) 04/22/19 08:00 RDW 15.3 % (11.9-15.9) D 04/22/19 08:00 Plt Count 216 K/MM3 (134-434) 04/22/19 08:00 MPV 7.4 fl (7.5-11.1) L 04/22/19 08:00 Sodium 139 mmol/L (136-145) 04/22/19 08:00 Potassium 4.1 mmol/L (3.5-5.1) 04/22/19 08:00 Chloride 106 mmol/L (98-107) 04/22/19 08:00 Carbon Dioxide 28 mmol/L (21-32) 04/22/19 08:00 Anion Gap 5 MMOL/L (8-16) L 04/22/19 08:00 BUN 14.9 mg/dL (7-18) 04/22/19 08:00 Creatinine 1.1 mg/dL (0.55-1.3) 04/22/19 08:00 Est GFR (CKD-EPI)AfAm 81.22 04/22/19 08:00 Est GFR (CKD-EPI)NonAf 70.07 04/22/19 08:00 Random Glucose 105 mg/dL (74-106) 04/22/19 08:00 Calcium 8.9 mg/dL (8.5-10.1) 04/22/19 08:00 Total Bilirubin 0.4 mg/dL (0.2-1) 04/22/19 08:00 AST 22 U/L (15-37) 04/22/19 08:00 ALT 23 U/L (13-61) 04/22/19 08:00 Alkaline Phosphatase 78 U/L (45-117) 04/22/19 08:00 Total Protein 7.0 g/dl (6.4-8.2) 04/22/19 08:00 Albumin 3.6 g/dl (3.4-5.0) 04/22/19 08:00 RPR Titer Nonreactive (NONREACTIVE) 04/22/19 08:00 Assessment: 04/23/19 13:48 withdrawal symptom Plan: continue detox librium regimen
[2019-04-23] MEDS ORDERED: QUEtiapine FUMARATE 100 MG TABLET (FP) ONE (20:32)
[2019-04-23] MEDS ORDERED: QUEtiapine FUMARATE 300 MG TABLET PO SCH (22:00)
[2019-04-23] MEDS: THIAMINE HCL 100 MG TABLET (FP) PO SCH (22:08)
[2019-04-24] MEDS ORDERED: chlordiazePOXIDE HCL 10 MG CAPSULE PO PRN
[2019-04-24] MEDS: chlordiazePOXIDE HCL 10 MG CAPSULE PO SCH ×4 (05:39→22:24)
[2019-04-24] MEDS: BUDESONIDE/FORMETEROL FUMARATE 80/4.5 mcg INHALER IH SCH ×2 (10:19→22:23)
[2019-04-24] MEDS: NICOTINE 14 MG/24 HOURS TOPICAL PATCH TD SCH (10:19)
[2019-04-24] MEDS: SERTRALINE HCL 50 MG TABLET (FP) PO SCH (10:19)
[2019-04-24] MEDS: PRENATAL VITAMINS W/ FOLIC ACID TABLET (FP) PO SCH (10:20)
--- NOTE | 2019-04-24 12:38 | PN ---
[facility] Progress Note Note: Psychiatry Attending's note (follow-up) : Approached by patient. Reason : titration of seroquel to 400 mg/hs. Mr Venegas is ambulatory. Steady Gait. Normal vitals. " Seroquel 400 mg at bedtime is my regular dose."
--- NOTE | 2019-04-24 13:31 | PN ---
[facility] CIWA - CIWA Score Nausea/Vomitin-No Nausea/No Vomiting Muscle Tremors: None Anxiety: 3 Agitation: 0-Normal Activity Paroxysmal Sweats: 3 Orientation: 0-Oriented Tacttile Disturbances: 0-None Auditory Disturbances: 0-None Visual Disturbances: 0-None Headache: 2-Mild CIWA-Ar Total Score: 8 [facility] Progress Note (SOAP) Subjective: c/o headache, sweats, and anxiety. Objective: 04/24/19 13:30 Vital Signs 04/24/19 04/24/19 04/24/19 06:15 09:37 13:19 Temperature 98.1 F 97.8 F 97.8 F Pulse Rate 72 84 79 Respiratory 18 18 18 Rate Blood Pressure 105/66 123/71 119/82 Lab Results WBC 5.0 K/mm3 (4.0-10.0) 04/22/19 08:00 RBC 5.14 M/mm3 (4.00-5.60) 04/22/19 08:00 Hgb 13.1 GM/dL (11.7-16.9) 04/22/19 08:00 Hct 40.3 % (35.4-49) 04/22/19 08:00 MCV 78.5 fl (80-96) L 04/22/19 08:00 MCHC 32.4 g/dl (32.0-35.9) 04/22/19 08:00 RDW 15.3 % (11.9-15.9) D 04/22/19 08:00 Plt Count 216 K/MM3 (134-434) 04/22/19 08:00 Sodium 139 mmol/L (136-145) 04/22/19 08:00 Potassium 4.1 mmol/L (3.5-5.1) 04/22/19 08:00 Chloride 106 mmol/L (98-107) 04/22/19 08:00 Carbon Dioxide 28 mmol/L (21-32) 04/22/19 08:00 Anion Gap 5 MMOL/L (8-16) L 04/22/19 08:00 BUN 14.9 mg/dL (7-18) 04/22/19 08:00 Creatinine 1.1 mg/dL (0.55-1.3) 04/22/19 08:00 Random Glucose 105 mg/dL (74-106) 04/22/19 08:00 Calcium 8.9 mg/dL (8.5-10.1) 04/22/19 08:00 Labs noted. Assessment: 04/24/19 13:31 AOX3, in no acute respiratory distress. Full rom, ambulating in the unit. Withdrawal symptoms. Plan: continue detox.
[2019-04-24] MEDS: THIAMINE HCL 100 MG TABLET (FP) PO SCH (22:24)
[2019-04-24] MEDS: QUEtiapine FUMARATE 400 MG TABLET PO SCH (22:24)
[2019-04-25] MEDS: chlordiazePOXIDE HCL 10 MG CAPSULE PO SCH ×2 (05:14→17:56)
[2019-04-25] MEDS: PRENATAL VITAMINS W/ FOLIC ACID TABLET (FP) PO SCH (10:10)
[2019-04-25] MEDS: BUDESONIDE/FORMETEROL FUMARATE 80/4.5 mcg INHALER IH SCH ×2 (10:11→22:11)
[2019-04-25] MEDS: SERTRALINE HCL 50 MG TABLET (FP) PO SCH (10:11)
[2019-04-25] MEDS: NICOTINE 14 MG/24 HOURS TOPICAL PATCH TD SCH (10:11)
--- NOTE | 2019-04-25 13:57 | PN ---
[facility] CIWA - CIWA Score Nausea/Vomitin-No Nausea/No Vomiting Muscle Tremors: 2 Anxiety: 2 Agitation: 1-Slight > Activity Paroxysmal Sweats: No Perspiration Orientation: 0-Oriented Tacttile Disturbances: 0-None Auditory Disturbances: 0-None Visual Disturbances: 0-None Headache: 0-None Present CIWA-Ar Total Score: 5 S Progress Note (SOAP) Subjective: 63 years old male admitted on 04/21/19 for alcohol withdrawal sx managemetn treated with librium detox regimen feeling better today less tremor mild anxiety discuss aftercare with staff Objective: 04/25/19 13:54 Vital Signs Temperature 96.5 F L 04/25/19 13:11 Pulse Rate 65 04/25/19 13:11 Respiratory Rate 18 04/25/19 13:11 Blood Pressure 136/79 04/25/19 13:11 O2 Sat by Pulse Oximetry (%) Laboratory Last Values WBC 5.0 K/mm3 (4.0-10.0) 04/22/19 08:00 RBC 5.14 M/mm3 (4.00-5.60) 04/22/19 08:00 Hgb 13.1 GM/dL (11.7-16.9) 04/22/19 08:00 Hct 40.3 % (35.4-49) 04/22/19 08:00 MCV 78.5 fl (80-96) L 04/22/19 08:00 MCH 25.4 pg (25.7-33.7) L 04/22/19 08:00 MCHC 32.4 g/dl (32.0-35.9) 04/22/19 08:00 RDW 15.3 % (11.9-15.9) D 04/22/19 08:00 Plt Count 216 K/MM3 (134-434) 04/22/19 08:00 MPV 7.4 fl (7.5-11.1) L 04/22/19 08:00 Sodium 139 mmol/L (136-145) 04/22/19 08:00 Potassium 4.1 mmol/L (3.5-5.1) 04/22/19 08:00 Chloride 106 mmol/L (98-107) 04/22/19 08:00 Carbon Dioxide 28 mmol/L (21-32) 04/22/19 08:00 Anion Gap 5 MMOL/L (8-16) L 04/22/19 08:00 BUN 14.9 mg/dL (7-18) 04/22/19 08:00 Creatinine 1.1 mg/dL (0.55-1.3) 04/22/19 08:00 Est GFR (CKD-EPI)AfAm 81.22 04/22/19 08:00 Est GFR (CKD-EPI)NonAf 70.07 04/22/19 08:00 Random Glucose 105 mg/dL (74-106) 04/22/19 08:00 Calcium 8.9 mg/dL (8.5-10.1) 04/22/19 08:00 Total Bilirubin 0.4 mg/dL (0.2-1) 04/22/19 08:00 AST 22 U/L (15-37) 04/22/19 08:00 ALT 23 U/L (13-61) 04/22/19 08:00 Alkaline Phosphatase 78 U/L (45-117) 04/22/19 08:00 Total Protein 7.0 g/dl (6.4-8.2) 04/22/19 08:00 Albumin 3.6 g/dl (3.4-5.0) 04/22/19 08:00 RPR Titer Nonreactive (NONREACTIVE) 04/22/19 08:00 lab noted Assessment: 04/25/19 13:56 alcohol withdrawal sx Plan: continue librium detox regimen
[2019-04-25] MEDS: THIAMINE HCL 100 MG TABLET (FP) PO SCH (22:10)
[2019-04-25] MEDS: QUEtiapine FUMARATE 400 MG TABLET PO SCH (22:11)
[2019-04-25] MEDS: MELATONIN 5 MG TABLETS PO PRN (22:11)
[2019-04-26] MEDS ORDERED: chlordiazePOXIDE HCL 10 MG CAPSULE PO ONE (05:00)
[2019-04-26 06:24] VITALS: TEMP 97.1
[2019-04-26 09:22] VITALS: BP 112/78; PULSE 88
[2019-04-26] MEDS: NICOTINE 14 MG/24 HOURS TOPICAL PATCH TD SCH (10:05)
[2019-04-26] MEDS: SERTRALINE HCL 50 MG TABLET (FP) PO SCH (10:05)
[2019-04-26] MEDS: PRENATAL VITAMINS W/ FOLIC ACID TABLET (FP) PO SCH (10:05)
[2019-04-26] MEDS: BUDESONIDE/FORMETEROL FUMARATE 80/4.5 mcg INHALER IH SCH (10:05)
--- NOTE | 2019-04-26 13:33 | DS ---
[facility] Detox Discharge Summary Admission Date: 04/21/19 Discharge Date: 04/26/19 - History Present History: Alcohol Dependence Additional Comments: 63 years old male admitted on 04/21/19 for alcohol withdrawal sx management treated with librium detox regimen patient is alert oriented x 3 cardiac S1S2 regular rate rhythm respiratory clear lung bilaterally on auscultation abdomen soft no rebound tenderness - Physical Exam Results Vital Signs: Vital Signs Temperature 97.1 F L 04/26/19 09:21 Pulse Rate 88 04/26/19 09:21 Respiratory Rate 18 04/26/19 09:21 Blood Pressure 112/78 04/26/19 09:21 O2 Sat by Pulse Oximetry (%) Pertinent Admission Physical Exam Findings: alcohol withdrawal sx Laboratory Last Values WBC 5.0 K/mm3 (4.0-10.0) 04/22/19 08:00 RBC 5.14 M/mm3 (4.00-5.60) 04/22/19 08:00 Hgb 13.1 GM/dL (11.7-16.9) 04/22/19 08:00 Hct 40.3 % (35.4-49) 04/22/19 08:00 MCV 78.5 fl (80-96) L 04/22/19 08:00 MCH 25.4 pg (25.7-33.7) L 04/22/19 08:00 MCHC 32.4 g/dl (32.0-35.9) 04/22/19 08:00 RDW 15.3 % (11.9-15.9) D 04/22/19 08:00 Plt Count 216 K/MM3 (134-434) 04/22/19 08:00 MPV 7.4 fl (7.5-11.1) L 04/22/19 08:00 Sodium 139 mmol/L (136-145) 04/22/19 08:00 Potassium 4.1 mmol/L (3.5-5.1) 04/22/19 08:00 Chloride 106 mmol/L (98-107) 04/22/19 08:00 Carbon Dioxide 28 mmol/L (21-32) 04/22/19 08:00 Anion Gap 5 MMOL/L (8-16) L 04/22/19 08:00 BUN 14.9 mg/dL (7-18) 04/22/19 08:00 Creatinine 1.1 mg/dL (0.55-1.3) 04/22/19 08:00 Est GFR (CKD-EPI)AfAm 81.22 04/22/19 08:00 Est GFR (CKD-EPI)NonAf 70.07 04/22/19 08:00 Random Glucose 105 mg/dL (74-106) 04/22/19 08:00 Calcium 8.9 mg/dL (8.5-10.1) 04/22/19 08:00 Total Bilirubin 0.4 mg/dL (0.2-1) 04/22/19 08:00 AST 22 U/L (15-37) 04/22/19 08:00 ALT 23 U/L (13-61) 04/22/19 08:00 Alkaline Phosphatase 78 U/L (45-117) 04/22/19 08:00 Total Protein 7.0 g/dl (6.4-8.2) 04/22/19 08:00 Albumin 3.6 g/dl (3.4-5.0) 04/22/19 08:00 RPR Titer Nonreactive (NONREACTIVE) 04/22/19 08:00 lab noted - Treatment Hospital Course: Detox Protocol Followed, Detoxed Safely, Responded well, Discharged Condition Good, Rehab Referral Accepted Patient has Accepted [facility] Referral [facility]: [facility] - Medication Discharge Medications: Ambulatory Orders Albuterol Sulfate Inhaler - [Ventolin HFA Inhaler -] 2 inh PO Q4H PRN #1 inhaler 11/09/18 Budesonide/Formeterol Fumarate [SYMBICORT 80/4.5mcg -] 2 inh PO BID 02/12/19 Sertraline HCl [Zoloft -] 150 mg PO DAILY #90 tablet 02/17/19 Quetiapine Fumarate [Seroquel -] 400 mg PO HS 04/21/19 - Diagnosis (1) Alcohol dependence with uncomplicated withdrawal Status: Acute (2) Hepatitis C virus carrier state Status: Chronic (3) Asthma Status: Chronic (4) BPH (benign prostatic hyperplasia) Status: Chronic (5) COPD (chronic obstructive pulmonary disease) Status: Chronic Qualifiers: COPD type: emphysema Emphysema type: unspecified Qualified Code(s): J43.9 - Emphysema, unspecified (6) History of positive PPD Status: Resolved (7) Nicotine dependence Status: Acute Qualifiers: Nicotine product type: cigarettes Substance use status: in withdrawal Qualified Code(s): F17.213 - Nicotine dependence, cigarettes, with withdrawal (8) Hepatitis C Status: Chronic Qualifiers: Viral hepatitis chronicity: chronic Hepatic coma status: without hepatic coma Qualified Code(s): B18.2 - Chronic viral hepatitis C - AMA Did Patient Leave Against Medical Advice: No CIWA Score - CIWA Score Nausea/Vomitin-No Nausea/No Vomiting Muscle Tremors: 1-None Visible, but [place] Anxiety: 1-Mildly Anxious Agitation: 0-Normal Activity Paroxysmal Sweats: No Perspiration Orientation: 0-Oriented Tacttile Disturbances: 0-None Auditory Disturbances: 0-None Visual Disturbances: 0-None Headache: 0-None Present CIWA-Ar Total Score: 2
== END 2019-04-26 13:09 | disposition other institution (70) | DRG 897 ==
LOC: YASAS 12:17 → Y3N 16:54
PROVIDERS: ADMIT Allergy & Immunology; ATTEND Allergy & Immunology
PROC: HZ2ZZZZ Detoxification Services for Substance Abuse Treatment (ICD-10-PCS; principal; 2019-04-21)
DX: F10.230 Alcohol dependence with withdrawal, uncomplicated (principal); F17.210 Nicotine dependence, cigarettes, uncomplicated; F10.282 Alcohol dependence with alcohol-induced sleep disorder; F19.24 Other psychoactive substance dependence with psychoactive substance-induced mood disorder; F31.9 Bipolar disorder, unspecified; J44.9 Chronic obstructive pulmonary disease, unspecified; J45.998 Other asthma; G40.909 Epilepsy, unspecified, not intractable, without status epilepticus; G47.00 Insomnia, unspecified; M19.90 Unspecified osteoarthritis, unspecified site; N40.0 Benign prostatic hyperplasia without lower urinary tract symptoms; B18.2 Chronic viral hepatitis C; R76.11 Nonspecific reaction to tuberculin skin test without active tuberculosis; Z88.0 Allergy status to penicillin; Z91.02 Food additives allergy status
CPT/HCPCS: 36415; 80053; 85027; 86593

== ENCOUNTER 2019-04-26 13:49 | Inpatient (IN) | payer OTHER ==
--- NOTE | 2019-04-26 13:40 | HP ---
[facility] Re[facility] Assess/Revision - Admission History Admitted to Rehab from: [facility] Date of Admission to Rehab: 04/26/19 - Findings Detox History & Physical reviewed: Yes Concur with findings: Yes Comments/Additional Findings: transferred from detox to rehab admission as per protocol Inpatient Rehab Admission - Rehab Decision to Admit Inpatient rehab admission?: Yes - Initial Determination Are CD services needed?: Yes Free of communicable disease: Yes Not in need of hospitalization: Yes - Rehab Admission Criteria Previous failed treatment: Yes Poor recovery environment: Yes Comorbidities: Yes Lacks judgement: Yes Patient is meeting Inpatient Rehab admission criteria:: Yes
[~2019-04-26 13:49] MED LIST: ACETAMINOPHEN 325 MG TABLET (FP) PO PRN; ALBUTEROL SO4 8 GM HFA INHALER IH PRN; IBUPROFEN 400 MG TABLET (FP) PO PRN; LOPERAMIDE HCL 2 MG CAPSULE PO PRN; MAG HYDROX/AL HYDROX/SIMETH 30 ML UNIT-DOSE CUP PO PRN; MAGNESIUM CITRATE 300 ML BOTTLE PO PRN; MAGNESIUM HYDROX 2400MG/30ML ORAL SUSPENSION 30 ML CUP PO PRN; MENTHOL/PHENOL 1 EACH UD MM PRN; NICOTINE POLACRILEX 2 MG GUM BUC PRN; P-EPHED 60MG/TRIPROLIDI 2.5MG TABLET PO PRN; guaiFENesin 200 MG/10 ML 10 ML UNIT-DOSE CUPS PO PRN
[2019-04-26] MEDS: QUEtiapine FUMARATE 400 MG TABLET PO SCH (21:11)
[2019-04-26] MEDS: THIAMINE HCL 100 MG TABLET (FP) PO SCH (21:11)
[2019-04-26] MEDS: MELATONIN 5 MG TABLETS PO PRN (21:11)
[2019-04-26] MEDS: BUDESONIDE/FORMETEROL FUMARATE 80/4.5 mcg INHALER IH SCH (21:12)
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
[2019-04-27] MEDS: NICOTINE 14 MG/24 HOURS TOPICAL PATCH TD SCH (10:34)
[2019-04-27] MEDS: PRENATAL VITAMINS W/ FOLIC ACID TABLET (FP) PO SCH (10:34)
[2019-04-27] MEDS: BUDESONIDE/FORMETEROL FUMARATE 80/4.5 mcg INHALER IH SCH ×2 (10:34→21:05)
[2019-04-27] MEDS: SERTRALINE HCL 50 MG TABLET (FP) PO SCH (10:34)
[2019-04-27] MEDS ORDERED: FLU VACCINE QUAD 60 MCG/0.5 ML (MDV 19-20) IM ONE (12:00)
[2019-04-27] MEDS: QUEtiapine FUMARATE 400 MG TABLET PO SCH (21:05)
[2019-04-27] MEDS: THIAMINE HCL 100 MG TABLET (FP) PO SCH (21:06)
[2019-04-27] MEDS: MELATONIN 5 MG TABLETS PO PRN (21:06)
[2019-04-28] MEDS: BUDESONIDE/FORMETEROL FUMARATE 80/4.5 mcg INHALER IH SCH ×2 (10:13→22:14)
[2019-04-28] MEDS: NICOTINE 14 MG/24 HOURS TOPICAL PATCH TD SCH (10:13)
[2019-04-28] MEDS: PRENATAL VITAMINS W/ FOLIC ACID TABLET (FP) PO SCH (10:13)
[2019-04-28] MEDS: SERTRALINE HCL 50 MG TABLET (FP) PO SCH (10:13)
[2019-04-28] MEDS ORDERED: CYCLOBENZAPRINE HCL 10 MG TABLET (FP) PO PRN (11:50)
[2019-04-28] MEDS: QUEtiapine FUMARATE 400 MG TABLET PO SCH (21:12)
[2019-04-28] MEDS: THIAMINE HCL 100 MG TABLET (FP) PO SCH (21:12)
[2019-04-28] MEDS: MELATONIN 5 MG TABLETS PO PRN (21:13)
[2019-04-29] MEDS: NICOTINE 14 MG/24 HOURS TOPICAL PATCH TD SCH (10:20)
[2019-04-29] MEDS: PRENATAL VITAMINS W/ FOLIC ACID TABLET (FP) PO SCH (10:20)
[2019-04-29] MEDS: SERTRALINE HCL 50 MG TABLET (FP) PO SCH (10:20)
[2019-04-29] MEDS: BUDESONIDE/FORMETEROL FUMARATE 80/4.5 mcg INHALER IH SCH ×2 (10:20→21:20)
[2019-04-29] MEDS: QUEtiapine FUMARATE 400 MG TABLET PO SCH (21:20)
[2019-04-29] MEDS: THIAMINE HCL 100 MG TABLET (FP) PO SCH (21:20)
[2019-04-29] MEDS: MELATONIN 5 MG TABLETS PO PRN (21:21)
[2019-04-30] MEDS: PRENATAL VITAMINS W/ FOLIC ACID TABLET (FP) PO SCH (09:52)
[2019-04-30] MEDS: SERTRALINE HCL 50 MG TABLET (FP) PO SCH (09:52)
[2019-04-30] MEDS: NICOTINE 14 MG/24 HOURS TOPICAL PATCH TD SCH (09:53)
[2019-04-30] MEDS: BUDESONIDE/FORMETEROL FUMARATE 80/4.5 mcg INHALER IH SCH ×2 (09:53→21:13)
[2019-04-30] MEDS: QUEtiapine FUMARATE 400 MG TABLET PO SCH (21:12)
[2019-04-30] MEDS: THIAMINE HCL 100 MG TABLET (FP) PO SCH (21:12)
[2019-04-30] MEDS: MELATONIN 5 MG TABLETS PO PRN (21:12)
[2019-05-01] MEDS: SERTRALINE HCL 50 MG TABLET (FP) PO SCH (09:54)
[2019-05-01] MEDS: PRENATAL VITAMINS W/ FOLIC ACID TABLET (FP) PO SCH (09:54)
[2019-05-01] MEDS: NICOTINE 14 MG/24 HOURS TOPICAL PATCH TD SCH (09:55)
[2019-05-01] MEDS: BUDESONIDE/FORMETEROL FUMARATE 80/4.5 mcg INHALER IH SCH ×2 (09:55→21:10)
[2019-05-01] MEDS: QUEtiapine FUMARATE 400 MG TABLET PO SCH (21:09)
[2019-05-01] MEDS: MELATONIN 5 MG TABLETS PO PRN (21:09)
[2019-05-01] MEDS: THIAMINE HCL 100 MG TABLET (FP) PO SCH (21:09)
[2019-05-02] MEDS: BUDESONIDE/FORMETEROL FUMARATE 80/4.5 mcg INHALER IH SCH ×2 (09:35→21:06)
[2019-05-02] MEDS: SERTRALINE HCL 50 MG TABLET (FP) PO SCH (09:35)
[2019-05-02] MEDS: NICOTINE 14 MG/24 HOURS TOPICAL PATCH TD SCH (09:35)
[2019-05-02] MEDS: PRENATAL VITAMINS W/ FOLIC ACID TABLET (FP) PO SCH (09:35)
[2019-05-02] MEDS: QUEtiapine FUMARATE 400 MG TABLET PO SCH (21:06)
[2019-05-02] MEDS: MELATONIN 5 MG TABLETS PO PRN (21:06)
[2019-05-02] MEDS: THIAMINE HCL 100 MG TABLET (FP) PO SCH (21:06)
[2019-05-03] MEDS: PRENATAL VITAMINS W/ FOLIC ACID TABLET (FP) PO SCH (10:25)
[2019-05-03] MEDS: NICOTINE 14 MG/24 HOURS TOPICAL PATCH TD SCH (10:26)
[2019-05-03] MEDS: SERTRALINE HCL 50 MG TABLET (FP) PO SCH (10:26)
[2019-05-03] MEDS: BUDESONIDE/FORMETEROL FUMARATE 80/4.5 mcg INHALER IH SCH ×2 (10:26→21:05)
[2019-05-03] MEDS: THIAMINE HCL 100 MG TABLET (FP) PO SCH (21:06)
[2019-05-03] MEDS: MELATONIN 5 MG TABLETS PO PRN (21:06)
[2019-05-03] MEDS: QUEtiapine FUMARATE 400 MG TABLET PO SCH (21:06)
[2019-05-04] MEDS: PRENATAL VITAMINS W/ FOLIC ACID TABLET (FP) PO SCH (10:04)
[2019-05-04] MEDS: SERTRALINE HCL 50 MG TABLET (FP) PO SCH (10:04)
[2019-05-04] MEDS: NICOTINE 14 MG/24 HOURS TOPICAL PATCH TD SCH (10:04)
[2019-05-04] MEDS: BUDESONIDE/FORMETEROL FUMARATE 80/4.5 mcg INHALER IH SCH ×2 (10:04→21:05)
[2019-05-04] MEDS: THIAMINE HCL 100 MG TABLET (FP) PO SCH (21:05)
[2019-05-04] MEDS: MELATONIN 5 MG TABLETS PO PRN (21:05)
[2019-05-04] MEDS: QUEtiapine FUMARATE 400 MG TABLET PO SCH (21:05)
[2019-05-05] MEDS: NICOTINE 14 MG/24 HOURS TOPICAL PATCH TD SCH (10:00)
[2019-05-05] MEDS: SERTRALINE HCL 50 MG TABLET (FP) PO SCH (10:00)
[2019-05-05] MEDS: PRENATAL VITAMINS W/ FOLIC ACID TABLET (FP) PO SCH (10:00)
[2019-05-05] MEDS: BUDESONIDE/FORMETEROL FUMARATE 80/4.5 mcg INHALER IH SCH ×2 (10:01→21:09)
[2019-05-05] MEDS: THIAMINE HCL 100 MG TABLET (FP) PO SCH (21:09)
[2019-05-05] MEDS: QUEtiapine FUMARATE 400 MG TABLET PO SCH (21:09)
[2019-05-05] MEDS: MELATONIN 5 MG TABLETS PO PRN (21:09)
[2019-05-06] MEDS: BUDESONIDE/FORMETEROL FUMARATE 80/4.5 mcg INHALER IH SCH ×2 (10:05→21:04)
[2019-05-06] MEDS: SERTRALINE HCL 50 MG TABLET (FP) PO SCH (10:05)
[2019-05-06] MEDS: PRENATAL VITAMINS W/ FOLIC ACID TABLET (FP) PO SCH (10:05)
[2019-05-06] MEDS: NICOTINE 14 MG/24 HOURS TOPICAL PATCH TD SCH (10:05)
--- NOTE | 2019-05-06 10:35 | PN ---
[facility] Progress Note Note: Pt is a 63 y/o male with a BRI admitted to rehab on 04/26/19 after detoxing on 3 . Pt scheduled for discharge on 05/07/19 after completing rehab. Pt reports he had a primary care doctor at [facility] on [place], [place] with [employer] insurance but now has [employer] and has to pick another doctor who accepts insurance. Pt states he is moving to [place] and will find a primary care when arrive there. Pt reports he will be emerald to [facility] program in [place] after discharge. Vital Signs - 24 hr 05/06/19 05/06/19 05/06/19 00:30 03:30 06:59 Temperature 97.4 F L Pulse Rate 80 Respiratory 18 18 18 Rate Blood Pressure 112/81 Alert o x 3 nad oob ambulating with steady gait cardiac:s1 s2,rrr lungs:cta,zohreh. abdomen:soft,+bs,nt,nd extremities/skin:no edema,full ROM,skin intact. A/P Pt is stable for discharge Pt may D/C tomorrow if stable.
--- NOTE | 2019-05-06 13:52 | DS ---
[facility] Rehab Discharge Summary - [facility] Rehab Discharge Summary Admission Date: 04/26/19 Discharge Date: 05/07/19 - History Present History: Alcohol dependence, Cocaine dependence Additional Comments: Pt is a 63 y/o male with a BRI admitted to rehab on 04/26/19 after detoxing on 3 . Pt scheduled for discharge on 05/07/19 after completing rehab. Pt reports he had a primary care doctor at [facility] on [place], [place] with [employer] insurance but now has [employer] and has to pick another doctor who accepts insurance. Pt states he is moving to [place] and will find a primary care when arrive there. Pt reports he will be emerald to [facility] program in [place] after discharge. Pertinent Past History: Asthma BPH(no meds) COPD Hep C Depression - Discharge Physical Exam Vital Signs: Vital Signs Temperature 97.4 F L 05/06/19 06:59 Pulse Rate 80 05/06/19 06:59 Respiratory Rate 18 05/06/19 06:59 Blood Pressure 112/81 05/06/19 06:59 O2 Sat by Pulse Oximetry (%) Alert o x 3 nad oob ambulating with steady gait cardiac:s1 s2,rrr lungs:cta,zohreh. abdomen:soft,+bs,nt,nd extremities/skin:no edema,full ROM,skin intact. Pertinent Admission Physical Exam Findings: Status unchanged at admission - Treatment Discharge Condition: Discharge condition good - Medication Discharge Medications: Ambulatory Orders Sertraline HCl [Zoloft -] 150 mg PO DAILY #90 tablet 02/17/19 Quetiapine Fumarate [Seroquel -] 400 mg PO HS 04/21/19 Albuterol Sulfate Inhaler - [Ventolin HFA Inhaler -] 2 inh PO Q4H PRN #1 inhaler 05/06/19 Budesonide/Formeterol Fumarate [SYMBICORT 80/4.5mcg -] 2 inh PO BID #1 inhaler 05/06/19 Quetiapine Fumarate [Seroquel -] 400 mg PO HS #30 tablet 05/07/19 Sertraline HCl [Zoloft -] 150 mg PO DAILY #90 tablet 05/07/19 - Medication-Assisted Treatment (MAT) Medication-Assisted Treatment (MAT): No - Discharge Instructions Diet, activity, other medical instructions: Diet:Regular Activity: oob ad roberto Other medical instructions:follow up with primary care 1 week on arrival to [facility]. Follow up with CD aftercare recommendation as scheduled. - Diagnosis (1) Alcohol dependence Current Visit: Yes Status: Chronic Qualifiers: Substance use status: uncomplicated Qualified Code(s): F10.20 - Alcohol dependence, uncomplicated (2) Cocaine abuse Current Visit: Yes Status: Chronic (3) Asthma Current Visit: Yes Status: Chronic (4) BPH (benign prostatic hyperplasia) Current Visit: Yes Status: Chronic (5) Hepatitis C Current Visit: No Status: Chronic Qualifiers: Viral hepatitis chronicity: chronic Hepatic coma status: without hepatic coma Qualified Code(s): B18.2 - Chronic viral hepatitis C (6) Alcohol related seizure Current Visit: Yes Status: Suspected - Follow-up Referral Minutes to complete discharge: 20 - AMA Did Patient Leave Against Medical Advice: No
[2019-05-06] MEDS: QUEtiapine FUMARATE 400 MG TABLET PO SCH (21:03)
[2019-05-06] MEDS: MELATONIN 5 MG TABLETS PO PRN (21:04)
[2019-05-06] MEDS: THIAMINE HCL 100 MG TABLET (FP) PO SCH (21:04)
[2019-05-07 06:56] VITALS: BP 111/79; PULSE 74; TEMP 97.5
--- NOTE | 2019-05-07 08:23 | PN ---
S Progress Note Note: Psychiatric nurse practitioner note: Patient scheduled for discharge today. A 30 day prescription of Zoloft 150mg + Seroquel 400mg HS was electronically sent to [facility], [address] [place] [id number].
[2019-05-07] MEDS: PRENATAL VITAMINS W/ FOLIC ACID TABLET (FP) PO SCH (09:11)
[2019-05-07] MEDS: NICOTINE 14 MG/24 HOURS TOPICAL PATCH TD SCH (09:12)
[2019-05-07] MEDS: SERTRALINE HCL 50 MG TABLET (FP) PO SCH (09:12)
[2019-05-07] MEDS: BUDESONIDE/FORMETEROL FUMARATE 80/4.5 mcg INHALER IH SCH (09:12)
== END 2019-05-07 09:45 | disposition home or self-care (01) | DRG 895 ==
LOC: YASAS 13:49 → Y5N 13:50
PROVIDERS: ADMIT Neuromusculoskeletal Medicine & OMM; ATTEND Neuromusculoskeletal Medicine & OMM
PROC: HZ42ZZZ Group Counseling for Substance Abuse Treatment, Cognitive-Behavioral (ICD-10-PCS; principal; 2019-04-26)
DX: F10.20 Alcohol dependence, uncomplicated (principal); F14.20 Cocaine dependence, uncomplicated; F19.282 Other psychoactive substance dependence with psychoactive substance-induced sleep disorder; F17.210 Nicotine dependence, cigarettes, uncomplicated; F31.9 Bipolar disorder, unspecified; J43.9 Emphysema, unspecified; J45.998 Other asthma; B18.2 Chronic viral hepatitis C; N40.0 Benign prostatic hyperplasia without lower urinary tract symptoms; M19.90 Unspecified osteoarthritis, unspecified site; R76.11 Nonspecific reaction to tuberculin skin test without active tuberculosis; Z88.0 Allergy status to penicillin; Z91.02 Food additives allergy status
CPT/HCPCS: 71046-TC-FY; Q2036

== ENCOUNTER 2019-07-08 08:28 | Inpatient (IN) | payer OTHER ==
[2019-07-08 09:16] VITALS: BMI 29.5
--- NOTE | 2019-07-08 10:08 | HP ---
CIWA Score Nausea/Vomitin Muscle Tremors: None Anxiety: 2 Agitation: 2 Paroxysmal Sweats: No Perspiration Orientation: 2-Disoriented Date<2 days Tacttile Disturbances: 2-Mild Itch/Numbness/Burn Auditory Disturbances: 0-None Visual Disturbances: 2-Mild Sensitivity Headache: 0-None Present CIWA-Ar Total Score: 12 - Admission Criteria OASAS Guidelines: Admission for Medically Managed Detox: Requires at least one of the followin. CIWA greater than 12 2. Seizures within the past 24 hours 3. Delirium tremens within the past 24 hours 4. Hallucinations within the past 24 hours 5. Acute intervention needed for co occurring medical disorder 6. Acute intervention needed for co occurring psychiatric disorder 7. Severe withdrawal that cannot be handled at a lower level of care (continued vomiting, continued diarrhea, abnormal vital signs) requiring intravenous medication and/or fluids 8. 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 History of Recent Travel: Yes Admission [facility] Allergies/Adverse Reactions: Allergies Allergy/AdvReac Type Severity Reaction Status Date / Time Penicillins Allergy Severe Swelling Verified 07/08/19 09:06 lactose AdvReac Intermediate diarrhea Verified 07/08/19 09:06 History of Present Illness: atient here requesting detox from etoh use , reports 4 pints wine and 2 cans of beer, latest use today [place] 0.040 cocaine :states no longer using since previous admission to this facility tobacco : 06/19 ppd pmhx ;asthma Exam Limitations: Clinical Condition - Ebola screening Have you traveled outside of the country in the last 21 days: No Have you had contact with anyone from an Ebola affected area: No - Review of Systems Constitutional: Loss of Appetite EENT: reports: Other (glasses , denies dysphagia) Respiratory: reports: See HPI Cardiac: reports: No Symptoms Reported GI: reports: See HPI, Nausea, Poor Appetite : reports: No Symptoms Reported Musculoskeletal: reports: No Symptoms Reported Integumentary: reports: No Symptoms Reported Neuro: reports: See HPI Endocrine: reports: No Symptoms Reported Hematology: reports: No Symptoms Reported Psychiatric: reports: Agitated, Anxious Patient History - Patient Medical History Hx Anemia: No Hx Asthma: Yes Hx Chronic Obstructive Pulmonary Disease (COPD): No Hx Cancer: No Hx Cardiac Disorders: No Hx Congestive Heart Failure: No Hx Hypertension: No Hx Hypercholesterolemia: No Hx Pacemaker: No HX Cerebrovascular Accident: No Hx Seizures: No Hx Dementia: No Hx Diabetes: No Hx Gastrointestinal Disorders: No Hx Liver Disease: Yes (Hep C - no viral load, no need for treatment) Hx Genitourinary Disorders: No Hx Sexually Transmitted Disorders: No Hx Renal Disease (ESRD): No Hx Thyroid Disease: No Hx Human Immunodeficiency Virus (HIV): No (04/02 negative) Hx Hepatitis C: Yes (no viral load - never treated) Hx Depression: Yes Hx Suicide Attempt: Yes (Tried to overdose in 2015) Hx Bipolar Disorder: Yes (Meds.) Hx Schizophrenia: No - Patient Surgical History Past Surgical History: Yes Hx Neurologic Surgery: No Hx Cataract Extraction: No Hx Cardiac Surgery: No Hx Lung Surgery: No Hx Breast Surgery: No Hx Breast Biopsy: No Hx Abdominal Surgery: Yes (umbilical hernia repair as a child) Hx Appendectomy: No Hx Cholecystectomy: No Hx Genitourinary Surgery: No Hx Section: No Hx Orthopedic Surgery: No Other Surgical History: DENIES. Anesthesia Reaction: No - PPD History Previous Implant?: No Documented Results: Positive w/proof Implanted On Prior R Admission?: No Date: 04/23/18 Results: CXR neg 05/04 - Smoking Cessation Smoking history: Current every day smoker Have you smoked in the past 12 months: Yes Aproximately how many cigarettes per day: 4 Cigars Per Day: 0 Hx Chewing Tobacco Use: No Initiated information on smoking cessation: Yes 'Breaking Loose' booklet given: 07/08/19 - Substances abused Alcohol Substance route: Oral Frequency: Daily Amount used: 4 PINTS WINE Age of first use: 14 Date of last use: 07/08/19 Admission Physical Exam BHS - Vital Signs Vital Signs: Vital Signs - 24 hr 07/08/19 09:03 Temperature 97.3 F L Pulse Rate 80 Respiratory 18 Rate Blood Pressure 156/100 - Physical General Appearance: Yes: Mild Distress, Alcohol on Breath HEENTM: Yes: EOMI, Hearing grossly Normal, Normocephalic, Normal Voice, Other ( edentulous) Respiratory: Yes: Chest Non-Tender, Lungs Clear, Normal Breath Sounds, No Respiratory Distress, No Accessory Muscle Use Neck: Yes: No masses,lesions,Nodules, Trachea in good position Cardiology: Yes: Regular Rhythm, Regular Rate, S1, S2 Abdominal: Yes: Non Tender, Soft Musculoskeletal: Yes: full range of Motion, Gait Steady Extremities: Yes: Normal Range of Motion, Non-Tender Neurological: Yes: Fully Oriented, Alert, Motor Strength 5/5, Depressed Affect Integumentary: Yes: Warm - Diagnostic (1) Alcohol dependence with uncomplicated withdrawal Current Visit: Yes Status: Chronic (2) Nicotine dependence Current Visit: Yes Status: Chronic Qualifiers: Nicotine product type: cigarettes Breathalyzer - Breathalyzer Breathalyzer: 0.040 Urine Drug Screen - Test Device Lot number: [id number] Expiration date: 01/13/21 - Control Is test valid?: Yes - Results Drug screen NEGATIVE: No Urine drug screen results: BZO-Benzodiazepines Inpatient Rehab Admission - Rehab Decision to Admit Inpatient rehab admission?: No
[2019-07-08] MEDS ORDERED: hydrOXYzine PAMOATE 25 MG CAPSULE (FP) PO PRN (10:11)
[2019-07-08] MEDS ORDERED: MAGNESIUM HYDROX 2400MG/30ML ORAL SUSPENSION 30 ML CUP PO PRN (10:11)
[2019-07-08] MEDS ORDERED: MAG HYDROX/AL HYDROX/SIMETH 30 ML UNIT-DOSE CUP PO PRN (10:11)
[2019-07-08] MEDS ORDERED: ACETAMINOPHEN 325 MG TABLET (FP) PO PRN ×2 (10:11)
[2019-07-08] MEDS ORDERED: NICOTINE POLACRILEX 2 MG GUM BUC PRN (10:11)
[2019-07-08] MEDS ORDERED: BISMUTH SUBSALICYLATE 524 MG/30 ML UD PO PRN (10:11)
[2019-07-08] MEDS ORDERED: ALBUTEROL SO4 HFA INHALER IH PRN (10:11)
[2019-07-08] MEDS ORDERED: IBUPROFEN 400 MG TABLET (FP) PO PRN (10:11)
[2019-07-08] MEDS ORDERED: MENTHOL/PHENOL 1 EACH UD MM PRN (10:11)
[2019-07-08] MEDS ORDERED: MAGNESIUM CITRATE 300 ML BOTTLE PO PRN (10:11)
[2019-07-08] MEDS ORDERED: chlordiazePOXIDE HCL 10 MG CAPSULE PO PRN (10:17)
[2019-07-08] MEDS: chlordiazePOXIDE HCL 25 MG CAPSULE PO SCH ×2 (13:27→22:25)
[2019-07-08 17:03] LABS: HEMATOCRIT 36.2 % (35.4-49); HEMOGLOBIN 11.8 GM/dL (11.7-16.9); MCHC 32.5 g/dl (32.0-35.9); MEAN PLT VOLUME 7.3 fl (7.5-11.1); PLATELET COUNT 214 K/MM3 (134-434); RBC 4.52 M/mm3 (4.00-5.60); RDW 15.6 % (11.9-15.9)
[2019-07-08 17:37] LABS: ALBUMIN 3.2 g/dl (3.4-5.0); BILIRUBIN,TOTAL 0.3 mg/dL (0.2-1); BLOOD UREA NITROGEN 8.5 mg/dL (7-18); CALCIUM 8.6 mg/dL (8.5-10.1); CREATININE 0.8 mg/dL (0.55-1.3); TOT PROT 6.7 g/dl (6.4-8.2)
[2019-07-08] MEDS: MELATONIN 5 MG TABLETS PO PRN (22:25)
[2019-07-08] MEDS: THIAMINE HCL 100 MG TABLET (FP) PO SCH (22:25)
[2019-07-08] MEDS: BUDESONIDE/FORMETEROL FUMARATE 80/4.5 mcg INHALER IH SCH (23:35)
[2019-07-09] MEDS: chlordiazePOXIDE HCL 25 MG CAPSULE PO SCH ×3 (05:53→21:10)
[2019-07-09] MEDS: PRENATAL VITAMINS W/ FOLIC ACID TABLET (FP) PO SCH (10:07)
[2019-07-09] MEDS: BUDESONIDE/FORMETEROL FUMARATE 80/4.5 mcg INHALER IH SCH ×2 (10:08→21:09)
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
[2019-07-09] MEDS: SERTRALINE HCL 50 MG TABLET (FP) PO SCH (12:07)
--- NOTE | 2019-07-09 13:26 | PN ---
[facility] CIWA - CIWA Score Nausea/Vomitin-Mild Nausea/No Vomiting Muscle Tremors: None Anxiety: 1-Mildly Anxious Agitation: 0-Normal Activity Paroxysmal Sweats: No Perspiration Orientation: 0-Oriented Tacttile Disturbances: 0-None Auditory Disturbances: 0-None Visual Disturbances: 0-None Headache: 0-None Present CIWA-Ar Total Score: 2 S Progress Note (SOAP) Subjective: Pt states that he met with his counselor, plans to go to [place] Objective: 07/09/19 13:25 Laboratory Last Values WBC 5.0 K/mm3 (4.0-10.0) 07/08/19 14:15 RBC 4.52 M/mm3 (4.00-5.60) 07/08/19 14:15 Hgb 11.8 GM/dL (11.7-16.9) 07/08/19 14:15 Hct 36.2 % (35.4-49) 07/08/19 14:15 MCV 80.0 fl (80-96) 07/08/19 14:15 MCH 26.0 pg (25.7-33.7) 07/08/19 14:15 MCHC 32.5 g/dl (32.0-35.9) 07/08/19 14:15 RDW 15.6 % (11.9-15.9) 07/08/19 14:15 Plt Count 214 K/MM3 (134-434) 07/08/19 14:15 MPV 7.3 fl (7.5-11.1) L 07/08/19 14:15 Sodium 142 mmol/L (136-145) 07/08/19 14:15 Potassium 4.0 mmol/L (3.5-5.1) 07/08/19 14:15 Chloride 109 mmol/L (98-107) H 07/08/19 14:15 Carbon Dioxide 26 mmol/L (21-32) 07/08/19 14:15 Anion Gap 7 MMOL/L (8-16) L 07/08/19 14:15 BUN 8.5 mg/dL (7-18) 07/08/19 14:15 Creatinine 0.8 mg/dL (0.55-1.3) 07/08/19 14:15 Est GFR (CKD-EPI)AfAm 108.65 07/08/19 14:15 Est GFR (CKD-EPI)NonAf 93.74 07/08/19 14:15 Random Glucose 95 mg/dL (74-106) 07/08/19 14:15 Calcium 8.6 mg/dL (8.5-10.1) 07/08/19 14:15 Total Bilirubin 0.3 mg/dL (0.2-1) 07/08/19 14:15 AST 23 U/L (15-37) 07/08/19 14:15 ALT 26 U/L (13-61) 07/08/19 14:15 Alkaline Phosphatase 71 U/L (45-117) 07/08/19 14:15 Total Protein 6.7 g/dl (6.4-8.2) 07/08/19 14:15 Albumin 3.2 g/dl (3.4-5.0) L 07/08/19 14:15 Vital Signs Temperature 98.2 F 07/09/19 10:00 Pulse Rate 79 07/09/19 10:00 Respiratory Rate 18 07/09/19 10:00 Blood Pressure 145/84 07/09/19 10:00 O2 Sat by Pulse Oximetry (%) PE Gnl; WDWN, overweight, in no distress Mental status: in bed, easily aroused, nl language functin Motor: moves all limbs symmetrically Gait: not tested Assessment: 07/09/19 13:26 1. Alcohol withdrawal Plan: 1. alcohol withdrawal protocol
[2019-07-09] MEDS: MELATONIN 5 MG TABLETS PO PRN (21:10)
[2019-07-09] MEDS: THIAMINE HCL 100 MG TABLET (FP) PO SCH (21:10)
[2019-07-09] MEDS: QUEtiapine FUMARATE 400 MG TABLET PO SCH (21:10)
[2019-07-10] MEDS: chlordiazePOXIDE 5 MG CAPSULE PO SCH ×3 (05:16→22:14)
[2019-07-10] MEDS: PRENATAL VITAMINS W/ FOLIC ACID TABLET (FP) PO SCH (10:22)
[2019-07-10] MEDS: SERTRALINE HCL 50 MG TABLET (FP) PO SCH (10:22)
[2019-07-10] MEDS: BUDESONIDE/FORMETEROL FUMARATE 80/4.5 mcg INHALER IH SCH ×2 (10:23→22:16)
[2019-07-10] MEDS: hydrOXYzine PAMOATE 50 MG CAPSULE (FP) PO PRN (10:23)
--- NOTE | 2019-07-10 17:09 | PN ---
S CIWA - CIWA Score Nausea/Vomitin-No Nausea/No Vomiting Muscle Tremors: None Anxiety: 2 Agitation: 1-Slight > Activity Paroxysmal Sweats: 1-Minimal Palms Moist Orientation: 0-Oriented Tacttile Disturbances: 0-None Auditory Disturbances: 0-None Visual Disturbances: 1-Very Mild Sensitivity Headache: 0-None Present CIWA-Ar Total Score: 5 BHS Progress Note (SOAP) Subjective: Anxious, Fatigue. Patient reports that Withdrawal symptoms improving in general. Objective: PATIENT A & O X 3, OBSERVED AMBULATING ON DETOX UNIT UNASSISTED. IN NO ACUTE DISTRESS. 07/10/19 17:07 Vital Signs Temperature 98.4 F 07/10/19 06:22 Pulse Rate 70 07/10/19 06:22 Respiratory Rate 18 07/10/19 06:22 Blood Pressure 123/89 07/10/19 06:22 O2 Sat by Pulse Oximetry (%) Laboratory Tests 07/08/19 07/08/19 14:15 14:15 WBC 5.0 RBC 4.52 Hgb 11.8 Hct 36.2 MCV 80.0 MCH 26.0 MCHC 32.5 RDW 15.6 Plt Count 214 MPV 7.3 L Sodium 142 Potassium 4.0 Chloride 109 H Carbon Dioxide 26 Anion Gap 7 L BUN 8.5 Creatinine 0.8 Est GFR (CKD-EPI)AfAm 108.65 Est GFR (CKD-EPI)NonAf 93.74 Random Glucose 95 Calcium 8.6 Total Bilirubin 0.3 AST 23 ALT 26 Alkaline Phosphatase 71 Total Protein 6.7 Albumin 3.2 L LABS NOTED. Assessment: 07/10/19 17:08 WITHDRAWAL SYMPTOMS. Plan: CONTINUE DETOX.
[2019-07-10] MEDS: THIAMINE HCL 100 MG TABLET (FP) PO SCH (22:14)
[2019-07-10] MEDS: QUEtiapine FUMARATE 400 MG TABLET PO SCH (22:15)
[2019-07-11] MEDS ORDERED: chlordiazePOXIDE HCL 10 MG CAPSULE PO PRN
[2019-07-11] MEDS: chlordiazePOXIDE HCL 10 MG CAPSULE PO SCH ×2 (05:36→22:30)
[2019-07-11] MEDS: SERTRALINE HCL 50 MG TABLET (FP) PO SCH (10:18)
[2019-07-11] MEDS: PRENATAL VITAMINS W/ FOLIC ACID TABLET (FP) PO SCH (10:18)
[2019-07-11] MEDS: BUDESONIDE/FORMETEROL FUMARATE 80/4.5 mcg INHALER IH SCH ×2 (10:18→22:28)
[2019-07-11] MEDS: hydrOXYzine PAMOATE 50 MG CAPSULE (FP) PO PRN (10:19)
--- NOTE | 2019-07-11 16:49 | PN ---
S CIWA - CIWA Score Nausea/Vomitin-No Nausea/No Vomiting Muscle Tremors: None Anxiety: 2 Agitation: 0-Normal Activity Paroxysmal Sweats: 2 Orientation: 0-Oriented Tacttile Disturbances: 0-None Auditory Disturbances: 0-None Visual Disturbances: 0-None Headache: 0-None Present CIWA-Ar Total Score: 4 BHS Progress Note (SOAP) Subjective: Feels ok, medication is working Objective: 07/11/19 16:47 Last Vital Signs Temp Pulse Resp BP Pulse Ox 97.9 F 78 19 136/81 07/11/19 14:36 07/11/19 14:36 07/11/19 14:36 07/11/19 14:36 Elevated b/p: denies htn, not on medication Laboratory Tests 07/08/19 07/08/19 14:15 14:15 WBC 5.0 RBC 4.52 Hgb 11.8 Hct 36.2 MCV 80.0 MCH 26.0 MCHC 32.5 RDW 15.6 Plt Count 214 MPV 7.3 L Sodium 142 Potassium 4.0 Chloride 109 H Carbon Dioxide 26 Anion Gap 7 L BUN 8.5 Creatinine 0.8 Est GFR (CKD-EPI)AfAm 108.65 Est GFR (CKD-EPI)NonAf 93.74 Random Glucose 95 Calcium 8.6 Total Bilirubin 0.3 AST 23 ALT 26 Alkaline Phosphatase 71 Total Protein 6.7 Albumin 3.2 L Labs reviewed Assessment: 07/11/19 16:49 Withdrawal sxs Noted with elevated b/p Plan: Continue detox Encouraged PO water intake Patient scheduled for discharge tomorrow Elevated b/p: most likely due to withdrawal, monitor b/p
[2019-07-11] MEDS: QUEtiapine FUMARATE 400 MG TABLET PO SCH (22:27)
[2019-07-11] MEDS: THIAMINE HCL 100 MG TABLET (FP) PO SCH (23:24)
[2019-07-12] MEDS ORDERED: chlordiazePOXIDE HCL 10 MG CAPSULE PO ONE (05:00)
--- NOTE | 2019-07-12 09:47 | PN ---
[facility] Progress Note Note: Patient is discharged today, Scripts for 30 days supply of medications(Seroquel 400 mg/hs, Zoloft 150 mg/day) are electronically transmitted to [facility] at [address] [place] [phone]
[2019-07-12] MEDS: SERTRALINE HCL 50 MG TABLET (FP) PO SCH (10:37)
[2019-07-12] MEDS: PRENATAL VITAMINS W/ FOLIC ACID TABLET (FP) PO SCH (10:38)
[2019-07-12] MEDS: BUDESONIDE/FORMETEROL FUMARATE 80/4.5 mcg INHALER IH SCH (10:38)
[2019-07-12 13:11] VITALS: BP 130/77; PULSE 97; TEMP 98.1
== END 2019-07-12 13:30 | disposition home or self-care (01) | DRG 897 ==
LOC: YASAS 08:28 → Y6N 10:19
PROVIDERS: ADMIT Allergy & Immunology; ATTEND Allergy & Immunology
PROC: HZ2ZZZZ Detoxification Services for Substance Abuse Treatment (ICD-10-PCS; principal; 2019-07-08)
DX: F10.230 Alcohol dependence with withdrawal, uncomplicated (principal); F10.282 Alcohol dependence with alcohol-induced sleep disorder; F17.210 Nicotine dependence, cigarettes, uncomplicated; F31.9 Bipolar disorder, unspecified; B18.2 Chronic viral hepatitis C; R03.0 Elevated blood-pressure reading, without diagnosis of hypertension; N40.0 Benign prostatic hyperplasia without lower urinary tract symptoms; J44.9 Chronic obstructive pulmonary disease, unspecified; M19.90 Unspecified osteoarthritis, unspecified site; E66.9 Obesity, unspecified; Z68.29 Body mass index [BMI] 29.0-29.9, adult; H54.40 Blindness, one eye, unspecified eye; Z86.69 Personal history of other diseases of the nervous system and sense organs; Z88.0 Allergy status to penicillin; Z91.011 Allergy to milk products; Z91.5 Personal history of self-harm
CPT/HCPCS: 36415; 80053; 85027

== ENCOUNTER 2019-08-10 11:00 | Inpatient (IN) | payer OTHER ==
--- NOTE | 2019-08-10 11:19 | BHS.RME ---
Substance Use & Tx History - Substance Use History Alcohol Substance amount: 4 pints of nolen wine Frequency of use: Daily Substance route: Oral Date of Last Use: 08/10/19 Cocaine (Crack) Substance amount: $150 Frequency of use: Daily Substance route: Smoking Date of Last Use: 08/09/19 Physical/Psych/Mental Status - Behavior General Behavior: Increased activity (restlessness, agitation) Eye Contact: Normal - Cooperativeness Cooperativeness: Cooperative - Thinking Thought Processes: Logical, Goal Directed Thought content: Future oriented - Physical Health Problems Is patient presently having any pain?: No Does patient presently have any injuries (include location): No Does patient currently have a fever: No Is patient : No CIWA Nausea/Vomitin-Mild Nausea/No Vomiting Muscle Tremors: 3 Anxiety: 3 Agitation: 3 Paroxysmal Sweats: 1-Minimal Palms Moist Orientation: 0-Oriented Tacttile Disturbances: 0-None Auditory Disturbances: 0-None Visual Disturbances: 0-None Headache: 1-Very Mild CIWA-Ar Total Score: 12
--- NOTE | 2019-08-10 13:31 | HP ---
CIWA Score Nausea/Vomitin-Mild Nausea/No Vomiting Muscle Tremors: 3 Anxiety: 3 Agitation: 3 Paroxysmal Sweats: 1-Minimal Palms Moist Orientation: 0-Oriented Tacttile Disturbances: 0-None Auditory Disturbances: 0-None Visual Disturbances: 0-None Headache: 1-Very Mild CIWA-Ar Total Score: 12 - Admission Criteria OASAS Guidelines: Admission for Medically Managed Detox: Requires at least one of the followin. CIWA greater than 12 2. Seizures within the past 24 hours 3. Delirium tremens within the past 24 hours 4. Hallucinations within the past 24 hours 5. Acute intervention needed for co occurring medical disorder 6. Acute intervention needed for co occurring psychiatric disorder 7. Severe withdrawal that cannot be handled at a lower level of care (continued vomiting, continued diarrhea, abnormal vital signs) requiring intravenous medication and/or fluids 8. Admitting History and Physical - Admission Chief Complaint: " I am using too much and I am tired of it. I need to quit." History of Present Illness: 63 year old male with history of alcohol dependence with withdrawals. He was here in detox from -07/12/19 at [facility] completed detox and then referred to rehab at [facility] due to some insurance issues, he was discharged. He immediately relapsed after discharge. Alcohol: 4 pints of vodka daily , last used 08/10/19, started at age 14. He did have a black out 5 years ago. Breathylyzer: 0.073 Crack: $150 daily smoking it and started at age 54 last used 08/09/19. Psych: Depression, Bipolar, Anxiety Disorder on Seroquel 400mg QHS, and Zoloft 150 mg QD Psurg: Umbilical Hernia Repair. PMH: Asthma, HCV untreated. History Source: Patient Limitations to Obtaining History: No Limitations - Past Medical History Pulmonary: Yes: Asthma Hepatobiliary: Yes: Hepatitis C Psych: Yes: Depression - Past Surgical History Past Surgical History: Yes: None Additional Past Surgical History: umbilical hernia repair - Smoking History Smoking history: Current every day smoker Have you smoked in the past 12 months: Yes Aproximately how many cigarettes per day: 4 - Alcohol/Substance Use Hx Alcohol Use: Yes (4 pints vodka) Number of Drinks Daily: 10 History of Substance Use: reports: Cocaine - Social History Usual Living Arrangement: Yes: Alone Do you think of yourself as: Straight/Heterosexual ADL: Independent 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 History of Recent Travel: Yes Admission [facility] Allergies/Adverse Reactions: Allergies Allergy/AdvReac Type Severity Reaction Status Date / Time Penicillins Allergy Severe Swelling Verified 07/08/19 09:06 lactose AdvReac Intermediate diarrhea Verified 07/08/19 09:06 Exam Limitations: No Limitations - Ebola screening Have you traveled outside of the country in the last 21 days: No Have you had contact with anyone from an Ebola affected area: No Have you been sick,other than usual withdrawal symptoms: No Do you have a fever: No - Review of Systems Constitutional: No Symptoms Reported EENT: reports: No Symptoms Reported Respiratory: reports: No Symptoms reported Cardiac: reports: No Symptoms Reported GI: reports: No Symptoms Reported : reports: No Symptoms Reported Musculoskeletal: reports: No Symptoms Reported Integumentary: reports: No Symptoms Reported Neuro: reports: No Symptoms reported Endocrine: reports: No Symptoms Reported Hematology: reports: No Symptoms Reported Psychiatric: reports: Judgement Intact, Orientated x3, Agitated, Anxious Other Systems: Reviewed and Negative Patient History - Patient Medical History Hx Anemia: No Hx Asthma: Yes Hx Chronic Obstructive Pulmonary Disease (COPD): No Hx Cancer: No Hx Cardiac Disorders: No Hx Congestive Heart Failure: No Hx Hypertension: No Hx Hypercholesterolemia: No Hx Pacemaker: No HX Cerebrovascular Accident: No Hx Seizures: No Hx Dementia: No Hx Diabetes: No Hx Gastrointestinal Disorders: No Hx Liver Disease: Yes (Hep C - no viral load, no need for treatment) Hx Genitourinary Disorders: No Hx Sexually Transmitted Disorders: No Hx Renal Disease (ESRD): No Hx Thyroid Disease: No Hx Human Immunodeficiency Virus (HIV): No (04/02 negative) Hx Hepatitis C: Yes (no viral load - never treated) Hx Depression: Yes Hx Suicide Attempt: Yes (Tried to overdose in 2016) Hx Bipolar Disorder: Yes (Meds.) Hx Schizophrenia: No - Patient Surgical History Past Surgical History: Yes Hx Neurologic Surgery: No Hx Cataract Extraction: No Hx Cardiac Surgery: No Hx Lung Surgery: No Hx Breast Surgery: No Hx Breast Biopsy: No Hx Abdominal Surgery: Yes (umbilical hernia repair as a child) Hx Appendectomy: No Hx Cholecystectomy: No Hx Genitourinary Surgery: No Hx Section: No Hx Orthopedic Surgery: No Other Surgical History: DENIES. Anesthesia Reaction: No - PPD History Previous Implant?: Yes Documented Results: Positive w/proof Implanted On Prior [facility] Admission?: Yes Date: 04/23/18 Results: CXR neg 05/04 PPD to be Administered?: No - Smoking Cessation Smoking history: Current every day smoker Have you smoked in the past 12 months: Yes Aproximately how many cigarettes per day: 4 Cigars Per Day: 0 Hx Chewing Tobacco Use: No Initiated information on smoking cessation: Yes 'Breaking Loose' booklet given: 08/10/19 - Substances abused Alcohol Substance route: Oral Frequency: Daily Amount used: 4 pints vodka Age of first use: 14 Date of last use: 08/10/19 Crack Substance route: Smoking Frequency: Daily Amount used: $150 Age of first use: 54 Date of last use: 08/09/19 Cleared for Admission S - Detox or Rehab [facility] Level of Care: Medically Managed Detox Regimen/Protocol: Librium Claeared for Rehab Admission: No Screened but not Admitted - Documentation of Visit Screened but not Admitted: No Breathalyzer - Breathalyzer Breathalyzer: 0.073 Urine Drug Screen - Test Device Lot number: [id number] Expiration date: 05/15/21 - Control Is test valid?: Yes - Results Drug screen NEGATIVE: No Urine drug screen results: DENYS-Cocaine, BZO-Benzodiazepines Inpatient Rehab Admission - Rehab Decision to Admit Inpatient rehab admission?: No
[2019-08-10] MEDS ORDERED: IBUPROFEN 400 MG TABLET (FP) PO PRN (13:35)
[2019-08-10] MEDS ORDERED: BISMUTH SUBSALICYLATE 262 MG/15 ML BTL PO PRN (13:35)
[2019-08-10] MEDS ORDERED: MENTHOL/PHENOL 1 EACH UD MM PRN (13:35)
[2019-08-10] MEDS ORDERED: chlordiazePOXIDE HCL 25 MG CAPSULE PO PRN (13:35)
[2019-08-10] MEDS ORDERED: ACETAMINOPHEN 325 MG TABLET (FP) PO PRN ×2 (13:35)
[2019-08-10] MEDS ORDERED: MAG HYDROX/AL HYDROX/SIMETH 30 ML UNIT-DOSE CUP PO PRN (13:35)
[2019-08-10] MEDS ORDERED: hydrOXYzine PAMOATE 25 MG CAPSULE (FP) PO PRN (13:35)
[2019-08-10] MEDS ORDERED: MAGNESIUM CITRATE 300 ML BOTTLE PO PRN (13:35)
[2019-08-10] MEDS ORDERED: MAGNESIUM HYDROX 2400MG/30ML ORAL SUSPENSION 30 ML CUP PO PRN (13:35)
[2019-08-10] MEDS ORDERED: METHOCARBAMOL 500 MG TABLET PO PRN (13:35)
[2019-08-10] MEDS ORDERED: ALBUTEROL SO4 HFA INHALER IH PRN (13:36)
[2019-08-10 14:56] VITALS: BMI 28.1
[2019-08-10] MEDS: chlordiazePOXIDE HCL 25 MG CAPSULE PO SCH ×3 (15:58→22:03)
[2019-08-10] MEDS: BUDESONIDE/FORMETEROL FUMARATE 80/4.5 mcg INHALER IH SCH ×2 (15:58→22:03)
[2019-08-10] MEDS: NICOTINE 7 MG/24 HOURS TOPICAL PATCH TD SCH (15:58)
[2019-08-10 17:30] LABS: HEMATOCRIT 42.9 % (35.4-49); HEMOGLOBIN 13.7 GM/dL (11.7-16.9); MCH 25.1 pg (25.7-33.7); MEAN CELL VOLUME 78.6 fl (80-96); MEAN PLT VOLUME 7.6 fl (7.5-11.1); PLATELET COUNT 328 K/MM3 (134-434); RBC 5.46 M/mm3 (4.00-5.60); RDW 15.9 % (11.9-15.9); WHITE BLOOD COUNT 7.6 K/mm3 (4.0-10.0)
[2019-08-10 17:44] LABS: CALCIUM 9.3 mg/dL (8.5-10.1); CREATININE 1.1 mg/dL (0.55-1.3); POTASSIUM 3.4 mmol/L (3.5-5.1); TOT PROT 8.4 g/dl (6.4-8.2)
[2019-08-10] MEDS: THIAMINE HCL 100 MG TABLET (FP) PO SCH (22:02)
[2019-08-10] MEDS: MELATONIN 5 MG TABLETS PO PRN (22:03)
[2019-08-11] MEDS: chlordiazePOXIDE HCL 25 MG CAPSULE PO SCH ×2 (05:32→10:40)
[2019-08-11] MEDS: PRENATAL VITAMINS W/ FOLIC ACID TABLET (FP) PO SCH (10:40)
[2019-08-11] MEDS: BUDESONIDE/FORMETEROL FUMARATE 80/4.5 mcg INHALER IH SCH ×2 (10:41→22:16)
[2019-08-11] MEDS: NICOTINE 7 MG/24 HOURS TOPICAL PATCH TD SCH (10:42)
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
--- NOTE | 2019-08-11 12:44 | PN ---
[facility] CIWA - CIWA Score Nausea/Vomitin-Mild Nausea/No Vomiting Muscle Tremors: 2 Anxiety: 3 Agitation: 1-Slight > Activity Paroxysmal Sweats: 2 Orientation: 1-Uncertain about Date Tacttile Disturbances: 0-None Auditory Disturbances: 0-None Visual Disturbances: 1-Very Mild Sensitivity Headache: 0-None Present CIWA-Ar Total Score: 11 S Progress Note (SOAP) Subjective: 63 years old male admitted on 08/10/19 for alcohol withdrawal sx management treating with librum detox regiment feeling ok today ate breakfast and lunch in room tremor restlessness Objective: 08/11/19 12:42 Vital Signs Temperature 98.2 F 08/11/19 09:07 Pulse Rate 104 H 08/11/19 10:47 Respiratory Rate 18 08/11/19 10:47 Blood Pressure 105/71 08/11/19 10:47 O2 Sat by Pulse Oximetry (%) Laboratory Last Values WBC 7.6 K/mm3 (4.0-10.0) 08/10/19 13:45 RBC 5.46 M/mm3 (4.00-5.60) 08/10/19 13:45 Hgb 13.7 GM/dL (11.7-16.9) 08/10/19 13:45 Hct 42.9 % (35.4-49) D 08/10/19 13:45 MCV 78.6 fl (80-96) L 08/10/19 13:45 MCH 25.1 pg (25.7-33.7) L 08/10/19 13:45 MCHC 32.0 g/dl (32.0-35.9) 08/10/19 13:45 RDW 15.9 % (11.9-15.9) 08/10/19 13:45 Plt Count 328 K/MM3 (134-434) D 08/10/19 13:45 MPV 7.6 fl (7.5-11.1) 08/10/19 13:45 Sodium 141 mmol/L (136-145) 08/10/19 13:45 Potassium 3.4 mmol/L (3.5-5.1) L 08/10/19 13:45 Chloride 108 mmol/L (98-107) H 08/10/19 13:45 Carbon Dioxide 22 mmol/L (21-32) 08/10/19 13:45 Anion Gap 12 MMOL/L (8-16) 08/10/19 13:45 BUN 12.0 mg/dL (7-18) 08/10/19 13:45 Creatinine 1.1 mg/dL (0.55-1.3) 08/10/19 13:45 Est GFR (CKD-EPI)AfAm 81.22 08/10/19 13:45 Est GFR (CKD-EPI)NonAf 70.07 08/10/19 13:45 Random Glucose 126 mg/dL (74-106) H 08/10/19 13:45 Calcium 9.3 mg/dL (8.5-10.1) 08/10/19 13:45 Total Bilirubin 1.0 mg/dL (0.2-1) 08/10/19 13:45 AST 113 U/L (15-37) H 08/10/19 13:45 ALT 131 U/L (13-61) H 08/10/19 13:45 Alkaline Phosphatase 102 U/L (45-117) 08/10/19 13:45 Total Protein 8.4 g/dl (6.4-8.2) H 08/10/19 13:45 Albumin 4.0 g/dl (3.4-5.0) 08/10/19 13:45 RPR Titer Nonreactive (NONREACTIVE) 08/10/19 13:45 lab noted 08/11/19 12:44 K+ 3.4 two dose of K+ 20meq ast elevation discontinue librium begin ativan regiment patient agrees 08/11/19 12:45 Assessment: 08/11/19 12:47 alcohol withdrawal Plan: ativan regiment
[2019-08-11] MEDS ORDERED: LORazepam 1 MG TABLET PO PRN (12:49)
[2019-08-11] MEDS: POTASSIUM CHLORIDE ORAL LIQUID 20 MEQ/15 ML PO SCH ×2 (15:35→18:17)
[2019-08-11] MEDS: LORazepam 2 MG TABLET PO SCH ×2 (18:17→22:16)
[2019-08-11] MEDS: QUEtiapine FUMARATE 400 MG TABLET PO SCH (22:16)
[2019-08-11] MEDS: MELATONIN 5 MG TABLETS PO PRN (22:16)
[2019-08-11] MEDS: THIAMINE HCL 100 MG TABLET (FP) PO SCH (22:16)
[2019-08-12] MEDS ORDERED: chlordiazePOXIDE HCL 25 MG CAPSULE PO SCH (05:00)
[2019-08-12] MEDS: LORazepam 2 MG TABLET PO SCH ×4 (05:50→22:31)
[2019-08-12] MEDS: BUDESONIDE/FORMETEROL FUMARATE 80/4.5 mcg INHALER IH SCH ×2 (10:49→22:32)
[2019-08-12] MEDS: NICOTINE 7 MG/24 HOURS TOPICAL PATCH TD SCH (10:49)
[2019-08-12] MEDS: PRENATAL VITAMINS W/ FOLIC ACID TABLET (FP) PO SCH (10:50)
[2019-08-12] MEDS: SERTRALINE HCL 50 MG TABLET (FP) PO SCH (10:50)
--- NOTE | 2019-08-12 12:57 | PN ---
S CIWA - CIWA Score Nausea/Vomitin-No Nausea/No Vomiting Muscle Tremors: 3 Anxiety: 3 Agitation: 0-Normal Activity Paroxysmal Sweats: 1-Minimal Palms Moist Orientation: 0-Oriented Tacttile Disturbances: 0-None Auditory Disturbances: 0-None Visual Disturbances: 1-Very Mild Sensitivity Headache: 1-Very Mild CIWA-Ar Total Score: 9 S Progress Note (SOAP) Subjective: 63 years old male admitted on 08/10/19 for alcohol withdrawal sx management treating with ativan detox regiment feeling tired today resting in bed encourage to discuss aftercare with staff patient prefers ilir atc Objective: 08/12/19 12:58 Vital Signs Temperature 96.7 F L 08/12/19 09:20 Pulse Rate 111 H 08/12/19 09:20 Respiratory Rate 18 08/12/19 09:20 Blood Pressure 117/74 08/12/19 09:20 O2 Sat by Pulse Oximetry (%) Laboratory Last Values WBC 7.6 K/mm3 (4.0-10.0) 08/10/19 13:45 RBC 5.46 M/mm3 (4.00-5.60) 08/10/19 13:45 Hgb 13.7 GM/dL (11.7-16.9) 08/10/19 13:45 Hct 42.9 % (35.4-49) D 08/10/19 13:45 MCV 78.6 fl (80-96) L 08/10/19 13:45 MCH 25.1 pg (25.7-33.7) L 08/10/19 13:45 MCHC 32.0 g/dl (32.0-35.9) 08/10/19 13:45 RDW 15.9 % (11.9-15.9) 08/10/19 13:45 Plt Count 328 K/MM3 (134-434) D 08/10/19 13:45 MPV 7.6 fl (7.5-11.1) 08/10/19 13:45 Sodium 141 mmol/L (136-145) 08/10/19 13:45 Potassium 3.4 mmol/L (3.5-5.1) L 08/10/19 13:45 Chloride 108 mmol/L (98-107) H 08/10/19 13:45 Carbon Dioxide 22 mmol/L (21-32) 08/10/19 13:45 Anion Gap 12 MMOL/L (8-16) 08/10/19 13:45 BUN 12.0 mg/dL (7-18) 08/10/19 13:45 Creatinine 1.1 mg/dL (0.55-1.3) 08/10/19 13:45 Est GFR (CKD-EPI)AfAm 81.22 08/10/19 13:45 Est GFR (CKD-EPI)NonAf 70.07 08/10/19 13:45 Random Glucose 126 mg/dL (74-106) H 08/10/19 13:45 Calcium 9.3 mg/dL (8.5-10.1) 08/10/19 13:45 Total Bilirubin 1.0 mg/dL (0.2-1) 08/10/19 13:45 AST 113 U/L (15-37) H 08/10/19 13:45 ALT 131 U/L (13-61) H 08/10/19 13:45 Alkaline Phosphatase 102 U/L (45-117) 08/10/19 13:45 Total Protein 8.4 g/dl (6.4-8.2) H 08/10/19 13:45 Albumin 4.0 g/dl (3.4-5.0) 08/10/19 13:45 RPR Titer Nonreactive (NONREACTIVE) 08/10/19 13:45 lab noted 08/12/19 13:02 continue ativan Assessment: 08/12/19 13:02 alcohol withdrawal Plan: ativan regiment
[2019-08-12] MEDS: THIAMINE HCL 100 MG TABLET (FP) PO SCH (22:31)
[2019-08-12] MEDS: QUEtiapine FUMARATE 400 MG TABLET PO SCH (22:31)
[2019-08-13] MEDS ORDERED: chlordiazePOXIDE HCL 10 MG CAPSULE PO PRN
[2019-08-13] MEDS ORDERED: chlordiazePOXIDE HCL 10 MG CAPSULE PO SCH (05:00)
[2019-08-13] MEDS: LORazepam 1 MG TABLET PO SCH ×4 (05:25→22:10)
[2019-08-13] MEDS: BUDESONIDE/FORMETEROL FUMARATE 80/4.5 mcg INHALER IH SCH ×2 (10:31→22:10)
[2019-08-13] MEDS: PRENATAL VITAMINS W/ FOLIC ACID TABLET (FP) PO SCH (10:31)
[2019-08-13] MEDS: NICOTINE 7 MG/24 HOURS TOPICAL PATCH TD SCH (10:31)
[2019-08-13] MEDS: SERTRALINE HCL 50 MG TABLET (FP) PO SCH (10:31)
--- NOTE | 2019-08-13 11:46 | PN ---
S CIWA - CIWA Score Nausea/Vomitin-No Nausea/No Vomiting Muscle Tremors: 4-Moderate,w/Arms Extend Anxiety: 0-No Anxiety, at Ease Agitation: 0-Normal Activity Paroxysmal Sweats: No Perspiration Orientation: 0-Oriented Tacttile Disturbances: 0-None Auditory Disturbances: 0-None Visual Disturbances: 0-None Headache: 0-None Present CIWA-Ar Total Score: 4 BHS Progress Note (SOAP) Subjective: Pt hopeful for discharge on Friday to [facility] for REhab Objective: 08/13/19 11:43 Laboratory Tests 08/10/19 08/10/19 08/10/19 13:45 13:45 13:45 WBC 7.6 RBC 5.46 Hgb 13.7 Hct 42.9 D MCV 78.6 L MCH 25.1 L MCHC 32.0 RDW 15.9 Plt Count 328 D MPV 7.6 Sodium 141 Potassium 3.4 L Chloride 108 H Carbon Dioxide 22 Anion Gap 12 BUN 12.0 Creatinine 1.1 Est GFR (CKD-EPI)AfAm 81.22 Est GFR (CKD-EPI)NonAf 70.07 Random Glucose 126 H Calcium 9.3 Total Bilirubin 1.0 AST 113 H ALT 131 H Alkaline Phosphatase 102 Total Protein 8.4 H Albumin 4.0 RPR Titer Nonreactive Vital Signs - 24 hr 08/12/19 08/12/19 08/12/19 12:33 17:03 20:18 Temperature 97.5 F L 98.1 F 97.1 F L Pulse Rate 93 H 91 H 90 Respiratory 18 18 16 Rate Blood Pressure 116/78 125/78 124/83 08/13/19 08/13/19 08/13/19 00:33 03:30 06:12 Temperature 96.8 F L Pulse Rate 96 H Respiratory 18 18 18 Rate Blood Pressure 123/75 08/13/19 09:01 Temperature 99.1 F Pulse Rate 121 H Respiratory 18 Rate Blood Pressure 109/77 PE Gnl: WDWN, in no distress, in bed Mental status: awake, alert, nl language Motor: tremor with arms sustended, grossly intact motor function Assessment: 08/13/19 11:44 1. Alcohol use disorder 2. elevated LFTs 3. Seen by Psychiatry, hx of depression, bipolar, anxiety Plan: 1. continue Ativan withdrawal protocol 2. on Seroquel and Zoloft 3. discharge on 08/14 pending
[2019-08-13] MEDS: QUEtiapine FUMARATE 400 MG TABLET PO SCH (22:10)
[2019-08-13] MEDS: THIAMINE HCL 100 MG TABLET (FP) PO SCH (22:10)
[2019-08-14] MEDS ORDERED: LORazepam 0.5 MG TABLET PO PRN
[2019-08-14] MEDS ORDERED: chlordiazePOXIDE HCL 10 MG CAPSULE PO SCH (05:00)
[2019-08-14] MEDS: LORazepam 0.5 MG TABLET PO SCH ×4 (06:53→22:42)
[2019-08-14] MEDS: BUDESONIDE/FORMETEROL FUMARATE 80/4.5 mcg INHALER IH SCH ×2 (10:58→22:41)
[2019-08-14] MEDS: PRENATAL VITAMINS W/ FOLIC ACID TABLET (FP) PO SCH (10:58)
[2019-08-14] MEDS: NICOTINE 7 MG/24 HOURS TOPICAL PATCH TD SCH (10:58)
[2019-08-14] MEDS: SERTRALINE HCL 50 MG TABLET (FP) PO SCH (10:59)
--- NOTE | 2019-08-14 11:22 | PN ---
S CIWA - CIWA Score Nausea/Vomitin-No Nausea/No Vomiting Muscle Tremors: None Anxiety: 1-Mildly Anxious Agitation: 0-Normal Activity Paroxysmal Sweats: 2 Orientation: 0-Oriented Tacttile Disturbances: 0-None Auditory Disturbances: 0-None Visual Disturbances: 0-None Headache: 0-None Present CIWA-Ar Total Score: 3 BHS Progress Note (SOAP) Subjective: c/o mild withdrawal symptoms. Objective: 08/14/19 11:21 Vital Signs 08/14/19 08/14/19 08/14/19 03:30 07:06 08:54 Temperature 98.3 F 99.0 F Pulse Rate 78 110 H Respiratory 18 18 18 Rate Blood Pressure 102/70 100/67 Laboratory Last Values WBC 7.6 K/mm3 (4.0-10.0) 08/10/19 13:45 RBC 5.46 M/mm3 (4.00-5.60) 08/10/19 13:45 Hgb 13.7 GM/dL (11.7-16.9) 08/10/19 13:45 Hct 42.9 % (35.4-49) D 08/10/19 13:45 MCV 78.6 fl (80-96) L 08/10/19 13:45 MCH 25.1 pg (25.7-33.7) L 08/10/19 13:45 MCHC 32.0 g/dl (32.0-35.9) 08/10/19 13:45 RDW 15.9 % (11.9-15.9) 08/10/19 13:45 Plt Count 328 K/MM3 (134-434) D 08/10/19 13:45 MPV 7.6 fl (7.5-11.1) 08/10/19 13:45 Sodium 141 mmol/L (136-145) 08/10/19 13:45 Potassium 3.4 mmol/L (3.5-5.1) L 08/10/19 13:45 Chloride 108 mmol/L (98-107) H 08/10/19 13:45 Carbon Dioxide 22 mmol/L (21-32) 08/10/19 13:45 Anion Gap 12 MMOL/L (8-16) 08/10/19 13:45 BUN 12.0 mg/dL (7-18) 08/10/19 13:45 Creatinine 1.1 mg/dL (0.55-1.3) 08/10/19 13:45 Est GFR (CKD-EPI)AfAm 81.22 08/10/19 13:45 Est GFR (CKD-EPI)NonAf 70.07 08/10/19 13:45 Random Glucose 126 mg/dL (74-106) H 08/10/19 13:45 Calcium 9.3 mg/dL (8.5-10.1) 08/10/19 13:45 Total Bilirubin 1.0 mg/dL (0.2-1) 08/10/19 13:45 AST 113 U/L (15-37) H 08/10/19 13:45 ALT 131 U/L (13-61) H 08/10/19 13:45 Alkaline Phosphatase 102 U/L (45-117) 08/10/19 13:45 Total Protein 8.4 g/dl (6.4-8.2) H 08/10/19 13:45 Albumin 4.0 g/dl (3.4-5.0) 08/10/19 13:45 RPR Titer Nonreactive (NONREACTIVE) 08/10/19 13:45 Labs noted. Assessment: 08/14/19 11:22 AOX3, in no respiratory distress. Full ROM, ambulating in the unit. Mild Withdrawal symptoms. For d/c tomorrow. Plan: continue detox. D/C in AM.
--- NOTE | 2019-08-14 19:28 | PN ---
S Progress Note Note: Patient w/ elevated temp. Vital Signs 08/14/19 08/14/19 12:50 18:05 Temperature 99.9 F H 101.1 F H Pulse Rate 108 H 102 H Respiratory 18 18 Rate Blood Pressure 107/76 101/71 Denies SOB, URI symptoms, burning upon urination. Lungs CTA. Abd S/NT/BS+. Plan: Antipyretics as needed. UA. Continue f/u
[2019-08-14] MEDS: QUEtiapine FUMARATE 400 MG TABLET PO SCH (22:41)
[2019-08-14] MEDS: THIAMINE HCL 100 MG TABLET (FP) PO SCH (22:42)
[2019-08-15 01:09] LABS: URINE APPEARANCE TURBID; URINE BILIRUBIN NEGATIVE (NEGATIVE); URINE COLOR DK YELLOW; URINE GLUCOSE (UA) NEGATIVE (NEGATIVE); URINE KETONE NEGATIVE (NEGATIVE); URINE LEUK ESTERASE NEGATIVE (NEGATIVE); URINE NITRITE NEGATIVE (NEGATIVE); URINE PROTEIN TRACE (NEGATIVE)
[2019-08-15] MEDS ORDERED: chlordiazePOXIDE HCL 10 MG CAPSULE PO ONE (05:00)
[2019-08-15] MEDS ORDERED: LORazepam 0.5 MG TABLET PO ONE (05:00)
[2019-08-15 06:49] VITALS: BP 100/56; PULSE 94; TEMP 99.2
[2019-08-15] MEDS: PRENATAL VITAMINS W/ FOLIC ACID TABLET (FP) PO SCH (10:25)
[2019-08-15] MEDS: NICOTINE 7 MG/24 HOURS TOPICAL PATCH TD SCH (10:25)
[2019-08-15] MEDS: SERTRALINE HCL 50 MG TABLET (FP) PO SCH (10:25)
[2019-08-15] MEDS: BUDESONIDE/FORMETEROL FUMARATE 80/4.5 mcg INHALER IH SCH (10:25)
--- NOTE | 2019-08-15 11:48 | PN ---
S Progress Note Note: Psychiatric nurse practitioner note: Patient scheduled for discharge from detox today. A 30 day prescription of Zoloft 150mg + Seroquel 400mg HS was electronically sent to [facility], [address] [place] [id number].
--- NOTE | 2019-08-15 12:43 | DS ---
[facility] Detox Discharge Summary Admission Date: 08/10/19 Discharge Date: 08/15/19 - History Present History: Alcohol Dependence Additional Comments: 63 years old male admitted on 08/10/19 for alcohol withdrawal sx management treated with ativan detox regiment Mr Venegas has completed ativan regiment and tolerates well seen by psychiatrist resume zoloft and seroquel alert oriented x 3 respiratory clear lungs bilaterally on auscultation abdomen soft no rebound tenderness extremities full range of motion Pertinent Past History: time for discharge 44 minutes patient had low grade on and off fever x 2 days patient prefers to be followed up by [facility] - Physical Exam Results Vital Signs: Vital Signs Temperature 99.2 F 08/15/19 05:44 Pulse Rate 94 H 08/15/19 05:44 Respiratory Rate 18 08/15/19 05:44 Blood Pressure 100/56 L 08/15/19 05:44 O2 Sat by Pulse Oximetry (%) Pertinent Admission Physical Exam Findings: alcohol withdrawal Vital Signs Temperature 99.2 F 08/15/19 05:44 Pulse Rate 94 H 08/15/19 05:44 Respiratory Rate 18 08/15/19 05:44 Blood Pressure 100/56 L 08/15/19 05:44 O2 Sat by Pulse Oximetry (%) Laboratory Last Values WBC 7.6 K/mm3 (4.0-10.0) 08/10/19 13:45 RBC 5.46 M/mm3 (4.00-5.60) 08/10/19 13:45 Hgb 13.7 GM/dL (11.7-16.9) 08/10/19 13:45 Hct 42.9 % (35.4-49) D 08/10/19 13:45 MCV 78.6 fl (80-96) L 08/10/19 13:45 MCH 25.1 pg (25.7-33.7) L 08/10/19 13:45 MCHC 32.0 g/dl (32.0-35.9) 08/10/19 13:45 RDW 15.9 % (11.9-15.9) 08/10/19 13:45 Plt Count 328 K/MM3 (134-434) D 08/10/19 13:45 MPV 7.6 fl (7.5-11.1) 08/10/19 13:45 Sodium 141 mmol/L (136-145) 08/10/19 13:45 Potassium 3.4 mmol/L (3.5-5.1) L 08/10/19 13:45 Chloride 108 mmol/L (98-107) H 08/10/19 13:45 Carbon Dioxide 22 mmol/L (21-32) 08/10/19 13:45 Anion Gap 12 MMOL/L (8-16) 08/10/19 13:45 BUN 12.0 mg/dL (7-18) 08/10/19 13:45 Creatinine 1.1 mg/dL (0.55-1.3) 08/10/19 13:45 Est GFR (CKD-EPI)AfAm 81.22 08/10/19 13:45 Est GFR (CKD-EPI)NonAf 70.07 08/10/19 13:45 Random Glucose 126 mg/dL (74-106) H 08/10/19 13:45 Calcium 9.3 mg/dL (8.5-10.1) 08/10/19 13:45 Total Bilirubin 1.0 mg/dL (0.2-1) 08/10/19 13:45 AST 113 U/L (15-37) H 08/10/19 13:45 ALT 131 U/L (13-61) H 08/10/19 13:45 Alkaline Phosphatase 102 U/L (45-117) 08/10/19 13:45 Total Protein 8.4 g/dl (6.4-8.2) H 08/10/19 13:45 Albumin 4.0 g/dl (3.4-5.0) 08/10/19 13:45 Urine Color Dk yellow 08/14/19 20:00 Urine Appearance Turbid 08/14/19 20:00 Urine pH 5.0 (5.0-8.0) 08/14/19 20:00 Ur Specific [place] 1.037 (1.010-1.035) H 08/14/19 20:00 Urine Protein Trace (NEGATIVE) 08/14/19 20:00 Urine Glucose (UA) Negative (NEGATIVE) 08/14/19 20:00 Urine Ketones Negative (NEGATIVE) 08/14/19 20:00 Urine Blood Negative (NEGATIVE) 08/14/19 20:00 Urine Nitrite Negative (NEGATIVE) 08/14/19 20:00 Urine Bilirubin Negative (NEGATIVE) 08/14/19 20:00 Urine Urobilinogen 1.0 mg/dL (0.2-1.0) 08/14/19 20:00 Ur Leukocyte Esterase Negative (NEGATIVE) 08/14/19 20:00 RPR Titer Nonreactive (NONREACTIVE) 08/10/19 13:45 lab noted ast elevation ativan regiment - Treatment Hospital Course: Detox Protocol Followed, Detoxed Safely, Responded well, Discharged Condition Good, Rehab Referral Accepted Patient has Accepted a Rehab Referral to: [facility] - Medication Discharge Medications: Ambulatory Orders Albuterol Sulfate Inhaler - [Ventolin HFA Inhaler -] 2 inh PO Q4H PRN #1 inhaler 05/06/19 Budesonide/Formeterol Fumarate [SYMBICORT 80/4.5mcg -] 2 inh PO BID #1 inhaler 05/06/19 Quetiapine Fumarate [Seroquel -] 400 mg PO HS #30 tablet 07/12/19 Sertraline HCl [Zoloft -] 150 mg PO DAILY #90 tablet 07/12/19 Quetiapine Fumarate [Seroquel -] 400 mg PO HS #30 tablet 08/15/19 Sertraline HCl [Zoloft -] 150 mg PO DAILY #90 tablet 08/15/19 - Diagnosis (1) Alcohol dependence with uncomplicated withdrawal Status: Acute (2) Asthma Status: Chronic (3) BPH (benign prostatic hyperplasia) Status: Chronic (4) COPD (chronic obstructive pulmonary disease) Status: Chronic Qualifiers: COPD type: emphysema Emphysema type: unspecified Qualified Code(s): J43.9 - Emphysema, unspecified (5) Hepatitis C Status: Chronic Qualifiers: Viral hepatitis chronicity: chronic Hepatic coma status: without hepatic coma Qualified Code(s): B18.2 - Chronic viral hepatitis C (6) Nicotine dependence Status: Acute Qualifiers: Nicotine product type: cigarettes Substance use status: in withdrawal Qualified Code(s): F17.213 - Nicotine dependence, cigarettes, with withdrawal (7) Substance induced mood disorder Status: Suspected (8) History of positive PPD Status: Resolved - AMA Did Patient Leave Against Medical Advice: No CIWA Score - CIWA Score Nausea/Vomitin-No Nausea/No Vomiting Muscle Tremors: None Anxiety: 0-No Anxiety, at Ease Agitation: 0-Normal Activity Paroxysmal Sweats: 1-Minimal Palms Moist Orientation: 0-Oriented Tacttile Disturbances: 0-None Auditory Disturbances: 0-None Visual Disturbances: 0-None Headache: 0-None Present CIWA-Ar Total Score: 1
== END 2019-08-15 11:40 | disposition home or self-care (01) | DRG 897 ==
LOC: YASAS 11:00 → Y3N 15:00
PROVIDERS: ADMIT Allergy & Immunology; ATTEND Allergy & Immunology
PROC: HZ2ZZZZ Detoxification Services for Substance Abuse Treatment (ICD-10-PCS; principal; 2019-08-10)
DX: F10.230 Alcohol dependence with withdrawal, uncomplicated (principal); E70.9 Disorder of aromatic amino-acid metabolism, unspecified; F17.213 Nicotine dependence, cigarettes, with withdrawal; F19.24 Other psychoactive substance dependence with psychoactive substance-induced mood disorder; F32.9 Major depressive disorder, single episode, unspecified; F43.9 Reaction to severe stress, unspecified; J45.998 Other asthma; G47.00 Insomnia, unspecified; G40.909 Epilepsy, unspecified, not intractable, without status epilepticus; E73.9 Lactose intolerance, unspecified; E87.6 Hypokalemia; N40.0 Benign prostatic hyperplasia without lower urinary tract symptoms; H54.61 Unqualified visual loss, right eye, normal vision left eye; M19.90 Unspecified osteoarthritis, unspecified site; B18.2 Chronic viral hepatitis C; R76.11 Nonspecific reaction to tuberculin skin test without active tuberculosis
CPT/HCPCS: 36415; 80053; 81003; 85027; 86593

== ENCOUNTER 2020-01-17 08:22 | Inpatient (IN) | payer OTHER ==
--- NOTE | 2020-01-17 08:36 | BHS.RME ---
Substance Use & Tx History - Substance Use History Alcohol Substance amount: 3 pints vodka Cocaine-Crack Substance amount: $30 Frequency of use: Once a month Substance route: Smoking Date of Last Use: 01/13/20 Nicotine Substance amount: 4 ciggs Frequency of use: Daily Substance route: Smoking Date of Last Use: 01/17/20 Physical/Psych/Mental Status - Behavior General Behavior: Increased activity (restlessness, agitation) Eye Contact: Normal - Cooperativeness Cooperativeness: Cooperative - Thinking Thought Processes: Tight, Logical, Goal Directed - Physical Health Problems Is patient presently having any pain?: No Does patient presently have any injuries (include location): No Does patient currently have a fever: No Is patient : No CIWA Nausea/Vomitin Muscle Tremors: 4-Moderate,w/Arms Extend Anxiety: 4-Mod. Anxious/Guarded Agitation: 2 Paroxysmal Sweats: 4-Forehead w/Sweat Beads Orientation: 0-Oriented Tacttile Disturbances: 0-None Auditory Disturbances: 0-None Visual Disturbances: 0-None Headache: 0-None Present CIWA-Ar Total Score: 16
--- NOTE | 2020-01-17 09:07 | HP ---
CIWA Score Nausea/Vomitin Muscle Tremors: 4-Moderate,w/Arms Extend Anxiety: 4-Mod. Anxious/Guarded Agitation: 2 Paroxysmal Sweats: 4-Forehead w/Sweat Beads Orientation: 0-Oriented Tacttile Disturbances: 0-None Auditory Disturbances: 0-None Visual Disturbances: 0-None Headache: 0-None Present CIWA-Ar Total Score: 16 - Admission Criteria OASAS Guidelines: Admission for Medically Managed Detox: Requires at least one of the followin. CIWA greater than 12 2. Seizures within the past 24 hours 3. Delirium tremens within the past 24 hours 4. Hallucinations within the past 24 hours 5. Acute intervention needed for co occurring medical disorder 6. Acute intervention needed for co occurring psychiatric disorder 7. Severe withdrawal that cannot be handled at a lower level of care (continued vomiting, continued diarrhea, abnormal vital signs) requiring intravenous medication and/or fluids 8. Admitting History and Physical - Admission Chief Complaint: Mr. Venegas is a 64 yo man who presents to [facility] requesting detox admission with a history of alcohol use disorder. History of Present Illness: Mr. Venegas is a 64 yo man who presents to [facility] requesting detox admission with a history of alcohol use disorder. He was last here between October 14 and November 16, 2019 successfully completing detox and rehab. This is his third admission to detox this year. PMH: Asthma/well controlled PSH: Umbilical hernia Psych: bipolar well controlled on Seroquel and Zoloft SOC: lives in the [place] with roommate Legal: none Substance Use History Alcohol Substance amount: 3 pints vodka First use age 14y Last use 2 am today No seizure. 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 Last use 01/12 Nicotine Substance amount: 4 ciggs Frequency of use: Daily Substance route: Smoking Date of Last Use: 01/17/20 First use age 14y History Source: Patient Limitations to Obtaining History: No Limitations - Past Medical History Pulmonary: Yes: Asthma Hepatobiliary: Yes: Hepatitis C Psych: Yes: Bipolar, Depression - Past Surgical History Past Surgical History: Yes: None - Smoking History Smoking history: Current every day smoker Have you smoked in the past 12 months: Yes Aproximately how many cigarettes per day: 4 - Alcohol/Substance Use Hx Alcohol Use: Yes (4 pints wine) Number of Drinks Daily: 10 History of Substance Use: reports: Cocaine - Social History ADL: Independent 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 History of Recent Travel: Yes Admission ROS S - HPI Allergies/Adverse Reactions: Allergies Allergy/AdvReac Type Severity Reaction Status Date / Time Penicillins Allergy Severe Swelling Verified 10/15/19 11:04 lactose AdvReac Intermediate diarrhea Verified 10/15/19 11:04 Exam Limitations: No Limitations - Ebola screening Have you traveled outside of the country in the last 21 days: No Have you been sick,other than usual withdrawal symptoms: No Do you have a fever: No - Review of Systems Constitutional: No Symptoms Reported EENT: reports: Blurred Vision (has glasses with him for both near and far vision) Respiratory: reports: No Symptoms reported Cardiac: reports: No Symptoms Reported GI: reports: Nausea. denies: Diarrhea, Vomiting : reports: No Symptoms Reported Musculoskeletal: denies: Back Pain, Joint Pain, Muscle Pain Integumentary: reports: No Symptoms Reported Neuro: denies: Headache Endocrine: reports: No Symptoms Reported Hematology: denies: Anemia, Blood Clots, Easy Bruising, Bleeding Diathesis Psychiatric: reports: Mood/Affect Appropiate Patient History - Patient Medical History Hx Anemia: No Hx Asthma: Yes Hx Chronic Obstructive Pulmonary Disease (COPD): Yes Hx Cancer: No Hx Cardiac Disorders: No Hx Congestive Heart Failure: No Hx Hypertension: No Hx Hypercholesterolemia: No Hx Pacemaker: No HX Cerebrovascular Accident: No Hx Seizures: No Hx Dementia: No Hx Diabetes: No Hx Gastrointestinal Disorders: No Hx Liver Disease: Yes (Hep C - no viral load, no need for treatment) Hx Genitourinary Disorders: No Hx Sexually Transmitted Disorders: No Hx Renal Disease (ESRD): No Hx Thyroid Disease: No Hx Human Immunodeficiency Virus (HIV): No (04/02 negative) Hx Hepatitis C: Yes (no viral load - never treated) Hx Depression: Yes Hx Suicide Attempt: No Hx Bipolar Disorder: Yes (Meds.) Hx Schizophrenia: No - Patient Surgical History Past Surgical History: Yes Hx Neurologic Surgery: No Hx Cataract Extraction: No Hx Cardiac Surgery: No Hx Lung Surgery: No Hx Breast Surgery: No Hx Breast Biopsy: No Hx Abdominal Surgery: Yes (umbilical hernia repair as a child) Hx Appendectomy: No Hx Cholecystectomy: No Hx Genitourinary Surgery: No Hx Section: No Hx Orthopedic Surgery: No Other Surgical History: DENIES. Anesthesia Reaction: No - PPD History Date: 04/23/18 Results: CXR neg 05/04 - Smoking Cessation Smoking history: Current every day smoker Have you smoked in the past 12 months: Yes Aproximately how many cigarettes per day: 4 Cigars Per Day: 0 Hx Chewing Tobacco Use: No Initiated information on smoking cessation: Yes 'Breaking Loose' booklet given: 01/17/20 Admission Physical Exam [facility] - Physical General Appearance: Yes: No Apparent Distress, Nourished, Appropriately Dressed HEENTM: Yes: EOMI, Hearing grossly Normal, Normocephalic, Normal Voice Respiratory: Yes: Lungs Clear, Normal Breath Sounds, No Respiratory Distress, No Accessory Muscle Use Neck: Yes: Within Normal Limits, Supple Breast: Yes: Breast Exam Deferred Cardiology: Yes: Regular Rhythm, Regular Rate, S1, S2 Abdominal: Yes: Normal Bowel Sounds, Non Tender, Flat, Soft Back: Yes: Normal Inspection Musculoskeletal: Yes: Gait Steady Extremities: Yes: Normal Inspection, Non-Tender Neurological: Yes: Fully Oriented, Alert, Normal Mood/Affect, Normal Response Integumentary: Yes: Normal Color, Dry, Warm - Diagnostic (1) Alcohol dependence with uncomplicated withdrawal Current Visit: Yes Status: Acute (2) Asthma Current Visit: No Status: Chronic (3) Bipolar disorder Current Visit: No Status: Chronic Qualifiers: Active/Remission status: remission status unspecified Qualified Code(s): F31.9 - Bipolar disorder, unspecified Comment: By history. On medications. Claims OPD care at [facility]. (4) Cocaine abuse Current Visit: No Status: Chronic Cleared for Admission S - Detox or Rehab [facility] Level of Care: Medically Managed Detox Regimen/Protocol: Librium Breathalyzer - Breathalyzer Breathalyzer: 0 Urine Drug Screen - Test Device Lot number: [id number] Expiration date: 01/17/22 - Control Is test valid?: Yes - Results Drug screen NEGATIVE: No Urine drug screen results: DENYS-Cocaine, BZO-Benzodiazepines Inpatient Rehab Admission - Rehab Decision to Admit Inpatient rehab admission?: No
[2020-01-17] MEDS ORDERED: BISMUTH SUBSALICYLATE 262 MG/15 ML BTL PO PRN (09:19)
[2020-01-17] MEDS ORDERED: NICOTINE POLACRILEX 2 MG GUM BUC PRN (09:19)
[2020-01-17] MEDS ORDERED: MAGNESIUM HYDROX 2400MG/30ML ORAL SUSPENSION 30 ML CUP PO PRN (09:19)
[2020-01-17] MEDS ORDERED: ACETAMINOPHEN 325 MG TABLET (FP) PO PRN ×2 (09:19)
[2020-01-17] MEDS ORDERED: MAGNESIUM CITRATE 300 ML BOTTLE PO PRN (09:19)
[2020-01-17] MEDS ORDERED: METHOCARBAMOL 500 MG TABLET PO PRN (09:19)
[2020-01-17] MEDS ORDERED: MAG HYDROX/AL HYDROX/SIMETH 30 ML UNIT-DOSE CUP PO PRN (09:19)
[2020-01-17] MEDS ORDERED: MENTHOL/PHENOL 1 EACH UD MM PRN (09:19)
[2020-01-17] MEDS ORDERED: chlordiazePOXIDE HCL 25 MG CAPSULE PO PRN (09:19)
[2020-01-17] MEDS ORDERED: ONDANSETRON *ODT* 4 MG TABLET SL PRN (09:19)
[2020-01-17] MEDS ORDERED: IBUPROFEN 400 MG TABLET (FP) PO PRN (09:19)
[2020-01-17 09:26] VITALS: BMI 31.2
[2020-01-17] MEDS ORDERED: ALBUTEROL SO4 HFA INHALER IH PRN (09:32)
[2020-01-17] MEDS: NICOTINE 7 MG/24 HOURS TOPICAL PATCH TD SCH (10:39)
[2020-01-17] MEDS: PRENATAL VITAMINS W/ FOLIC ACID TABLET (FP) PO SCH (10:39)
[2020-01-17] MEDS: chlordiazePOXIDE HCL 25 MG CAPSULE PO SCH ×3 (10:39→22:13)
[2020-01-17] MEDS: BUDESONIDE/FORMETEROL FUMARATE 80/4.5 mcg INHALER IH SCH ×2 (10:39→22:12)
[2020-01-17] MEDS: hydrOXYzine PAMOATE 25 MG CAPSULE (FP) PO SCH ×4 (10:40→22:17)
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
[2020-01-17 16:16] LABS: HEMATOCRIT 44.4 % (35.4-49); HEMOGLOBIN 14.1 GM/dL (11.7-16.9); MCH 24.7 pg (25.7-33.7); MCHC 31.7 g/dl (32.0-35.9); MEAN PLT VOLUME 7.6 fl (7.5-11.1); PLATELET COUNT 240 K/MM3 (134-434); RBC 5.69 M/mm3 (4.00-5.60); RDW 17.1 % (11.9-15.9); WHITE BLOOD COUNT 5.3 K/mm3 (4.0-10.0)
[2020-01-17 16:24] LABS: ALBUMIN 4.1 g/dl (3.4-5.0); BILIRUBIN,TOTAL 0.7 mg/dL (0.2-1); BLOOD UREA NITROGEN 10.8 mg/dL (7-18); CALCIUM 9.2 mg/dL (8.5-10.1); TOT PROT 8.5 g/dl (6.4-8.2)
[2020-01-17] MEDS: MELATONIN 5 MG TABLETS PO SCH (22:13)
[2020-01-17] MEDS: THIAMINE HCL 100 MG TABLET (FP) PO SCH (22:13)
[2020-01-17] MEDS: QUEtiapine FUMARATE 400 MG TABLET PO SCH (22:13)
[2020-01-18] MEDS: chlordiazePOXIDE HCL 25 MG CAPSULE PO SCH ×4 (05:38→22:00)
[2020-01-18] MEDS: hydrOXYzine PAMOATE 25 MG CAPSULE (FP) PO SCH ×2 (05:38→10:28)
[2020-01-18] MEDS: NICOTINE 7 MG/24 HOURS TOPICAL PATCH TD SCH (10:26)
[2020-01-18] MEDS: BUDESONIDE/FORMETEROL FUMARATE 80/4.5 mcg INHALER IH SCH ×2 (10:26→22:00)
[2020-01-18] MEDS: SERTRALINE HCL 50 MG TABLET (FP) PO SCH (10:26)
[2020-01-18] MEDS: PRENATAL VITAMINS W/ FOLIC ACID TABLET (FP) PO SCH (10:26)
[2020-01-18] MEDS ORDERED: hydrOXYzine PAMOATE 25 MG CAPSULE (FP) PO PRN (10:57)
--- NOTE | 2020-01-18 11:03 | PN ---
S CIWA - CIWA Score Nausea/Vomitin-No Nausea/No Vomiting Muscle Tremors: 2 Anxiety: 2 Agitation: 2 Paroxysmal Sweats: 2 Orientation: 0-Oriented Tacttile Disturbances: 0-None Auditory Disturbances: 0-None Visual Disturbances: 0-None Headache: 0-None Present CIWA-Ar Total Score: 8 BHS COWS - Scale Resting Pulse: 1= [place] 81-100 Sweatin= Chills/Flushing Restless Observation: 1= Difficult to Sit Still Pupil Size: 0= Normal to Room Light Bone or Joint Aches: 1= Mild Discomfort Runny Nose/ Eye Tearin= None GI Upset > 30mins: 0= None Tremor Observation of Outstretched Hands: 1= Tremor [place], Not Seen Yawning Observation: 1= 1-2x During Session Anxiety or Irritability: 1=Feels Anxious/Irritable Goose Flesh Skin: 0=Smooth Skin COWS Score: 7 S Progress Note (SOAP) Subjective: sweats shakes interrupted sleep tired Objective: 01/18/20 11:02 Vital Signs Temperature 97.9 F 01/18/20 08:45 Pulse Rate 97 H 01/18/20 08:45 Respiratory Rate 18 01/18/20 08:45 Blood Pressure 106/78 01/18/20 08:45 O2 Sat by Pulse Oximetry (%) 100 01/18/20 08:45 Laboratory Tests 01/17/20 01/17/20 01/17/20 10:30 10:30 10:30 WBC 5.3 RBC 5.69 H Hgb 14.1 Hct 44.4 MCV 78.0 L MCH 24.7 L MCHC 31.7 L RDW 17.1 H Plt Count 240 MPV 7.6 Sodium 141 Potassium 4.0 Chloride 109 H Carbon Dioxide 21 Anion Gap 11 BUN 10.8 Creatinine 1.0 Est GFR (CKD-EPI)AfAm 90.50 Est GFR (CKD-EPI)NonAf 78.08 Random Glucose 96 Calcium 9.2 Total Bilirubin 0.7 AST 39 H ALT 35 Alkaline Phosphatase 97 Total Protein 8.5 H Albumin 4.1 Syphilis Serology Non-reactive COVID-19 ([facility]AD[facility]) HIV Ag/Ab Combo Qual 01/17/20 01/17/20 10:30 11:40 WBC RBC Hgb Hct MCV MCH MCHC RDW Plt Count MPV Sodium Potassium Chloride Carbon Dioxide Anion Gap BUN Creatinine Est GFR (CKD-EPI)AfAm Est GFR (CKD-EPI)NonAf Random Glucose Calcium Total Bilirubin AST ALT Alkaline Phosphatase Total Protein Albumin Syphilis Serology COVID-19 (HAYDEE) Not detected HIV Ag/Ab Combo Qual Negative labs noted aaox3 ambulating no acute distress Assessment: 01/18/20 11:02 withdrawals Plan: continue detox increase fluids
[2020-01-18] MEDS: MELATONIN 5 MG TABLETS PO SCH (21:59)
[2020-01-18] MEDS: QUEtiapine FUMARATE 400 MG TABLET PO SCH (21:59)
[2020-01-18] MEDS: THIAMINE HCL 100 MG TABLET (FP) PO SCH (22:00)
[2020-01-19] MEDS: chlordiazePOXIDE HCL 25 MG CAPSULE PO SCH ×4 (05:42→22:15)
[2020-01-19] MEDS: NICOTINE 7 MG/24 HOURS TOPICAL PATCH TD SCH (10:43)
[2020-01-19] MEDS: PRENATAL VITAMINS W/ FOLIC ACID TABLET (FP) PO SCH (10:43)
[2020-01-19] MEDS: SERTRALINE HCL 50 MG TABLET (FP) PO SCH (10:44)
[2020-01-19] MEDS: BUDESONIDE/FORMETEROL FUMARATE 80/4.5 mcg INHALER IH SCH ×2 (10:44→22:15)
--- NOTE | 2020-01-19 11:07 | PN ---
S CIWA - CIWA Score Nausea/Vomitin-No Nausea/No Vomiting Muscle Tremors: 2 Anxiety: 1-Mildly Anxious Agitation: 2 Paroxysmal Sweats: 2 Orientation: 0-Oriented Tacttile Disturbances: 0-None Auditory Disturbances: 0-None Visual Disturbances: 0-None Headache: 0-None Present CIWA-Ar Total Score: 7 BHS COWS - Scale Resting Pulse: 1= [place] 81-100 Sweatin= No chills or Flushing Restless Observation: 1= Difficult to Sit Still Pupil Size: 0= Normal to Room Light Bone or Joint Aches: 1= Mild Discomfort Runny Nose/ Eye Tearin= None GI Upset > 30mins: 0= None Tremor Observation of Outstretched Hands: 1= Tremor [place], Not Seen Yawning Observation: 1= 1-2x During Session Anxiety or Irritability: 1=Feels Anxious/Irritable Goose Flesh Skin: 0=Smooth Skin COWS Score: 6 S Progress Note (SOAP) Subjective: sweats shakes interrupted sleep Objective: 01/19/20 11:06 Vital Signs Temperature 97.7 F 01/19/20 05:40 Pulse Rate 89 01/19/20 05:40 Respiratory Rate 20 01/19/20 05:40 Blood Pressure 115/77 01/19/20 05:40 O2 Sat by Pulse Oximetry (%) 95 01/19/20 05:40 Laboratory Tests 01/17/20 01/17/20 01/17/20 10:30 10:30 10:30 WBC 5.3 RBC 5.69 H Hgb 14.1 Hct 44.4 MCV 78.0 L MCH 24.7 L MCHC 31.7 L RDW 17.1 H Plt Count 240 MPV 7.6 Sodium 141 Potassium 4.0 Chloride 109 H Carbon Dioxide 21 Anion Gap 11 BUN 10.8 Creatinine 1.0 Est GFR (CKD-EPI)AfAm 90.50 Est GFR (CKD-EPI)NonAf 78.08 Random Glucose 96 Calcium 9.2 Total Bilirubin 0.7 AST 39 H ALT 35 Alkaline Phosphatase 97 Total Protein 8.5 H Albumin 4.1 Syphilis Serology Non-reactive COVID-19 (HAYDEE) HIV Ag/Ab Combo Qual 01/17/20 01/17/20 10:30 11:40 WBC RBC Hgb Hct MCV MCH MCHC RDW Plt Count MPV Sodium Potassium Chloride Carbon Dioxide Anion Gap BUN Creatinine Est GFR (CKD-EPI)AfAm Est GFR (CKD-EPI)NonAf Random Glucose Calcium Total Bilirubin AST ALT Alkaline Phosphatase Total Protein Albumin Syphilis Serology COVID-19 (HAYDEE) Not detected HIV Ag/Ab Combo Qual Negative aaox3 ambulating no acute distress Assessment: 01/19/20 11:07 withdrawal sx Plan: continue detox increase fluids
[2020-01-19] MEDS: MELATONIN 5 MG TABLETS PO SCH (22:15)
[2020-01-19] MEDS: THIAMINE HCL 100 MG TABLET (FP) PO SCH (22:15)
[2020-01-19] MEDS: QUEtiapine FUMARATE 400 MG TABLET PO SCH (22:15)
[2020-01-20] MEDS ORDERED: chlordiazePOXIDE HCL 10 MG CAPSULE PO PRN
[2020-01-20] MEDS: chlordiazePOXIDE HCL 10 MG CAPSULE PO SCH ×3 (05:53→18:30)
[2020-01-20] MEDS: BUDESONIDE/FORMETEROL FUMARATE 80/4.5 mcg INHALER IH SCH ×2 (10:55→22:25)
[2020-01-20] MEDS: PRENATAL VITAMINS W/ FOLIC ACID TABLET (FP) PO SCH (10:55)
[2020-01-20] MEDS: NICOTINE 7 MG/24 HOURS TOPICAL PATCH TD SCH (10:55)
[2020-01-20] MEDS: SERTRALINE HCL 50 MG TABLET (FP) PO SCH (10:55)
--- NOTE | 2020-01-20 11:22 | PN ---
S CIWA - CIWA Score Nausea/Vomitin-No Nausea/No Vomiting Muscle Tremors: 2 Anxiety: 1-Mildly Anxious Agitation: 1-Slight > Activity Paroxysmal Sweats: No Perspiration Orientation: 0-Oriented Tacttile Disturbances: 0-None Auditory Disturbances: 0-None Visual Disturbances: 0-None Headache: 0-None Present CIWA-Ar Total Score: 4 BHS Progress Note (SOAP) Subjective: feeling better little sweats I am ready for rehab Objective: 01/20/20 11:20 Vital Signs Temperature 97.3 F L 01/20/20 05:39 Pulse Rate 79 01/20/20 05:39 Respiratory Rate 16 01/20/20 05:39 Blood Pressure 132/84 01/20/20 05:39 O2 Sat by Pulse Oximetry (%) 96 01/20/20 05:39 aaox3 ambulating no acute distress Assessment: 01/20/20 11:25 mild withdrawals Plan: complete detox d/c in am
[2020-01-20] MEDS: THIAMINE HCL 100 MG TABLET (FP) PO SCH (22:24)
[2020-01-20] MEDS: MELATONIN 5 MG TABLETS PO SCH (22:24)
[2020-01-20] MEDS: QUEtiapine FUMARATE 400 MG TABLET PO SCH (22:25)
[2020-01-21] MEDS ORDERED: chlordiazePOXIDE HCL 10 MG CAPSULE PO SCH (05:00)
[2020-01-21] MEDS ORDERED: chlordiazePOXIDE HCL 10 MG CAPSULE PO ONE (05:00)
--- NOTE | 2020-01-21 08:35 | DS ---
[facility] Detox Discharge Summary Admission Date: 01/17/20 Discharge Date: 01/21/20 - History Present History: Alcohol Dependence, Cocaine Dependence - Physical Exam Results Vital Signs: Vital Signs Temperature 97.3 F L 01/21/20 05:27 Pulse Rate 82 01/21/20 05:27 Respiratory Rate 20 01/21/20 05:27 Blood Pressure 116/77 01/21/20 05:27 O2 Sat by Pulse Oximetry (%) 95 01/21/20 05:27 Pertinent Admission Physical Exam Findings: Vital Signs Temperature 97.3 F L 01/21/20 05:27 Pulse Rate 82 01/21/20 05:27 Respiratory Rate 20 01/21/20 05:27 Blood Pressure 116/77 01/21/20 05:27 O2 Sat by Pulse Oximetry (%) 95 01/21/20 05:27 Laboratory Tests 01/17/20 01/17/20 01/17/20 10:30 10:30 10:30 WBC 5.3 RBC 5.69 H Hgb 14.1 Hct 44.4 MCV 78.0 L MCH 24.7 L MCHC 31.7 L RDW 17.1 H Plt Count 240 MPV 7.6 Sodium 141 Potassium 4.0 Chloride 109 H Carbon Dioxide 21 Anion Gap 11 BUN 10.8 Creatinine 1.0 Est GFR (CKD-EPI)AfAm 90.50 Est GFR (CKD-EPI)NonAf 78.08 Random Glucose 96 Calcium 9.2 Total Bilirubin 0.7 AST 39 H ALT 35 Alkaline Phosphatase 97 Total Protein 8.5 H Albumin 4.1 Syphilis Serology Non-reactive COVID-19 ([facility]) HIV Ag/Ab Combo Qual 01/17/20 01/17/20 10:30 11:40 WBC RBC Hgb Hct MCV MCH MCHC RDW Plt Count MPV Sodium Potassium Chloride Carbon Dioxide Anion Gap BUN Creatinine Est GFR (CKD-EPI)AfAm Est GFR (CKD-EPI)NonAf Random Glucose Calcium Total Bilirubin AST ALT Alkaline Phosphatase Total Protein Albumin Syphilis Serology COVID-19 ([facility]) Not detected HIV Ag/Ab Combo Qual Negative labs noted aaox3 ambulating no acute distress lungs CTA - Treatment Hospital Course: Detox Protocol Followed, Detoxed Safely, Responded well, Discharged Condition Good, Rehab Referral Accepted - Medication Discharge Medications: Ambulatory Orders Budesonide/Formeterol Fumarate [SYMBICORT 80/4.5mcg -] 2 inh PO BID #1 inhaler 05/06/19 Quetiapine Fumarate [Seroquel -] 400 mg PO HS #30 tablet 11/16/19 Sertraline HCl [Zoloft -] 150 mg PO DAILY #90 tablet 11/16/19 hydrOXYzine PAMOATE [Vistaril -] 50 mg PO HS #30 cap 11/16/19 Albuterol Sulfate Inhaler - [Ventolin HFA Inhaler -] 2 inh PO PRN PRN 01/17/20 - Diagnosis (1) Alcohol dependence with uncomplicated withdrawal Current Visit: Yes Status: Chronic (2) Alcohol-induced sleep disorder Current Visit: No Status: Acute (3) Cocaine abuse Current Visit: Yes Status: Chronic (4) Substance-induced sleep disorder Current Visit: No Status: Acute (5) Asthma Current Visit: Yes Status: Chronic (6) BPH (benign prostatic hyperplasia) Current Visit: Yes Status: Chronic (7) Bipolar disorder Current Visit: No Status: Chronic Qualifiers: Active/Remission status: remission status unspecified Qualified Code(s): F31.9 - Bipolar disorder, unspecified (8) COPD (chronic obstructive pulmonary disease) Current Visit: No Status: Chronic Qualifiers: COPD type: emphysema Emphysema type: unspecified Qualified Code(s): J43.9 - Emphysema, unspecified (9) Hepatitis C Current Visit: No Status: Chronic Qualifiers: Viral hepatitis chronicity: chronic Hepatic coma status: without hepatic coma Qualified Code(s): B18.2 - Chronic viral hepatitis C (10) History of depression Current Visit: No Status: Chronic (11) Insomnia Current Visit: No Status: Chronic Qualifiers: Insomnia type: unspecified Qualified Code(s): G47.00 - Insomnia, unspecified (12) Nicotine dependence Current Visit: Yes Status: Chronic Qualifiers: Nicotine product type: cigarettes Substance use status: uncomplicated Qualified Code(s): F17.210 - Nicotine dependence, cigarettes, uncomplicated (13) Substance induced mood disorder Current Visit: No Status: Chronic (14) Alcohol related seizure Current Visit: No Status: Suspected (15) Alcohol-induced anxiety disorder Current Visit: No Status: Suspected (16) History of positive PPD Current Visit: No Status: Resolved - AMA Did Patient Leave Against Medical Advice: No
[2020-01-21] MEDS: SERTRALINE HCL 50 MG TABLET (FP) PO SCH (10:36)
[2020-01-21] MEDS: PRENATAL VITAMINS W/ FOLIC ACID TABLET (FP) PO SCH (10:36)
[2020-01-21] MEDS: NICOTINE 7 MG/24 HOURS TOPICAL PATCH TD SCH (10:36)
[2020-01-21] MEDS: BUDESONIDE/FORMETEROL FUMARATE 80/4.5 mcg INHALER IH SCH ×2 (10:40→21:10)
[2020-01-21] MEDS: QUEtiapine FUMARATE 400 MG TABLET PO SCH (21:09)
[2020-01-21] MEDS: THIAMINE HCL 100 MG TABLET (FP) PO SCH (21:09)
[2020-01-21] MEDS: MELATONIN 5 MG TABLETS PO SCH (21:09)
[2020-01-22] MEDS ORDERED: chlordiazePOXIDE HCL 10 MG CAPSULE PO ONE (05:00)
[2020-01-22] MEDS: BUDESONIDE/FORMETEROL FUMARATE 80/4.5 mcg INHALER IH SCH ×2 (10:11→21:42)
[2020-01-22] MEDS: PRENATAL VITAMINS W/ FOLIC ACID TABLET (FP) PO SCH (10:12)
[2020-01-22] MEDS: NICOTINE 7 MG/24 HOURS TOPICAL PATCH TD SCH (10:12)
[2020-01-22] MEDS: SERTRALINE HCL 50 MG TABLET (FP) PO SCH (10:12)
[2020-01-22] MEDS: QUEtiapine FUMARATE 400 MG TABLET PO SCH (21:41)
[2020-01-22] MEDS: MELATONIN 5 MG TABLETS PO SCH (21:41)
[2020-01-22] MEDS: THIAMINE HCL 100 MG TABLET (FP) PO SCH (21:41)
[2020-01-23] MEDS: NICOTINE 7 MG/24 HOURS TOPICAL PATCH TD SCH (09:27)
[2020-01-23] MEDS: BUDESONIDE/FORMETEROL FUMARATE 80/4.5 mcg INHALER IH SCH ×2 (09:27→21:12)
[2020-01-23] MEDS: PRENATAL VITAMINS W/ FOLIC ACID TABLET (FP) PO SCH (09:27)
[2020-01-23] MEDS: SERTRALINE HCL 50 MG TABLET (FP) PO SCH (09:27)
[2020-01-23] MEDS: QUEtiapine FUMARATE 400 MG TABLET PO SCH (21:11)
[2020-01-23] MEDS: THIAMINE HCL 100 MG TABLET (FP) PO SCH (21:11)
[2020-01-23] MEDS: MELATONIN 5 MG TABLETS PO SCH (21:11)
[2020-01-24] MEDS ORDERED: PT OWN MED DRAWER 7, Y5N ONE (09:18)
[2020-01-24] MEDS: NICOTINE 7 MG/24 HOURS TOPICAL PATCH TD SCH (10:04)
[2020-01-24] MEDS: SERTRALINE HCL 50 MG TABLET (FP) PO SCH (10:04)
[2020-01-24] MEDS: PRENATAL VITAMINS W/ FOLIC ACID TABLET (FP) PO SCH (10:04)
[2020-01-24] MEDS: BUDESONIDE/FORMETEROL FUMARATE 80/4.5 mcg INHALER IH SCH ×2 (10:06→21:08)
[2020-01-24] MEDS: THIAMINE HCL 100 MG TABLET (FP) PO SCH (21:08)
[2020-01-24] MEDS: QUEtiapine FUMARATE 400 MG TABLET PO SCH (21:08)
[2020-01-24] MEDS: MELATONIN 5 MG TABLETS PO SCH (21:08)
[2020-01-25] MEDS: SERTRALINE HCL 50 MG TABLET (FP) PO SCH (10:26)
[2020-01-25] MEDS: NICOTINE 7 MG/24 HOURS TOPICAL PATCH TD SCH (10:26)
[2020-01-25] MEDS: PRENATAL VITAMINS W/ FOLIC ACID TABLET (FP) PO SCH (10:26)
[2020-01-25] MEDS: BUDESONIDE/FORMETEROL FUMARATE 80/4.5 mcg INHALER IH SCH ×2 (10:26→21:10)
[2020-01-25] MEDS: MELATONIN 5 MG TABLETS PO SCH (21:10)
[2020-01-25] MEDS: QUEtiapine FUMARATE 400 MG TABLET PO SCH (21:10)
[2020-01-25] MEDS: THIAMINE HCL 100 MG TABLET (FP) PO SCH (21:10)
[2020-01-26] MEDS: NICOTINE 7 MG/24 HOURS TOPICAL PATCH TD SCH (09:52)
[2020-01-26] MEDS: PRENATAL VITAMINS W/ FOLIC ACID TABLET (FP) PO SCH (09:52)
[2020-01-26] MEDS: SERTRALINE HCL 50 MG TABLET (FP) PO SCH (09:52)
[2020-01-26] MEDS: BUDESONIDE/FORMETEROL FUMARATE 80/4.5 mcg INHALER IH SCH ×2 (09:53→21:35)
[2020-01-26] MEDS: QUEtiapine FUMARATE 400 MG TABLET PO SCH (21:34)
[2020-01-26] MEDS: THIAMINE HCL 100 MG TABLET (FP) PO SCH (21:34)
[2020-01-26] MEDS: MELATONIN 5 MG TABLETS PO SCH (21:35)
[2020-01-27] MEDS: NICOTINE 7 MG/24 HOURS TOPICAL PATCH TD SCH (10:21)
[2020-01-27] MEDS: BUDESONIDE/FORMETEROL FUMARATE 80/4.5 mcg INHALER IH SCH ×2 (10:21→21:20)
[2020-01-27] MEDS: PRENATAL VITAMINS W/ FOLIC ACID TABLET (FP) PO SCH (10:21)
[2020-01-27] MEDS: SERTRALINE HCL 50 MG TABLET (FP) PO SCH (10:22)
[2020-01-27] MEDS: THIAMINE HCL 100 MG TABLET (FP) PO SCH (21:20)
[2020-01-27] MEDS: QUEtiapine FUMARATE 400 MG TABLET PO SCH (21:20)
[2020-01-27] MEDS: MELATONIN 5 MG TABLETS PO SCH (21:20)
[2020-01-28] MEDS: PRENATAL VITAMINS W/ FOLIC ACID TABLET (FP) PO SCH (09:49)
[2020-01-28] MEDS: NICOTINE 7 MG/24 HOURS TOPICAL PATCH TD SCH (09:49)
[2020-01-28] MEDS: SERTRALINE HCL 50 MG TABLET (FP) PO SCH (09:49)
[2020-01-28] MEDS: BUDESONIDE/FORMETEROL FUMARATE 80/4.5 mcg INHALER IH SCH ×2 (09:51→22:15)
[2020-01-28] MEDS ORDERED: PT OWN MED DRAWER 7, Y5N ONE (10:58)
[2020-01-28] MEDS: hydrOXYzine PAMOATE 25 MG CAPSULE (FP) PO PRN (12:32)
[2020-01-28] MEDS: QUEtiapine FUMARATE 400 MG TABLET PO SCH (22:14)
[2020-01-28] MEDS: MELATONIN 5 MG TABLETS PO SCH (22:14)
[2020-01-28] MEDS: THIAMINE HCL 100 MG TABLET (FP) PO SCH (22:14)
[2020-01-29] MEDS: NICOTINE 7 MG/24 HOURS TOPICAL PATCH TD SCH (09:33)
[2020-01-29] MEDS: PRENATAL VITAMINS W/ FOLIC ACID TABLET (FP) PO SCH (09:33)
[2020-01-29] MEDS: SERTRALINE HCL 50 MG TABLET (FP) PO SCH (09:33)
[2020-01-29] MEDS: hydrOXYzine PAMOATE 25 MG CAPSULE (FP) PO PRN (09:33)
[2020-01-29] MEDS: BUDESONIDE/FORMETEROL FUMARATE 80/4.5 mcg INHALER IH SCH ×2 (09:34→21:19)
[2020-01-29] MEDS: MELATONIN 5 MG TABLETS PO SCH (21:19)
[2020-01-29] MEDS: THIAMINE HCL 100 MG TABLET (FP) PO SCH (21:19)
[2020-01-29] MEDS: QUEtiapine FUMARATE 400 MG TABLET PO SCH (21:19)
[2020-01-30] MEDS: SERTRALINE HCL 50 MG TABLET (FP) PO SCH (10:24)
[2020-01-30] MEDS: hydrOXYzine PAMOATE 25 MG CAPSULE (FP) PO PRN (10:24)
[2020-01-30] MEDS: PRENATAL VITAMINS W/ FOLIC ACID TABLET (FP) PO SCH (10:24)
[2020-01-30] MEDS: BUDESONIDE/FORMETEROL FUMARATE 80/4.5 mcg INHALER IH SCH (10:25)
[2020-01-30] MEDS: NICOTINE 7 MG/24 HOURS TOPICAL PATCH TD SCH (10:50)
[2020-01-30] MEDS: MELATONIN 5 MG TABLETS PO SCH (21:59)
[2020-01-30] MEDS: THIAMINE HCL 100 MG TABLET (FP) PO SCH (21:59)
[2020-01-30] MEDS: QUEtiapine FUMARATE 400 MG TABLET PO SCH (22:00)
[2020-01-31] MEDS: BUDESONIDE/FORMETEROL FUMARATE 80/4.5 mcg INHALER IH SCH ×3 (00:04→21:16)
[2020-01-31] MEDS: PRENATAL VITAMINS W/ FOLIC ACID TABLET (FP) PO SCH (09:55)
[2020-01-31] MEDS: SERTRALINE HCL 50 MG TABLET (FP) PO SCH (09:55)
[2020-01-31] MEDS: hydrOXYzine PAMOATE 25 MG CAPSULE (FP) PO PRN ×2 (09:55→21:15)
[2020-01-31] MEDS: NICOTINE 7 MG/24 HOURS TOPICAL PATCH TD SCH (09:56)
[2020-01-31] MEDS: THIAMINE HCL 100 MG TABLET (FP) PO SCH (21:15)
[2020-01-31] MEDS: QUEtiapine FUMARATE 400 MG TABLET PO SCH (21:15)
[2020-01-31] MEDS: MELATONIN 5 MG TABLETS PO SCH (21:16)
[2020-02-01] MEDS: BUDESONIDE/FORMETEROL FUMARATE 80/4.5 mcg INHALER IH SCH ×2 (09:40→22:09)
[2020-02-01] MEDS: PRENATAL VITAMINS W/ FOLIC ACID TABLET (FP) PO SCH (09:40)
[2020-02-01] MEDS: NICOTINE 7 MG/24 HOURS TOPICAL PATCH TD SCH (09:40)
[2020-02-01] MEDS: hydrOXYzine PAMOATE 25 MG CAPSULE (FP) PO PRN (09:40)
[2020-02-01] MEDS: SERTRALINE HCL 50 MG TABLET (FP) PO SCH (09:40)
[2020-02-01] MEDS: QUEtiapine FUMARATE 400 MG TABLET PO SCH (22:09)
[2020-02-01] MEDS: THIAMINE HCL 100 MG TABLET (FP) PO SCH (22:09)
[2020-02-01] MEDS: MELATONIN 5 MG TABLETS PO SCH (22:09)
[2020-02-02] MEDS: hydrOXYzine PAMOATE 25 MG CAPSULE (FP) PO PRN (09:50)
[2020-02-02] MEDS: SERTRALINE HCL 50 MG TABLET (FP) PO SCH (09:50)
[2020-02-02] MEDS: PRENATAL VITAMINS W/ FOLIC ACID TABLET (FP) PO SCH (09:51)
[2020-02-02] MEDS: NICOTINE 7 MG/24 HOURS TOPICAL PATCH TD SCH (09:51)
[2020-02-02] MEDS: BUDESONIDE/FORMETEROL FUMARATE 80/4.5 mcg INHALER IH SCH ×2 (09:52→21:11)
[2020-02-02] MEDS: MELATONIN 5 MG TABLETS PO SCH (21:11)
[2020-02-02] MEDS: THIAMINE HCL 100 MG TABLET (FP) PO SCH (21:11)
[2020-02-02] MEDS: QUEtiapine FUMARATE 400 MG TABLET PO SCH (21:11)
[2020-02-03] MEDS: PRENATAL VITAMINS W/ FOLIC ACID TABLET (FP) PO SCH (10:35)
[2020-02-03] MEDS: SERTRALINE HCL 50 MG TABLET (FP) PO SCH (10:35)
[2020-02-03] MEDS: BUDESONIDE/FORMETEROL FUMARATE 80/4.5 mcg INHALER IH SCH ×2 (10:35→21:33)
[2020-02-03] MEDS: hydrOXYzine PAMOATE 25 MG CAPSULE (FP) PO PRN (10:35)
[2020-02-03] MEDS: NICOTINE 7 MG/24 HOURS TOPICAL PATCH TD SCH (10:35)
[2020-02-03] MEDS ORDERED: PT OWN MED DRAWER 7, Y5N ONE (18:41)
[2020-02-03] MEDS: MELATONIN 5 MG TABLETS PO SCH (21:33)
[2020-02-03] MEDS: THIAMINE HCL 100 MG TABLET (FP) PO SCH (21:33)
[2020-02-03] MEDS: QUEtiapine FUMARATE 400 MG TABLET PO SCH (21:33)
[2020-02-04] MEDS: hydrOXYzine PAMOATE 25 MG CAPSULE (FP) PO PRN (09:28)
[2020-02-04] MEDS: SERTRALINE HCL 50 MG TABLET (FP) PO SCH (09:28)
[2020-02-04] MEDS: PRENATAL VITAMINS W/ FOLIC ACID TABLET (FP) PO SCH (09:28)
[2020-02-04] MEDS: BUDESONIDE/FORMETEROL FUMARATE 80/4.5 mcg INHALER IH SCH ×2 (09:29→21:09)
[2020-02-04] MEDS: NICOTINE 7 MG/24 HOURS TOPICAL PATCH TD SCH (09:29)
[2020-02-04] MEDS: MELATONIN 5 MG TABLETS PO SCH (21:09)
[2020-02-04] MEDS: THIAMINE HCL 100 MG TABLET (FP) PO SCH (21:09)
[2020-02-04] MEDS: QUEtiapine FUMARATE 400 MG TABLET PO SCH (21:09)
[2020-02-05] MEDS: NICOTINE 7 MG/24 HOURS TOPICAL PATCH TD SCH (09:45)
[2020-02-05] MEDS: PRENATAL VITAMINS W/ FOLIC ACID TABLET (FP) PO SCH (09:46)
[2020-02-05] MEDS: BUDESONIDE/FORMETEROL FUMARATE 80/4.5 mcg INHALER IH SCH ×2 (09:46→21:04)
[2020-02-05] MEDS: SERTRALINE HCL 50 MG TABLET (FP) PO SCH (09:46)
[2020-02-05] MEDS: hydrOXYzine PAMOATE 25 MG CAPSULE (FP) PO PRN (09:47)
[2020-02-05] MEDS: QUEtiapine FUMARATE 400 MG TABLET PO SCH (21:04)
[2020-02-05] MEDS: THIAMINE HCL 100 MG TABLET (FP) PO SCH (21:04)
[2020-02-05] MEDS: MELATONIN 5 MG TABLETS PO SCH (21:04)
[2020-02-06] MEDS: BUDESONIDE/FORMETEROL FUMARATE 80/4.5 mcg INHALER IH SCH ×2 (09:34→21:51)
[2020-02-06] MEDS: PRENATAL VITAMINS W/ FOLIC ACID TABLET (FP) PO SCH (09:35)
[2020-02-06] MEDS: SERTRALINE HCL 50 MG TABLET (FP) PO SCH (09:35)
[2020-02-06] MEDS: NICOTINE 7 MG/24 HOURS TOPICAL PATCH TD SCH (09:35)
[2020-02-06] MEDS: THIAMINE HCL 100 MG TABLET (FP) PO SCH (21:51)
[2020-02-06] MEDS: MELATONIN 5 MG TABLETS PO SCH (21:51)
[2020-02-06] MEDS: QUEtiapine FUMARATE 400 MG TABLET PO SCH (21:51)
[2020-02-07] MEDS: hydrOXYzine PAMOATE 25 MG CAPSULE (FP) PO PRN (10:26)
[2020-02-07] MEDS: SERTRALINE HCL 50 MG TABLET (FP) PO SCH (10:26)
[2020-02-07] MEDS: PRENATAL VITAMINS W/ FOLIC ACID TABLET (FP) PO SCH (10:27)
[2020-02-07] MEDS: BUDESONIDE/FORMETEROL FUMARATE 80/4.5 mcg INHALER IH SCH ×2 (10:28→21:06)
[2020-02-07] MEDS: NICOTINE 7 MG/24 HOURS TOPICAL PATCH TD SCH (10:28)
[2020-02-07] MEDS: MELATONIN 5 MG TABLETS PO SCH (21:06)
[2020-02-07] MEDS: THIAMINE HCL 100 MG TABLET (FP) PO SCH (21:06)
[2020-02-07] MEDS: QUEtiapine FUMARATE 400 MG TABLET PO SCH (21:06)
[2020-02-08] MEDS: SERTRALINE HCL 50 MG TABLET (FP) PO SCH (09:54)
[2020-02-08] MEDS: hydrOXYzine PAMOATE 25 MG CAPSULE (FP) PO PRN (09:54)
[2020-02-08] MEDS: PRENATAL VITAMINS W/ FOLIC ACID TABLET (FP) PO SCH (09:54)
[2020-02-08] MEDS: NICOTINE 7 MG/24 HOURS TOPICAL PATCH TD SCH (09:54)
[2020-02-08] MEDS: BUDESONIDE/FORMETEROL FUMARATE 80/4.5 mcg INHALER IH SCH ×2 (09:55→21:45)
[2020-02-08] MEDS: MELATONIN 5 MG TABLETS PO SCH (21:45)
[2020-02-08] MEDS: QUEtiapine FUMARATE 400 MG TABLET PO SCH (21:45)
[2020-02-08] MEDS: THIAMINE HCL 100 MG TABLET (FP) PO SCH (21:45)
[2020-02-09] MEDS: SERTRALINE HCL 50 MG TABLET (FP) PO SCH (09:47)
[2020-02-09] MEDS: hydrOXYzine PAMOATE 25 MG CAPSULE (FP) PO PRN (09:47)
[2020-02-09] MEDS: PRENATAL VITAMINS W/ FOLIC ACID TABLET (FP) PO SCH (09:47)
[2020-02-09] MEDS: BUDESONIDE/FORMETEROL FUMARATE 80/4.5 mcg INHALER IH SCH ×2 (09:48→21:48)
[2020-02-09] MEDS: NICOTINE 7 MG/24 HOURS TOPICAL PATCH TD SCH (09:48)
[2020-02-09] MEDS: QUEtiapine FUMARATE 400 MG TABLET PO SCH (21:48)
[2020-02-09] MEDS: MELATONIN 5 MG TABLETS PO SCH (21:48)
[2020-02-09] MEDS: THIAMINE HCL 100 MG TABLET (FP) PO SCH (21:48)
[2020-02-10] MEDS: NICOTINE 7 MG/24 HOURS TOPICAL PATCH TD SCH (09:53)
[2020-02-10] MEDS: PRENATAL VITAMINS W/ FOLIC ACID TABLET (FP) PO SCH (09:53)
[2020-02-10] MEDS: BUDESONIDE/FORMETEROL FUMARATE 80/4.5 mcg INHALER IH SCH ×2 (09:53→21:09)
[2020-02-10] MEDS: SERTRALINE HCL 50 MG TABLET (FP) PO SCH (09:53)
[2020-02-10] MEDS: hydrOXYzine PAMOATE 25 MG CAPSULE (FP) PO PRN ×2 (09:54→21:09)
[2020-02-10] MEDS: QUEtiapine FUMARATE 400 MG TABLET PO SCH (21:09)
[2020-02-10] MEDS: THIAMINE HCL 100 MG TABLET (FP) PO SCH (21:09)
[2020-02-10] MEDS: MELATONIN 5 MG TABLETS PO SCH (21:10)
[2020-02-11] MEDS: SERTRALINE HCL 50 MG TABLET (FP) PO SCH (09:32)
[2020-02-11] MEDS: PRENATAL VITAMINS W/ FOLIC ACID TABLET (FP) PO SCH (09:32)
[2020-02-11] MEDS: hydrOXYzine PAMOATE 25 MG CAPSULE (FP) PO PRN (09:33)
[2020-02-11] MEDS: BUDESONIDE/FORMETEROL FUMARATE 80/4.5 mcg INHALER IH SCH ×2 (09:34→21:11)
[2020-02-11] MEDS: NICOTINE 7 MG/24 HOURS TOPICAL PATCH TD SCH (09:34)
[2020-02-11] MEDS: MELATONIN 5 MG TABLETS PO SCH (21:11)
[2020-02-11] MEDS: THIAMINE HCL 100 MG TABLET (FP) PO SCH (21:11)
[2020-02-11] MEDS: QUEtiapine FUMARATE 400 MG TABLET PO SCH (21:11)
[2020-02-12] MEDS: PRENATAL VITAMINS W/ FOLIC ACID TABLET (FP) PO SCH (10:12)
[2020-02-12] MEDS: SERTRALINE HCL 50 MG TABLET (FP) PO SCH (10:12)
[2020-02-12] MEDS: BUDESONIDE/FORMETEROL FUMARATE 80/4.5 mcg INHALER IH SCH ×2 (10:12→21:49)
[2020-02-12] MEDS: hydrOXYzine PAMOATE 25 MG CAPSULE (FP) PO PRN (10:13)
[2020-02-12] MEDS: NICOTINE 7 MG/24 HOURS TOPICAL PATCH TD SCH (10:13)
[2020-02-12] MEDS: QUEtiapine FUMARATE 400 MG TABLET PO SCH (21:49)
[2020-02-12] MEDS: THIAMINE HCL 100 MG TABLET (FP) PO SCH (21:49)
[2020-02-12] MEDS: MELATONIN 5 MG TABLETS PO SCH (21:49)
[2020-02-13] MEDS: NICOTINE 7 MG/24 HOURS TOPICAL PATCH TD SCH (09:38)
[2020-02-13] MEDS: PRENATAL VITAMINS W/ FOLIC ACID TABLET (FP) PO SCH (09:38)
[2020-02-13] MEDS: BUDESONIDE/FORMETEROL FUMARATE 80/4.5 mcg INHALER IH SCH ×2 (09:38→21:16)
[2020-02-13] MEDS: SERTRALINE HCL 50 MG TABLET (FP) PO SCH (09:38)
[2020-02-13] MEDS: hydrOXYzine PAMOATE 25 MG CAPSULE (FP) PO PRN (09:39)
[2020-02-13] MEDS: MELATONIN 5 MG TABLETS PO SCH (21:16)
[2020-02-13] MEDS: QUEtiapine FUMARATE 400 MG TABLET PO SCH (21:16)
[2020-02-13] MEDS: THIAMINE HCL 100 MG TABLET (FP) PO SCH (21:16)
[2020-02-14] MEDS ORDERED: PT OWN MED DRAWER 7, Y5N ONE (08:56)
[2020-02-14] MEDS: hydrOXYzine PAMOATE 25 MG CAPSULE (FP) PO PRN (09:34)
[2020-02-14] MEDS: NICOTINE 7 MG/24 HOURS TOPICAL PATCH TD SCH (09:35)
[2020-02-14] MEDS: PRENATAL VITAMINS W/ FOLIC ACID TABLET (FP) PO SCH (09:35)
[2020-02-14] MEDS: BUDESONIDE/FORMETEROL FUMARATE 80/4.5 mcg INHALER IH SCH ×2 (09:35→22:08)
[2020-02-14] MEDS: SERTRALINE HCL 50 MG TABLET (FP) PO SCH (10:23)
[2020-02-14] MEDS: MELATONIN 5 MG TABLETS PO SCH (22:07)
[2020-02-14] MEDS: QUEtiapine FUMARATE 400 MG TABLET PO SCH (22:07)
[2020-02-14] MEDS: THIAMINE HCL 100 MG TABLET (FP) PO SCH (22:08)
[2020-02-15] MEDS: BUDESONIDE/FORMETEROL FUMARATE 80/4.5 mcg INHALER IH SCH ×2 (09:58→21:06)
[2020-02-15] MEDS: hydrOXYzine PAMOATE 25 MG CAPSULE (FP) PO PRN (09:58)
[2020-02-15] MEDS: NICOTINE 7 MG/24 HOURS TOPICAL PATCH TD SCH (09:58)
[2020-02-15] MEDS: SERTRALINE HCL 50 MG TABLET (FP) PO SCH (09:58)
[2020-02-15] MEDS: PRENATAL VITAMINS W/ FOLIC ACID TABLET (FP) PO SCH (09:58)
[2020-02-15] MEDS: MELATONIN 5 MG TABLETS PO SCH (21:06)
[2020-02-15] MEDS: QUEtiapine FUMARATE 400 MG TABLET PO SCH (21:06)
[2020-02-15] MEDS: THIAMINE HCL 100 MG TABLET (FP) PO SCH (21:06)
[2020-02-16] MEDS: SERTRALINE HCL 50 MG TABLET (FP) PO SCH (09:41)
[2020-02-16] MEDS: hydrOXYzine PAMOATE 25 MG CAPSULE (FP) PO PRN (09:41)
[2020-02-16] MEDS: PRENATAL VITAMINS W/ FOLIC ACID TABLET (FP) PO SCH (09:42)
[2020-02-16] MEDS: NICOTINE 7 MG/24 HOURS TOPICAL PATCH TD SCH (09:42)
[2020-02-16] MEDS: BUDESONIDE/FORMETEROL FUMARATE 80/4.5 mcg INHALER IH SCH ×2 (09:42→21:28)
--- NOTE | 2020-02-16 10:02 | DS ---
[facility] Rehab Discharge Summary - [facility] Rehab Discharge Summary Admission Date: 01/17/20 Discharge Date: 02/16/20 - History Present History: Alcohol dependence, Cocaine dependence Pertinent Past History: Mr. Venegas is a 64 yo man who presents to [facility] with a history of alcohol use disorder. He was last here between October 14 and November 16, 2019 successfully completing detox and rehab. This is his third admission this year. PMH: Asthma/well controlled PSH: Umbilical hernia Psych: bipolar well controlled on Seroquel and Zoloft SOC: lives in the [place] with roommate - Discharge Physical Exam Vital Signs: Vital Signs Temperature 98 F 02/16/20 06:12 Pulse Rate 80 02/16/20 06:12 Respiratory Rate 18 02/16/20 06:12 Blood Pressure 123/73 02/16/20 06:12 O2 Sat by Pulse Oximetry (%) 97 02/16/20 06:12 Pertinent Admission Physical Exam Findings: Physical General Appearance: No Apparent Distress HEENTM:EOMI, Normocephalic, Respiratory: No Respiratory Distress, No Accessory Muscle Use Neck: Supple Abdominal: +Bowel Sounds, Musculoskeletal: Gait Steady Neurological: Fully Oriented, Alert, Normal Mood/Affect, cn 2-12 INTACT - Treatment Discharge Condition: Discharge condition good (medically stable for discharge.), Outpatient referral accepted (Patient was accepted at [facility] Hospital Course: Patient attended group, had 1: 1 with his provider. He was adherent to his medication regimen and treatment plan. He had no acute or urgent medical problems while in rehab. - Medication Discharge Medications: Ambulatory Orders Budesonide/Formeterol Fumarate [SYMBICORT 80/4.5mcg -] 2 inh PO BID #1 inhaler 05/06/19 Quetiapine Fumarate [Seroquel -] 400 mg PO HS #30 tablet 11/16/19 Sertraline HCl [Zoloft -] 150 mg PO DAILY #90 tablet 11/16/19 hydrOXYzine PAMOATE [Vistaril -] 50 mg PO HS #30 cap 11/16/19 Albuterol Sulfate Inhaler - [Ventolin HFA Inhaler -] 2 inh PO PRN PRN 01/17/20 - Medication-Assisted Treatment (MAT) Medication-Assisted Treatment (MAT): No - Discharge Instructions Diet, activity, other medical instructions: Diet: as tolerated Activity: as tolerated Other medical instructions: Please follow up with aftercare referral. - Diagnosis (1) Alcohol dependence with uncomplicated withdrawal Current Visit: Yes Status: Chronic (2) Cocaine abuse Current Visit: Yes Status: Chronic - Follow-up Referral Minutes to complete discharge: 15 - AMA Did Patient Leave Against Medical Advice: No
--- NOTE | 2020-02-16 13:15 | PN ---
[facility] Progress Note Note: Patient is scheduled for discharge tomorrow. Scripts for 30 days supply of medications(Zoloft 150 mg/day, Seroquel 400 mg/hs)will be electronically transmitted to [facility], [address] [place] [id number]
[2020-02-16] MEDS: MELATONIN 5 MG TABLETS PO SCH (21:28)
[2020-02-16] MEDS: QUEtiapine FUMARATE 400 MG TABLET PO SCH (21:28)
[2020-02-16] MEDS: THIAMINE HCL 100 MG TABLET (FP) PO SCH (21:28)
[2020-02-17 07:09] VITALS: BP 104/71; PULSE 104; TEMP 98.6
[2020-02-17] MEDS: SERTRALINE HCL 50 MG TABLET (FP) PO SCH (09:01)
[2020-02-17] MEDS: PRENATAL VITAMINS W/ FOLIC ACID TABLET (FP) PO SCH (09:01)
[2020-02-17] MEDS: hydrOXYzine PAMOATE 25 MG CAPSULE (FP) PO PRN (09:01)
[2020-02-17] MEDS: BUDESONIDE/FORMETEROL FUMARATE 80/4.5 mcg INHALER IH SCH (09:02)
[2020-02-17] MEDS: NICOTINE 7 MG/24 HOURS TOPICAL PATCH TD SCH (09:02)
== END 2020-02-17 09:41 | disposition home or self-care (01) | DRG 895 ==
LOC: YASAS 08:22 → Y6N 09:30 → UNDODISIN 01-21 13:08 → Y3W 01-21 13:44
PROVIDERS: ADMIT Allergy & Immunology; ATTEND Allergy & Immunology
PROC: HZ42ZZZ Group Counseling for Substance Abuse Treatment, Cognitive-Behavioral (ICD-10-PCS; principal; 2020-01-17)
DX: F10.20 Alcohol dependence, uncomplicated (principal); F14.20 Cocaine dependence, uncomplicated; F19.282 Other psychoactive substance dependence with psychoactive substance-induced sleep disorder; F17.210 Nicotine dependence, cigarettes, uncomplicated; F10.280 Alcohol dependence with alcohol-induced anxiety disorder; F10.282 Alcohol dependence with alcohol-induced sleep disorder; F19.24 Other psychoactive substance dependence with psychoactive substance-induced mood disorder; F31.9 Bipolar disorder, unspecified; J43.9 Emphysema, unspecified; J45.909 Unspecified asthma, uncomplicated; H54.61 Unqualified visual loss, right eye, normal vision left eye; G47.00 Insomnia, unspecified; K42.9 Umbilical hernia without obstruction or gangrene; N40.0 Benign prostatic hyperplasia without lower urinary tract symptoms; G40.909 Epilepsy, unspecified, not intractable, without status epilepticus; M19.90 Unspecified osteoarthritis, unspecified site; B18.2 Chronic viral hepatitis C; Z88.0 Allergy status to penicillin; Z91.011 Allergy to milk products; Z56.0 Unemployment, unspecified
CPT/HCPCS: 36415; 71046-TC-FY; 80053; 85027; 86780; 87389; U0003

== ENCOUNTER 2020-06-13 17:35 | Inpatient (IN) | payer OTHER ==
[2020-06-13 18:50] LABS: BASO % 2.1 % (0-2.0); EOS % 1.7 % (0-4.5); HEMATOCRIT 36.5 % (35.4-49); HEMOGLOBIN 11.7 GM/dl (11.7-16.9); LYMPH % 36.8 % (8-40); MCHC 32.1 g/dl (32.0-35.9); MEAN CELL VOLUME 74.8 fl (80-96); MEAN PLT VOLUME 7.1 fl (7.5-11.1); MONO % 10.3 % (3.8-10.2); NEUT % 49.1 % (42.8-82.8); PLATELET COUNT 436 K/MM3 (134-434); RBC 4.88 M/mm3 (4.00-5.60); RDW 17.5 % (11.9-15.9); WHITE BLOOD COUNT 5.9 K/mm3 (4.0-10.8)
[2020-06-13 18:54] LABS: ADD RBC MORPHOLOGY YES
[2020-06-13 18:56] LABS: ALBUMIN 3.4 g/dl (3.4-5.0); CALCIUM 8.5 mg/dl (8.5-10); CREATININE 0.7 mg/dl (0.55-1.3); POTASSIUM 4.1 mmol/L (3.5-5.1); TOT PROT 7.6 g/dl (6.4-8.2)
[2020-06-13] MEDS ORDERED: chlordiazePOXIDE HCL 25 MG CAPSULE PO ONE (18:57)
[2020-06-13] MEDS ORDERED: chlordiazePOXIDE HCL 25 MG CAPSULE ONE (18:58)
[2020-06-13 19:07] LABS: BILIRUBIN,TOTAL 0.1 mg/dl (0.2-1)
[2020-06-13 19:21] LABS: ANISOCYTOSIS 1+
[2020-06-13 19:22] LABS: OVALOCYTE 1+; TARGET CELLS 2+
[2020-06-13 19:23] LABS: PLATELET ESTIMATE ADEQUATE; TEAR DROP CELLS 1+
[2020-06-13 22:10] VITALS: BMI 26.9
[2020-06-13] MEDS ORDERED: FOLIC ACID INJECTION - 1 MG, THIAMINE HCL 100 MG, MULTIVIT INJECTION ADULT 10 ML in SOD... IVPB ONE (22:28)
[2020-06-13] MEDS: HEPARIN NA (PORCINE) 5,000 UNITS/ML 1ML VIAL SQ SCH (22:56)
[2020-06-14] MEDS: HEPARIN NA (PORCINE) 5,000 UNITS/ML 1ML VIAL SQ SCH (06:30)
[2020-06-14 08:03] LABS: ALBUMIN 2.8 g/dl (3.4-5.0); BILIRUBIN,TOTAL 0.5 mg/dl (0.2-1); CALCIUM 7.9 mg/dl (8.5-10); CREATININE 0.8 mg/dl (0.55-1.3); MAGNESIUM 1.6 mg/dL (1.8-2.4); PHOSPHOROUS 2.6 mg/dl (2.5-4.9); POTASSIUM 4.2 mmol/L (3.5-5.1); TOT PROT 6.1 g/dl (6.4-8.2)
[2020-06-14] MEDS: THIAMINE HCL 100 MG TABLET (FP) PO SCH (09:02)
[2020-06-14] MEDS: FOLIC ACID 1 MG TABLET (FP) PO SCH (09:02)
[2020-06-14] MEDS ORDERED: CYANOCOBALAMIN (VITAMIN B-12) 100 MCG TABLET PO SCH (10:00)
[2020-06-14] MEDS ORDERED: chlordiazePOXIDE HCL 25 MG CAPSULE PO PRN (11:18)
[2020-06-14] MEDS ORDERED: MAGNESIUM SULF 50% (8.12 MEQ/2 ML-1 GM VIAL) IVPB ONE (11:45)
[2020-06-14] MEDS: SERTRALINE HCL 50 MG TABLET (FP) PO SCH (11:48)
[2020-06-14 12:55] LABS: ACTIVATED PTT 31.7 SECONDS (25.2-36.5)
[2020-06-14 12:59] LABS: INR 1.38 (0.82-1.09); PROTHROMBIN TIME (PATIENT) 15.1 SEC (10.2-13.0)
[2020-06-14] MEDS: ENOXAPARIN NA (PORCINE) 40 MG/0.4 ML DISP.SYRIN SQ SCH (13:13)
[2020-06-14] MEDS: chlordiazePOXIDE HCL 25 MG CAPSULE PO SCH ×2 (16:15→23:02)
[2020-06-14 18:00] LABS: HEMATOCRIT 32.5 % (35.4-49); HEMOGLOBIN 10.1 GM/dl (11.7-16.9); MCH 23.4 pg (25.7-33.7); MEAN CELL VOLUME 75.6 fl (80-96); MEAN PLT VOLUME 7.3 fl (7.5-11.1); PLATELET COUNT 380 K/MM3 (134-434); RDW 18.1 % (11.9-15.9); WHITE BLOOD COUNT 5.6 K/mm3 (4.0-10.8)
[2020-06-14] MEDS ORDERED: LOCK ITEM NR ONE (21:44)
[2020-06-15] MEDS: chlordiazePOXIDE HCL 25 MG CAPSULE PO SCH ×4 (05:19→23:09)
[2020-06-15 08:20] LABS: ALBUMIN 2.8 g/dl (3.4-5.0); BILIRUBIN,TOTAL 0.5 mg/dl (0.2-1); CALCIUM 8.3 mg/dl (8.5-10); CREATININE 0.8 mg/dl (0.55-1.3); MAGNESIUM 1.9 mg/dL (1.8-2.4); POTASSIUM 3.9 mmol/L (3.5-5.1); TOT PROT 6.3 g/dl (6.4-8.2)
[2020-06-15 08:23] LABS: MCH 24.1 pg (25.7-33.7); WHITE BLOOD COUNT 4.9 K/mm3 (4.0-10.8)
[2020-06-15 08:26] LABS: BASO % 2.3 % (0-2.0); EOS % 3.3 % (0-4.5); HEMOGLOBIN 10.6 GM/dl (11.7-16.9); LYMPH % 25.7 % (8-40); MCHC 32.2 g/dl (32.0-35.9); MEAN CELL VOLUME 74.8 fl (80-96); MEAN PLT VOLUME 7.3 fl (7.5-11.1); MONO % 12.2 % (3.8-10.2); NEUT % 56.5 % (42.8-82.8); PLATELET COUNT 375 K/MM3 (134-434); RBC 4.41 M/mm3 (4.00-5.60); RDW 17.7 % (11.9-15.9)
[2020-06-15] MEDS ORDERED: PT OWN MED DRAWER 7, Y5N ONE (10:13)
[2020-06-15] MEDS: FOLIC ACID 1 MG TABLET (FP) PO SCH (10:16)
[2020-06-15] MEDS: TIOTROPIUM BROMIDE 2.5 MCG (SPIRIVA) RESPIMAT INHALER IH SCH (10:16)
[2020-06-15] MEDS: ENOXAPARIN NA (PORCINE) 40 MG/0.4 ML DISP.SYRIN SQ SCH (10:16)
[2020-06-15] MEDS: SERTRALINE HCL 50 MG TABLET (FP) PO SCH (10:17)
[2020-06-15] MEDS: THIAMINE HCL 100 MG TABLET (FP) PO SCH (10:17)
[2020-06-15] MEDS: ALBUTEROL SO4 0.083% IH SOL 2.5 MG/3 ML VIAL.NEB. NEB SCH ×2 (14:06→23:18)
[2020-06-16] MEDS: chlordiazePOXIDE HCL 25 MG CAPSULE PO SCH ×4 (05:13→22:52)
[2020-06-16] MEDS: ALBUTEROL SO4 0.083% IH SOL 2.5 MG/3 ML VIAL.NEB. NEB SCH ×3 (08:15→22:52)
[2020-06-16] MEDS: FOLIC ACID 1 MG TABLET (FP) PO SCH (09:45)
[2020-06-16] MEDS: ENOXAPARIN NA (PORCINE) 40 MG/0.4 ML DISP.SYRIN SQ SCH (09:45)
[2020-06-16] MEDS: SERTRALINE HCL 50 MG TABLET (FP) PO SCH (09:46)
[2020-06-16] MEDS: TIOTROPIUM BROMIDE 2.5 MCG (SPIRIVA) RESPIMAT INHALER IH SCH (09:46)
[2020-06-16] MEDS: THIAMINE HCL 100 MG TABLET (FP) PO SCH (09:46)
[2020-06-17] MEDS ORDERED: chlordiazePOXIDE HCL 10 MG CAPSULE PO PRN
[2020-06-17] MEDS: chlordiazePOXIDE HCL 10 MG CAPSULE PO SCH ×4 (04:34→22:51)
[2020-06-17] MEDS ORDERED: PT OWN MED DRAWER 7, Y5N ONE (09:19)
[2020-06-17] MEDS: SERTRALINE HCL 50 MG TABLET (FP) PO SCH (09:33)
[2020-06-17] MEDS: ENOXAPARIN NA (PORCINE) 40 MG/0.4 ML DISP.SYRIN SQ SCH (09:34)
[2020-06-17] MEDS: FOLIC ACID 1 MG TABLET (FP) PO SCH (09:34)
[2020-06-17] MEDS: THIAMINE HCL 100 MG TABLET (FP) PO SCH (09:34)
[2020-06-17] MEDS: TIOTROPIUM BROMIDE 2.5 MCG (SPIRIVA) RESPIMAT INHALER IH SCH (09:35)
[2020-06-17] MEDS: ALBUTEROL SO4 0.083% IH SOL 2.5 MG/3 ML VIAL.NEB. NEB SCH ×3 (09:35→20:42)
[2020-06-18] MEDS: chlordiazePOXIDE HCL 10 MG CAPSULE PO SCH ×2 (05:05→16:44)
[2020-06-18 08:34] LABS: BASO % 1.1 % (0-2.0); EOS % 4.3 % (0-4.5); HEMATOCRIT 35.7 % (35.4-49); HEMOGLOBIN 11.5 GM/dl (11.7-16.9); LYMPH % 30.6 % (8-40); MCH 24.5 pg (25.7-33.7); MCHC 32.2 g/dl (32.0-35.9); MEAN CELL VOLUME 76.4 fl (80-96); MEAN PLT VOLUME 7.3 fl (7.5-11.1); MONO % 8.8 % (3.8-10.2); NEUT % 55.2 % (42.8-82.8); PLATELET COUNT 366 K/MM3 (134-434); RBC 4.67 M/mm3 (4.00-5.60); RDW 18.1 % (11.9-15.9); WHITE BLOOD COUNT 6.3 K/mm3 (4.0-10.8)
[2020-06-18 08:57] LABS: BILIRUBIN,TOTAL 0.6 mg/dl (0.2-1); CALCIUM 9.2 mg/dl (8.5-10); CREATININE 0.8 mg/dl (0.55-1.3); MAGNESIUM 1.7 mg/dL (1.8-2.4); POTASSIUM 4.1 mmol/L (3.5-5.1); TOT PROT 6.8 g/dl (6.4-8.2)
[2020-06-18] MEDS: THIAMINE HCL 100 MG TABLET (FP) PO SCH (09:15)
[2020-06-18] MEDS: TIOTROPIUM BROMIDE 2.5 MCG (SPIRIVA) RESPIMAT INHALER IH SCH (09:15)
[2020-06-18] MEDS: SERTRALINE HCL 50 MG TABLET (FP) PO SCH (09:15)
[2020-06-18] MEDS: ALBUTEROL SO4 0.083% IH SOL 2.5 MG/3 ML VIAL.NEB. NEB SCH ×3 (09:16→21:37)
[2020-06-18] MEDS: ENOXAPARIN NA (PORCINE) 40 MG/0.4 ML DISP.SYRIN SQ SCH (09:16)
[2020-06-18] MEDS: FOLIC ACID 1 MG TABLET (FP) PO SCH (09:22)
[2020-06-18] MEDS: MAGNESIUM OXIDE 400 MG TABLET (FP) PO SCH ×2 (10:44→21:37)
[2020-06-19] MEDS ORDERED: chlordiazePOXIDE HCL 10 MG CAPSULE PO ONE (05:00)
[2020-06-19 06:37] VITALS: BP 112/69; PULSE 76; TEMP 98.5
[2020-06-19] MEDS: ALBUTEROL SO4 0.083% IH SOL 2.5 MG/3 ML VIAL.NEB. NEB SCH (08:19)
[2020-06-19] MEDS: ENOXAPARIN NA (PORCINE) 40 MG/0.4 ML DISP.SYRIN SQ SCH (09:18)
[2020-06-19] MEDS: FOLIC ACID 1 MG TABLET (FP) PO SCH (09:18)
[2020-06-19] MEDS: MAGNESIUM OXIDE 400 MG TABLET (FP) PO SCH (09:18)
[2020-06-19] MEDS: THIAMINE HCL 100 MG TABLET (FP) PO SCH (09:19)
[2020-06-19] MEDS: SERTRALINE HCL 50 MG TABLET (FP) PO SCH (09:19)
[2020-06-19] MEDS: TIOTROPIUM BROMIDE 2.5 MCG (SPIRIVA) RESPIMAT INHALER IH SCH (09:29)
== END 2020-06-19 13:26 | disposition home or self-care (01) | DRG 896 ==
LOC: FER 17:35 → FM/S 18:06
PROVIDERS: ADMIT Student in an Organized Health Care Education/Training Program; ATTEND Nurse Practitioner Acute Care
PROC: HZ2ZZZZ Detoxification Services for Substance Abuse Treatment (ICD-10-PCS; principal; 2020-06-13)
DX: F10.239 Alcohol dependence with withdrawal, unspecified (principal); J18.9 Pneumonia, unspecified organism; F14.10 Cocaine abuse, uncomplicated; F17.210 Nicotine dependence, cigarettes, uncomplicated; J44.9 Chronic obstructive pulmonary disease, unspecified; D64.9 Anemia, unspecified; E83.42 Hypomagnesemia; I10 Essential (primary) hypertension; R09.02 Hypoxemia; J45.909 Unspecified asthma, uncomplicated; Z88.0 Allergy status to penicillin; F19.10 Other psychoactive substance abuse, uncomplicated
CPT/HCPCS: 36415; 71045-TC-FY; 80053; 80307; 82550; 82607; 82728; 82746; 83550; 83615; 83735; 84100; 84484; 85025; 85027; 85379; 85384; 85610; 85730; 86140; 93005; 94640; 99285-25; C9803; J1644; U0003

== ENCOUNTER 2020-06-26 12:43 | Inpatient (IN) | payer OTHER ==
[2020-06-26 17:08] VITALS: BMI 23.4
[2020-06-26] MEDS ORDERED: MAGNESIUM HYDROX 2400MG/30ML ORAL SUSPENSION 30 ML CUP PO PRN (17:39)
[2020-06-26] MEDS ORDERED: NICOTINE POLACRILEX 2 MG GUM BC PRN (17:39)
[2020-06-26] MEDS ORDERED: MAG HYDROX/AL HYDROX/SIMETH 30 ML UNIT-DOSE CUP PO PRN (17:39)
[2020-06-26] MEDS ORDERED: LOPERAMIDE HCL 2 MG CAPSULE PO PRN (17:39)
[2020-06-26] MEDS ORDERED: P-EPHED 60MG/TRIPROLIDI 2.5MG TABLET PO PRN (17:39)
[2020-06-26] MEDS ORDERED: ACETAMINOPHEN 325 MG TABLET (FP) PO PRN (17:39)
[2020-06-26] MEDS ORDERED: IBUPROFEN 400 MG TABLET (FP) PO PRN (17:39)
[2020-06-26] MEDS: hydrOXYzine PAMOATE 50 MG CAPSULE (FP) PO PRN (21:19)
[2020-06-26] MEDS: THIAMINE HCL 100 MG TABLET (FP) PO SCH (21:19)
[2020-06-26] MEDS: MELATONIN 5 MG TABLETS PO SCH (21:19)
[2020-06-27] MEDS ORDERED: ALBUTEROL SO4 2.5/IPRATROPIUM 0.5 INH SOL 3 ML VIAL.NEB. NEB ONE (06:20)
[2020-06-27] MEDS: PRENATAL VITAMINS W/ FOLIC ACID TABLET (FP) PO SCH (09:48)
[2020-06-27] MEDS: TIOTROPIUM BROMIDE 2.5 MCG (SPIRIVA) RESPIMAT INHALER IH SCH (10:29)
[2020-06-27] MEDS: SERTRALINE HCL 50 MG TABLET (FP) PO SCH (10:32)
[2020-06-27] MEDS ORDERED: ALBUTEROL SO4 HFA INHALER IH PRN (10:38)
[2020-06-27 10:48] LABS: HEMATOCRIT 38.6 % (35.4-49); HEMOGLOBIN 12.3 GM/dL (11.7-16.9); MCH 23.8 pg (25.7-33.7); MCHC 31.9 g/dl (32.0-35.9); MEAN CELL VOLUME 74.5 fl (80-96); MEAN PLT VOLUME 7.2 fl (7.5-11.1); PLATELET COUNT 340 K/MM3 (134-434); RBC 5.18 M/mm3 (4.00-5.60); RDW 20.5 % (11.9-15.9); WHITE BLOOD COUNT 7.1 K/mm3 (4.0-10.0)
[2020-06-27 11:01] LABS: POTASSIUM 4.1 mmol/L (3.5-5.1)
[2020-06-27 11:06] LABS: CALCIUM 9.9 mg/dL (8.5-10.1)
[2020-06-27 11:07] LABS: BLOOD UREA NITROGEN 12.8 mg/dL (7-18)
[2020-06-27 11:10] LABS: CREATININE 0.9 mg/dL (0.55-1.3)
[2020-06-27 11:11] LABS: BILIRUBIN,TOTAL 0.8 mg/dL (0.2-1)
[2020-06-27 11:12] LABS: TOT PROT 7.7 g/dl (6.4-8.2)
[2020-06-27] MEDS: LITHIUM CARBONATE 150 MG CAPSULE PO SCH ×2 (11:46→21:35)
[2020-06-27] MEDS: QUEtiapine FUMARATE 400 MG TABLET PO SCH (21:33)
[2020-06-27] MEDS: THIAMINE HCL 100 MG TABLET (FP) PO SCH (21:33)
[2020-06-27] MEDS: MELATONIN 5 MG TABLETS PO SCH (21:33)
[2020-06-27] MEDS: guaiFENesin 200 MG/10 ML 10 ML UNIT-DOSE CUPS PO PRN (21:36)
[2020-06-27] MEDS: BUDESONIDE/FORMETEROL FUMARATE 80/4.5 mcg INHALER IH SCH (21:37)
[2020-06-28] MEDS: SERTRALINE HCL 50 MG TABLET (FP) PO SCH (09:54)
[2020-06-28] MEDS: BUDESONIDE/FORMETEROL FUMARATE 80/4.5 mcg INHALER IH SCH ×2 (09:54→21:09)
[2020-06-28] MEDS: TIOTROPIUM BROMIDE 2.5 MCG (SPIRIVA) RESPIMAT INHALER IH SCH (09:55)
[2020-06-28] MEDS: LITHIUM CARBONATE 150 MG CAPSULE PO SCH ×2 (09:56→21:09)
[2020-06-28] MEDS: PRENATAL VITAMINS W/ FOLIC ACID TABLET (FP) PO SCH (09:56)
[2020-06-28] MEDS: QUEtiapine FUMARATE 400 MG TABLET PO SCH (21:09)
[2020-06-28] MEDS: THIAMINE HCL 100 MG TABLET (FP) PO SCH (21:09)
[2020-06-28] MEDS: hydrOXYzine PAMOATE 50 MG CAPSULE (FP) PO PRN (21:09)
[2020-06-28] MEDS: MELATONIN 5 MG TABLETS PO SCH (21:09)
[2020-06-29] MEDS: TIOTROPIUM BROMIDE 2.5 MCG (SPIRIVA) RESPIMAT INHALER IH SCH (09:50)
[2020-06-29] MEDS: LITHIUM CARBONATE 150 MG CAPSULE PO SCH ×2 (09:50→21:40)
[2020-06-29] MEDS: PRENATAL VITAMINS W/ FOLIC ACID TABLET (FP) PO SCH (09:50)
[2020-06-29] MEDS: BUDESONIDE/FORMETEROL FUMARATE 80/4.5 mcg INHALER IH SCH ×2 (09:50→21:40)
[2020-06-29] MEDS: SERTRALINE HCL 50 MG TABLET (FP) PO SCH (09:50)
[2020-06-29] MEDS: MELATONIN 5 MG TABLETS PO SCH (21:40)
[2020-06-29] MEDS: THIAMINE HCL 100 MG TABLET (FP) PO SCH (21:40)
[2020-06-29] MEDS: QUEtiapine FUMARATE 400 MG TABLET PO SCH (21:40)
[2020-06-29] MEDS: hydrOXYzine PAMOATE 50 MG CAPSULE (FP) PO PRN (21:40)
[2020-06-30] MEDS: TIOTROPIUM BROMIDE 2.5 MCG (SPIRIVA) RESPIMAT INHALER IH SCH (10:18)
[2020-06-30] MEDS: BUDESONIDE/FORMETEROL FUMARATE 80/4.5 mcg INHALER IH SCH ×2 (10:18→21:30)
[2020-06-30] MEDS: LITHIUM CARBONATE 150 MG CAPSULE PO SCH ×2 (10:19→21:29)
[2020-06-30] MEDS: PRENATAL VITAMINS W/ FOLIC ACID TABLET (FP) PO SCH (10:19)
[2020-06-30] MEDS: SERTRALINE HCL 50 MG TABLET (FP) PO SCH (10:19)
[2020-06-30] MEDS ORDERED: MASKS NR ONE (13:28)
[2020-06-30] MEDS: QUEtiapine FUMARATE 400 MG TABLET PO SCH (21:29)
[2020-06-30] MEDS: THIAMINE HCL 100 MG TABLET (FP) PO SCH (21:29)
[2020-06-30] MEDS: hydrOXYzine PAMOATE 50 MG CAPSULE (FP) PO PRN (21:29)
[2020-06-30] MEDS: MELATONIN 5 MG TABLETS PO SCH (21:29)
[2020-07-01] MEDS: SERTRALINE HCL 50 MG TABLET (FP) PO SCH (09:43)
[2020-07-01] MEDS: PRENATAL VITAMINS W/ FOLIC ACID TABLET (FP) PO SCH (09:43)
[2020-07-01] MEDS: BUDESONIDE/FORMETEROL FUMARATE 80/4.5 mcg INHALER IH SCH ×2 (09:43→21:48)
[2020-07-01] MEDS: LITHIUM CARBONATE 150 MG CAPSULE PO SCH ×2 (09:45→21:49)
[2020-07-01] MEDS: TIOTROPIUM BROMIDE 2.5 MCG (SPIRIVA) RESPIMAT INHALER IH SCH (09:46)
[2020-07-01] MEDS: MELATONIN 5 MG TABLETS PO SCH (21:48)
[2020-07-01] MEDS: THIAMINE HCL 100 MG TABLET (FP) PO SCH (21:48)
[2020-07-01] MEDS: QUEtiapine FUMARATE 400 MG TABLET PO SCH (21:48)
[2020-07-02] MEDS: PRENATAL VITAMINS W/ FOLIC ACID TABLET (FP) PO SCH (09:44)
[2020-07-02] MEDS: SERTRALINE HCL 50 MG TABLET (FP) PO SCH (09:44)
[2020-07-02] MEDS: BUDESONIDE/FORMETEROL FUMARATE 80/4.5 mcg INHALER IH SCH ×2 (09:45→21:46)
[2020-07-02] MEDS: TIOTROPIUM BROMIDE 2.5 MCG (SPIRIVA) RESPIMAT INHALER IH SCH (09:45)
[2020-07-02] MEDS: LITHIUM CARBONATE 150 MG CAPSULE PO SCH ×2 (09:45→21:45)
[2020-07-02] MEDS: QUEtiapine FUMARATE 400 MG TABLET PO SCH (21:45)
[2020-07-02] MEDS: MELATONIN 5 MG TABLETS PO SCH (21:46)
[2020-07-02] MEDS: THIAMINE HCL 100 MG TABLET (FP) PO SCH (21:46)
[2020-07-03] MEDS: BUDESONIDE/FORMETEROL FUMARATE 80/4.5 mcg INHALER IH SCH ×2 (09:55→21:19)
[2020-07-03] MEDS: TIOTROPIUM BROMIDE 2.5 MCG (SPIRIVA) RESPIMAT INHALER IH SCH (09:55)
[2020-07-03] MEDS: PRENATAL VITAMINS W/ FOLIC ACID TABLET (FP) PO SCH (09:55)
[2020-07-03] MEDS: SERTRALINE HCL 50 MG TABLET (FP) PO SCH (09:55)
[2020-07-03] MEDS: LITHIUM CARBONATE 150 MG CAPSULE PO SCH ×2 (09:55→21:19)
[2020-07-03] MEDS: QUEtiapine FUMARATE 400 MG TABLET PO SCH (21:19)
[2020-07-03] MEDS: THIAMINE HCL 100 MG TABLET (FP) PO SCH (21:20)
[2020-07-03] MEDS: hydrOXYzine PAMOATE 50 MG CAPSULE (FP) PO PRN (21:20)
[2020-07-03] MEDS: MELATONIN 5 MG TABLETS PO SCH (21:20)
[2020-07-04] MEDS: TIOTROPIUM BROMIDE 2.5 MCG (SPIRIVA) RESPIMAT INHALER IH SCH (10:08)
[2020-07-04] MEDS: BUDESONIDE/FORMETEROL FUMARATE 80/4.5 mcg INHALER IH SCH ×2 (10:08→21:34)
[2020-07-04] MEDS: LITHIUM CARBONATE 150 MG CAPSULE PO SCH ×2 (10:09→21:34)
[2020-07-04] MEDS: PRENATAL VITAMINS W/ FOLIC ACID TABLET (FP) PO SCH (10:09)
[2020-07-04] MEDS: SERTRALINE HCL 50 MG TABLET (FP) PO SCH (10:09)
[2020-07-04] MEDS: THIAMINE HCL 100 MG TABLET (FP) PO SCH (21:34)
[2020-07-04] MEDS: MELATONIN 5 MG TABLETS PO SCH (21:34)
[2020-07-04] MEDS: hydrOXYzine PAMOATE 50 MG CAPSULE (FP) PO PRN (21:34)
[2020-07-04] MEDS: QUEtiapine FUMARATE 400 MG TABLET PO SCH (21:34)
[2020-07-05] MEDS: TIOTROPIUM BROMIDE 2.5 MCG (SPIRIVA) RESPIMAT INHALER IH SCH (10:26)
[2020-07-05] MEDS: BUDESONIDE/FORMETEROL FUMARATE 80/4.5 mcg INHALER IH SCH ×2 (10:26→21:20)
[2020-07-05] MEDS: PRENATAL VITAMINS W/ FOLIC ACID TABLET (FP) PO SCH (10:26)
[2020-07-05] MEDS: SERTRALINE HCL 50 MG TABLET (FP) PO SCH (10:27)
[2020-07-05] MEDS: LITHIUM CARBONATE 150 MG CAPSULE PO SCH ×2 (10:28→21:19)
[2020-07-05] MEDS: MAGNESIUM CITRATE 300 ML BOTTLE PO PRN (10:29)
[2020-07-05] MEDS: THIAMINE HCL 100 MG TABLET (FP) PO SCH (21:19)
[2020-07-05] MEDS: MELATONIN 5 MG TABLETS PO SCH (21:19)
[2020-07-05] MEDS: QUEtiapine FUMARATE 400 MG TABLET PO SCH (21:19)
[2020-07-06] MEDS: BUDESONIDE/FORMETEROL FUMARATE 80/4.5 mcg INHALER IH SCH ×2 (10:13→21:04)
[2020-07-06] MEDS: TIOTROPIUM BROMIDE 2.5 MCG (SPIRIVA) RESPIMAT INHALER IH SCH (10:14)
[2020-07-06] MEDS: LITHIUM CARBONATE 150 MG CAPSULE PO SCH ×2 (10:14→21:04)
[2020-07-06] MEDS: PRENATAL VITAMINS W/ FOLIC ACID TABLET (FP) PO SCH (10:14)
[2020-07-06] MEDS: SERTRALINE HCL 50 MG TABLET (FP) PO SCH (10:15)
[2020-07-06] MEDS: QUEtiapine FUMARATE 400 MG TABLET PO SCH (21:04)
[2020-07-06] MEDS: THIAMINE HCL 100 MG TABLET (FP) PO SCH (21:05)
[2020-07-06] MEDS: MELATONIN 5 MG TABLETS PO SCH (21:05)
[2020-07-07] MEDS: LITHIUM CARBONATE 150 MG CAPSULE PO SCH ×2 (10:09→21:23)
[2020-07-07] MEDS: PRENATAL VITAMINS W/ FOLIC ACID TABLET (FP) PO SCH (10:09)
[2020-07-07] MEDS: TIOTROPIUM BROMIDE 2.5 MCG (SPIRIVA) RESPIMAT INHALER IH SCH (10:09)
[2020-07-07] MEDS: BUDESONIDE/FORMETEROL FUMARATE 80/4.5 mcg INHALER IH SCH ×2 (10:09→21:22)
[2020-07-07] MEDS: SERTRALINE HCL 50 MG TABLET (FP) PO SCH (10:10)
[2020-07-07] MEDS: MELATONIN 5 MG TABLETS PO SCH (21:22)
[2020-07-07] MEDS: THIAMINE HCL 100 MG TABLET (FP) PO SCH (21:22)
[2020-07-07] MEDS: QUEtiapine FUMARATE 400 MG TABLET PO SCH (21:23)
[2020-07-08] MEDS: LITHIUM CARBONATE 150 MG CAPSULE PO SCH ×2 (10:02→21:34)
[2020-07-08] MEDS: SERTRALINE HCL 50 MG TABLET (FP) PO SCH (10:02)
[2020-07-08] MEDS: PRENATAL VITAMINS W/ FOLIC ACID TABLET (FP) PO SCH (10:02)
[2020-07-08] MEDS: BUDESONIDE/FORMETEROL FUMARATE 80/4.5 mcg INHALER IH SCH ×2 (10:02→21:33)
[2020-07-08] MEDS: TIOTROPIUM BROMIDE 2.5 MCG (SPIRIVA) RESPIMAT INHALER IH SCH (10:03)
[2020-07-08] MEDS: guaiFENesin 200 MG/10 ML 10 ML UNIT-DOSE CUPS PO PRN (17:49)
[2020-07-08] MEDS: hydrOXYzine PAMOATE 50 MG CAPSULE (FP) PO PRN (21:34)
[2020-07-08] MEDS: THIAMINE HCL 100 MG TABLET (FP) PO SCH (21:34)
[2020-07-08] MEDS: QUEtiapine FUMARATE 400 MG TABLET PO SCH (21:34)
[2020-07-08] MEDS: MELATONIN 5 MG TABLETS PO SCH (21:34)
[2020-07-09] MEDS: TIOTROPIUM BROMIDE 2.5 MCG (SPIRIVA) RESPIMAT INHALER IH SCH (09:46)
[2020-07-09] MEDS: PRENATAL VITAMINS W/ FOLIC ACID TABLET (FP) PO SCH (09:46)
[2020-07-09] MEDS: SERTRALINE HCL 50 MG TABLET (FP) PO SCH (09:46)
[2020-07-09] MEDS: LITHIUM CARBONATE 150 MG CAPSULE PO SCH ×2 (09:47→21:18)
[2020-07-09] MEDS: BUDESONIDE/FORMETEROL FUMARATE 80/4.5 mcg INHALER IH SCH ×2 (09:47→21:18)
[2020-07-09] MEDS: hydrOXYzine PAMOATE 50 MG CAPSULE (FP) PO PRN (21:18)
[2020-07-09] MEDS: QUEtiapine FUMARATE 400 MG TABLET PO SCH (21:18)
[2020-07-09] MEDS: THIAMINE HCL 100 MG TABLET (FP) PO SCH (21:18)
[2020-07-09] MEDS: MELATONIN 5 MG TABLETS PO SCH (21:18)
[2020-07-09] MEDS: guaiFENesin 200 MG/10 ML 10 ML UNIT-DOSE CUPS PO PRN (21:18)
[2020-07-10] MEDS: PRENATAL VITAMINS W/ FOLIC ACID TABLET (FP) PO SCH (09:58)
[2020-07-10] MEDS: LITHIUM CARBONATE 150 MG CAPSULE PO SCH ×2 (09:59→21:35)
[2020-07-10] MEDS: SERTRALINE HCL 50 MG TABLET (FP) PO SCH (09:59)
[2020-07-10] MEDS: TIOTROPIUM BROMIDE 2.5 MCG (SPIRIVA) RESPIMAT INHALER IH SCH (10:00)
[2020-07-10] MEDS: BUDESONIDE/FORMETEROL FUMARATE 80/4.5 mcg INHALER IH SCH ×2 (10:00→21:35)
[2020-07-10] MEDS: MELATONIN 5 MG TABLETS PO SCH (21:35)
[2020-07-10] MEDS: THIAMINE HCL 100 MG TABLET (FP) PO SCH (21:35)
[2020-07-10] MEDS: QUEtiapine FUMARATE 400 MG TABLET PO SCH (21:35)
[2020-07-10] MEDS: hydrOXYzine PAMOATE 50 MG CAPSULE (FP) PO PRN (21:35)
[2020-07-10] MEDS: MENTHOL/PHENOL 1 EACH UD MM PRN (21:54)
[2020-07-11] MEDS: SERTRALINE HCL 50 MG TABLET (FP) PO SCH (09:56)
[2020-07-11] MEDS: TIOTROPIUM BROMIDE 2.5 MCG (SPIRIVA) RESPIMAT INHALER IH SCH (09:56)
[2020-07-11] MEDS: LITHIUM CARBONATE 150 MG CAPSULE PO SCH ×2 (09:56→21:44)
[2020-07-11] MEDS: BUDESONIDE/FORMETEROL FUMARATE 80/4.5 mcg INHALER IH SCH ×2 (09:56→21:43)
[2020-07-11] MEDS: PRENATAL VITAMINS W/ FOLIC ACID TABLET (FP) PO SCH (09:56)
[2020-07-11] MEDS: QUEtiapine FUMARATE 400 MG TABLET PO SCH (21:43)
[2020-07-11] MEDS: THIAMINE HCL 100 MG TABLET (FP) PO SCH (21:43)
[2020-07-11] MEDS: MELATONIN 5 MG TABLETS PO SCH (21:43)
[2020-07-11] MEDS: MENTHOL/PHENOL 1 EACH UD MM PRN (21:45)
[2020-07-12] MEDS: TIOTROPIUM BROMIDE 2.5 MCG (SPIRIVA) RESPIMAT INHALER IH SCH (10:04)
[2020-07-12] MEDS: BUDESONIDE/FORMETEROL FUMARATE 80/4.5 mcg INHALER IH SCH ×2 (10:04→21:45)
[2020-07-12] MEDS: LITHIUM CARBONATE 150 MG CAPSULE PO SCH ×2 (10:04→21:47)
[2020-07-12] MEDS: PRENATAL VITAMINS W/ FOLIC ACID TABLET (FP) PO SCH (10:04)
[2020-07-12] MEDS: SERTRALINE HCL 50 MG TABLET (FP) PO SCH (10:04)
[2020-07-12] MEDS: MELATONIN 5 MG TABLETS PO SCH (21:47)
[2020-07-12] MEDS: hydrOXYzine PAMOATE 50 MG CAPSULE (FP) PO PRN (21:47)
[2020-07-12] MEDS: THIAMINE HCL 100 MG TABLET (FP) PO SCH (21:47)
[2020-07-12] MEDS: QUEtiapine FUMARATE 400 MG TABLET PO SCH (21:47)
[2020-07-12] MEDS: MAGNESIUM CITRATE 300 ML BOTTLE PO PRN (21:48)
[2020-07-13] MEDS: LITHIUM CARBONATE 150 MG CAPSULE PO SCH ×2 (10:07→21:20)
[2020-07-13] MEDS: PRENATAL VITAMINS W/ FOLIC ACID TABLET (FP) PO SCH (10:07)
[2020-07-13] MEDS: SERTRALINE HCL 50 MG TABLET (FP) PO SCH (10:07)
[2020-07-13] MEDS: BUDESONIDE/FORMETEROL FUMARATE 80/4.5 mcg INHALER IH SCH ×2 (10:08→21:20)
[2020-07-13] MEDS: TIOTROPIUM BROMIDE 2.5 MCG (SPIRIVA) RESPIMAT INHALER IH SCH (10:09)
[2020-07-13] MEDS: MELATONIN 5 MG TABLETS PO SCH (21:20)
[2020-07-13] MEDS: hydrOXYzine PAMOATE 50 MG CAPSULE (FP) PO PRN (21:20)
[2020-07-13] MEDS: QUEtiapine FUMARATE 400 MG TABLET PO SCH (21:20)
[2020-07-13] MEDS: THIAMINE HCL 100 MG TABLET (FP) PO SCH (21:20)
[2020-07-14] MEDS: hydrOXYzine PAMOATE 50 MG CAPSULE (FP) PO PRN ×2 (06:54→21:34)
[2020-07-14] MEDS: PRENATAL VITAMINS W/ FOLIC ACID TABLET (FP) PO SCH (10:12)
[2020-07-14] MEDS: LITHIUM CARBONATE 150 MG CAPSULE PO SCH ×2 (10:12→21:34)
[2020-07-14] MEDS: BUDESONIDE/FORMETEROL FUMARATE 80/4.5 mcg INHALER IH SCH ×2 (10:12→21:34)
[2020-07-14] MEDS: SERTRALINE HCL 50 MG TABLET (FP) PO SCH (10:12)
[2020-07-14] MEDS: TIOTROPIUM BROMIDE 2.5 MCG (SPIRIVA) RESPIMAT INHALER IH SCH (10:13)
[2020-07-14] MEDS: MELATONIN 5 MG TABLETS PO SCH (21:34)
[2020-07-14] MEDS: QUEtiapine FUMARATE 400 MG TABLET PO SCH (21:34)
[2020-07-14] MEDS: THIAMINE HCL 100 MG TABLET (FP) PO SCH (21:34)
[2020-07-15] MEDS: BUDESONIDE/FORMETEROL FUMARATE 80/4.5 mcg INHALER IH SCH ×2 (09:59→21:44)
[2020-07-15] MEDS: PRENATAL VITAMINS W/ FOLIC ACID TABLET (FP) PO SCH (09:59)
[2020-07-15] MEDS: SERTRALINE HCL 50 MG TABLET (FP) PO SCH (10:00)
[2020-07-15] MEDS: TIOTROPIUM BROMIDE 2.5 MCG (SPIRIVA) RESPIMAT INHALER IH SCH (10:00)
[2020-07-15] MEDS: LITHIUM CARBONATE 150 MG CAPSULE PO SCH ×2 (10:00→21:43)
[2020-07-15] MEDS: THIAMINE HCL 100 MG TABLET (FP) PO SCH (21:43)
[2020-07-15] MEDS: QUEtiapine FUMARATE 400 MG TABLET PO SCH (21:43)
[2020-07-15] MEDS: MELATONIN 5 MG TABLETS PO SCH (21:43)
[2020-07-16] MEDS: LITHIUM CARBONATE 150 MG CAPSULE PO SCH ×2 (10:07→22:25)
[2020-07-16] MEDS: PRENATAL VITAMINS W/ FOLIC ACID TABLET (FP) PO SCH (10:07)
[2020-07-16] MEDS: BUDESONIDE/FORMETEROL FUMARATE 80/4.5 mcg INHALER IH SCH ×2 (10:07→22:26)
[2020-07-16] MEDS: SERTRALINE HCL 50 MG TABLET (FP) PO SCH (10:07)
[2020-07-16] MEDS: TIOTROPIUM BROMIDE 2.5 MCG (SPIRIVA) RESPIMAT INHALER IH SCH (10:08)
[2020-07-16] MEDS: MELATONIN 5 MG TABLETS PO SCH (22:24)
[2020-07-16] MEDS: THIAMINE HCL 100 MG TABLET (FP) PO SCH (22:24)
[2020-07-16] MEDS: hydrOXYzine PAMOATE 50 MG CAPSULE (FP) PO PRN (22:25)
[2020-07-16] MEDS: QUEtiapine FUMARATE 400 MG TABLET PO SCH (22:25)
[2020-07-17 07:06] VITALS: TEMP 97.8
[2020-07-17] MEDS: SERTRALINE HCL 50 MG TABLET (FP) PO SCH (10:16)
[2020-07-17] MEDS: PRENATAL VITAMINS W/ FOLIC ACID TABLET (FP) PO SCH (10:17)
[2020-07-17] MEDS: TIOTROPIUM BROMIDE 2.5 MCG (SPIRIVA) RESPIMAT INHALER IH SCH (10:17)
[2020-07-17] MEDS: LITHIUM CARBONATE 150 MG CAPSULE PO SCH ×2 (10:17→21:47)
[2020-07-17] MEDS: BUDESONIDE/FORMETEROL FUMARATE 80/4.5 mcg INHALER IH SCH ×2 (10:17→21:47)
[2020-07-17] MEDS: MELATONIN 5 MG TABLETS PO SCH (21:47)
[2020-07-17] MEDS: QUEtiapine FUMARATE 400 MG TABLET PO SCH (21:47)
[2020-07-17] MEDS: THIAMINE HCL 100 MG TABLET (FP) PO SCH (21:47)
[2020-07-18] MEDS: BUDESONIDE/FORMETEROL FUMARATE 80/4.5 mcg INHALER IH SCH ×2 (10:05→21:27)
[2020-07-18] MEDS: TIOTROPIUM BROMIDE 2.5 MCG (SPIRIVA) RESPIMAT INHALER IH SCH (10:05)
[2020-07-18] MEDS: PRENATAL VITAMINS W/ FOLIC ACID TABLET (FP) PO SCH (10:06)
[2020-07-18] MEDS: LITHIUM CARBONATE 150 MG CAPSULE PO SCH ×2 (10:06→21:28)
[2020-07-18] MEDS: SERTRALINE HCL 50 MG TABLET (FP) PO SCH (10:06)
[2020-07-18] MEDS: THIAMINE HCL 100 MG TABLET (FP) PO SCH (21:28)
[2020-07-18] MEDS: MELATONIN 5 MG TABLETS PO SCH (21:28)
[2020-07-18] MEDS: hydrOXYzine PAMOATE 50 MG CAPSULE (FP) PO PRN (21:28)
[2020-07-18] MEDS: QUEtiapine FUMARATE 400 MG TABLET PO SCH (21:28)
[2020-07-19 07:05] VITALS: BP 102/74; PULSE 115
[2020-07-19] MEDS: LITHIUM CARBONATE 150 MG CAPSULE PO SCH (09:28)
[2020-07-19] MEDS: PRENATAL VITAMINS W/ FOLIC ACID TABLET (FP) PO SCH (09:28)
[2020-07-19] MEDS: TIOTROPIUM BROMIDE 2.5 MCG (SPIRIVA) RESPIMAT INHALER IH SCH (09:28)
[2020-07-19] MEDS: SERTRALINE HCL 50 MG TABLET (FP) PO SCH (09:30)
[2020-07-19] MEDS: BUDESONIDE/FORMETEROL FUMARATE 80/4.5 mcg INHALER IH SCH (09:31)
== END 2020-07-19 09:44 | disposition home or self-care (01) | DRG 895 ==
LOC: YASAS 12:43 → Y5N 17:27
PROVIDERS: ADMIT Allergy & Immunology; ATTEND Allergy & Immunology
PROC: HZ42ZZZ Group Counseling for Substance Abuse Treatment, Cognitive-Behavioral (ICD-10-PCS; principal; 2020-06-26)
DX: F19.20 Other psychoactive substance dependence, uncomplicated (principal); F10.280 Alcohol dependence with alcohol-induced anxiety disorder; F10.20 Alcohol dependence, uncomplicated; F31.9 Bipolar disorder, unspecified; F10.282 Alcohol dependence with alcohol-induced sleep disorder; D64.9 Anemia, unspecified; H54.61 Unqualified visual loss, right eye, normal vision left eye; I10 Essential (primary) hypertension; J45.909 Unspecified asthma, uncomplicated; J43.9 Emphysema, unspecified; N40.0 Benign prostatic hyperplasia without lower urinary tract symptoms; B18.2 Chronic viral hepatitis C; R56.9 Unspecified convulsions; K00.0 Anodontia; R05 Cough; R00.0 Tachycardia, unspecified; Z87.01 Personal history of pneumonia (recurrent); Z88.0 Allergy status to penicillin; Z91.011 Allergy to milk products
CPT/HCPCS: 36415; 80053; 80178; 85027; 86780; 93005; 93010; 94640; C9803; U0003